=== PATIENT | female | born 1950 | race Caucasian/White ===

== ENCOUNTER 2018-12-21 12:26 | Outpatient (CLI) | payer MEDICARE, BC, SELFPAY ==
--- NOTE | 2018-12-21 15:32 | DI.MAMMO_ITS ---
SYMPTOM/DIAGNOSIS: SCREENING MAMMO FOR MALIGNANT NEOPLASM, BREAST. Z12.31 BILATERAL SCREENING MAMMOGRAM: Mammograms were interpreted according to the usual protocol including computer analysis with CAD system, tomosynthesis and C view imaging. Comparison is made with exams from 2015 through 2018. The breasts are composed of heterogeneously dense fibroglandular tissue, breast density category C. No suspicious masses or suspicious microcalcifications are seen. There has been no significant change. IMPRESSION: Category 1, negative mammogram. Yearly screening mammography is recommended. Breast density category C. MQSA ASSESSMENT OF FINDINGS: Negative. Category 1. Patient will receive a letter notifying them of these results. Bi-RADS category C. The breasts are heterogeneously dense, which may obscure small masses.
== END 2018-12-21 12:46 ==
PROVIDERS: PCP Family Medicine; Visit Provider Family Medicine
DX: Z12.31 Encounter for screening mammogram for malignant neoplasm of breast (principal)
CPT/HCPCS: 77063; 77067

== ENCOUNTER 2019-12-24 03:54 | Outpatient (CLI) | payer MEDICARE, BC, SELFPAY ==
--- NOTE | 2019-12-24 | DI.MAMMO_ITS ---
EXAM: MG MAMMO SCREENING CLINICAL HISTORY: SCREENING, Z12.31 TECHNIQUE: Mammograms were interpreted according to the usual protocol including computer analysis w [email or web address] CAD system, tomosynthesis and C-view imaging. COMPARISON: FINDINGS: The breasts are heterogeneously dense. No dominant mass or clumped microcalcification is identified in either breast. The current examination is compared with prior studies including November 2018 and the re has been no gross interval change in appearance in comparison with the previous examinations. IMPRESSION: No specific evidence of malignancy at this time. Routine screening examinations are suggested at yea rly intervals due to the family history of breast carcinoma. BI-RADS Category 1 - Negative Breast Density - Category C - Heterogeneously dense
== END 2019-12-24 04:14 ==
PROVIDERS: PCP Family Medicine; Visit Provider Nurse Practitioner Women's Health
DX: Z12.31 Encounter for screening mammogram for malignant neoplasm of breast (principal); Z80.3 Family history of malignant neoplasm of breast
CPT/HCPCS: 77063; 77067

== ENCOUNTER 2021-02-16 03:43 | Outpatient (CLI) | payer MEDICARE, SELFPAY ==
--- NOTE | 2021-02-16 | DI.MAMMO_ITS ---
Exam(s) MAMMO SCREENING EXAM: MAMMO SCREENING CLINICAL HISTORY: SCREENING,FAMILY H/O BREAST CA,DENSE BREAST TISSUE,Z12.31 TECHNIQUE: Bilateral full field digital CC and MLO mammographic images were obtained with 3D tomosyn thesis and utilizing computer aided detection (CAD). COMPARISON: Available for comparison. FINDINGS: Masses/Architectural Distortion: None seen. Microcalcifications: No suspicious pleomorphic-type are seen. Skin Thickening/Nipple Retraction: None. IMPRESSION: 1. No significant interval change with no specific features of malignancy noted. 2. Unless there is more urgent need, screening mammography is recommended, as per [place] [employer] guidelines. BI-RADS Category 1 - Negative Breast Density - Category C - Heterogeneously dense Breast density category C or D implies that the patient has dense breast tissue. Dense breast tissue is very common and is not abnormal but dense breast tissue can make it harder to find cancer on a ma mmogram. Also, dense breast tissue may increase their breast cancer risk. This information about the result of the mammogram report was provided to the patient to raise their awareness. Use this report when you speak with the patient about their risks for breast cancer, which includes their family hist ory. At that time, you may recommend for more screening tests (Ultrasound or MRI) as they might be us eful based on their risk. A negative radiographic report should not delay biopsy if a dominant or clinically suspicious mass is present. Up to ten percent of cancers are not identified on mammography. A negative report may reinforce clinical impression. Adenosis and dense breasts may obscure an underlying neoplasm. False positive reports average 6 to 10%. Patient will receive a letter notifying them of these results.
== END 2021-02-16 04:03 ==
PROVIDERS: PCP Physician Assistant; Visit Provider Nurse Practitioner Women's Health
DX: Z12.31 Encounter for screening mammogram for malignant neoplasm of breast (principal); Z80.3 Family history of malignant neoplasm of breast
CPT/HCPCS: 77063; 77067

== ENCOUNTER 2021-03-08 20:52 | Emergency (ER) | payer MEDICARE, SELFPAY ==
[2021-03-08 21:06] VITALS: BP 175/90; PULSE 70; RESP 18; TEMP 36.6; O2SAT 100
--- NOTE | 2021-03-08 21:31 | ED.GENADUL_ITS ---
Discharge Plan Disposition Patient Disposition: HOME Condition: Stable Discharge Details Clinical Impression: Insect bite Primary Care Provider: Marla Bejarano ED Provider: Franca Amanda Home Meds and New Rx's Prescriptions: No Action tretinoin [Retin-A] 45 GM cream 45 gm Topical DAILY RF: 0 Antacid Extra-Strength 1 EACH tablet 1 ea PO DAILY RF: 0 cranberry extract 500 MG capsule 500 mg PO DAILY Qty: 2 RF: 0 ESSENTIAL Daily 1 EACH tablet 1 ea PO DAILY RF: 0 Lactobacillus acidophilus 1 EACH capsule 1 ea PO DAILY RF: 0 Bety-C with Bioflavonoids 1 EACH tablet 1 ea PO DAILY Qty: 2 RF: 0 estradiol [Vagifem] 10 MCG tablet 25 mcg VG . 2-3 TIMES WEEKLY RF: 0 omega 3-wsf-yqe-fish oil 1 EACH capsule 2 tab PO DAILY RF: 0 Discharge Instructions Instructions: Insect Bite or Sting (ED) Additional Instructions: Take Benadryl tablet every 6-8 hours as needed for itching. Use antibiotic ointment as directed. Keep it covered. Fever vomiting body aches or nausea. Follow up with primary care provider in 3-5 days. Return to ED sooner if any worsening or concerns. Increase oral fluids. Please take Tylenol or Ibuprofen with food every 4-6 hours as needed for pain and swelling. Referrals: Marla Bejarano [Primary Care Provider] - Discharge Data Discharge Date/Time-TO BE ENTERED AT DEPARTURE: 03/08/21 22:01 Medical Decision Making <Franca Amanda - Last Filed: 03/08/21 22:18> 70-year-old female presents to the ER with chief complaint of right upper fore arm insect bite which occurred approximately 30 hours ago. Patient states that she was outside and noticed a bug bite. The area became itchy and patient scratched and noticed a small ulceration. She notes increased erythema swelling and warmth with some axillary tenderness since then. She denies any fever body nausea or any other associated symptoms. She denies that it could be a tick bite. No axillary lymphadenopathy palpated on exam. Patient instructed to use antibiotic ointment and take Benadryl once every 6-8 hours as needed for itching. Erythema was marked. Discussed strict return instructions and red flags including worsening erythema, body aches, fever, changing color of wound and reasons to follow-up. Patient verbalized understanding. Patient is requesting a second opinion and wishes to speak with Dr. Holm who is an ER attending. Dr. Steele graciously agreed to evaluate patient. Patient discharged with home care instructions verbalized understanding. This text was generated using [employer] dictation system, please disregard any oddities of phrase or misspellings. <Minh Steele DO - Last Filed: 03/08/21 21:59> I was asked to see the patient by Asuncion Padilla at the patient's request for evaluation by a physician medical provider. Assessment of the patient's arm demonstrates evidence of very mild histamine reaction likely secondary to a small arthropod bite. Potentially an arachnid bite. Symptoms notably inconsistent with a brown recluse bite. No evidence of cellulitis, but there is a small histaminic reaction. The area was circled. At this time recommendations are for triple antibiotic ointment, Benadryl, covering, and not scratching at all. Patient made it very clear that she did not want any oral antibiotics at this time, out of concern for potential C. difficile. Discussed red flags which to return. HPI <Franca Amanda - Last Filed: 03/08/21 22:18> General Mode of arrival: ambulatory . Date/Time Provider Initiated Documentation: 03/08/21 20:53 . Limitations to Documentation: no limitations . Information obtained by: patient and RN notes reviewed . HPI Narrative: 70-year-old female presents to the ER with chief complaint of right upper forearm insect bite which occurred approximately 30 hours ago. Patient states that she was outside and noticed a bug bite. The area became itchy and patient scratched and noticed a small ulceration. She notes increased erythema swelling and warmth with some axillary tenderness since then. She denies any fever body nausea or any other associated symptoms. She denies that it could be a tick bite. No axillary lymphadenopathy palpated on exam. Related Data Home Medications Medication Instructions Recorded Confirmed estradiol [Vagifem] 25 mcg VG . 2-3 TIMES WEEKLY 12/21/12 03/08/21 Lactobacillus acidophilus 1 ea PO DAILY NS 02/05/13 03/08/21 ascorbate calcium-bioflavonoid 1 ea PO DAILY #2 NS 02/05/13 03/08/21 [Bety-C 1,000 Mg Tablet] calcium and magnesium carbonat 1 ea PO DAILY NS 02/05/13 03/08/21 [Antacid Gelatin Caplet] cranberry extract 500 mg PO DAILY #2 NS 02/05/13 03/08/21 kwcklqbalthh-Xq-kwyj-minerals 1 ea PO DAILY NS 02/05/13 03/08/21 [Essential Daily] tretinoin [Retin-A 0.025% Cream] 45 gm TOPICAL DAILY script NS 02/05/13 03/08/21 omega 2-sjh-mgv-fish oil 2 tab PO DAILY 11/30/14 03/08/21 Allergies Allergy/AdvReac Type Severity Reaction Status Date / Time codeine Allergy Severe Anaphylaxsi Unverified 03/08/21 21:09 s oxycodone HCl [From Percocet] Allergy Severe Anaphylaxsi Unverified 03/08/21 21:09 s erythromycin base Allergy Intermediate Skin Rash Unverified 03/08/21 21:09 Penicillins Allergy Intermediate Skin Rash Unverified 03/08/21 21:09 propoxyphene HCl Allergy Intermediate resp Unverified 03/08/21 21:09 [From Darvon] depression morphine Allergy resp Unverified 03/08/21 21:09 depression aspirin AdvReac Severe stomach Unverified 03/08/21 21:09 upset ibuprofen [From Motrin] AdvReac Mild stomach Unverified 03/08/21 21:09 upset General Stated Complaint: RashLesion HANSA: 4 Review of Systems <Franca Amanda - Last Filed: 03/08/21 22:18> All systems reviewed & are unremarkable except as noted in HPI and below Integumentary/Breasts Skin/Breast: Reports pruritus and Reports rash (Right upper forearm) PFS <Francakyle Amanda - Last Filed: 03/08/21 22:18> Social History Smoking/Tobacco Use Status: Former Tobacco Use Smoking risk assessment performed?: Yes Alcohol Intake: never Drug use: Occasionally Substance use type: marijuana Do you feel safe at home: Yes Do you feel safe in your relationship?: Yes Exam <Franca Amanda - Last Filed: 03/08/21 22:18> Extrem Shoulder/upper arm images: 1. Area of erythema measuring approximately 7 cm x 3 cm central area of excoriation with surrounding honey colored crusting with small drainage. 2. Small area of excoriation. Course <Franca Amanda - Last Filed: 03/08/21 22:18> Vital Signs Vital signs: Vital Signs Temperature 36.6 C 03/08/21 21:06 Pulse 70 03/08/21 21:06 Respiratory Rate 18 03/08/21 21:06 Blood Pressure 175/90 H 03/08/21 21:06 Pulse Oximetry 100 03/08/21 21:06 Temperature 36.6 C 03/08/21 21:06 Temperature Source Temporal Artery Scan 03/08/21 21:06 Pulse 70 03/08/21 21:06 Respiratory Rate 18 03/08/21 21:06 Respiratory Effort 03/08/21 21:11 Blood Pressure 175/90 H 03/08/21 21:06 Blood Pressure Position Sitting 03/08/21 21:06 Pulse Oximetry 100 03/08/21 21:06 Oxygen Delivery Method Room Air 03/08/21 21:06 Oxygen Flow Rate 0 03/08/21 21:06 Pain Level 2 03/08/21 21:06
[2021-03-08] MEDS: diphenhydrAMINE 25 MG CAP PO (21:54)
== END 2021-03-08 22:01 | disposition home or self-care (01) ==
PROVIDERS: Emergency Provider Registered Nurse Emergency; PCP Physician Assistant
DX: S40.861A Insect bite (nonvenomous) of right upper arm, initial encounter (principal); W57.XXXA Bitten or stung by nonvenomous insect and other nonvenomous arthropods, initial encounter
CPT/HCPCS: 99282

== ENCOUNTER 2021-12-03 11:08 | Outpatient (CLI) | payer MEDICARE, SELFPAY ==
--- NOTE | 2021-12-03 10:50 | DI.RAD_ITS ---
Exam(s) XR HIP RT COMPLETE AP PELVIS EXAM: XR HIP RT COMPLETE AP PELVIS INDICATION: R hip pain. COMPARISON: MR MRI - PELVIS WO CONTRAST from 03/10/2015 TECHNIQUE: 2D digital imaging was performed. Two views. FINDINGS: There is mild bilateral hip joint space narrowing and mild bilateral acetabular spurring. There are mild degenerative changes at the inferior SI joints right greater left. IMPRESSION: Mild degenerative changes. DATA REPOSITORY: RADIATION DOSE DELIVERED:
== END 2021-12-03 11:09 | disposition home or self-care (01) ==
LOC: DIORS 11:08
PROVIDERS: PCP Physician Assistant; Referring Provider Physician Assistant; Visit Provider Physician Assistant
DX: M16.11 Unilateral primary osteoarthritis, right hip
CPT/HCPCS: 99214; 73502

== ENCOUNTER → 2021-12-13 03:15 | Outpatient (CLI) | payer MEDICARE, SELFPAY ==
--- NOTE | 2021-12-13 13:39 | DI.RAD_ITS ---
Exam(s) RF JOINT INJECTION FLUORO GUID EXAM: RF JOINT INJECTION FLUORO GUID CLINICAL HISTORY: R HIP PAIN, RT HIP INJ UNDER FLUORO,M25.551 TECHNIQUE: Fluoroscopy provided. Radiologist not present. CONTRAST MATERIAL: None COMPARISON: No exams were available for comparison FINDINGS: Fluoroscopy was provided for therapeutic right hip injection. Submitted image(s) reveal intra-articular needle placement at the lateral aspect femoral head. Small amount of intra-articular contrast was injected for position verification. Please refer to the procedure report for complete details. Cumulative Dose: daniel Bailon=0.240 mGy IMPRESSION: RADIATION DOSE DELIVERED:
[2021-12-13] MEDS: Omnipaque 300 MG/ML 10 ML BTL IJ (14:22)
[2021-12-13] MEDS: Bupivacaine 0.5% Pres-Free 10 ML VIAL 6 ML IJ (14:23)
--- NOTE | 2021-12-13 14:25 | W.PROCNOTE ---
Date of service: 12/13/21 Time of Service: 13:40 Procedure Note Date of procedure: 12/13/21 Procedure: Right Hip Injection with Fluoroscopic Guidance Surgeon/Proceduralist/Physician: Gabriel Glover Procedure Diagnosis: Right Hip Osteoarthritis Procedure Indications: Olivia has had persistent pain of the RIGHT hip and groin. Noninvasive measures have been tried. To serve as diagnostic, an injection under fluoroscopy was recommended. I had discussed the risks of the procedure and the patient elected to proceed. Procedure Description: Olivia was greeted in the flouroscopy room. The correct side was identified and the consent was reviewed with the patient and signed. The patient was then placed in the supine position on the fluoroscopy table. The RIGHT hip was then prepped with Chloraprep. The anterolateral injection starting point was identiifed by bony landmarks and fluoroscopy. The skin and soft tissue in the tract of the injection was anesthetized with 1% Lidocaine. A spinal needle was then inserted deep into the hip joint at the level of the lateral femoral neck under fluoroscopic guidance. A small amount of Omnipaque solution was injected to confirm intraarticular placement. Once confirmed, the hip was injected with 6cc of 0.5% Bupivicaine and 2cc of 1% Lidocaine. A bandaid was placed on the injection site. The patient tolerated the procedure well and noted improvement in pre-injection pain.
== END ==
PROVIDERS: PCP Physician Assistant; Visit Provider Student in an Organized Health Care Education/Training Program
DX: M25.551 Pain in right hip (principal)
CPT/HCPCS: 20610; 77002

== ENCOUNTER 2021-12-21 11:56 | Outpatient (CLI) | payer MEDICARE, SELFPAY ==
--- NOTE | 2021-12-21 11:00 | DI.RAD_ITS ---
Exam(s) XR PELVIS AP EXAM: XR PELVIS AP CLINICAL HISTORY: PRE OP R STEVEN. TECHNIQUE: 2D digital imaging was performed. One image was obtained. COMPARISON: CR XR HIP RT COMPLETE AP PELVIS from 12/03/2021 FINDINGS: BONES: No acute fracture is present. No bony destructive lesion is seen. JOINTS: No dislocation present. There are stable degenerative changes of the hips bilaterally. SOFT TISSUE: Normal. IMPRESSION: Stable degenerative changes of the hips. DATA REPOSITORY: RADIATION DOSE DELIVERED:
== END 2021-12-21 11:57 | disposition home or self-care (01) ==
LOC: DIORS 11:56
PROVIDERS: PCP Physician Assistant; Referring Provider Physician Assistant; Visit Provider Physician Assistant
DX: M16.11 Unilateral primary osteoarthritis, right hip (principal); Z01.818 Encounter for other preprocedural examination
CPT/HCPCS: 72170

== ENCOUNTER 2021-12-28 02:24 | Outpatient (CLI) | payer MEDICARE, SELFPAY | END 2021-12-28 02:25 | disposition home or self-care (01) | LOC: LBO 02:25 | PROVIDERS: PCP Physician Assistant; Visit Provider Student in an Organized Health Care Education/Training Program ==

== ENCOUNTER 2021-12-28 03:11 | Outpatient (CLI) | payer MEDICARE, SELFPAY ==
--- OUTSIDE RECORDS SUMMARY | 2021-12-28 03:16 | XMS_ITS | Encounter Summary ---
:1950 Author Organization [facility] [place] [address] Care Team Providers Name Role Phone Marla Moralez MD Primary Care Provider Reason for Visit Reason Onset Date Comments Advice Only 10/12/2013 Encounter Details Date Type Department Care Team Description 10/12/2013 Telephone [place] [facility] [place] Valentina Woodward PA Advice Only [facility] [place] [address] [place] [id number] ORTHOPAEDIC SURGERY [phone] [place] [id number] (Wo rk) Social History Tobacco Use Types Packs/Day Years Used Date Former Smoker Cigarettes 0.25 20 Quit: 05/03/19 88 Smokeless Tobacco: Never Used Alcohol Use Standard Drinks/Week Comments Yes 0 (1 standard drink = 0.6 oz pure alcoho l) A FEW DRINKS A YEAR. Alcohol Habits Answer Date Recorded How often do you have a drink containing alcohol? Not asked How many drinks containing alcohol do you have on Not asked a typical day when you are drinking? How often do you have six or more drinks on one Not asked occasion? Comment: A FEW DRINKS A YEAR. 09/22/2013 Sex Assigned at Date Recorded Not on file documented as of this encounter Miscellaneous Notes Telephone Encounter - Ric Castro RN - 10/12/2013 2:28 PM EDT She may shower now, immersion bath after 24 hours. Telephone Encounter - Tamiko Coleman - 10/12/2013 10:05 AM EDT Patient had an injection yesterday with Valentina. Patient would like to know if/when she may take an immersion bath or shower. Please call her back at [phone]. documented in this encounter Plan of Treatment Not on filedocumented as of this encounter Visit Diagnoses Not on filedocumented in this encounter Care Teams Cook Chief Relationship Specialty Start Date End Date Christian-Marla Nazario MD PCP - General 12/31/11 [address] [place] [phone] documented as of this encounter
--- OUTSIDE RECORDS SUMMARY | 2021-12-28 03:16 | XMS_ITS | Encounter Summary ---
:1950 Author Organization [facility] [address] Care Team Providers Name Role Phone Marla Moralez MD Primary Care Provider Reason for Visit Reason Comments Left Knee Pain Encounter Details Date Type Department Care Team Description 10/11/2013 Office Visit Orthopaedics at [facility] [place] Valentina Wood[place], DORA (degenerative joint dise ase) of knee (Primary Dx); [facility] Knee pain, [place] [address] CENTER [phone] ORTHOPAEDIC SURGERY [place] [id number] Social History Tobacco Use Types Packs/Day Years [...] on file documented as of this encounter Last Filed Vital Signs Vital Sign Reading Time Taken Comments Blood Pressure 127/74 10/11/2013 12:51 PM EDT Pulse 86 10/11/2013 12:51 PM EDT Temperature - - Respiratory Rate - - Oxygen Saturation - - Inhaled Oxygen Concentration - - Weight 68.9 kg (152 lb) 10/11/2013 12:51 PM EDT Height 152.4 cm (5') 10/11/2013 12:51 PM EDT Body Mass Index 29.69 10/11/2013 12:51 PM EDT documented in this encounter Progress Notes Valentina Woodward PA - 10/11/2013 1:30 PM EDT Date of Visit: 10/11/13 Staff: Dr. Larkin CC: Left knee pain HPI: This is a 63 y.o. Female who was last seen in clinic 09/22/13. She was diagnoses with DJD and treated with synvisc injcection. She had apporox 2 weeks of moderate relief. She then noted apporx 1 week ago as she got out of bed her knee was very swollen and she had increased pain. She had been back to her regular exercise regiment. Denies injury. Denies fever or chills. Has not returned to active dance. Exam: Alert and Oriented x 3. NAD. Left knee effusion. No ecchymosis Missing 5 degree of full extension. Flexion 110 with pain at end. Stable to varus and valgus stress XRAY: no new xray today. A/P: DJD left knee. Acute exacerbation of symptoms. At this time seems reasonable to use steriod injection and aspiration to treat the knee. She is unable to tolerate nsaids. Will follow up PRN. If no benefit from injection should call. PROCEDURE NOTE: left knee Injection A time-out was performed and the left knee was confirmed to be the site of injection. The patient was confirmed to have no allergies to betadine, local anesthetics, or corticosteroids. The patient wasreminded that blood glucose can be transiently elevated by the corticosteroid injection. The patientwas counseled about the potential risks of the procedure, including infection, bleeding and incomplete relief of symptoms. I also discussed with the patient that cortisone is not healthy for muscle tendons or cartilage and that there is an increased risk with repeated injections. The skin was prepped widely over the left knee with duraprep. Then, using sterile technique, a solution consisting of 5cc 1% lidocaine (50mg), 3cc 0.25% marcaine (7.5mg), and 4 cc Kenalog (40 mg) was injected into the left knee using a 20 gauge needle. This was completed after aspiration of 40cc of straw colored fluid. It was not sent for lab work. The needle was felt to slide into the joint and mixture flowed freely. The skin was cleaned with alcohol and a Band-Aid was applied. The patient tolerated the procedure well. documented in this encounter Plan of Treatment Not on filedocumented as of this encounter Visit Diagnoses Diagnosis DJD (degenerative joint disease) of knee - Primary Osteoarthrosis, unspecified whether gene ralized or localized, lower leg Knee pain, left Pain in joint, lower leg documented in this encounter Administered Medications Inactive Administered Medications - up to 3 most recent administrations Medication Order MAR Action Action Date Dose Rate Site BUpivacaine (PF) (MARCAINE) 0.25 % Given 10/11/2013 1:29 PM EDT 7.5 mg (2.5 mg/mL) injection 7.5 mg 7.5 mg, Intra-articular, ONCE, 1 dose, On Fri10/11/13 at 1345, Routine lidocaine (XYLOCAINE) 10 mg/mL (1 %) injection Given 0 10/11/2013 1:30 PM EDT 60 mg 60 mg 60 mg, Intra-articular, ONCE, 1 dose, On Fri10/11/13 at 1345, Routine triamcinolone acetonide (KENALOG) injection 40 Given 0 10/11/2013 1:30 PM EDT 40 mg mg 40 mg, Intra-articular, ONCE, 1 dose, On Fri10/11/13 at 1345, Routine documented in this encounter Care Teams Inspector Electromechanical Relationship Specialty Start Date End Date Christian-Marla Nazario MD PCP - General 12/31/11 [address] [facility] [address] [place] [address] documented as of this encounter
--- OUTSIDE RECORDS SUMMARY | 2021-12-28 03:16 | XMS_ITS | Encounter Summary ---
:1950 Author Organization [facility] [place] [address] Care Team Providers Name Role Phone Marla Moralez MD Primary Care Provider Encounter Details Date Type Department Care Team Description 04/27/2013 Follow-Up Physical Therapy at [facility] muscle [facility]; [facility] [place] Head[place] [facility] [place] [address] PHYSICAL MEDICINE & [phone] [place] [address] Social History Tobacco Use Types Packs/Day Years Used Date Former Smoker Sex Assigned at Date Recorded Not on file documented as of this encounter Progress Notes [facility], PT - 04/27/2013 2:47 PM EDT Physical Therapy Progress Note Total treatment time: 50 minutes Total timed code treatment: 50 minutes follow up visit for patient with 1. Myofacial muscle pain 2. Headache Current goals: Goals: Short term goals (4 weeks) 1. Patient to be indep with home exercise program. 2. Pt to report less frequency of headache to 4 x week 3. Pt to have 0/10 pain at times. Goals: superintendent container terminal goals (12 weeks) 1. Pt to be able to minimize headache to 4/10 at worst less then 3 x a week. S: Patient reports she was doing ok until she had to come here. Hospital is inhumane. Feels it is impossible place to get around. Gets stressed coming here. Discussed option of treatment at [facility] facility that is much more quiet and easy parking. Pt would like to try this. O: Manual Therapy ([id number]) 50 minutes ?? STM to the neck and shoulder area ?? MFR techiniques at base of skull and into the shoulders. ?? BACK FACER suboccipital release, still point. Unwinding of neck unwound to the right. ?? Still point at shoulder. ?? Thoracic release ?? Manual traction to neck. ?? Pt reports headache is gone following treatment. Would like to try other facility. A: Stress of getting to facility may increase her sx to a point that we are unable to to progress. Will try quieter facility and see if she gets results. P: Continue physical therapy for headaches. documented in this encounter Plan of Treatment Not on filedocumented as of this encounter Visit Diagnoses Diagnosis Myofacial muscle pain Mylagia and myositis, unspecified Headache(784.0) Headache documented in this encounter Care Teams Cyber [employer] Systems Specialist Relationship Specialty Start Date End Date Christian-Marla Nazario MD PCP - General 12/31/[address] [place] [id number] documented as of this encounter
--- OUTSIDE RECORDS SUMMARY | 2021-12-28 03:16 | XMS_ITS | Encounter Summary ---
:1950 Author Organization [facility] [place] [address] Care Team Providers Name Role Phone Marla Moralez MD Primary Care Provider Encounter Details Date Type Department Care Team Description 04/06/2013 Follow-Up Physical Therapy at Guadalupe Corrales; [facility] [place] Myofacial muscle [place] [address] PHYSICAL MEDICINE & [phone] [place] [address] Social History Tobacco Use Types Packs/Day Years Used Date Former Smoker Sex Assigned at Date Recorded Not on file documented as of this encounter Progress Notes Guadalupe Corrales, PT - 04/06/2013 4:04 PM EDT Physical Therapy Progress Note Total treatment time: 40 minutes Total timed code treatment: 40 minutes Follow up visit for patient with 1. Headache 2. Myofacial muscle pain S: Pt is 1/2 hour late for appointment. C/o mid back pain. Saw chiropractor some relief. Feels may be related to work. O: Therapeutic Exercise (27189) 10 minutes and Manual Therapy (86571) 30 minutes ?? therex- review of current stretching. Current ex -hams stretch in sitting, calf stretch on stair,trunk rotation. ?? Pt posture is poor with shortening of the right ?? Added lift of arm over head and across no pain lifting right. Pain on right with left lift. Instructed to do right lift x5 times with 20 second hold. Try the left. ?? Manual therapy- stm mfr and DNA SEQUENCING ASSOCIATE techniques to increase flow through trunk and head. Suboccipital release. Thoracic diaphragm release. Still point achieved. A: Pt feels better following treatment. Improved range of trunk and flexibility of the neck and head. P: Continue physical therapy for headaches. documented in this encounter Plan of Treatment Not on filedocumented as of this encounter Visit Diagnoses Diagnosis Headache(784.0) Headache Myofacial muscle pain Mylagia and myositis, unspecified documented in this encounter Care Teams Sleeve Presser Operator Relationship Specialty Start Date End Date Christian-Marla Nazario MD PCP - General 12/31/11 [address] [place] [address] documented as of this encounter
--- OUTSIDE RECORDS SUMMARY | 2021-12-28 03:16 | XMS_ITS | Encounter Summary ---
:1950 Author Organization [facility] [place] [address] Care Team Providers Name Role Phone Marla Moralez MD Primary Care Provider Encounter Details Date Type Department Care Team Description 05/19/2013 Follow-Up Physical Therapy at Uvaldo Corrales, PT [facility] [address] PHYSICAL MEDICINE & [place] [address] Headache (Primary Dx) [facility] Marla Moralez MD [address] [place] [id number] [address] [place] [address] Social History Tobacco Use Types Packs/Day Years Used Date Former Smoker Sex Assigned at Date Recorded Not on file documented as of this encounter Progress Notes Guadalupe Corrales, PT - 05/20/2013 3:12 PM EST Physical Therapy Progress Note Total treatment time: [...] to have 0/10 pain at times. Goals: nursing home goals (12 weeks) 1. Pt to be able to minimize headache to 4/10 at worst less then 3 x a week. S: pt reports stressed almost missed turn and almost had accident. But parking is better. O: Manual Therapy (82921) 50 minutes STM to the neck and shoulder area MFR techiniques at base of skull and into the shoulders. LIBRARY ATTENDANT suboccipital release, still point. Unwinding of neck unwound to the right. Still point at shoulder. Thoracic release Manual traction to neck. Pt reports headache is gone following treatment. Discussed and went through the exercises for her hip bursitis. Corrected technique pt does tend to gibbs through the exercise. Discussed that she does not want to irritate. Review of eye gaze and stabilization exercises. A:pt seems a little more at ease. Good release and relaxation. Concerned about double vision and if treatment can help that . Discussed that with loosening of the ms of the base of skull could have change but am unsure of the effect on double vision. P: Continue physical therapy for headaches. documented in this encounter Plan of Treatment Not on filedocumented as of this encounter Visit Diagnoses Diagnosis Headache(784.0) - Primary Headache documented in this encounter Care Teams Tabular Typist Relationship Specialty Start Date End Date Christian-Marla Nazario MD PCP - General 12/31/11 79 [facility] [address] [place] [id number] documented as of this encounter
--- OUTSIDE RECORDS SUMMARY | 2021-12-28 03:16 | XMS_ITS | Encounter Summary ---
:1950 Author Organization [facility] [place] [address] Care Team Providers Name Role Phone Marla Moralez MD Primary Care Provider Reason for Visit Reason Comments Skin Check Encounter Details Date Type Department Care Team Description 06/08/2015 Office Visit Dermatology at [facility] Lonny De La Paz MD Solar lentigo; [address] Mani [address] [place] [address] [place], [place] [id number] (Wo rk) Social History Tobacco Use Types [...] on file documented as of this encounter Patient Instructions Patient InstructionsMarcella Saravia LPN - 06/08/2015 8:45 AM EST Images from the original note were not included. [facility] Moles: After Your Visit Your Care Instructions Moles are skin growths made up of cells that produce color (pigment). A mole can appear anywhere on the skin, alone or in groups. Most people get a few moles during their first 20 years of life. They are usually brown in color but can be blue, black, or flesh-colored. Most moles are harmless and do not cause pain or other symptoms, unless you rub them or they bump against something. You usually do not need treatment for moles. But some can turn into cancer. Talk to your doctor if amole bleeds, itches, melagr, or changes size or color. Also let your doctor know if you get a new mole. Make sure to wear sunscreen and other sun protection every day to help prevent skin cancer. Follow-up care is a waterman part of your treatment and safety. Be sure to make and go to all appointments, and call your doctor if you are having problems. It???s also a good idea to know your test resultsand keep a list of the medicines you take. How can you care for yourself at home? ?? Check all the skin on your body once a month for skin growths or other changes, such as in the color and feel of the skin. ?? shipping clerk front of a full-length mirror. Look carefully at the front and back of your body. Then look at your right and left sides with your arms raised. ?? Bend your elbows and look carefully at your forearms, the back of your upper arms, and your palms. ?? Look at your feet, the bottoms of your feet, and the spaces between your toes. ?? Use a hand mirror to look at the back of your legs, the back of your neck, and your back, rear end (buttocks), and genital area. Part the hair on your head to look at your scalp. ?? If you see a change in a skin growth, contact your doctor. Look for: ?? A mole that bleeds. ?? A fast-growing mole. ?? A scaly or crusted growth on the skin. ?? A sore that will not heal. To prevent skin cancer ?? Always wear sunscreen on exposed skin. Make sure the sunscreen blocks ultraviolet rays (both UVA and UVB) and has a sun protection factor (SPF) of at least 15. Use it every day, even when it is cloudy. Some doctors may recommend a higher SPF, such as 30. ?? Wear a wide-brimmed hat and long sleeves and pants if you are going to be outdoors for very long. ?? Avoid the sun between 10 a.m. and 4 p.m., which is the peak time for the sun's ultraviolet rays. ?? Avoid sunburns, tanning booths, and sunlamps. ?? Be sure to protect children from the sun. Sunburns in childhood damage the skin and increase the risk of cancer. When should you call for help? Watch closely for changes in your health, and be sure to contact your doctor if: ?? A mole looks different than it did before. It may have changed in size, color, shape, or the way it looks. ?? You have a new mole. ?? You have a new pimple or skin growth that does not go away. Where can you learn more? Visit our health information library at [email or web address] You can also view health information on [employer], your personal patient account. Log in or sign up today. Enter M489 in the search box to learn more about Moles: After Your Visit. ?? [id number] [employer] B[employer]. Care instructions adapted under license by [facility]. This care instruction is for use with your licensed healthcare professional. If you have questionsabout a medical condition or this instruction, always ask your healthcare professional. [employer] disclaims any warranty or liability for your use of this information. Content Version: 10.4.227316; Current as of: September 08, 2013 documented in this encounter Progress Notes Lonny Rodrigues MD - 06/08/2015 9:10 AM EST Problems: 1. Repeat skin checkup. 2. Changing mole, left nasolabial fold. Olivia follows up after last being seen in November 2013. She is having fewer problems with her eczema and does not really need at the moment any hydrocortisone 2.5% cream or Protopic. She would like to have a general skin check, as it has been a while, and she states that this summer she had a fall and fell on her nose and had quite a big facial bruise. At that time, a growth on her left cheek that had been there for some time stood out and began to concern her. It has been a little bit red and sore since then. Physical examination reveals a 3-mm pearly papule with a telangiectasia present through its substance, concerning potentially for possible BCCA. Differential would also include compound versus intradermal nevus. Otherwise, careful examination of the head and neck, chest, back, hands, arms, forearms, thighs, calves, and soles of the feet including toe web spaces is benign. She has numerous solar lentigos and benign nevi, and a number of diffuse macias red hemangiomas. She has a nevus at the vertex of the scalp-a 4-mm, dome-shaped, flesh-toned papule. The nevus today on the left nasolabial fold is flesh toned with a pearly papule and again does raise possible differential of BCCA. Assessment and Plan: 1. Rule out BCCA, left nasolabial fold. a. We will schedule a 30-minute appointment for excision of this in the near future. 2. Benign skin examination. a. Patient reassured about remainder of benign skin examination. b. Continue sun avoidance precautions. 3. History of irritant dermatitis of lips. a. Currently quiescent; it has been quiescent for some time. b. No refills were given today for Protopic or of her hydrocortisone 2.5% cream. c. Return to clinic here for a 30-minute appointment for her excision, as noted above. COPY: Marla Moralez M.D. documented in this encounter Plan of Treatment Not on filedocumented as of this encounter Visit Diagnoses Diagnosis Solar lentigo Other dyschromia Nevus Benign neoplasm of skin, site unspecifie d documented in this encounter Care Teams Supervisor Special Effects Relationship Specialty Start Date End Date Marla Moralez MD PCP - General 12/31/[address] [address] documented as of this encounter
--- OUTSIDE RECORDS SUMMARY | 2021-12-28 03:16 | XMS_ITS | Encounter Summary ---
:1950 Author Organization [facility] [place] [address] Care Team Providers Name Role Phone Marla Moralez MD Primary Care Provider Encounter Details Date Type Department Care Team Description 06/29/2013 Orders Only Orthopaedics at [facility] [place] Ferdinand Larkin MD [facility] [place] [address] ORTHOPAEDIC SURGERY [phone] [place], [place] [address] (Wo rk) Social History Tobacco Use Types Packs/Day Years Used Date Former Smoker Sex Assigned at Date Recorded Not on file documented as of this encounter Plan of Treatment Pending Results Name Type Priority Associated Diagnoses Date/Ti mo Film Library- Storage Imaging Routine 2012 10:30 PM EST only MR Knee documented as of this encounter Visit Diagnoses Not on filedocumented in this encounter Care Teams Home Worker Relationship Specialty Start Date End Date Marla Moralez MD PCP - General 12/31/11 [address] [facility] [address] [place] [address] documented as of this encounter
--- OUTSIDE RECORDS SUMMARY | 2021-12-28 03:16 | XMS_ITS | Encounter Summary ---
:1950 Author Organization [facility] [place] [address] Care Team Providers Name Role Phone Marla Moralez MD Primary Care Provider Encounter Details Date Type Department Care Team Description 09/22/2013 Hospital En[place] [facility] [place] knee pain [address] [facility] [address] Social History Tobacco Use Types Packs/Day Years [...] on file documented as of this encounter Medications at Time of Discharge Medication Sig Dispensed Refills Start Date End Date multivitamin (THERAGRAN) Take 1 tablet by 0 tablet mouth daily. CIS Free Text Med - 0 12/13/200910/14 Vagiphen documented as of this encounter Plan of Treatment Not on filedocumented as of this encounter Procedures Procedure Name Priority Date/Time Associated Diagnosis Comme nts XR JOINT TEAM Routine 09/22/2013 7:55 AM Left knee pain Result s for this ALIGNMENT AP LAT EDT procedure a re in [place] the results section. documented in this encounter Results XR JOINT TEAM ALIGNMENT AP LAT [place] [facility] (09/22/2013 7:55 AM EDT) Anatomical Region Laterality Modality N/A Radiographic Imaging Specimen (Source) Anatomical Collection Method Collection Time Re ceived Time Location / / Volume Laterality 09/22/2013 7:55 AM EDT Narrative 09/22/2013 8:56 AM EDT Examination JOINT TEAM STANDING ALIGNMENT AP [facility] Clinical History LT KNEE PAIN / OA 2ND OP; RIGHT KNEE ABELINO N Comparison None Technique Separate images of the pelvis, knees and feet were acquired in the AP projection with the patient standing. In addition to routine views of the knee, these images were stitched together to f orm a composite image of the pelvis and legs allowing for evaluation of lower ex tremity alignment in the weight bearing position. Findings There is bilateral mild to moderate late ral and medial joint space narrowing. ?? Small marginal osteophytes are present i n the left medial compartment and at the superior margin of the patella, as w ell as at the tibial spines bilaterally. ??There is a small left kne e effusion. ??No definite right knee effusion. ??No radiographically apparent soft tissue swelling or abnormal calcification. Standing alignment view demonstrates silvia ghtbearing axis of the lower extremities near midline bilaterally. ?? Note is made of osteophyte formation at the hips bilaterally. ??No significant p elvic tilt. Impression Bilateral knee osteoarthritis with mild to moderate medial and lateral joint space narrowing. ??Small left knee effus ion. Procedure Note Josué Holm MD - 09/22/2013Formatti ng of this note might be different from the original. Examination JOINT TEAM STANDING ALIGNMENT AP [facility] Clinical History LT KNEE PAIN / OA 2ND OP; RIGHT KNEE ABELINO N Comparison None Technique Separate images of the pelvis, knees and feet were acquired in the AP projection with the patient standing. In addition to routine views of the knee, these images were stitched together to f orm a composite image of the pelvis and legs allowing for evaluation of lower ex tremity alignment in the weight bearing position. Findings There is bilateral mild to moderate late ral and medial joint space narrowing. Small marginal osteophytes are present i n the left medial compartment and at the superior margin of the patella, as w ell as at the tibial spines bilaterally. There is a small left knee effusion. No definite right knee effusion. No radiographically apparent s oft tissue swelling or abnormal calcification. Standing alignment view demonstrates silvia ghtbearing axis of the lower extremities near midline bilaterally. No te is made of osteophyte formation at the hips bilaterally. No significant pel jose tilt. Impression Bilateral knee osteoarthritis with mild to moderate medial and lateral joint space narrowing. Small left knee effusio n. Ferdinand Larkin MD IMG DX ORDERABLES documented in this encounter Visit Diagnoses Diagnosis Left knee pain Pain in joint, lower leg documented in this encounter Care Teams Teacher Preschool Relationship Specialty Start Date End Date Christian-Marla Nazario MD PCP - General 12/31/11 79 [facility] [address] [place] [address] documented as of this encounter
--- OUTSIDE RECORDS SUMMARY | 2021-12-28 03:16 | XMS_ITS | Encounter Summary ---
:1950 Author Organization [facility] [place] [address] Care Team Providers Name Role Phone Marla Moralez MD Primary Care Provider Reason for Visit Reason Comments Skin Check Encounter Details Date Type Department Care Team Description 05/10/2016 Office Visit Dermatology at Lonny Rodrigues Nevus; Tamela STOREY Solar lentigo; [address] Seborrheic keratosis, inflamed Mani B DERMATOLOGY [place], [place] [id number] [phone] Social History Tobacco Use Types Packs/Day Years [...] documented as of this encounter Progress Notes Lonny Rodrigues MD - 05/10/2016 2:45 PM EST PROBLEMS: 1. Skin checkup. 2. 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 3. Skin check. Olivia follows up concerned about some new lesions. She would like to have these checked. PHYSICAL EXAMINATION: Reveals irritated tags present under the left and right arm, and on presternal chest. She has a couple of irritated seborrheic keratoses as well on the presternal chest. She has a beautifully healed left nasolabial fold, incision line, which really is almost invisible. Examination of the face, the chest, the back, hands, arms, forearms, thighs and calves is benign. ASSESSMENT AND PLAN: 1. Irritated seborrheic keratoses. a. The sites were anesthetized and removed with light C and D. b. Triple antibiotic ointment and Band-Aid were placed. c. Wound care instructions and supplies given. d. Return to clinic here p.r.n. for new lesion/concerns. 2. History of BCCA left nasolabial fold. a. No evidence of recurrence, patient reassured. CC: Marla Moralez MD documented in this encounter Plan of Treatment Not on filedocumented as of this encounter Visit Diagnoses Diagnosis Nevus Benign neoplasm of skin, site unspecifie d Solar lentigo Other dyschromia Seborrheic keratosis, inflamed Inflamed seborrheic keratosis documented in this encounter Care Teams Master Sheet Clerk Relationship Specialty Start Date End Date Marla Moralez MD PCP - General 12/31/[address] [address] documented as of this encounter
--- OUTSIDE RECORDS SUMMARY | 2021-12-28 03:16 | XMS_ITS | Encounter Summary ---
:1950 Author Organization [facility] [place] [address] Care Team Providers Name Role Phone Marla Moralez MD Primary Care Provider Reason for Visit Reason Comments Procedure Encounter Details Date Type Department Care Team Description 08/01/2015 Procedure visit Dermatology at [facility] Lonny Rodrigues MD Nev [address] [place] [address] [facility] [place] [address] [place], [place] [id number] (Wo rk) Social History Tobacco Use Types [...] encounter Progress Notes Lonny Rodrigues MD - 08/01/2015 3:02 PM EST Problem: Rule out BCCA versus nevus, left nasolabial fold. Size: 3 mm. Deep Suture: 5-0 Vicryl. Surface Suture: 5-0 Ethilon. Followup: In one week for suture removal and biopsy results. Indications for surgery, possible adverse outcomes, and activity restrictions were discussed. Informed verbal consent was obtained. Skin surface was prepared with 4% chlorhexidine and draped in the usual sterile manner. Local anesthesia with 1% lidocaine, 1:100,000 epinephrine, and 0.1 mEq/mL bicarbonate. Using a #15 blade, an elliptical excision was carried out around the lesion. Undermining performed peripherally. Hemostasis with electrodesiccation. Layered closure performed with specimen to Pathology. Wound dressed and wound care reviewed. End length of suture line was 1.1 cm. Follow up in one week for suture removal and biopsy results. COPY: Marla Moralez M.D. documented in this encounter Plan of Treatment Not on filedocumented as of this encounter Visit Diagnoses Diagnosis Nevus Benign neoplasm of skin, site unspecifie d documented in this encounter Care Teams Yard Foreman Relationship Specialty Start Date End Date Marla Moralez MD PCP - General 12/31/[address] [place] [address] documented as of this encounter
--- OUTSIDE RECORDS SUMMARY | 2021-12-28 03:16 | XMS_ITS | Encounter Summary ---
:1950 Author Organization [facility] [place] [address] Care Team Providers Name Role Phone Marla Moralez MD Primary Care Provider Encounter Details Date Type Department Care Team Description 11/23/2021 Office Visit Dermatology at [facility] Vika Morales, History of SCC (squamous cell carcinoma) of skin; Juan STOREY Seborrheic keratoses, inflamed; [address] [facility] Seborrheic keratoses; [place] [address] Lentigines; [phone] DERMATOLOGY Multiple nevi; [place], [place] [address] Polo angioma; [phone] Skin cancer scr eening (Work) Social History Tobacco Use Types Packs/Day Years [...] documented as of this encounter Progress Notes Vika Morales MD - 11/23/2021 3:30 PM EDT Images from the original note were not included. DEPARTMENT OF DERMATOLOGY Medical Dermatology Clinic Provider: Vika Morales MD Patient's preferred name Paulette Preferred contact method for results [x]Phone: cell []myD-H []Letter Detailed phone message OK? Yes Are there any other people with whom we may discuss your care? No Past Medical History Date, location, treatment Melanoma No Dysplastic nevi No SCC SCC - left upper cutaneous lip, approx 2014 BCC No AKs No UV Exposure & Protection SPF 50+ Other relevant past medical history No Family History Details Melanoma No NMSC Aunt with unknown skin cancer Other relevant family history No Social History Occupation: Hobbies: Other: Pre-Procedure Screening Details Allergy to lidocaine, epinephrine, Dermabond, chlorhexidine, or adhesives No Bleeding disorder or blood thinners No Pacemaker, defibrillator, deep brain stimulator, cochlear implant No History of Present Illness: Olivia Azevedo is a 71 y.o. Patient is new and self-referred to the clinic for a FSE. Patient states a spot on her right chest that has been prsent for less then a year. Patient states it has been itchy and has gotten bigger. Medications: Reviewed in eD-H Allergies: Reviewed in eD-H Skin Examination: Full skin examination: Patient asked to undress to their comfort level. Verbalized that the provider's preference is that patient remove all clothing and that the provider will not examine areas patient elects to keep covered. Examination of the scalp, hair, head, face, ears, neck, chest, axillae, abdomen, back, buttocks, and upper and lower extremities was normal with the exception of the findings below. Genitalia not examined. Assessment/Plan #. Inflamed Seborrheic Keratosis - Inflamed, stuck on, waxy papule on the right chest. - Discussed benign nature of lesion(s) and provided reassurance. - Due to irritation present on today's exam and history of symptoms, discussed removal with cryotherapy. - Patient elects to proceed with cryotherapy today. Procedure: Destruction of lesion(s) with cryotherapy (LN2). Location(s): As noted above Number: 1 Discussed procedure and expectations including risks and benefits. Verbal consent obtained. Treated with LN2. There were no complications; Patient tolerated the procedure well. Post-procedure expectations and wound care were reviewed. #. Seborrheic Keratoses - Stuck on, waxy papules on the trunk and extremities. - Discussed benign nature of lesions and provided reassurance. No treatment necessary at this time. # Melanocytic nevi - Scattered medium-brown macules and papules on the head, trunk, and extremities. - Morphology reassuring for benign nevi. - Reassured of benign appearance on exam today. - Reviewed warning signs of skin cancer - Recommend daily sun protection with protective clothing and SPF 30+ # Solar lentigines - 0.3-0.6cm light-brown evenly pigmented, well-demarcated macules in a photodistributed pattern on the face, trunk and extremities. - Recommend diligent sun protection (hats/shade/clothing/sunscreen) - Discussed warning signs of skin cancer #. Polo Angiomas - Multiple bright red, well-demarcated papules on the trunk and extremities. - Discussed benign nature of lesions and provided reassurance. No treatment necessary at this time. # History of SCC - Well healed scar(s) on the left upper cutaneous lip - NER; will continue to clinically monitor - continue diligent sun protection and regular skin exams Other: ??? Sun protection discussed (protective clothing and SPF30+ broad-spectrum sunscreen) RTC: 2 year for FSE, sooner if needed []Note routed to city secretary [x]Recall placed in scheduling system []Appointment scheduled at checkout Scribe attestation: BRAULIO Mabry has performed the documentation for this encounter in the presence of and acting as a scribe for Vika Morales MD. I performed the above scribed service and agree with the accuracy of the documentation in this encounter. Reviewed and signed by: Vika Morales MD Dermatology Counts Include 234 Beds At [facility] documented in this encounter Plan of Treatment Not on filedocumented as of this encounter Visit Diagnoses Diagnosis History of SCC (squamous cell carcinoma) of skin Personal history of other malignant neop lasm of skin Seborrheic keratoses, inflamed Seborrheic keratoses Lentigines Other dyschromia Multiple nevi Benign neoplasm of skin, site unspecifie d Polo angioma Nevus, non-neoplastic Skin cancer screening Screening for malignant neoplasm of the skin documented in this encounter Care Teams Letterpress Printing Machinist Relationship Specialty Start Date End Date Christian-Marla Nazario MD PCP - General 12/31/[address] [address] documented as of this encounter
--- OUTSIDE RECORDS SUMMARY | 2021-12-28 03:16 | XMS_ITS | Encounter Summary ---
:1950 Author Organization [facility] [place] [address] Care Team Providers Name Role Phone Marla Moralez MD Primary Care Provider Encounter Details Date Type Department Care Team Description 08/26/2013 Orders Only Orthopaedics at [facility] Ferdinand Larkin MD [place] [address] [phone] ORTHOPAEDIC SURG [place], [place] [address] (Wo rk) Social History Tobacco Use Types Packs/Day Years Used Date Former Smoker Sex Assigned at Date Recorded Not on file documented as of this encounter Plan of Treatment Not on filedocumented as of this encounter Visit Diagnoses Diagnosis Right knee pain Pain in joint, lower leg documented in this encounter Care Teams Buffing Wheel Former Automatic Relationship Specialty Start Date End Date Marla Moralez MD PCP - General 12/31/[address] [place] [address] 3 [place] [address] documented as of this encounter
--- OUTSIDE RECORDS SUMMARY | 2021-12-28 03:16 | XMS_ITS | Clinical Summary ---
:1950 Author Organization [facility] [place] [address] Care Team Providers Name Role Phone Marla Moralez MD Primary Care Provider Allergies Active Allergy Reactions Severity Noted Date Comments Aspirin Nausea Only, Other Medium Heart bur n (See Comments) Cis Free Text Allergy Other (See Comments) High darvon/darvocet. 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 Medications Medication Sig Dispensed Refills Start Date End Date Status multivitamin Take 1 tablet by 0 Active (THERAGRAN) tablet mouth daily. ASHW RT-MAG Take 2 tablets by 0 Active NAQ-YICV-AOJOB-MILADYS mouth 2 times ORAL daily (with meals). CA CARB & GLUC/MAG OX Take 1,200 mg by 0 Active & GLUC (CALCIUM mouth daily. MAGNESIUM ORAL) multivitamin capsule Take 1 capsule by 0 Active mouth daily. VITAMIN B COMPLEX (B Take 2 capsules by 0 Active COMPLETE ORAL) mouth daily. Cranberry Extract 500 Take 1,000 mg by 0 Active mg Cap mouth 2 times daily. ASCORBATE CALCIUM Take 2,000 mg by 0 Active (JEANNETTE-C ORAL) mouth daily. lactobacillus Take 1 tablet by 0 Active (ACIDOPHILUS) tablet mouth daily. cyanocobalamin, Take 500 mcg by 0 Active vitamin B-12, 100 mcg mouth daily. tablet sublingual tacrolimus (PROTOPIC) Apply topically as 0 Active 0.03 % ointment needed. estradiol (VAGIFEM) 10 Place 10 mcg 0 Active mcg Tablet vaginally Daily. 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 Seborrheic keratosis, inflamed 12/10/2013 Diplopia 10/21/2013 Overview: Hit head 2011- left superior oblique wea kness Irritant contact dermatitis 10/12/2013 Solar lentigo 10/12/2013 Nevus 10/12/2013 bilateral knee pain 09/22/2013 Headache(784.0) 05/22/2012 Concussion 04/16/2012 Hip bursitis 07/12/2011 Myofacial muscle pain 07/12/2011 Encounters Date Type Specialty Care Team Description 11/23/2021 Office Visit Dermatology Vika Morales MD Histor y of SCC (squamous cell carcinoma) of skin; Seborrheic marina toses, inflamed; Seborrheic marina toses; Lentigines; Multiple nevi; Polo angioma; Skin cancer scr eening from Last 3 Months Immunizations Name Administration Dates Next Due Influenza PF, Split 05/27/2012 Family History Medical History Relation Comments Coronary Artery Disease Maternal Aunt Breast Cancer Mother Heart Disease Mother High Cholesterol Mother Stroke Paternal Grandmother Thrombophilia Paternal Grandmother Cataracts Neg Hx Glaucoma Neg Hx Macular Degeneration Neg Hx Retinal Detachment Neg Hx Relation Status Comments Maternal Aunt Mother Paternal Grandmother Social History Tobacco Use Types Packs/Day Years [...] Assigned at Date Recorded Not on file Last Filed Vital Signs Vital Sign Reading Time Taken Comments Blood Pressure 127/74 10/11/2013 12:51 PM EDT Pulse 86 10/11/2013 12:51 PM EDT Temperature - - Respiratory Rate 16 01/20/2012 3:38 PM EDT Oxygen Saturation 100% 01/20/2012 3:38 PM EDT Inhaled Oxygen Concentration - - Weight 68.9 kg (152 lb) 10/11/2013 12:51 PM EDT Height 152.4 cm (5') 10/11/2013 12:51 PM EDT Body Mass Index 29.69 10/11/2013 12:51 PM EDT Plan of Treatment Health Maintenance Due Date Last Done Comments Covid-19 Vaccine (#1) 1954 Hepatitis C Screening 1967 Tdap adult 1968 Tetanus vaccine 1968 Breast Cancer Share Decision Needed 1989 Colonoscopy 1994 Breast Cancer screening 1999 Zoster vaccine (1 of 2) 1999 Advance Directive 2004 Bone Density Scan 2014 Pneumoccocal Vaccine: 65+ (1 - PCV) 2014 Influenza (Flu) vaccine (1 of 1 - Influenza standard 02/28/2021 05/27/2012 series) Insurance Payer Benefit Plan / Subscriber ID Effective Dates Phone Addre ss Type Group [employer] [place] BLUE [id number] 2021-Camron [phone] [address] [facility] [place] AD[place]ANTAGE t 22 [id number] [place] [address] Care Teams Supervising Editor Trailer Relationship Specialty Start Date End Date Christian-Marla Nazario MD PCP - General 12/31/11 [address] [facility] 3 [place] [id number]
--- OUTSIDE RECORDS SUMMARY | 2021-12-28 03:16 | XMS_ITS | Encounter Summary ---
:1950 Author Organization [facility] Address [facility] [address] [place] [address] Care Team Providers Name Role Phone Marla Moralez MD Primary Care Provider Encounter Details Date Type Department Care Team Description 08/24/2013 Orders Only Orthopaedics at [facility] Ferdinand Larkin MD Left knee pain [facility] (Pr imary Dx) [place] [address] ORTHOPAEDIC [phone] SURGERY [place], [place] [address] Social History Tobacco Use Types Packs/Day Years Used Date Former Smoker Sex Assigned at Date Recorded Not on file documented as of this encounter Plan of Treatment Not on filedocumented as of this encounter Results XR JOINT TEAM ALIGNMENT AP LAT SCHUSS SKYLINE (09/22/2013 7:55 AM EDT) Anatomical Region Laterality Modality N/A Radiographic Imaging Specimen (Source) Anatomical Collection Method Collection Time Re ceived Time Location / / Volume Laterality 09/22/2013 7:55 AM EDT Narrative 09/22/2013 8:56 AM EDT Examination JOINT TEAM STANDING ALIGNMENT AP LAT [place] USS SKYLINE/BILAT Clinical History LT KNEE PAIN / OA [...] original. Examination JOINT TEAM STANDING ALIGNMENT AP LAT [place] USS SKYLINE/BILAT Clinical History LT KNEE PAIN / OA [...] encounter Visit Diagnoses Diagnosis Left knee pain - Primary Pain in joint, lower leg Left knee pain Pain in joint, lower leg documented in this encounter Care Teams Singing Telegram Performer Relationship Specialty Start Date End Date Christian-Marla Nazario MD PCP - General 12/31/[address] [place] [address] 3 [place] [id number] (work) documented as of this encounter
--- OUTSIDE RECORDS SUMMARY | 2021-12-28 03:16 | XMS_ITS | Encounter Summary ---
:1950 Author Organization [facility] [place] [address] Care Team Providers Name Role Phone Marla Moralez MD Primary Care Provider Encounter Details Date Type Department Care Team Description 06/09/2013 Follow-Up Physical Therapy at [facility] ofacial muscle pain; [facility] S, PT Headache [address] [place] [address] [facility]YSICAL MEDICINE & [place] [address] Social History Tobacco Use Types Packs/Day Years Used Date Former Smoker Sex Assigned at Date Recorded Not on file documented as of this encounter Progress Notes [facility] Corral[facility], PT - 06/09/2013 3:04 PM EST Physical Therapy Progress Note Total treatment time: 45 minutes Total timed code treatment: 45 minutes Follow up visit for patient with 1. Myofacial muscle pain 2. Headache Current goals: Goals: Short term goals (4 weeks) 1. Patient to be indep with home exercise program. 2. Pt to report less frequency of headache to 4 x week 3. Pt to have 0/10 pain at times. Goals: group home goals (12 weeks) 1. Pt to be able to minimize headache to 4/10 at worst less then 3 x a week. S: Patient reports the double vision hasn't changed. Headaches still present. Has headache today that she feels is from the cold. Knee is doing better. Can't wear a hat that is snug will cause headache. O: Manual Therapy (79290) 45 minutes ?? STM to the neck and head ms. ?? Suboccipital release. ?? Manual traction. ?? Discussed with pt that she has had little change in sx at thsi point. Some relief that is short lived following treatment. Discussed that therapy is not giving relief she had hoped for. She is very stressed about getting to therapy as well that is not helping. Further discussed that feel that further therapy would not be beneficial. ?? A: Pt is not progressing. Sx are not significantly changed. Discussed that continued stretching as corbin most beneficial at this point. Will discharge therapy at this time due to minimal change in sx. P: Continue home ex program. D/c PT documented in this encounter Plan of Treatment Not on filedocumented as of this encounter Visit Diagnoses Diagnosis Myofacial muscle pain Mylagia and myositis, unspecified Headache(784.0) Headache documented in this encounter Care Teams Pattern Finisher Relationship Specialty Start Date End Date Christian-Marla Nazario MD PCP - General 12/31/[address] [address] documented as of this encounter
--- OUTSIDE RECORDS SUMMARY | 2021-12-28 03:16 | XMS_ITS | Encounter Summary ---
:1950 Author Organization [facility] [place] [address] Care Team Providers Name Role Phone Marla Moralez MD Primary Care Provider Encounter Details Date Type Department Care Team Description 10/21/2013 Telephone Ophthalmology at [facility] Karen Silverman MD [facility] [place] [address] OPHTHALMOLOGY DEPT. [phone] [place] [id number] (Wo rk) Social History Tobacco Use Types [...] this encounter Miscellaneous Notes Telephone Encounter - Sonia Alcaraz COT - 11/16/2013 1:23 PM EDT . documented in this encounter Plan of Treatment Not on filedocumented as of this encounter Visit Diagnoses Not on filedocumented in this encounter Care Teams Military Technician Relationship Specialty Start Date End Date Christian-Marla Nazario MD PCP - General 12/31/[address] [address] documented as of this encounter
--- OUTSIDE RECORDS SUMMARY | 2021-12-28 03:16 | XMS_ITS | Encounter Summary ---
:1950 Author Organization [facility] [place] [address] Care Team Providers Name Role Phone Marla Moralez MD Primary Care Provider Reason for Visit Reason Comments Skin Check Follow-up Encounter Details Date Type Department Care Team Description 10/12/2013 Office Visit Dermatology at [facility] Irritan t contact dermatitis (Primary Dx); Tamela STOREY Solar lentigo; [address] [facility] Nevus Mani B DERMATOLOGY [place], [place] [id number] [phone] Social History Tobacco Use Types Packs/Day Years [...] encounter Progress Notes Lonny Rodrigues MD - 10/12/2013 5:00 PM EDT Problem: Skin check. Olivia follows up and is now 63. I last saw her in January of 2008. She has some new lesions of concern. She feels that she has been having outbreaks of cold sores, and she has never had these before. They have been a problem this winter. The use of Abreva seems to be the only thing that really helped it. She states that the involvement was the entire upper cutaneous lip and centrally on the lower cutaneous lip as well. She would also like me to check her moles. She has not had to use the Protopic ointment recently for her eyelid eczematous dermatitis. 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 Physical examination today reveals a pleasant 63-year-old woman who has no active dermatitis on her cutaneous lips or on the lips. There is no evidence of any dermatitis and no cold sores. She has benign nevi and solar lentigos present widely, primarily lentigos, over her back and shoulders, on her arms, and legs. There is no evidence of any malignant lesions. She has a number of tags and macias red hemangiomas present. Otherwise examination of the head and neck, chest, back, hands, arms, forearms, thighs, and calves, feet, including soles of the feet, is benign. The patient has no active eyelid dermatitis today and no perioral dermatitis today. Assessment and Plan: 1. Benign skin examination. a. Patient reassured about benign skin examination. b. Recommend return to clinic p.r.n. for new lesions/concerns. 2. Irritant dermatitis, lips. a. Reassured patient I do not see evidence of HSV, and her history and the clinical presentation would not be consistent with herpes simplex. Rather, suspect irritant dermatitis. b. Patient states adamantly that there has been no change in her routine. In any case, I would recommend use of Protopic if this recurs. I would be happy to see her back for flares. Otherwise return to clinic here p.r.n. COPY: Marla Moralez M.D. documented in this encounter Plan of Treatment Not on filedocumented as of this encounter Visit Diagnoses Diagnosis Irritant contact dermatitis - Primary Contact dermatitis and other eczema, due to unspecified cause Solar lentigo Other dyschromia Nevus Benign neoplasm of skin, site unspecifie d documented in this encounter Care Teams Office Agent Relationship Specialty Start Date End Date Marla Moralez, MD PCP - General 12/31/11 [address] [place] [phone] documented as of this encounter
--- OUTSIDE RECORDS SUMMARY | 2021-12-28 03:16 | XMS_ITS | Encounter Summary ---
:1950 Author Organization [facility] [place] [address] Care Team Providers Name Role Phone Marla Moralez MD Primary Care Provider Reason for Visit Reason Comments Diplopia OS>OD Pseudophakia OU Encounter Details Date Type Department Care Team Description 10/21/2013 Office Visit Ophthalmology at [facility] C Karen Prieto, Diplopia (Primary Dx) [place] [address] [place] [address] OPH[address]ALM[address] DEPT. 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 Reassurance given per her exercises to help vertical fusion. She is pseudophakic andotherwise without evidence of pathology. Recommend follow up one year or prn if diplopia becomes worse. 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 documented in this encounter Plan of Treatment Not on filedocumented as of this encounter Visit Diagnoses Diagnosis Diplopia - Primary documented in this encounter Care Teams Microfilm Machine Operator Relationship Specialty Start Date End Date Christian-Marla Nazario MD PCP - General 12/31/11 [address] [facility] 3 [place] [address] documented as of this encounter
--- OUTSIDE RECORDS SUMMARY | 2021-12-28 03:16 | XMS_ITS | Encounter Summary ---
:1950 Author Organization [facility] [place] [address] Care Team Providers Name Role Phone Marla Moralez MD Primary Care Provider Encounter Details Date Type Department Care Team Description 02/10/2020 Hospital [place] [address] Social History Tobacco Use Types Packs/Day [...] Sig Dispensed Refills Start Date End Date estradiol (VAGIFEM) 10 Place 10 mcg vaginally 0 mcg Tablet Daily. UNABLE TO FIND Med Name: CBD Oil 0 ASHW RT-MAG Take 2 tablets by 0 VWR-TTTG-KUVDE-MILADYS ORAL mouth 2 times daily (with meals). CA CARB & GLUC/MAG OX & Take 1,200 mg by mouth 0 GLUC (CALCIUM MAGNESIUM daily. ORAL) multivitamin capsule Take 1 capsule by 0 mouth daily. VITAMIN B COMPLEX (B Take 2 capsules by 0 COMPLETE ORAL) mouth daily. Cranberry Extract 500 mg Take 1,000 mg by mouth 0 Cap 2 times daily. ASCORBATE CALCIUM Take 2,000 mg by mouth 0 (JEANNETTE-C ORAL) daily. lactobacillus Take 1 tablet by mouth 0 (ACIDOPHILUS) tablet daily. cyanocobalamin, vitamin Take 500 mcg by mouth 0 B-12, 100 mcg tablet daily. sublingual tacrolimus (PROTOPIC) Apply topically as 0 0.03 % ointment needed. multivitamin (THERAGRAN) Take 1 tablet by mouth 0 tablet daily. documented as of this encounter Plan of Treatment Not on filedocumented as of this encounter Procedures Procedure Name Priority Date/Time Associated Comments Diagnosis CAMPYLOBACTER ANTIGEN Routine 02/10/2020 12:01 Re sults for this AM EDT procedure are i n the results section. SHIGA TOXIN ASSAY Routine 02/10/2020 12:01 Result s for this AM EDT procedure are i n the results section. STOOL CULTURE Routine 02/10/2020 12:01 Results fo r this AM EDT procedure are i n the results section. documented in this encounter Results Shiga Toxin Detection (02/10/2020 12:01 AM EDT) [facility] Method Time Signature Shiga Toxin EIA Negative for Shiga Toxin 1 [facility] EIA Negative for Shiga Toxin 2 [facility] Specimen Anatomical Collection Method Collection Time Receive d Time (Source) Location / / Volume Laterality Stool specimen 02/10/2020 12:01 0 (specimen) AM EDT 11:06 PM EDT Resulting Agency Comment Spec In Lab Yanira Garvin APRN MICROBIOLOGY - GENERAL ORDER JAZ Performing Organization Address City/[facility]/[place] [address] [facility] [address] Campylobacter Antigen (02/10/2020 12:01 AM EDT) Component Value Ref Test Analysis Performed At [facility] Range Method Time Signature Campylobacter Ag Immunoassay FRANCES Negative for DEEPAK Campylobacter [facility] LABORATORY Specimen Anatomical Collection Method Collection Time Receive d Time (Source) Location / / Volume Laterality Stool specimen 02/10/2020 12:01 0 (specimen) AM EDT 11:06 PM EDT Resulting Agency Comment Spec In Lab Yanira Garvin APRN MICROBIOLOGY - GENERAL ORDER JAZ Performing Organization Address City/[facility]/ZIP Code Phon e Number [place] [phone] [facility] [address] Stool culture (02/10/2020 12:01 AM EDT) Patholo gist Method Time Signature Stool Culture No enteric FRANCES [facility] LABORATORY Specimen Anatomical Collection Method Collection Time Receive d Time (Source) Location / / Volume Laterality Stool specimen 02/10/2020 12:01 0 (specimen) AM EDT 11:06 PM EDT Resulting Agency Comment Spec In Lab Yanira Garvin APRN MICROBIOLOGY - GENERAL ORDER JAZ Performing Organization Address City/State/ZIP Code Phon e Number [place] [id number] documented in this encounter Visit Diagnoses Not on filedocumented in this encounter Care Teams Fruit Farmer Relationship Specialty Start Date End Date Marla Moralez MD PCP - General 12/31/[address] [address] documented as of this encounter
--- OUTSIDE RECORDS SUMMARY | 2021-12-28 03:16 | XMS_ITS | Encounter Summary ---
:1950 Author Organization [facility] [place] [address] Care Team Providers Name Role Phone Marla Moralez MD Primary Care Provider Reason for Visit Reason Onset Date Comments Knee Pain 10/11/2013 Encounter Details Date Type Department Care Team Description 10/11/2013 Telephone Orthopaedics at [facility] Ferdinand Larkin MD Knee Pain [facility] [place] [phone] ORTHOPAEDIC SURGERY [phone] [place] [id number] (Wo rk) Social History Tobacco Use Types [...] Telephone Encounter - Ric Castro RN - 10/11/2013 10:53 AM EDT Spoke with Olivia. She states she had sudden onset of swelling and heat in her left knee starting yesterday. She denies new injury. Suggested evaluation before letting the Chiropractor pull on it. She will come in today for evaluation. Telephone Encounter - Nancy Soto - 10/11/2013 10:07 AM EDT Where is your pain? KNEE Did you have an injury? N/A Date of Injury: N/A Have you had surgery on this body part? N/A Date of Surgery: N/A Who was your surgeon? N/A Patient had knee injections on 09/22. She now has a very sharp pain around the area of the fibular fracture. The top of the knee is very hot and swollen, skin is tight. The bottom of the knee is okay. She is also wondering if a chiropractor might help. Please call patient back at . documented in this encounter Plan of Treatment Not on filedocumented as of this encounter Visit Diagnoses Not on filedocumented in this encounter Care Teams Caterers Helper Relationship Specialty Start Date End Date Christian-Marla Nazario MD PCP - General 12/31/[address] [place] [id number] documented as of this encounter
--- OUTSIDE RECORDS SUMMARY | 2021-12-28 03:16 | XMS_ITS | Encounter Summary ---
:1950 Author Organization [facility] [place] [address] Care Team Providers Name Role Phone Marla Moralez MD Primary Care Provider Reason for Visit Reason Comments Skin Check Encounter Details Date Type Department Care Team Description 08/15/2016 Office Visit Dermatology at [facility] Lonny Rodrigues MD Nevus; [address] [place] [address] Herpes labialis [place] [address] [place], [place] [phone] (Wo rk) Social History Tobacco Use Types [...] encounter Progress Notes Lonny Rodrigues MD - 08/15/2016 9:00 AM EST PROBLEM: Left lower eyelid changes. Olivia follows up and is concerned about a radiating pain that she has had now on 4 separate occasions for about the last 4 months along the left nasolabial fold and the left infraorbital fold. She also showed me a photograph where some distinct ecchymosis formation along the infraorbital fold. She states that she has had cold sores in the past but only 3 total in her life. These are usually centered around her mouth. She has had the shingles vaccination. 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 It was very stressful. She also recently had a chalazion cyst on the left lower eyelid. Physical examination today shows no changes, no clinical findings. 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 a. Dance has been over and done with. Stress level is reduced. b. Hopefully she will not have any further episodes but if she does, begin acyclovir 200 mg 1 p.o. 5 times a day for 5 days, dispense #25 with 2 refills. She was also given a prescription for valacyclovir 500 mg, take 1 p.o. b.i.d. for 3 days. Take one or the other. Would advise valacyclovir but if it is too expensive she may fill the acyclovir. She was given 2 refills on both. Return to clinic here only p.r.n. documented in this encounter Plan of Treatment Not on filedocumented as of this encounter Visit Diagnoses Diagnosis Nevus Benign neoplasm of skin, site unspecifie d Herpes labialis Herpes simplex without mention of compli cation documented in this encounter Care Teams Shovel Oiler Relationship Specialty Start Date End Date Christian-Marla Nazario MD PCP - General 12/31/11 [address] [place] [id number] documented as of this encounter
--- OUTSIDE RECORDS SUMMARY | 2021-12-28 03:16 | XMS_ITS | Encounter Summary ---
:1950 Author Organization [facility] [place] [address] Care Team Providers Name Role Phone Marla Moralez MD Primary Care Provider Reason for Visit Reason Comments Skin Check Encounter Details Date Type Department Care Team Description 10/14/2018 [facility] Persistent reaction to insect bite; [facility] Multiple benign nevi; [address] Lentigines; [place] [address] [facility] (seborrheic keratosis); [phone] [address]-DERMATOLOGY Polo angioma [place], [place] [address] Social History Tobacco Use Types [...] documented as of this encounter Progress Notes Tamiko Dickerson MD - 10/14/2018 1:30 PM EDT DERMATOLOGY NEW PATIENT CLINIC NOTE Date of service: 10/14/2018 Olivia Azevedo : 1950 Provider: Tamiko Dickerson MD Preferred name: Paulette Preferred contact method with results: cell phone Message okay: yes PROBLEM: Skin Lesion and Full Skin Exam 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 Azevedo is a 68 y.o. year old female. New patient; self-referred. Here today for evaluation of spot on nose that has been present for about 1 year. Notes the week the spot has darkened in color. Denies pain and itching. Notes the area is concave Notes a few years ago a lesion was removed from left upper cutaneous lip that was a SCC. Wears sunscreen when outside. FH: Aunt with unknown skin cancer ADR: Cis free text allergy; Codeine phosphate; Oxycodone [id number]; Oxycodone-acetaminophen;Aspirin; Erythromycin base; Ibuprofen; Penicillins; and Unable to find [unclassified drug] MEDS: Current Outpatient Medications on File Prior to Visit Medication Sig Dispense Refill ??? dipcioon-lclhmpwpb-rpveuzspyagul (DEXACINE) 3.5 mg/g-10,000 unit/g-0.1 % Ointment APPLY 1 APPLICATION IN THE LEFT EYE THREE TIMES A DAY FOR 10 DAYS 2 ? ? GLUCOSAM SUL NA/CHONDR MARISCAL A NA (GLUCOSAMINE & CHONDROIT SUL.NA ORAL) Take 4 tablets by mouthdaily. ??? lidocaine (LIDODERM) 5 %(700 mg/patch) Place 1 patch onto the skin every 24 hours. ??? ASHW RT-MAG PIJ-OSMI-HFIRP-MILADYS ORAL Take 2 tablets by mouth 2 times daily (with meals). ??? selenium 50 mcg Tab Take 50 mcg by mouth daily. ? ? CA CARB & GLUC/MAG OX & GLUC (CALCIUM MAGNESIUM ORAL) Take 1,200 mg by mouth daily. ??? multivitamin capsule Take 1 capsule by mouth daily. ??? VITAMIN B COMPLEX (B COMPLETE ORAL) Take 2 capsules by mouth daily. ??? Cranberry Extract 500 mg Cap Take 1,000 mg by mouth 2 times daily. ??? ASCORBATE CALCIUM (JEANNETTE-C ORAL) Take 2,000 mg by mouth daily. ??? lactobacillus (ACIDOPHILUS) tablet Take 1 tablet by mouth daily. ??? cyanocobalamin, vitamin B-12, 100 mcg tablet Take 500 mcg by mouth daily. sublingual ??? tacrolimus (PROTOPIC) 0.03 % ointment Apply topically as needed. ??? multivitamin (THERAGRAN) tablet Take 1 tablet by mouth daily. ??? CIS Free Text Med - Vagiphen No current facility-administered medications on file prior to visit. ROS General: feeling well Skin: denies other skin complaints EXAM General: NAD, pleasant, cooperative Skin: The patient was asked to disrobe to the level of their comfort. Full skin examination of the scalp, hair, head, face, neck, back, chest, abdomen, right and left upper extremities, right and left lower extremities and buttocks was normal with the exception of the findings listed below. Significant skin findings: A. Multiple 0.2-0.4cm bright red, well-demarcated papules. B. Multiple 0.4-0.6cm brown papules with waxy, stuck-on appearance. C. 0.3-0.6cm light-brown evenly pigmented, well-demarcated macules. D. Multiple, 0.3-0.5cm, medium-brown, evenly-pigmented macules and papules. No pigmented lesions suspicious for melanoma. E. Multiple 0.3-0.5cm erythematous patches on forearms ASSESSMENT/PLAN: A. Polo Angiomas - Reassured about benign nature and natural history. B. Seborrheic Keratoses - Reassured about benign nature and natural history. C. Solar Lentigines - Reassured about benign nature and natural history. - Sun avoidance, protective clothing and the use of SPF 30 sunscreen is advised. Observe closely forskin changes and call if such occurs D. Benign Appearing Nevi - Reassured about benign nature and natural history. E. Persistent bite reaction -- no treatment recommendations at this time RTC September 2019 for 1 year full skin exam Note initiated and routed to physician for review and change by: ISABELLA Deng is documenting this encounter acting as the scribe for and in the presence of Tamiko Dickerson MD I performed the above scribed service and agree with the accuracy of the documentation in this encounter. Tamiko Dickerson MD Section of Dermatology [facility] documented in this encounter Plan of Treatment Not on filedocumented as of this encounter Visit Diagnoses Diagnosis Persistent reaction to insect bite Multiple benign nevi Benign neoplasm of skin, site unspecifie d Lentigines Other dyschromia SK (seborrheic keratosis) Other seborrheic keratosis Polo angioma Nevus, non-neoplastic documented in this encounter Care Teams Catholic Priest Relationship Specialty Start Date End Date Christian-Marla Nazario MD PCP - General 12/31/[address] [address] documented as of this encounter
--- OUTSIDE RECORDS SUMMARY | 2021-12-28 03:16 | XMS_ITS | Encounter Summary ---
:1950 Author Organization [facility] [place] [address] Care Team Providers Name Role Phone Marla Moralez MD Primary Care Provider Reason for Visit Reason Comments Bilateral Knee Pain L>R Encounter Details Date Type Department Care Team Description 09/22/2013 Office Visit Orthopaedics at [facility] Ferdinand Larkin MD [facility] [place] [address] DJD (degenerative [facility] Valentina Woodward PA [facility] [place] [address] joint disease) of Drive knee (Primary Dx) [place] [address] Social History Tobacco Use Types Packs/Day [...] Sign Reading Time Taken Comments Blood Pressure 137/82 09/22/2013 8:08 AM EDT Pulse 77 09/22/2013 8:08 AM EDT Temperature - - Respiratory Rate - - Oxygen Saturation - - Inhaled Oxygen Concentration - - Weight 51.9 kg (114 lb 6.4 oz) 09/22/2013 8:08 AM EDT Height 152.4 cm (5') 09/22/2013 8:08 AM EDT Body Mass Index 22.34 09/22/2013 8:08 AM EDT documented in this encounter Progress Notes Ferdinand Larkin MD - 09/22/2013 9:59 AM EDT I saw this patient in conjunction with MICAELA Fenton today. Please see her note for details of the history and physical examination. I am in agreement with the plan as stated. In short, Ms. Azevedo is a 63-year-old female who presents with left knee pain. She has had previous x-rays and an MRI at an outside facility. Her pain really started when her dog ran into the lateral aspect of her leg perpetrating an injury. At this point, she does not have any obvious instability within the knee, but her x-rays and MRI do reveal some osteoarthritis. It is most impressive in the lateral compartment. She also has some bone edema on the MRI in the corresponding area. I had a discussion with her today regarding potential treatment options. She has used a brace, but it is not very conducive to the type of ballroom dance activity that she enjoys so much. She is interested in having a hyaluronic acid injection today to see how much relief she can get. We will see how her pain and function progress from here and she will contact us if it is unsatisfactory. Ferdinand Larkin MD MS Valentina Woodward PA - 09/22/2013 9:38 AM EDT PATIENT NAME: Olivia Azevedo AGE: 63 y.o. MR#: [id number] DATE OF VISIT: 09/22/2013 DATE OF INJURY/ONSET: March 2013 STAFF: Dr. Larkin CHIEF COMPLAINT: Bilateral knee pain. Left greater than right. HISTORY OF PRESENT ILLNESS: This is a 63 y.o. I presents with bilateral knee pain, left worse than right. She states in March sometime she was sideswiped by her Doberman pinscher insert having significant left knee pain. She describes most of her pain is in the lateral aspect of her knee and over the fibular head. She was seen by an start up specialist and obtain an MRI which showed that she had no ligamentous injury, but lateral cartilage loss in the left knee along with some bone edema. Today she complains of left knee pain both lateral and anterior. She originally had significantly more swelling that has improved of late. She does find that her pain is increased with using stairs or any quick motion of the extremity. She is experiencing pain at night. She does have some episodes of catching and instability but no true locking. In regards to treatment for her left knee she has done a course of physical therapy but since has been discharged. She had been prescribed originally a [place] brace but has discontinue wearing upon recommendation of her previous orthopedic surgeon. She does wear a patellar sleeve which she has been helpful. She is using glucosamine and 100 and which has found helpful. Denies any history of injection, surgery or other injury to the knee. She did use Alevewhen necessary when things first began with some mild benefit, but expresses GI upset. In regards to her right knee her symptoms are minimal but progressing. Her pain is variable in nature and mostly anterior. It intermittent sharp pain with walking. Denies instability. Denies swelling. She has had to cut back on her activities such as dancing and cross-country skiing to to her injury,but continues to work on a regular basis. PAST SURGICAL HX: Past Surgical History Procedure Date ??? Cataract removal ??? Musculoskeletal surgery unlisted [id number] Bilateral tendon release for DeQuervain's ? ? Eye surgery 05/09 & 06/08 intraocular implants performed by Ramy Mcwilliams ??? Genital surg proc, female unlisted 1978 cryosurgery of cervix ??? Cranio/maxillofacial surg unlisted 1998 dental implants ??? Unlisted evaluation service 2010 removal of lipomas PAST MEDICAL HX: Past Medical History Diagnosis Date ??? Cataract ??? Strabismus ??? Musculoskeletal disease 05/12 knee injury 04/11 symptoms occurred one month later ??? Elevated cholesterol 06/11 LDL 180 ??? Chronic pain 05/12 knee pain ??? Eye problems 02/05/12 Double vision following TBI ??? Headache(784.0) 02/05/12 Chronic following TBI ??? Nervous system disorder 02/05/12 TBI PHYSICAL EXAM: Ms. Jolly lopez 63 y.o. year old is alert and oriented. She appears in no acute discomfort and is resting comfortably in a chair in the exam room. I have made the following determinations: Knee Exam: Left Prior surgery on this joint: No Gait Abnormality: Antalgic Knee ROM: Extension:5 Flexion: 125 Alignment: 0-4 degrees Neutral Stability: A/P Translation <5mm Varus (lateral stability) 5-10mm Valgus (medial stability) <5mm Extension La degrees or less Radiographic evidence of joint damage: [0= normal; 1=minimal ; 2= some osteophytes , some narrowing ; 3= moderate osteophytes, significant narrowing, mild deformity; 4= large osteophytes, marked narrowing, obvious deformity]: 2= some osteophytes, some narrowing Patella Tracking: Normal Skin Integrity: Normal Pulses Palpable: Left PT:Yes Left DP:Yes Motor/Sensory: Distal Motor:Normal Distal Sensory: Normal Quadriceps Strength:4 I have made the following determinations: Knee Exam: Right Prior surgery on this joint: No Gait Abnormality: Antalgic Knee ROM: Extension:0 Flexion: 130 Alignment: 0-4 degrees Neutral Stability: A/P Translation <5mm. Varus (lateral stability) <5mm Valgus (medial stability) <5mm Extension La degrees or less Radiographic evidence of joint damage: [0= normal; 1=minimal ; 2= some osteophytes , some narrowing ; 3= moderate osteophytes, significant narrowing, mild deformity; 4= large osteophytes, marked narrowing, obvious deformity]: 1= minimal Patella Tracking: Normal Skin Integrity: Normal Pulses Palpable: Right PT: Yes Right DP:Yes Motor/Sensory: Distal Motor: Normal Distal Sensory: Normal Quadriceps Strength: 5 RADIOLOGICAL STUDIES: As per radiology Examination JOINT TEAM STANDING ALIGNMENT AP LAT SCHUSS SKYLINE/BILAT Clinical History LT KNEE PAIN / OA 2ND OP; RIGHT KNEE PAIN Comparison None Technique Separate images of the pelvis, knees and feet were acquired in the AP projection with the patient standing. In addition to routine views of the knee, these images were stitched together to form a composite image of the pelvis and legs allowing for evaluation of lower extremity alignment in the weight bearing position. Findings There is bilateral mild to moderate lateral and medial joint space narrowing. Small marginal osteophytes are present in the left medial compartment and at the superior margin of the patella, as well as at the tibial spines bilaterally. There is a small left knee effusion. No definite right knee effusion. No radiographically apparent soft tissue swelling or abnormal calcification. Standing alignment view demonstrates weightbearing axis of the lower extremities near midline bilaterally. Note is made of osteophyte formation at the hips bilaterally. No significant pelvic tilt. Impression Bilateral knee osteoarthritis with mild to moderate medial and lateral joint space narrowing. Small left knee effusion. MRI reviewed. Ligaments intact. Cartilage loss and bone edema most prominent lateral compartment left knee ASSESSMENT: DJD left knee. PLAN: Patient seen with Dr. Larkin. Ms. Azevedo and I discussed her radiologic findings and physical exam findings. The pertinent positives were pain primarily focused to left lateral knee. At this time findings consistent with DJD and some laxity of the LCL. After discussion of options would like to use OGLESBY injection. Please see below for documentation. Discussed to use injection for as long as possible- if benefit may repeat in 6 mos. We additionally discussed use of brace, either patellar sleeve or hinged brace to assist with support. Discussed importance of regular exercise and fitness. . The patient understands to contact us if they have any other questions or concerns. PROCEDURE NOTE: left knee synvisc Injection A time-out was performed and the left knee was confirmed to be the site of injection. The patient was confirmed to have no allergies to betadine or local anesthetics. The patient was counseled about the potential risks of the procedure, including infection, bleeding and incomplete relief of symptoms. The skin was prepped widely over the left knee with duraprep. Then, using sterile technique, a solution consisting of 5cc 1% lidocaine (50mg) was injected into the soft tissues. Then using a 20 g needle 6mL (48mg) of Synvisc one was injected into the left knee. The needle was felt to slide into [...] whether gene ralized or localized, lower leg documented in this encounter Administered Medications Inactive Administered Medications - up to 3 most recent administrations Medication Order MAR Action Action Date Dose Rate Site Sawyer Delatorre 20 (SYNVISC-ONE) Syrg 48 Given 09/22/2013 9:18 AM EDT 48 mg mg 48 mg, Intra-articular, ONCE, On Fri09/22/13 at 0945, 1 dose documented in this encounter Care Teams Peanut Vendor Relationship Specialty Start Date End Date Christian-Marla Nazario MD PCP - General 12/31/11 [address] [place] [address] documented as of this encounter
--- OUTSIDE RECORDS SUMMARY | 2021-12-28 03:16 | XMS_ITS | Encounter Summary ---
:1950 Author Organization [facility] [place] [address] Care Team Providers Name Role Phone Marla Moralez MD Primary Care Provider Reason for Visit Reason Onset Date Comments Referral 08/24/2013 Encounter Details Date Type Department Care Team Description 08/24/2013 Telephone Orthopaedics at [facility] [place] [address] Social History Tobacco Use Types Packs/Day Years Used Date Former Smoker Sex Assigned at Date Recorded Not on file documented as of this encounter Miscellaneous Notes Telephone Encounter - Kasia Andrade - 09/07/2013 12:23 PM EDT APPOINTMENT 09/22/13 Telephone Encounter - Ramandeep Boyer - 08/31/2013 3:07 PM EST RECD NOTES FROM MATTHEW Telephone Encounter - Shaina Morgan - 08/26/2013 9:43 AM EST Patient called today, she has decided she would like both knees examined. I have added that to the appointment and pended an xray order for the right knee as well. Telephone Encounter - Kasia Andrade - 08/24/2013 9:59 AM EST Ask patient to verify the following: COMPLETE Full name: Olivia Azevedo : 1950 Phone number: [phone] (home) Mailing address: [facility] [address] Intake: LT KNEE PAIN / OA Is this an injury that happened: NO ?? At work? ?? Playing a sport? ?? If yes to either, what is DOI? Tell me how this how long you've had these symptoms? SINCE MARCH Has anyone ever seen you before for this issue? YES Have you tried: ?? [facility] ?? INJECTION ?? Other therapies Have you had any of the following studies for this issue? ?? [facility] ?? MRI YES - [facility] ?? CT Scan ?? LABS Have you seen an Orthopaedic surgeon for the this issue? YES If YES: Who did you see? DR SIMEON Where were you seen (facility)? [facility] When? Have you ever had surgery for this issue? NO If YES and different than above: Who performed surgery? Where did you have the surgery (facility)? When? Phone # Fax# If patient is implanted with hardware fixation or joint prosthesis retrieve OPERATIVE REPORT and IMPLANT STICKERS. documented in this encounter Plan of Treatment Not on filedocumented as of this encounter Visit Diagnoses Not on filedocumented in this encounter Care Teams Hosiery Pairer Relationship Specialty Start Date End Date Christian-Marla Nazario MD PCP - General 12/31/[address] [place] [address] 3 [place] [address] documented as of this encounter
--- OUTSIDE RECORDS SUMMARY | 2021-12-28 03:17 | XMS_ITS | Encounter Summary ---
:1950 Author Organization [facility] [place] [address] Care Team Providers Name Role Phone Marla Moralez MD Primary Care Provider Encounter Details Date Type Department Care Team Description 08/12/2012 Follow-Up Physical Therapy at Mounika Mendoza steady gait (Primary Dx); [facility] [employer]OOK Concussion; [facility] [place] [phone] PHYSICAL MEDICINE & [phone] [place] [address] Social History Tobacco Use Types Packs/Day Years Used Date Former Smoker Sex Assigned at Date Recorded Not on file documented as of this encounter Progress Notes Klaudia Tony PT - 08/13/2012 2:58 PM EST I have reviewed and agree with note written by ANIKET. Mounika Mendoza PTA - 08/13/2012 7:24 AM EST Physical Therapy Progress Note Total Timed Code Treatment: 45 minutes Total Treatment Time: 45 minutes Follow up visit for a patient with 1. Unsteady gait 2. Concussion 3. Headache S: Patient reports her hips are really killing her--she states she can't do anything today the involves bending. She states she can do the Active Step as long as there are no jolts. O: Neuromuscular Re-Education (30154) 45 minutes Active Step: walking @ 1.5 mph with head turns and tilts, gaze stabilization with side to side and up/down x ~5 min. 2 foam: romberg stance with head turns and tilts, EC up to 1 min., EC with head turns, gaze stabilization/VOR x 1 and 2 (instant double vision with VOR x 2) walking with head turns and tilts (a little dizziness with looking up/down), walking with 360 degree turns, braiding, tandem walking A: Pt. continues with difficulty with double vision with turning her head side to side. Decreased difficulty with walking activities. P: Continue PT for Manual Techniques, Stretching, Therapeutic exercise and Balance and Gait Training MOUNIKA MENDOZA PTA documented in this encounter Plan of Treatment Not on filedocumented as of this encounter Visit Diagnoses Diagnosis Unsteady gait - Primary Abnormality of gait Concussion Concussion, unspecified Headache(784.0) Headache documented in this encounter Care Teams Custom Seamstress Relationship Specialty Start Date End Date Christian-Marla Nazario MD PCP - General 12/31/11 [address] [facility] 3 [place] [address] documented as of this encounter
--- OUTSIDE RECORDS SUMMARY | 2021-12-28 03:17 | XMS_ITS | Encounter Summary ---
:1950 Author Organization [facility] [place] [address] Care Team Providers Name Role Phone Marla Moralez MD Primary Care Provider Encounter Details Date Type Department Care Team Description 05/22/2012 Follow-Up Occupational Therapy at Tomy Mauricio, Concussion (Primary [facility] OT Dx) [facility] [place] [address] PHYSICAL MEDICINE & [phone] [place] [address] Social History Tobacco Use Types Packs/Day Years Used Date Former Smoker Sex Assigned at Date Recorded Not on file documented as of this encounter Progress Notes Tomy Mauricio, OT - 05/22/2012 10:34 AM EST OCCUPATIONAL THERAPY PROGRESS NOTE REFERRAL SOURCE: Dr. Marla Gonzales DIAGNOSIS: 1. Concussion (850.9H) NEXT MD FOLLOW UP: PRN TOTAL TREATMENT TIME: 58 minutes TIMED CODE TREATMENT TIME: Therapeutic exercise functional 58 minutes OBJECTIVE: Olivia Azevedo is a female of 62 y.o. who presents today with a diagnosis of Concussion.She was looking at new cars when she looked in the trunk and the trunk lid came down on the top of her head. This occurred about 02/05/12.. Patient was seen by dr. Marla Gonzales for recheck and referred tooupational therapy for evaluation and treatment. Olivia Azevedo presents alone PAIN: At Rest: 2/10 With Activity: 2/10 TREATMENT TODAY: Completed the MVPT3 for which she scored in the 39th percentile. Completed traffic jam # 7 and #10 requiring 4 verbal cues for each Completed card #60 on shape by shape for which she required 6 verbal cues Instructed that she needs to work on doing a basic water color painting daily before next visit ASSESSMENT: Olivia Azevedo presents today somewhat fatigued and feeling dizzy after her balance evaluation earlier this morning. She scored overall within one standard deviation of mean on the MVPT3 with primary issues arrising for visual memory and errors with need to rotate items in her mind. Itemsthat required saccadic movement up and down was no difficulty such as comparing to an example but when it was horizontal she required more time.. She had extreme difficulty with shape by shape today towards the end of the visit. Despite having the exact open space to fit a shape she continued to have difficulty rotating and flipping it to fit. With playing traffic jam she lost track multiple times ofher sequenced plan needing extra time and some cues to get back on track. Painting and sowing are ideal tasks to work on her visuomotor organization and memory for planning a task. She has good rehab potential considering her insight to deficit areas. Care Center Manager Goals (to be met by discharge): Date Goal Met: 1.) Olivia Azevedo will complete activities of daily living independently at a 10/10 level. Goal Status: 2.) Olivia Azevedo will be able to resume all occupational roles independently without restriction. Goal Status: Short Term Goals (to be met by 4 weeks): Date Goal Met: 05/20/12 Olivia Azevedo will be independent with home exercise program with 100% compliance. Goal Status: Goal met Olivia Azevedo will be able to remember and find 5 items in a search through [facility] without cueing. Goal Status: Not fully met. She was able to remember and find 5 out of 6 items but could not find her way back the same way that we had come. 05/20/12 Olivia Azevedo will increase her score on the LOTCA by 5 points to promote her ability to perform her job at an 8/10 level Goal Status: Goal status PLAN: The patient is to be seen 1 time(s) per week, for 12 week(s) to progress toward short and usp goals. for Visuomotor organization, Visuoperceptual skills, Visual compensation, Cognitive retraining attention, sequencing, problem solving and compensatory strategies and Sequencing and planning (X) Olivia Azevedo participated in the evaluation, collaborated on treatment goals, and agrees to the treatment plan . documented in this encounter Plan of Treatment Not on filedocumented as of this encounter Visit Diagnoses Diagnosis Concussion - Primary Concussion, unspecified documented in this encounter Care Teams Gas Scrubber Operator Relationship Specialty Start Date End Date Christian-Marla Nazario MD PCP - General 12/31/11 [address] [facility] 3 [place] [address] documented as of this encounter
--- OUTSIDE RECORDS SUMMARY | 2021-12-28 03:17 | XMS_ITS | Encounter Summary ---
:1950 Author Organization [facility] [place] [address] Care Team Providers Name Role Phone Marla Moralez MD Primary Care Provider Encounter Details Date Type Department Care Team Description 03/30/2013 Follow-Up Physical Therapy at Uvaldo Corrales, PT [facility] DR PHYSICAL MEDICINE & [place] [address] Myofacial muscle pain; [facility] Marla Moralez MD [address] [place] [address] 3 [place] [address] [place] [phone] Social History Tobacco Use Types Packs/Day Years Used Date Former Smoker Sex Assigned at Date Recorded Not on file documented as of this encounter Progress Notes Guadalupe Corrales, PT - 03/31/2013 2:23 PM EDT Physical Therapy Progress Note Total treatment time: 40 minutes Total timed code treatment: 40 minutes Follow up visit for patient with 1. Myofacial muscle pain 2. Headache S: Pt is 1/2 hour late for appointment. C/o pain in the posterior leg with return to work 1x a week. O: Therapeutic Exercise (66733) 10 minutes and Manual Therapy (60766) 30 minutes ?? therex- review of current stretching. Added hams stretch in sitting that she can do while at workor sitting for long periods. 3 reps hold 30 seconds. Doing calf stretch on stair. May push too much.Doing trunk rotation. Trunk flexion. ?? Manual therapy- stm mfr and BROADBAND INSTALLER techniques to increase flow through trunk and head. Suboccipital release. Thoracic diaphragm release. Still point achieved. A: Pt felt better following treatment head was better. P: Continue physical therapy for headaches. documented in this encounter Plan of Treatment Not on filedocumented as of this encounter Visit Diagnoses Diagnosis Myofacial muscle pain Mylagia and myositis, unspecified Headache(784.0) Headache documented in this encounter Care Teams Glass Maker Relationship Specialty Start Date End Date Christian-Marla Nazario MD PCP - General 12/31/11 [address] [place] [id number] documented as of this encounter
--- OUTSIDE RECORDS SUMMARY | 2021-12-28 03:17 | XMS_ITS | Encounter Summary ---
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 Mounika Casas PTA - 06/04/2012 6:47 AM EST Physical Therapy Progress Note Total Timed Code Treatment: 40 minutes Total Treatment Time: 40 minutes Follow up visit for a patient with 1. Unsteady gait 2. Concussion 3. Headache S: Patient reports she still has double vision with turning her head side to side (she wishes this would go away). She and her did a little dancing and she did O.K. She is doing VOR x 1 in front of the TV. O: Neuromuscular Re-Education (77753) 30 minutes and Manual Therapy (84071) 10 minutes treadmill 1.8 without UE support--able to look side to side and un/down VOR x 1 and 2 with double vision 2 foam: romberg stance with head turns and tilts, EC with head turns up to 1 min., bending to touch the floor, 360 degree turns, SLS (R) up to 25 sec., (L) up to 15 sec. gentle (R) shoulder posterior, inferior and lateral glides manual cervical traction, side bends and rotations STM to anterior, lateral and posterior cervical musculature A: Pt. is improving with balance activities and dizziness. She continues to c/o double vision. She is compliant with her HEP. P: Continue PT for Manual Techniques, Stretching, Therapeutic exercise and Balance and Gait Training MOUNIKA MENDOZA PTA documented in this encounter Plan of Treatment Not on filedocumented as of this encounter Visit Diagnoses Diagnosis Unsteady gait - Primary Abnormality of gait Concussion Concussion, unspecified Headache(784.0) Headache documented in this encounter Care Teams Tennis Racket Repairer Relationship Specialty Start Date End Date Christian-Marla Nazario MD PCP - General 12/31/11 79 [facility] 3 [place] [phone] documented as of this encounter
--- OUTSIDE RECORDS SUMMARY | 2021-12-28 03:17 | XMS_ITS | Encounter Summary ---
:1950 Author Organization [facility] [place] [address] Care Team Providers Name Role Phone Marla Moralez MD Primary Care Provider Encounter Details Date Type Department Care Team Description 05/27/2012 Follow-Up Physical Therapy at Daniela Mendoza PTA [facility] DR PHYSICAL MEDICINE & [place] [address] Unsteady gait (Primary Dx); [facility] Marla Moralez MD [address] [place] [address] Concussion; [facility] [place] [id number] Social History Tobacco Use Types Packs/Day Years Used Date Former Smoker Sex Assigned at Date Recorded Not on file documented as of this encounter Progress Notes Klaudia Tony PT - 05/29/2012 8:25 AM EST I have reviewed and agree with note written by ANIKET. Mounika Mendoza PTA - 05/28/2012 7:02 AM EST Physical Therapy Progress Note Total Timed Code Treatment: 40 minutes Total Treatment Time: 40 minutes Follow up visit for a patient with 1. Unsteady gait (781.2CT) 2. Concussion (850.9H) 3. Headache (784.0) S: Patient reports she spent part of the time lying down during her P.T. exam and had to do an abrupt movement with her head and her (R) side of neck and shoulder have been hurting since. She states she is having difficulty sleeping. She states if I could do STM to her neck and shoulder it would be appreciated. O: Neuromuscular Re-Education (43352) 30 minutes and Manual Therapy (16858) 10 minutes reviewed HEP: UT and SCM stretch, chin tucks walking with head turns and tilts, with EC, with bending, with increased speed, stepping over 4 blocks, gaze stabilization--she reports diplopia with turning to the left, more blurry when turning right 2 foam: romberg stance with head turns and tilts, EC with head turns up to 1 min., bending to touch the floor, 360 degree turns gentle (R) shoulder posterior, inferior and lateral glides manual cervical traction, side bends and rotations STM to anterior, lateral and posterior cervical musculature A: Pt. did well with balance challenges except for double vision with turning her head to the (L). Decreased stiffness at cervical spine following treatment. P: Continue PT for Manual Techniques, Stretching, Therapeutic exercise and Balance and Gait Training MOUNIKA MENDOZA PTA documented in this encounter Plan of Treatment Not on filedocumented as of this encounter Visit Diagnoses Diagnosis Unsteady gait - Primary Abnormality of gait Concussion Concussion, unspecified Headache(784.0) Headache documented in this encounter Care Teams Heading Matcher And Assembler Relationship Specialty Start Date End Date Christian-Marla Nazario MD PCP - General 12/31/11 [address] [facility] 3 [place] [address] documented as of this encounter
--- OUTSIDE RECORDS SUMMARY | 2021-12-28 03:17 | XMS_ITS | Encounter Summary ---
:1950 Author Organization [facility] [place] [address] Care Team Providers Name Role Phone Marla Moralez MD Primary Care Provider Reason for Visit Reason Onset Date Comments Results 01/31/2012 Encounter Details Date Type Department Care Team Description 01/31/2012 Telephone Pain Management at Umesh Donahue MD Results [facility] [place] [address] PAIN CLINIC [phone] [place] [id number] (Wo rk) Social History Tobacco Use Types Packs/Day Years Used Date Former Smoker Sex Assigned at Date Recorded Not on file documented as of this encounter Miscellaneous Notes Telephone Encounter - Umesh Greenberg MD - 01/31/2012 10:00 AM EDT I spoke to the patient today that her MRI of the pelvis. It appears to tears along the insertion of the gluteus medius to the greater trochanter. I told her at this point I do not think proceeding withpiriformis injection make sense given these findings. I will review her imaging with the radiologist's and consider sending her to physiatry for PT. She will follow up with me in the office. documented in this encounter Plan of Treatment Not on filedocumented as of this encounter Visit Diagnoses Not on filedocumented in this encounter Care Teams E Commerce Analyst Relationship Specialty Start Date End Date Christian-Marla Nazario MD PCP - General 12/31/11 [address] [place] [phone] documented as of this encounter
--- OUTSIDE RECORDS SUMMARY | 2021-12-28 03:17 | XMS_ITS | Encounter Summary ---
:1950 Author Organization [facility] [place] [address] Care Team Providers Name Role Phone Marla Moralez MD Primary Care Provider Encounter Details Date Type Department Care Team Description 04/16/2012 Office Visit Occupational Therapy Mich Mauricio, OT [facility] [address] PHYSICAL MEDICINE & [place] [address] Concussion (Primary at [facility] Marla Moralez MD [address] [facility] [address] [place] [address] Dx) [place] [address] Social History Tobacco Use Types Packs/Day Years Used Date Former Smoker Sex Assigned at Date Recorded Not on file documented as of this encounter Progress Notes Tomy Mauricio, OT - 04/16/2012 4:07 PM EDT OCCUPATIONAL THERAPY INITIAL NEUROLOGICAL EVALUATION REFERRAL SOURCE: Dr. Marla Gonzales DIAGNOSIS: 1. Concussion (850.9H) NEXT FOLLOW UP: PRN TOTAL TREATMENT TIME: 70 minutes TIMED CODE TREATMENT TIME: Evaluation untimed minutes OBJECTIVE: Olivia Azevedo is a female of 62 y.o. who presents today with a diagnosis of Concussion.She was looking at new cars when she looked in the trunk and the trunk lid came down on the top of her head. This occurred about 02/05/12.. Patient was seen by dr. Marla Gonzales for recheck [facility]. 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 Premorbid Living Environment: same Premorbid Function: Employed. 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 Feeding/Oral Motor: 04/08 Bathing/Hygiene: 04/08 Dressin/10 Toiletin/10 Social/Leisure: 12/07 Home Management: 12/07 Functional Mobility: 04/08 Job/School: 11/06 Transportation/Drivin/10 HAND DOMINANCE: right hand dominant STRENGTH: She reports functional strength RANGE OF MOTION: Olivia Azevedo demonstrates functional active and passive bilateral upper extremity motion in therapy today. MOTOR CONTROL: She presents with functional motor control today SENSATION: intact COGNITION: Olivia Azevedo was evaluated in the areas of attention, sequencing and problem solving [facility] Occupational Therapy Cognitive assessment is a standardized test used for assessing basic cognitive abilities. Orientation [address] 02/04 2 Orientation for time 02/04 Visual Perception 3 Object Identification 10/01 4 Shape Identification 10/01 5 Overlapping Figures 10/01 6 Object Constancy 10/01 Spatial Perception 7 Direction on Client's body 10/01 8 Spatial Relations 10/01 9 Spatial Relations on Picture 10/01 Motor Praxis 10 Motor Limitation 10/01 11 Utilization of Objects 10/01 12 Symbolic Actions 10/01 Visuomotor Organization 13 Copying Geometric Forms 10/01 14 Two-Dimentional Model 08/31 15 Pegboard Construction 10/01 16 Colored Block Design 07/03 17 Plain Block Design 08/31 18 Reproduction of a Puzzle 08/03 19 Drawing a Clock 08/31 Thinking Operations 20 Categorization 11/01 21 MARY Unstructured 11/01 22 MARY Structured 11/01 She required a significant amount of time to fix and error 23 Pictorial Sequence A 10/01 24 Pictorial Sequence B 10/01 25 Geometric Sequencing 07/03 26 Logic Questions 08/03 Attention and Concentration 10/01 Total Score 107/119 Length of testing 55 minutes Assessment as performed in 1 visit(s) VISION: this needs to be further assessed PAIN: At Rest: 0/10 With Activity: 0/10 TREATMENT TODAY: Evaluation Instructed on energy conservation looking at if there is parts of her one day a week work that she could take home and do another day. ASSESSMENT: Olivia Azevedo presents today with limited functional performance due to decreased visuomotor organization, working memory, and thinking operations. She reports there is a visual componentplaying in to the visuomotor organization which will need to be assessed in more detail. She reports significant difficulty with her mental flexibility which was evident when running into unexpected portions of the riska object catofgorization portions of the LOTCA. She did have fatigue towards the end of the assessment which she reports limited her performance with the end tasks. She will benefit from further OT to initially assess her functional vision, short term memory, shifting attention, andfor further treatment of these areas. Mcfp Goals (to be met by discharge): Date Goal Met: 1.) Olivia Azevedo will complete activities of daily living independently at a 10/10 level. Goal Status: 2.) Olivia Azevedo will be able to resume all occupational roles independently without restriction. Goal Status: Short Term Goals (to be met by 4 weeks): Date Goal Met: Olivia Azevedo will be independent with home exercise program with 100% compliance. Goal Status: Olivia Azevedo will be able to remember and find 5 items in a search through [facility] without cueing. Goal Status: Olivia Azevedo will increase her score on the LOTCA by 5 points to promote her ability to perform her job at an 8/10 level Goal Status: PLAN: The patient is to be seen 1 time(s) per week, for 12 week(s) to progress toward short and fpc goals. for Visuomotor organization, Visuoperceptual skills, Visual [...] unspecified documented in this encounter Care Teams Primer Inserting Machine Adjuster Relationship Specialty Start Date End Date Christian-Marla Nazario MD PCP - General 12/31/11 [address] [facility] [address] [place] [address] documented as of this encounter
--- OUTSIDE RECORDS SUMMARY | 2021-12-28 03:17 | XMS_ITS | Encounter Summary ---
:1950 Author Organization [facility] [place] [address] Care Team Providers Name Role Phone Marla Moralez MD Primary Care Provider Encounter Details Date Type Department Care Team Description 05/07/2012 Follow-Up Occupational Therapy at Tomy Mauricio OT [facility] [address] PHYSICAL MEDICINE & [place] [address] Concussion (Primary [facility] Marla Moralez MD [address] [facility] [address] [place] [address] Dx) [place] [address] Social History Tobacco Use Types Packs/Day Years Used Date Former Smoker Sex Assigned at Date Recorded Not on file documented as of this encounter Progress Notes Tomy Mauricio OT - 05/07/2012 10:28 AM EST OCCUPATIONAL THERAPY PROGRESS NOTE REFERRAL SOURCE: Dr. Marla Gonzales DIAGNOSIS: 1. Concussion (850.9H) NEXT FOLLOW UP: PRN TOTAL TREATMENT TIME: 62 minutes TIMED CODE TREATMENT TIME: Therapeutic exercise functional 62 minutes OBJECTIVE: Olivia Azevedo is a female of 62 y.o. who presents today with a diagnosis of Concussion.She was looking at new cars when she looked in the trunk and the trunk lid came down on the top of her head. This occurred about 02/05/12.. Patient was seen by dr. Marla Gonzales for recheck [facility]. Olivia Azevedo presents alone VISION: Pupillary function no deficits noted with pen light testing Acuity intermediate distance: tested at 1 M Right eye Tiffanie 20/25 Left eye Tiffanie 20/20 Both eyes Tiffanie 20/20 Reading Acuity: distance 16 inches Eyes together La Jose 20/25 Right eye 20/40 Left eye 20/25 Distance acuity from 20 ft right and left eye 20/30 Kinetic Two Person Confrontation test: Horrizontal visual field: Left eye (left side /right side) 60/30 Horizontal visual field: Right eye (left side / right side)70/30 Vertical visual field: right eye (superior / inferior) 60/75 Vertical visual field: left eye (superior / inferior) 60/75 Garret Campimeter : No limitations outside of blind spot on each side Occular Motor Function Assessment Corneal Reflection Instruct the client to focus on a distant target, hold penlight centered in front of the client???s face; observe the corneal reflection in each eye and record the position of the reflection symetric Eye Movement SMOOTH PURSUIT Instruct the client to focus on the penlight; move the penlight slowly in an arc 20 inches from the face through the 9 cardinal directions of gaze. Record deficiencies/deviations in eye movement on the eye diagrams. Noted nystagmus with left to right versual persuit and any movement requiring looking to the right Convergence Instruct the client to focus on the penlight (held vertically). Beginning at 20 inches, slowly move the penlight towards the bridge of the client???s nose. Observe convergent eye movements. Record the distance from the nose at which the client breaks fixation in 1 or both eyes. Record deficiencies/deviations in eye movement on the eye diagram. Also note pupillary response, effort, and ability to sustain convergence Near point of convergence in inches This was intact Diplopia Testing Cover Uncover test: Instruct the client to focus on a distant target held at eye level behind the examiner. Quickly cover the eye which appears to have intact oculomotor function with the occluder. Observe the uncovered eye to see if it moves to take up fixation on the target. If eye movement occurs, record the direction of the eye movement on the eye diagram. Both eye turn medially when other eye is uncovered. She has very stable gaze when one eye is coveredbut develops bouncing of vision when both eyes are uncovered. When turning head to the left with eyes to the right she develops double vision but when turning to the right with eyes to the left this isless so. Right eye does not move laterally as strongly as left Alternating Cover Test: Instruct the client to focus on a distant target held at eye level behind the examiner. Quickly switch the occluder back and forth between the eyes leaving the occluder over the eye for 2 seconds before switching. Observe whether the eye under cover moves to take up fixation once the cover has been removed. If eye movement occurs, record the direction of the eye movement Double vision either eye covered Visual Attention Assessment Search strategy for near space structured visual array Single letter search simple: Number of accurate responses: (40 targets) Percent correct: 100% 55 seconds Error type: missed one Structured Complex [place] search Number of accurate responses: (30 targets) Percent correct: 100% Time:55 Random Circles Crowded Number of accurate responses: (40 targets) Percent correct: 100 % Time:72 Error type: omissions: left right center double numbers: misnumbers: Search strategy used: PAIN: At Rest: 0/10 With Activity: 0/10 TREATMENT TODAY: Assessed vision Instructed in attempted use of a eye patch which she is to try wearing alternating Between eye every45 minutes. 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 Instructed on energy conservation looking at if there is parts of her one day a week work that she could take home and do another day. She was encouraged to attempt painting as she did before to further assess her perceptual and organization skills.. ASSESSMENT: Olivia Azevedo presents today visually with fair acuity but she continues to have blurriness at times that progresses to double vision especially when her gaze is to right or left. With one eye covered this blurriness resolves. With bilateral vision she is noted to have a nystagmus type eye movement but with one eye covered the uncovered eye remains stable. With looking to the right she develops significant double vision but less so when looking to the left. When attempting to identify which eye has misalignment but when covering then uncovering one while starring at a distant target she immediately developed eye movement when returning to bilateral vision hence a distinct eye movement one direction could not be identified. She will benefit from attempting use of an eye patch initially to resolve the double vision during functional tasks. Unfortunately she does not have glasses other than reading glasses that can be used to attempt opaquing the fovea. She will benefit from assessment of perceptual testing and further memory and problem solving activity next visit. Having her doinga mock shopping trip will also be ideal. [facility] Goals (to be met by discharge): Date [...] find 5 items in a search through [facility] without cueing. Goal Status: Olivia Azevedo will increase her score on the LOTCA by 5 points to promote her ability to perform her job at an 8/10 level Goal Status: PLAN: The patient is to be seen 1 time(s) per week, for 12 week(s) to progress toward short and mcfp goals. for Visuomotor organization, Visuoperceptual skills, Visual [...] unspecified documented in this encounter Care Teams Fire Prevention Inspector Relationship Specialty Start Date End Date Christian-Marla Nazario MD PCP - General 12/31/11 [address] [facility] [facility] [address] [place] [address] documented as of this encounter
--- OUTSIDE RECORDS SUMMARY | 2021-12-28 03:17 | XMS_ITS | Encounter Summary ---
:1950 Author Organization [place] [address] Care Team Providers Name Role Phone Marla Moralez MD Primary Care Provider Encounter Details Date Type Department Care Team Description 01/20/2012 Orders Only Pain Management at D [facility] Umesh Greenberg MD [facility] [place] [address] PAIN CLINIC [phone] [place], [place] [address] (Wo rk) Social History Tobacco Use Types Packs/Day Years Used Date Former Smoker Sex Assigned at Date Recorded Not on file documented as of this encounter Plan of Treatment Not on filedocumented as of this encounter Procedures Procedure Name Priority Date/Time Associated Diagnosis Comme nts FILM LIBRARY Routine 01/20/2012 3:05 PM Results f or this STORAGE ONLY PAIN EDT procedure are in CLINIC C ARM the results section. documented in this encounter Results FILM LIBRARY-STORAGE ONLY PAIN CLINIC C-ARM (01/20/2012 3:05 PM EDT) Specimen (Source) Anatomical Collection Method Collection Time Re ceived Time Location / / Volume Laterality 01/20/2012 3:05 PM EDT Narrative RAD - 01/11/2014 10:12 AM EDT This is a non-reportable exam. Procedure Note Shiraz Matamoros - 01/11/2014Formatti ng of this note might be different from the original. This is a non-reportable exam. Umesh Greenberg MD [facility] FILM LIBRARY ORDERABLES Performing Organization Address City/State/ZIP Code Phon e Number DH RAD DH RAD [address] [facility] [place] [address] documented in this encounter Visit Diagnoses Not on filedocumented in this encounter Care Teams Field Auditor Relationship Specialty Start Date End Date Christian-Marla Nazario MD PCP - General 12/31/11 [address] [facility] [address] [place] [address] documented as of this encounter
--- OUTSIDE RECORDS SUMMARY | 2021-12-28 03:17 | XMS_ITS | Encounter Summary ---
:1950 Author Organization [facility] [place] [address] Care Team Providers Name Role Phone Jacquelyn Valentine MD Primary Care Provider Reason for Visit Reason Onset Date Comments Post Procedure Call 07/12/2011 Encounter Details Date Type Department Care Team Description 07/12/2011 Telephone Pain Management at Yesika Gibson P ost [place] [address] Social History Tobacco Use Types Packs/Day Years Used Date Former Smoker Sex Assigned at Date Recorded Not on file documented as of this encounter Miscellaneous Notes Telephone Encounter - Yesika Gibson RN - 07/15/2011 4:58 PM EST I have attempted to contact this patient by phone on Friday07/12/11 and again today 07/15/11 with thefollowing results: left message to return my call on answering machine. documented in this encounter Plan of Treatment Not on filedocumented as of this encounter Visit Diagnoses Not on filedocumented in this encounter Care Teams Lumber Tying Machine Operator Relationship Specialty Start Date End Date Jacquelyn Valentine MD PCP - General 05/22/10 12/30/[address] [place] [address] documented as of this encounter
--- OUTSIDE RECORDS SUMMARY | 2021-12-28 03:17 | XMS_ITS | Encounter Summary ---
:1950 Author Organization [facility] [place] [address] Care Team Providers Name Role Phone Marla Moralez MD Primary Care Provider Encounter Details Date Type Department Care Team Description 06/17/2012 Follow-Up Physical Therapy at Mounika Mendoza Un steady gait (Primary Dx); [facility], [employer] Concussion; [facility] [place] [address] PHYSICAL MEDICINE & [phone] [place] [address] Social History Tobacco Use Types Packs/Day Years Used Date Former Smoker Sex Assigned at Date Recorded Not on file documented as of this encounter Progress Notes Mounika Mendoza PTA - 06/18/2012 7:19 AM EST Physical Therapy Progress Note Total Timed Code Treatment: 45 minutes Total Treatment Time: 45 minutes Follow up visit for a patient with 1. Unsteady gait 2. Concussion 3. Headache S: Patient reports she is doing her cervical stretches, but she is having increased dizziness and nausea when turning her head side to side with walking. She get really dizzy when shopping in large stores. O: Neuromuscular Re-Education (83428) 35 minutes and Manual Therapy (38542) 10 minutes Active Step: walking at 1.5 mph with head turns and tilts--occ. LOB, but able to self correct Backwards walking at .8mph gaze stabilization at 1.5 mph side stepping at .7mph with head turns attempted continuous etrip but pt. was unable to tolerate gentle (R) shoulder posterior, inferior and lateral glides manual cervical traction, side bends and rotations STM to anterior, lateral and posterior cervical musculature A: Pt. c/o (R) sided OGLESBY with vestibular activities. Pt. was tearful at one point stating I just want my life back. P: Continue PT for Manual Techniques, Stretching, Therapeutic exercise and Balance and Gait Training MOUNIKA MENDOZA PTA documented in this encounter Plan of Treatment Not on filedocumented as of this encounter Visit Diagnoses Diagnosis Unsteady gait - Primary Abnormality of gait Concussion Concussion, unspecified Headache(784.0) Headache documented in this encounter Care Teams Cross Country/Track And Field Coach Relationship Specialty Start Date End Date Christian-Marla Nazario MD PCP - General 12/31/11 [address] [facility] [address] [place] [address] documented as of this encounter
--- OUTSIDE RECORDS SUMMARY | 2021-12-28 03:17 | XMS_ITS | Encounter Summary ---
:1950 Author Organization [facility] [place] [address] Care Team Providers Name Role Phone Marla Moralez MD Primary Care Provider Encounter Details Date Type Department Care Team Description 08/05/2012 Follow-Up Occupational Therapy at Tomy Mauricio OT [facility] [address] PHYSICAL MEDICINE & [place] [address] Concussion (Primary [facility] Marla Moralez MD [address] [facility] [address] [place] [address] Dx) [place] [address] Social History Tobacco Use Types Packs/Day Years Used Date Former Smoker Sex Assigned at Date Recorded Not on file documented as of this encounter Progress Notes Tomy Mauricio OT - 08/05/2012 3:15 PM EST OCCUPATIONAL THERAPY PROGRESS NOTE REFERRAL SOURCE: Dr. Marla Gonzales DIAGNOSIS: 1. Concussion NEXT MD FOLLOW UP: PRN TOTAL TREATMENT TIME: 75 minutes TIMED CODE TREATMENT TIME: Therapeutic exercise functional 75 minutes OBJECTIVE: Olivia Azevedo is a female of 62 y.o. who presents today with a diagnosis of Concussion.She was looking at new cars when she looked in the trunk and the trunk lid came down on the top of her head. This occurred about 02/05/12.. Patient was seen by dr. Marla Gonzales for recheck [facility]. Olivia Azevedo presents alone PAIN: At Rest: 08/09 With Activity: 08/09 TREATMENT TODAY: Completed Origami paper folding tasks. A 14 step goldfish was attempted first for which she requiredconsiderable assistance attempting to talk to me while doing the task. She required cueing to focus. A 16 step bird was then attempted which required more complex folds. These tasks were completed out in the [place]. ASSESSMENT: Olivia Azevedo presented today reporting improved tolerance to work tasks and doing more in the hours she is working. She did very well with focused tasks such as Luminosity originality tests. Origami required shifting attention between the written directions, picture of how the piece should like at the start of the step and picture of how the piece should like once the step is done. Shewas unable to switch between these pieces of information as necessary to figure out at least 50% of the folds and at time for very challenging folds required hand over hand assistance. These were challenging folds and took this therapist increased time to problem solve. She reports that switching between report screens at home doing her paperwork is just as challenging. Visually she did not report any blurring while reading directions. She tolerated the background noise well. She will benefit from at least one more visit to challenge her with a higher level problem solving task requiring shifting at tention, background noise tolerance, incorporating a lot of visual scanning and reading of material. Jail Goals (to be met by discharge): Date [...] with 100% compliance. Goal Status: Goal met 07/08/12 Olivia Azevedo will be able to remember and find 5 items in a search through [facility] without cueing. Goal Status: Goal met 05/20/12 Olivia Azevedo will increase her score on the LOTCA by 5 points to promote her ability to perform her job at an 8/10 level Goal Status: Goal status PLAN: The patient is to be seen 1 time(s) per week, for 12 week(s) to progress toward short and half-way goals. for Visuomotor organization, Visuoperceptual skills, Visual [...] unspecified documented in this encounter Care Teams Regulatory Law Specialist Relationship Specialty Start Date End Date Christian-Marla Nazario MD PCP - General 12/31/11 [address] [place] [id number] documented as of this encounter
--- OUTSIDE RECORDS SUMMARY | 2021-12-28 03:17 | XMS_ITS | Encounter Summary ---
:1950 Author Organization [facility] [place] [address] Care Team Providers Name Role Phone Marla Moralez MD Primary Care Provider Encounter Details Date Type Department Care Team Description 01/29/2012 Hospital Encounter MRI at [facility], DR KENNEDY Gluteal pain [facility] Umesh Greenberg MD [facility] [place] [address] [place] [address] Social History Tobacco Use Types Packs/Day Years Used Date Former Smoker Sex Assigned at Date Recorded Not on file documented as of this encounter Medications at Time of Discharge Medication Sig Dispensed Refills Start Date End Date multivitamin (THERAGRAN) Take 1 tablet by 0 tablet mouth daily. CIS Free Text Med - 0 12/13/200910/14 Vagiphen documented as of this encounter Miscellaneous Notes Miscellaneous - Provider, Scanning - 02/04/2012 9:44 AM EDT documented in this encounter Plan of Treatment Not on filedocumented as of this encounter Procedures Procedure Name Priority Date/Time Associated Diagnosis Comme nts MRI PELVIS SOFT Routine 01/29/2012 8:22 PM Gluteal pain Result s for this TISSUE (GI APPLICATION PROCESSOR) EDT procedure are in WO CONTRAST the results section. documented in this encounter Results MRI pelvis WO contrast (01/29/2012 8:22 PM EDT) Anatomical Region Laterality Modality Pelvis Magnetic Resonance Specimen (Source) Anatomical Collection Method Collection Time Re ceived Time Location / / Volume Laterality 01/29/2012 8:22 PM EDT Narrative 01/30/2012 5:10 PM EDT Examination MR Pelvis WO Clinical History Left gluteal pain, please assess for lef t piriformis pathology Comparison None Technique Multi planar multisequence MRI of the pe lvis without the use of intravenous contrast. Findings Muscles: The bilateral piriformis muscle s are symmetric in size and demonstrate normal signal intensity. Mild atrophy of the right gluteus minimus muscle is seen at attachment to the iliac wing (se marichuy 7, image 40). Tendons: There is a partial-thickness te ar of the gluteus minimus tendons at the attachment to the greater trochanter bilaterally with a small amount of fluid in the overlying trochanteric burs a. Nerves: The visualized sciatic nerves ar e intact with no masses along there course. 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 There is slight anterior displacement of the S2 and S3 exiting nerves at these levels. ? ? Bones: No acute fractures are noted. Mil d degenerative changes are noted in the hips bilaterally characterized by latera l acetabular osteophytes and joint space narrowing. The sacroiliac joints a re unremarkable. Is degenerative changes are seen at L4/L5 and L5/S1 with out significant central canal stenosis. Bilateral facet arthropathy is seen with mild right sided neuroforaminal stenosis at L4/L5 and L5/S1 levels. Ther e is mild left neuroforaminal stenosis at L4/L5 and mild/moderate left neurofor aminal stenosis at L5/S1. Miscellaneous: A 2.4 cm fibroid is seen in the lateral body of the fundus. Impression 1. Normal appearance of the piriformis m uscles. ?? 2. Partial thickness tear of the bilater al gluteus minimus tenon with overlying mild trochanteric bursitis. 3. This degenerative change and facet ar thropathy at L4-5 and L5-S1, with bilateral foraminal narrowing, as descri bed. 4. 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 Film and interpretation reviewed by the attending Procedure Note Ernesto Thompson MD - 01/30/2012Formatti ng of this note might be different from the original. Examination MR Pelvis WO Clinical History Left gluteal pain, please assess for lef t piriformis pathology Comparison None Technique Multi planar multisequence MRI of the pe lvis without the use of intravenous contrast. Findings Muscles: The bilateral piriformis muscle s are symmetric in size and demonstrate normal signal intensity. Mild atrophy of the right gluteus minimus muscle is seen at attachment to the iliac wing (se marichuy 7, image 40). Tendons: There is a partial-thickness te ar of the gluteus minimus tendons at the attachment to the greater trochanter bilaterally with a small amount of fluid in the overlying trochanteric burs a. Nerves: The visualized sciatic nerves ar e intact with no masses along there course. 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 There is slight anterior displacement of the S2 and S3 exiting nerves at these levels. Bones: No acute fractures are noted. Mil d degenerative changes are noted in the hips bilaterally characterized by latera l acetabular osteophytes and joint space narrowing. The sacroiliac joints a re unremarkable. Is degenerative changes are seen at L4/L5 and L5/S1 with out significant central canal stenosis. Bilateral facet arthropathy is seen with mild right sided neuroforaminal stenosis at L4/L5 and L5/S1 levels. Ther e is mild left neuroforaminal stenosis at L4/L5 and mild/moderate left neurofor aminal stenosis at L5/S1. Miscellaneous: A 2.4 cm fibroid is seen in the lateral body of the fundus. Impression 1. Normal appearance of the piriformis m uscles. 2. Partial thickness tear of the bilater al gluteus minimus tenon with overlying mild trochanteric bursitis. 3. This degenerative change and facet ar thropathy at L4-5 and L5-S1, with bilateral foraminal narrowing, as descri bed. 4. 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 Film and interpretation reviewed by the attending Umesh Greenberg MD IMG MRI ORDERABLES documented in this encounter Visit Diagnoses Diagnosis Gluteal pain Mylagia and myositis, unspecified documented in this encounter Care Teams Pressurizer Relationship Specialty Start Date End Date Christian-Marla Nazario MD PCP - General 12/31/11 [address] [facility] [place] [address] documented as of this encounter
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
--- OUTSIDE RECORDS SUMMARY | 2021-12-28 03:17 | XMS_ITS | Encounter Summary ---
:1950 Author Organization [facility] [place] [address] Care Team Providers Name Role Phone Marla Moralez MD Primary Care Provider Encounter Details Date Type Department Care Team Description 05/13/2012 Follow-Up Occupational Therapy at Tomy Mauricio, Concussion (Primary [facility] OT Dx) [facility] [place] [address] PHYSICAL MEDICINE & [phone] [place] [address] Social History Tobacco Use Types Packs/Day Years Used Date Former Smoker Sex Assigned at Date Recorded Not on file documented as of this encounter Progress Notes Tomy Mauricio, OT - 05/13/2012 4:45 PM EST OCCUPATIONAL THERAPY PROGRESS NOTE REFERRAL SOURCE: Dr. Marla Gonzales DIAGNOSIS: 1. Concussion (850.9H) NEXT MD FOLLOW UP: PRN TOTAL TREATMENT TIME: 77 minutes TIMED CODE TREATMENT TIME: Therapeutic exercise functional 77 minutes OBJECTIVE: Olivia Azevedo is a female [...] Olivia Azevedo presents alone PAIN: At Rest: 0/10 With Activity: 0/10 TREATMENT TODAY: Provided verbally with 5 items that she needed to find somewhere for sale in the hospital. This entailed a trip walking to the [facility], and the pharmacy. She remembered 4-5 items and require 3 cues to [address] her way back to the rehab room from the pharmacy. Completed card # 17 of shape by cristy needing to use one hint to complete Used parts of the MVPT-3 to test visual saccades back and forth comparing 4 items. This was then attempted with an eye patch with resolution of blurriness and noted smooth control saccades with individual eye movement Instructed to attempt use of eye patch when doing tasks like computer work, painting. ASSESSMENT: Olivia Azevedo presents today with fair tolerance to the shopping trip. She initially was able to go to two closet stores and find 3 items in a semiorganized search patter. She followed directions which she asked for of a senior network security engineer to get to the pharmacy but at that point presented with very poor search pattern unable to see a box of cue tips despite standing directly in front of it. She continued searching areas she had already looked through and then realized so and went to a different area. She became lost on the way back to rehab taking a completely different route following signs requiring cueing once in the department. Her perceptual skills were effective at first for shape by shape but as she fatigued she needed multiple cues and was noted to attempt the same piece positioning multiple times. She had poor control of saccades with binocular vision for the MVPT-3 but was noted to have resolution of blurring when wearing the eye patch over either eye. She will benefit fromstandardize administration of the MVPT3 next visit. She has good rehab potential considering her insight to deficit areas. Intermediate Goals (to be met by discharge): Date [...] find 5 items in a search through [facility] without cueing. Goal Status: Olivia Azevedo will increase her score on the LOTCA by 5 points to promote her ability to perform her job at an 8/10 level Goal Status: PLAN: The patient is to be seen 1 time(s) per week, for 12 week(s) to progress toward short and snf goals. for Visuomotor organization, Visuoperceptual skills, Visual [...] unspecified documented in this encounter Care Teams Carbide Tool Maker Relationship Specialty Start Date End Date Christian-Marla Nazario MD PCP - General 12/31/11 [address] [facility] [address] [place] [address] documented as of this encounter
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
--- OUTSIDE RECORDS SUMMARY | 2021-12-28 03:17 | XMS_ITS | Encounter Summary ---
:1950 Author Organization [facility] [place] [address] Care Team Providers Name Role Phone Marla Moralez MD Primary Care Provider Encounter Details Date Type Department Care Team Description 02/19/2012 Orders Only Orthopaedics at [facility] Ferdinand Larkin MD [facility] [place] [address] ORTHOPAEDIC SURGERY [phone] [place], [place] [address] (Wo rk) Social History Tobacco Use Types Packs/Day Years Used Date Former Smoker Sex Assigned at Date Recorded Not on file documented as of this encounter Plan of Treatment Pending Results Name Type Priority Associated Diagnoses Date/Ti ct Film Library- Storage Imaging Routine 2011 10:28 PM EDT only DX Pelvis documented as of this encounter Visit Diagnoses Not on filedocumented in this encounter Care Teams Assistant Guest Services Manager Relationship Specialty Start Date End Date Marla Moralez MD PCP - General 12/31/11 [address] [facility] [address] [place] [address] documented as of this encounter
--- OUTSIDE RECORDS SUMMARY | 2021-12-28 03:17 | XMS_ITS | Encounter Summary ---
:1950 Author Organization [facility] [place] [address] Care Team Providers Name Role Phone Marla Moralez MD Primary Care Provider Encounter Details Date Type Department Care Team Description 05/20/2012 Follow-Up Occupational Therapy at Tomy Mauricio, Concussion (Primary [facility] OT Dx) [facility] [place] [address] PHYSICAL MEDICINE & [phone] [place] [address] Social History Tobacco Use Types Packs/Day Years Used Date Former Smoker Sex Assigned at Date Recorded Not on file documented as of this encounter Progress Notes Tomy Mauricio, OT - 05/20/2012 4:19 PM EST OCCUPATIONAL THERAPY PROGRESS NOTE REFERRAL SOURCE: Dr. Marla Gonzales DIAGNOSIS: 1. Concussion (850.9H) NEXT MD FOLLOW UP: PRN TOTAL TREATMENT TIME: 62 [...] dr. Marla Gonzales for recheck and referred tooccupational therapy for evaluation and treatment. Olivia Azevedo presents alone PAIN: At Rest: 0/10 With Activity: 0/10 The ewenstein Occupational Therapy Cognitive assessment is a standardized test used for assessing basic cognitive abilities. Visuomotor Organization 13 Copying Geometric Forms 4/4 14 Two-Dimentional Model 10/01 15 Pegboard Construction 10/01 16 Colored Block Design 10/01 17 Plain Block Design 10/01 18 Reproduction of a Puzzle 10/01 19 Drawing a Clock 10/01 Thinking Operations 20 Categorization 11/01 21 MARY Unstructured 11/01 22 MARY Structured 11/01 23 Pictorial Sequence A 10/01 24 Pictorial Sequence B 10/01 25 Geometric Sequencing 08/03 26 Logic Questions 10/01 She scored a perfect score on the lotca except for one art of geometric sequencing. Her focused attention was good despite talking in the background Hopkin's Verbal Learning Test 12 Words Free Recall --- Trial #1 12/09 Trial #2 04/10 Trial #3 05/11 Recognition --- True Positives 06/10 False Positives related 0 False Positives unrelated TREATMENT TODAY: Re assessed LOTCA and Pizano verbal learning ASSESSMENT: Olivia Azevedo presents today with improvement in her visuomotor organization, working memory, higher level problem solving, is noting gains in her ability to do work. She continues to report extreme fatigue after a day of work needing the whole day after to recooperate. Visually she has much smoother visual persuit with only 2 nystagmus type ticks evident. Her saccades for working between targets is still slow, not on target, and result in dizzyness. Dr. Gonzales was contacted regarding this deficit area and a PT eval was ordered. She will benefit from the MVPT 3 next visit to further test her perception and challenge saccadic eye movement more. She has good rehab potential considering h er insight to deficit areas. Senior Living Goals (to be met by discharge): Date [...] find 5 items in a search through [facility] without cueing. Goal Status: Not fully met. [...] 12 week(s) to progress toward short and mcc goals. for Visuomotor organization, Visuoperceptual skills, Visual [...] unspecified documented in this encounter Care Teams Engineering Faculty Relationship Specialty Start Date End Date Christian-Marla Nazario MD PCP - General 12/31/[address] [place] [id number] documented as of this encounter
--- OUTSIDE RECORDS SUMMARY | 2021-12-28 03:17 | XMS_ITS | Encounter Summary ---
:1950 Author Organization [facility] [place] [address] Care Team Providers Name Role Phone Marla Moralez MD Primary Care Provider Reason for Visit Reason Comments Strabismus Orthoptic evaluation Encounter Details Date Type Department Care Team Description 11/26/2012 Office Visit Ophthalmology at [facility] Domingo Ornelasopia (Primary Dx) [facility] [place] [address] Social History Tobacco Use Types Packs/Day Years Used Date Former Smoker Sex Assigned at Date Recorded Not on file documented as of this encounter Progress Notes Cathleen Ennis CO - 11/26/2012 5:01 PM EDT Olivia Azevedo is 62 year old female with 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 Plan: A Fresnel trial is indicated to determine if the prism will eliminate the vertical diplopia. Olivia does not wear corrective lenses. She has a pair of sunglasses that are not amendable to Fresnel prisms due to the curvature of the frame/lens. It was suggested that she purchase an inexpensive lightly tinted sunglass or a plano fashion pair, OTC. Olivia will send the glasses for prism placement and will be returned by mail. Plan: Fresnel prism trial. Follow up as indicated by patients needs (prism may need adjusted) Note to Laurel: 3 BD OS. Check DMR if patient should return. documented in this encounter Plan of Treatment Not on filedocumented as of this encounter Procedures Procedure Name Priority Date/Time Associated Diagnosis Comme nts SENSORIMOTOR EXAM Routine 11/27/2012 1:31 PM Diplopia Resu lts for this EDT procedure are i n the results section. documented in this encounter Results SENSORIMOTOR EXAM [TN SPECIAL EYE EXAM] - OU- BOTH EYES (11/27/2012 1:31 PM EDT) Anatomical Region Laterality Modality Other Specimen (Source) Anatomical Location Collection Method / Collectio n Time Received Time / Laterality Volume Narrative 11/27/2012 1:31 PM EDT See orthoptic note Procedure Note Cathleen Ennis CO - 11/27/2012For matting of this note might be different from the original. See orthoptic note Karen Prieto MD OPHTHALMOLOGY SERVICES ORDER JAZ documented in this encounter Visit Diagnoses Diagnosis Diplopia - Primary documented in this encounter Care Teams Knee Bolter Relationship Specialty Start Date End Date Christian-Mrala Nazario MD PCP - General 12/31/11 [address] [facility] [address] [place] [address] documented as of this encounter
--- OUTSIDE RECORDS SUMMARY | 2021-12-28 03:17 | XMS_ITS | Encounter Summary ---
:1950 Author Organization [facility] [place] [place] [address] Care Team Providers Name Role Phone Marla Moralez MD Primary Care Provider Encounter Details Date Type Department Care Team Description 03/11/2013 Office Visit Physical Therapy at Uvaldo Aragon PT [facility] [address] PHYSICAL MEDICINE & [place] [address] Myofacial muscle pain; [facility] Marla Moralez MD [address] [place] [id number] [place] [phone] Social History Tobacco Use Types Packs/Day Years Used Date Former Smoker Sex Assigned at Date Recorded Not on file documented as of this encounter Progress Notes Dasha Aragon PT - 03/11/2013 9:30 AM EDT General Physical Therapy Initial Evaluation Note: Outpatient Date of Exam/First Treatment: 03/11/2013 Date of onset: feb 08 Referring Provider: Marla Moralez MD Diagnosis: 1. Myofacial muscle pain 2. Headache History of current problem: Olivia Azevedo is a 62 y.o. 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 impacdt on crown of head. Has had dizziness and blurred vision. Got prism glasses double vision. Having momory issues. Dizziness with bend forward. Had to limit ballroom dancing due to dizziness. 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 That will wipe her out. Headaches sporadic. Very freiqeunt At point of impact to head. Band around head. May very with barometric pressure. Has had neck pain. achey in back of corbin head. Double vision all the time. flourescent ight more issue. 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 Functional Limitations: unable to bend over OGLESBY with activity OBJECTIVE: Pain: at best: 2/10; at worst: 6/10 Located: diffuse Describes pain as: aching, tight band and tingling Posture: Forward head and Rounded shoulders Palpation: Tenderness with palpation at neck ms and into the head. increased tone in the parietal ms. scalenes and suboccipital. upper traps has incrsaed toen as well. Special Tests: Neck range: functional motion. Some stiffness with rotation and side bend. Pt notes some cracking. Strength UE WFL Distraction of neck some decrease pain. Compression no change. Very stiff at the c12 junction. Can have various pain throughout body. Strength LE WFL Headache present most days. Assessment: These findings are consistent with headaches post concussive incident that may have a muscular and soft tissue component. She may benefit from POWER PLANT SUPERINTENDENT to improve the flexibility of the ms at the base of the skull and into the head. Physical therapy is indicated to: increase flexibility Goals: Short term goals (4 weeks) 1. Patient to be indep with home exercise program. 2. Pt to report less frequency of headache to 4 x week 3. Pt to have 0/10 pain at times. Goals: long term care phlebotomist goals (12 weeks) 1. Pt to be able to minimize headache to 4/10 at worst less then 3 x a week. Interventions completed today: initial evaluation and stretching. Physical therapy plan: 1 x per week x 12 weeks, Other Recommendations: No other consults recommended at this time The plan has been discussed with the patient and they have agreed with the planned treatment. Total Treatment time: 60 minutes Total Timed Code Treatment: 60 minutes DASHA ARAGON PT documented in this encounter Miscellaneous Notes Miscellaneous - Provider, Scanning - 06/14/2013 9:24 AM EST documented in this encounter Plan of Treatment Not on filedocumented as of this encounter Visit Diagnoses Diagnosis Myofacial muscle pain Mylagia and myositis, unspecified Headache(784.0) Headache documented in this encounter Care Teams Pot Washer Relationship Specialty Start Date End Date Christian-Marla Nazario MD PCP - General 12/31/11 [address] [place] [id number] documented as of this encounter
--- OUTSIDE RECORDS SUMMARY | 2021-12-28 03:17 | XMS_ITS | Encounter Summary ---
:1950 Author Organization [facility] [place] [address] Care Team Providers Name Role Phone Marla Moralez MD Primary Care Provider Encounter Details Date Type Department Care Team Description 08/28/2012 Follow-Up Occupational Therapy at Tomy Mauricio OT [facility] [address] PHYSICAL MEDICINE & [place] [address] Concussion (Primary [facility] Marla Moralez MD [address] [facility] [address] [place] [address] [place]) [place] [address] Social History Tobacco Use Types Packs/Day Years Used Date Former Smoker Sex Assigned at Date Recorded Not on file documented as of this encounter Progress Notes Tomy Mauricio OT - 08/28/2012 11:02 AM EST OCCUPATIONAL THERAPY PROGRESS NOTE REFERRAL [...] dr. Marla Gonzales for recheck and [facility]. Olivia Azevedo presents alone PAIN: At Rest: 08/09 With Activity: 08/09 TREATMENT TODAY: She was asked to make a seed purchasing list and then open three garden seed web sights to compare seed and figure out who to order what from. She made a table to organize her data and opened the web pages independent. She required help initially with shifting between sites getting stuck on looking upunrelated details to the goal of the task. Another patient walked into the room and had discussion with a different therapist for which she was unable to remember information she was looking at and could not perform again until the background noise stopped. We attempted elevator counting attending to tone of beep and floor for which she could not complete accurately. ASSESSMENT: Olivia Azevedo presented today with some difficulty related to shifting attention with seen searching but was unable to perform with any background noise. She did not have difficulty with background noise in the moctezuma last visit but reports today the noise was a direct conversation near her which she can not tolerate. She has addapted to this at work. She had poor shifting attention with attempting elevator level counting listening to number of beeps to determine elevator floor. She reports having poor shifting attention ability even before the concussion and is able to identify tasks that require this skill she can adapt. At the end of the assessment she reported visuall issues again h aving unable to focus on items while she is moving and unable to scan effectively. but we did not have time to assess this so she will benefit from one additional visit to reassess this. She apparentlyhas prisms that she is using now and we will have to look into this more next visit. . Cheese Weigher Goals (to be met by discharge): Date [...] 5 items in a search through [facility] without cueing. Goal Status: Goal met 05/20/12 [...] unspecified documented in this encounter Care Teams Sales Account Coordinator Relationship Specialty Start Date End Date Christian-Marla Nazario MD PCP - General 12/31/11 [address] [place] [phone] documented as of this encounter
--- OUTSIDE RECORDS SUMMARY | 2021-12-28 03:17 | XMS_ITS | Encounter Summary ---
:1950 Author Organization [facility] [place] [address] Care Team Providers Name Role Phone Marla Moralez MD Primary Care Provider Encounter Details Date Type Department Care Team Description 07/02/2012 Follow-Up Physical Therapy at Peggy Mujica, PT [facility] [address] PHYSICAL MEDICINE & [place] [address] Unsteady gait (Primary Dx); [facility] Marla Moralez MD [address] [address] Concussion; [facility] [place] [phone] Social History Tobacco Use Types Packs/Day Years Used Date Former Smoker Sex Assigned at Date Recorded Not on file documented as of this encounter Patient Instructions Patient InstructionsRadha Mujica PT - 07/02/2012 9:23 AM EST For eye exercise: Pick a target that you can tell if it is in focus (word or symbol, etc) and hold it arms length or so away (so it is clear visual focus) Turn you head side to side only as far and as fast as the target stays in a clear visual focus-no doubling or blurriness. Keep target still (you could progress over time by moving the target opposite direction of your head) Continue for 2 minutes Gradually increased the speed and distance your head moves but only as long as there is a clear visual focus You can increase the level of difficulty by doing this in front of a busy visual (i.e. TV or busy computer screen) documented in this encounter Progress Notes Radha Mujica, PT - 07/02/2012 8:32 AM EST Images from the original note were not included. Physical Therapy Progress Note Total Timed Code Treatment: 50 minutes Total Treatment Time: 50 minutes Date of Exam/First treatment: 05/22/2012 Date of Onset 02/05/12 Referring Provider: Marla Moralez MD Diagnosis: 1. Unsteady gait (781.2CT) 2. Concussion (850.9H) 3. Headache (784.0) Functional Limitations: Patient reports difficulty shopping in grocery stores, being in crowds, moving quickly during ADL, using the computer, not dancing S: Patient reports last time she was here-ActiveStep irritated pelvis-has been treated for instability for years. Has acupuncture later today. Has been dizzy and nauseated x 3 weeks. Doing eye exs to apoint-until nausea. Yesterday and today feeling better with VOR ex. Still diplopia with left to center VOR x 1-not as bothersome today. 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 Yesterday went cross country [id number] front of house-1/2 hour one day, 40 minutes the next but very wiped out and headache after. She couldn't stand up after-had to lie down for while. Did partner dancing on arturo- wasn't nauseated. O: Therapeutic Exercise (66951) 15 minutes and Neuromuscular Re-Education (80967) 35 minutes Recommended trying cardio ex again ie. Cross country-less time to see if this is tolerated better and gradually work up. (Improved from 72/100) Cervical rotation (L) 45 (R) 55; SB 30 degrees each side, flexion 45, extension 50 Practiced SCM, UT stretch, chin tucks-all good technique Before session assessed pelvic alignment-posterior rotation right ilium-patient did current HEP of unilateral bridge with opposite LE in figure four-realigned ravinder; also discussed possibility of shotgun pube technique-practiced today and instructed how to do at home as needed DVA 8->4 (same as eval) Instructed in and practiced VOR x 1 in standing with visual target with careful attention to turning within range for single focus (goes double to left > right) and at speed that target stays in focus-to add this (will continue to do walking head turn with TV on treadmill); An After Visit Summary was printed and given to the patient. Stressed importance of using target with linear quality to see if target is in focus (i.e. Not thumb) and working with keeping it in focus; will progress busy visual background and x2 as able Walk with 360 pivots-did with spotting as in dance-minimal dizziness-did 4 in a row each direction Walk with head turn-some dizziness but no drift (improved), tilt-no dizziness or drift A: Improved function with improved score on DHI and decreased drift walking head turn. Still with altered VOR/gaze stabilization and significant symptoms with ADL. Should continue to make progress withtherex--will focus on technique with VOR-making sure target in focus to help with busy visual situations. Continues left diplopia. Dizziness with cross country ski may have been from cardio exertion increasing symptoms of TBI. ActiveStep slip/trip increased pelvic pain- will discharge with from program. ST Goals: 06/21/12 1. Independent with home exercise program. 2. DVA losing no more than 3 lines to decrease symptoms in crowds/busy visual Not met 07/02/12 3. Walk with head turn without slowing or drift to improve balance looking around during ADL met 07/02/12 4. 360 pivots x 1 without dizziness to improve ability to move quickly during ADL Not met 07/02/12 5. Cervical SB 45 degrees, rotation left 65 degrees to increase ability to look around during ADL Not met 07/02/12 LT Goals 07/22/12 1. DHI 20 or lower to indicate functional improvement with regards to dizziness or unsteadiness Not met 07/02/12 2. Computer work without dizzinesss 3. No dizziness in grocery store 4. Headache pain 2/10 at most and not constant Interventions completed today: initial evaluation, patient education, Instruction in HEP including UT, SCM stretch, chin tucks, VOR x 1, walk with head turn Plan: Frequency: 1 x/week x 5 weeks, then reassess Manual Techniques, Soft tissue mobilization, Home Exercise Program and Balance and Gait Training , vestibular therex including progressing to x 2 VOR, busy visual, OKS, walking with VOR, unstable surface head movement, habituation. Cervical stretches/STM; will work on exertional training at home-[employer] skiing. No perturbation with ActiveStep. RADHA MUJICA PT documented in this encounter Plan of Treatment Not on filedocumented as of this encounter Visit Diagnoses Diagnosis Unsteady gait - Primary Abnormality of gait Concussion Concussion, unspecified Headache(784.0) Headache documented in this encounter Care Teams Conveyor Installer Relationship Specialty Start Date End Date Christian-Marla Nazario MD PCP - General 12/31/11 [address] [facility] [address] [place] [address] documented as of this encounter
--- OUTSIDE RECORDS SUMMARY | 2021-12-28 03:17 | XMS_ITS | Encounter Summary ---
:1950 Author Organization [facility] [place] [address] Care Team Providers Name Role Phone Marla Moralez MD Primary Care Provider Reason for Visit Reason Comments Buttock Pain Encounter Details Date Type Department Care Team Description 01/20/2012 Procedure visit Pain Management at [facility], Gl uteal pain (Primary [facility] MD Dx) [facility] [address] [place] [address] [phone] Social History Tobacco Use Types Packs/Day Years Used Date Former Smoker Sex Assigned at Date Recorded Not on file documented as of this encounter Last Filed Vital Signs Vital Sign Reading Time Taken Comments Blood Pressure 184/116 01/20/2012 3:38 PM EDT Pulse 75 01/20/2012 3:38 PM EDT Temperature - - Respiratory Rate 16 01/20/2012 3:38 PM EDT Oxygen Saturation 100% 01/20/2012 3:38 PM EDT Inhaled Oxygen Concentration - - Weight 50.3 kg (111 lb) 01/20/2012 3:13 PM EDT Height 152.4 cm (5') 01/20/2012 3:13 PM EDT Body Mass Index 21.68 01/20/2012 3:13 PM EDT documented in this encounter Patient Instructions Patient InstructionsLaura Padilla LPN - 01/20/2012 3:35 PM EDT Pain Management Center Discharge Instructions: You were seen by Dr. Chastity Greenberg MD who performed Bursa inj. [x] You may resume your normal activities: tomorrow. You may shower today. DO NOT tub bathe, use whirlpools, hot tubs or pool therapy for 2 days. Remove Band-Aid(s) later today/tomorrow. Do not drive until tomorrow. Use caution walking/climbing stairs as you may be unsteady on your feet. You may use your usual medications, including pain medications, as directed, unless otherwise instructed. You may use an ice pack as needed for the first 24 hours, on for 20 minutes then off for 20 minutes.Do not apply heat today. Attempt to empty your bladder 4-6 hours after your procedure. You received the following medications: Depo-Medrol 20 mg and Lidocaine. During regular business hours, please phone the Pain Management Center at for appointments or with any questions or if the following or other troubling symptoms develop: 1) Prolonged dizziness or weakness (more than 1 day). 2) Localized swelling, redness or drainage at the injection site(s). 3) Temperature of 101 degrees that lasts for more than 4 hours. After 5 PM or on weekends, call and ask for Pain Clinic provider on-call. If you are unable to reach the Pain Management Center and have a complication, please call your Primary Care Provider or proceed to your local emergency department. Laura Padilla LPN Special instructions documented in this encounter Progress Notes Laura Padilla LPN - 01/20/2012 3:17 PM EDT Pre-Procedure Screening Questions: 1. Status: No 2. 3. Patient states they have a driver/sales workers to transport after procedure? Yes 4. Patient taking antibiotics at present? No 5. NPO per Pain Management Center protocol? No 6. 7. Patient diabetic: No __ borderline (not treated with medications) __ managed with oral medications __ managed with injected medications 8. Patient routinely taking anticoagulants ? No Date stopped Current INR Patient Vital Signs documented in Doc Flowsheets associated with this encounter. Patient Discharge Instructions were reviewed with patient and copy provided to patient. documented in this encounter Procedure Notes Aaron Hernandez MD - 01/20/2012 4:07 PM EDTAssociated Order(s): TRIGGER POINT INJECTION - 1 OR 2 MUSCLES Procedure(s): TRIGGER POINT INJECTION - 1 OR 2 MUSCLES Pre-Procedure Diagnose(s): Gluteal pain Left Piriformis/Gluteal Trigger Point Injections Date of Service: 01/20/2012 Patient: Olivia Azevedo 1950 61 y.o. female Provider: AARON HERNANDEZ MD Olivia Azevedo has been referred to the Pain Management Center for Trigger Point Injections. She complains of pain localized to the left greater than right piriformis/gluteal area. She has been working with a therapist who felt she has significant tightness of the left piriformis muscle. Upon palpation of the left medial mid-gluteal region just lateral to the sacrum near the left piriformis muscle, there is a reproduction of the patient's pain. Procedure Ms. Azevedo was interviewed and examined. The risks and benefits were explained including but not limited to bleeding, infection, worsening of the pain, damage to the area being injected, weakness, allergic reaction to medications, vascular injection, and nerve damage. All questions were answered. Informed consent was signed and time out was performed. The area of the trigger point was identified and the skin prepped with chlorhexidine and the chlorhexidine allowed to dry. Next, a 25 gauge 1.5 inch needle was placed in the area of the trigger point over the area of the medial aspect of the left piriformis muscle. Once reproduction of the pain was elicited and negative aspiration confirmed, the trigger point was injected with 4 ml 1% lidocaine and 20 mg Depo-Medrol and the needle removed. A second trigger point was then identified via palpation approximately 1 cm inferior to the injection site described above, which was injected with 3 ml 1% lidocaine. The patient did tolerate the procedure well and there were no apparent complications. There were no changes in motor or sensory exam. Medication used: 7 ml of lidocaine 1% and 20 mg of depomedrol (40mg/ml) Trigger points injected: 2 Trigger point(s) location(s): Medial aspect of the left piriformis muscle Comments/Follow up: An MRI of the pelvis was ordered today to assess for pathology of the left piriformis muscle specifically. The patient will follow up in 1 month at which time we review the MRI and possibly perform a right gluteal trigger point injection. I was the attending physician supervising the resident in the above care and I was present with the resident for the entire procedure. CHASTITY GREENBERG MD documented in this encounter Miscellaneous Notes Miscellaneous - Russ, Wind Instrument Repairer - 01/25/2012 6:26 AM EDT documented in this encounter Plan of Treatment Not on filedocumented as of this encounter Procedures Procedure Name Priority Date/Time Associated Diagnosis Comme nts TRIGGER POINT Routine 01/22/2012 10:05 AM Gluteal pain Results for this INJECTION - 1 OR 2 EDT procedure are in MUSCLES the results section. documented in this encounter [...] Film and interpretation reviewed by the attending Chastity Greenberg MD IMG MRI ORDERABLES TRIGGER POINT INJECTION - 1 OR 2 MUSCLES (01/22/2012 10:05 AM EDT) Narrative Chastity Greenberg MD - 01/22/2012 10:05 A M EDT Left Piriformis/Gluteal Trigger Point Injections Date of Service: 01/20/2012 Patient: ?Olivia Azevedo ? 1950 ?? 61 y.o. ??female Provider: ?MD Olivia CRUZ ??has been referred to t Pain Management Center for Trigger Point Injections. ??She complain s of pain localized to the left greater than right piriformis/gluteal ar ea. She has been working with a therapist who felt she has significant t ightness of the left piriformis muscle. Upon palpation of the left medial mid-gl uteal region just lateral to the sacrum near the left piriformis muscle, there is a reproduction of the patient's pain. Procedure Ms. Azevedo was interviewed and examined. ??The risks and benefits were explained including but not limited to b leeding, infection, worsening of the pain, damage to the area being injec cynthia, weakness, allergic reaction to medications, vascular injection, and nerve damage. ??All questions were answered. ??Informed consent was signed and time out was performed. The area of the trigger point was identi fied and the skin prepped with chlorhexidine and the chlorhexidine allo wed to dry. Next, a 25 gauge 1.5 inch needle was placed in the area of th e trigger point over the area of the medial aspect of the left piriformis muscle. Once reproduction of the pain was elicited and negative aspiratio n confirmed, the trigger point was injected with 4 ml 1% lidocaine and 20 m g Depo-Medrol and the needle removed. A second trigger point was then identified via palpation approximately 1 cm inferior to the injec tion site described above, which was injected with 3 ml 1% lidocaine. The patient did tolerate the procedure w ell and there were no apparent complications. There were no changes in motor or sensor y exam. Medication used: ??7 ml of lidocaine 1% and ?20 mg of depomedrol (40mg/ml) Trigger points injected: ??2 Trigger point(s) location(s): ??Medial a spect of the left piriformis muscle Comments/Follow up: An MRI of the pelvis was ordered today to assess for pathology of the left piriformis muscle specifically. The patient will follow up in 1 month at which time we re view the MRI and possibly perform a right gluteal trigger point injection. Left Piriformis/Gluteal Trigger Point In [facility] Date of Service: 01/20/2012 Patient: ?Olivia Azevedo ? 1950 ?? 61 y.o. ??female Provider: ?MD Olivia CRUZ ??has been referred to [facility] for Trigger Point Injections. ??She complain s of pain localized to the left greater than right piriformis/gluteal ar ea. She has been working with a therapist who felt she has significant t ightness of the left piriformis muscle. Upon palpation of the left medial mid-gl uteal region just lateral to the sacrum near the left piriformis muscle, there is a reproduction of the patient's pain. Procedure Ms. Azevedo was interviewed and examined. ??The risks and benefits were explained including but not limited to b leeding, infection, worsening of the pain, damage to the area being injec cynthia, weakness, allergic reaction to medications, vascular injection, and nerve damage. ??All questions were answered. ??Informed consent was signed and time out was performed. The area of the trigger point was identi fied and the skin prepped with chlorhexidine and the chlorhexidine allo wed to dry. Next, a 25 gauge 1.5 inch needle was placed in the area of th e trigger point over the area of the medial aspect of the left piriformis muscle. Once reproduction of the pain was elicited and negative aspiratio n confirmed, the trigger point was injected with 4 ml 1% lidocaine and 20 m g Depo-Medrol and the needle removed. A second trigger point was then identified via palpation approximately 1 cm inferior to the injec tion site described above, which was injected with 3 ml 1% lidocaine. The patient did tolerate the procedure w ell and there were no apparent complications. There were no changes in motor or sensor y exam. Medication used: ??7 ml of lidocaine 1% and ?20 mg of depomedrol (40mg/ml) Trigger points injected: ??2 Trigger point(s) location(s): ??Medial a spect of the left piriformis muscle Comments/Follow up: An MRI of the pelvis was ordered today to assess for pathology of the left piriformis muscle specifically. The patient will follow up in 1 month at which time we re view the MRI and possibly perform a right gluteal trigger point injection. I was the attending physician supervisin g the resident in the above care and I was present with the resident for the entire procedure. CHASTITY GREENBERG MD Procedure Note Aaron Hernandez MD - 01/20/2012 4:07 PM EDT Left Piriformis/Gluteal Trigger Point In jections Date of Service: 01/20/2012 Patient: Olivia Azevedo 1950 61 y.o. female Provider: AARON HERNANDEZ MD Olivia Azevedo has been referred to the [facility] Management Center for Trigger Point Injections. She complains of pain localized to the left greater than right piriformis/gluteal area. She has been working with a therapist who felt she has significant t ightness of the left piriformis muscle. Upon palpation of the left medial mid-gl uteal region just lateral to the sacrum near the left piriformis muscle, there is a reproduction of the patient's pain. Procedure Ms. Azevedo was interviewed and examined. The risks and benefits were explained including but not limited to bleeding, infection, worsening of the pain, damage to the area being injected, weakness, allergic reaction to medications, vascular injection, and nerve damage. All questions were answered. Informed consent was signed and time out was performed. The area of the trigger point was identi fied and the skin prepped with chlorhexidine and the chlorhexidine allowed to dry. Next, a 25 gauge 1.5 inch needle was placed in the area of the trigger point over the area of the medial aspect of the left piriformis muscle. Once reproduction of the pain was elicited and negative aspiration confirmed, the trigger point was injected with 4 ml 1% lidocaine and 20 mg Depo-Medrol and the needle removed. A second trigger point was then identified via palpation approximately 1 cm inferior to the injection site described above, which was injected with 3 ml 1% lidocaine. The patient did tolerate the procedure w ell and there were no apparent complications. There were no changes in motor or sensor y exam. Medication used: 7 ml of lidocaine 1% an d 20 mg of depomedrol (40mg/ml) Trigger points injected: 2 Trigger point(s) location(s): Medial asp ect of the left piriformis muscle Comments/Follow up: An MRI of the pelvis was ordered today to assess for pathology of the left piriformis muscle specifically. The patient will follow up in 1 month at which time we review the MRI and possibly perform a right gluteal trigger point injection. I was the attending physician supervisin g the resident in the above care and I was present with the resident for the entire procedure. CHASTITY GREENBERG MD Chastity Greenberg MD NEUROLOGY ORDERABLES documented in this encounter Visit Diagnoses Diagnosis Gluteal pain - Primary Mylagia and myositis, unspecified Gluteal pain Mylagia and myositis, unspecified documented in this encounter Administered Medications Inactive Administered Medications - up to 3 most recent administrations Medication Order MAR Action Action Date Dose Rate Site lidocaine (PF) (XYLOCAINE) 10 mg/mL Given 01/20/2012 4:00 PM EDT 70 mg (1 %) injection 300 mg 300 mg, Subcutaneous, ONCE, 1 dose, On Fri01/20/12 at 1600, Routine methylPREDNISolone acetate (depo-MEDROL) Given 01/20/2012 4:00 P M EDT 20 mg injection 40 mg 40 mg, Intramuscular, ONCE, 1 dose, On Fri01/20/12 at 1600, Routine documented in this encounter Care Teams Airframe And Powerplant Mechanic Relationship Specialty Start Date End Date Christian-Marla Nazario MD PCP - General 12/31/[address] [place] [address] 3 [place] [address] documented as of this encounter
--- OUTSIDE RECORDS SUMMARY | 2021-12-28 03:17 | XMS_ITS | Encounter Summary ---
:1950 Author Organization [facility] [place] [address] Care Team Providers Name Role Phone Marla Moralez MD Primary Care Provider Encounter Details Date Type Department Care Team Description 08/05/2012 Follow-Up Physical Therapy at Mounika Mendoza steady gait (Primary Dx); [facility] Concussion; [facility] [place] [address] PHYSICAL MEDICINE & [phone] [place] [address] Social History Tobacco Use Types Packs/Day Years Used Date Former Smoker Sex Assigned at Date Recorded Not on file documented as of this encounter Progress Notes Klaudia Tony PT - 08/10/2012 9:11 AM EST I have reviewed and agree with note written by ANIKET. Mounika Casas PTA - 08/06/2012 7:08 AM EST Physical Therapy Progress Note Total Timed Code Treatment: 35 minutes Total Treatment Time: 35 minutes Follow up visit for a patient with 1. Unsteady gait 2. Concussion 3. Headache S: Patient reports it has taken a while to get her hips back to base line. O: Neuromuscular Re-Education (26422) 25 minutes and Manual Therapy (82443) 10 minutes 2 foam: romberg stance with head turns and tilts, EC up to 30 sec., bending to touch the floor, 360 degree turns, turning to look behind (double vision), on toes with reaching, gaze stabilization/VORx 1 and 2 manual cervical traction, side bends and rotations STM to anterior, lateral and posterior cervical musculature A: Pt. c/o double vision when turning to the (L). She is quite tender to palpation at cervical/occipital region. P: Continue PT for Manual Techniques, Stretching, Therapeutic exercise and Balance and Gait Training MOUNIKA MENDOZA PTA documented in this encounter Plan of Treatment Not on filedocumented as of this encounter Visit Diagnoses Diagnosis Unsteady gait - Primary Abnormality of gait Concussion Concussion, unspecified Headache(784.0) Headache documented in this encounter Care Teams Frame Repairer Relationship Specialty Start Date End Date Christian-Marla Nazario MD PCP - General 12/31/11 [address] [facility] [address] [place] [address] documented as of this encounter
--- OUTSIDE RECORDS SUMMARY | 2021-12-28 03:17 | XMS_ITS | Encounter Summary ---
:1950 Author Organization [facility] [place] [address] Care Team Providers Name Role Phone Jacquelyn Valentine MD Primary Care Provider Reason for Visit Reason Comments Left Hip Pain Right Hip Pain Encounter Details Date Type Department Care Team Description 07/12/2011 Follow-Up Pain Management at Umesh Greenberg MD Hip bursitis (Primary Dx); [facility] Myofacial muscle pain [facility] [place] [address] [place] [address] [phone] (Wo rk) Social History Tobacco Use Types Packs/Day Years Used Date Former Smoker Sex Assigned at Date Recorded Not on file documented as of this encounter Last Filed Vital Signs Vital Sign Reading Time Taken Comments Blood Pressure 142/82 07/12/2011 7:41 AM EST Pulse 71 07/12/2011 7:41 AM EST Temperature - - Respiratory Rate - - Oxygen Saturation 99% 07/12/2011 7:41 AM EST Inhaled Oxygen Concentration - - Weight - - Height - - Body Mass Index - - documented in this encounter Progress Notes Umesh Greenberg MD - 07/12/2011 9:13 AM EST See procedure note. documented in this encounter Procedure Notes Umesh Greenberg MD - 07/12/2011 9:07 AM ESTAssociated Order(s): ARTHROCENTESIS,DRAIN/INJECT JOINT/BURSA Pre-Procedure Diagnose(s): Hip bursitis; Myofacial muscle pain HISTORY OF PRESENT ILLNESS: The patient is a 59 year old female with bilateral trochanteric bursitis. She has had a previous injection in May, and the plan is to repeat that today. She also had a trigger point injection. Her last injections were one and a half ago and she did very well until recently. PROCEDURE: The patient was brought to the exam room. Informed consent was obtained, and time out wasobserved. PROCEDURE #1: The patient was placed first right side down, and after sterile prep with chlorhexidine, #25 gauge needle was used to contact the greater trochanter and 3 mL of 1% lidocaine with 40 mg ofDepo Medrol was injected without complication. A trigger point was palpated in the left gluteal region, and a 25 gauge needle was used to inject 4 mL of 1% lidocaine. The patient was then turned to theother side, and after palpating the greater trochanter, 40 mg of Depo Medrol and 3 mL of 1% lidocaine were injected without complication. The patient tolerated the procedures well. She will follow up as needed. A total of 20 mL of 1% lidocaine were wasted. Procedure #2: A trigger point was palpated in the left gluteal lisa muscle and a total of 5 mL of1% lidocaine were injected without complication. Band-Aids were applied and the patient was discharged. She will follow up p.r.n. documented in this encounter Miscellaneous Notes Miscellaneous - Russ, C 13 Catapult Operator - 07/17/2011 11:24 AM EST documented in this encounter Plan of Treatment Scheduled Orders Name Type Priority Associated Diagnoses Order S chedule TRIGGER POINT INJECTION Neurology Routine Hip burs itis Ordered: 07/12/2011 - 1 OR 2 MUSCLES Myofacial muscle pain documented as of this encounter Results Bursa Inject - Major (Shoulder,hip,knee) (07/12/2011 9:13 AM EST) Umesh Greenberg MD PROCEDURE/MINOR SURGICAL ORD ERABLES documented in this encounter Visit Diagnoses Diagnosis Hip bursitis - Primary Enthesopathy of hip region Myofacial muscle pain Mylagia and myositis, unspecified documented in this encounter Administered Medications Inactive Administered Medications - up to 3 most recent administrations Medication Order MAR Action Action Date Dose Rate Site lidocaine (PF) (XYLOCAINE) 10 Given 07/12/2011 9:12 AM EST 120 m g mg/mL (1 %) injection 120 mg 120 mg, Subcutaneous, ONCE, 1 dose, On Fri07/12/11 at 0845, Routine methylPREDNISolone acetate (depo-MEDROL) Given 07/12/2011 9:12 A M EST 80 mg injection 40 mg 40 mg, Intramuscular, ONCE, 1 dose, On Fri07/12/11 at 0845, Routine documented in this encounter Care Teams Switchboard Operator Receptionist Relationship Specialty Start Date End Date Jacquelyn Valentine MD PCP - General 05/22/10 12/30/[address] [place] [address] documented as of this encounter
--- OUTSIDE RECORDS SUMMARY | 2021-12-28 03:17 | XMS_ITS | Encounter Summary ---
:1950 Author Organization [facility] [place] [address] Care Team Providers Name Role Phone Marla Moralez MD Primary Care Provider Encounter Details Date Type Department Care Team Description 06/03/2012 Follow-Up Occupational Therapy at Tomy Mauricio OT [facility] [address] PHYSICAL MEDICINE & [place] [address] Concussion (Primary [facility] Marla Moralez MD [address] [facility] [address] [place] [address] [place]x) [place] [address] Social History Tobacco Use Types Packs/Day Years Used Date Former Smoker Sex Assigned at Date Recorded Not on file documented as of this encounter Progress Notes Tomy Mauricio OT - 06/03/2012 4:00 PM EST OCCUPATIONAL THERAPY PROGRESS NOTE REFERRAL SOURCE: Dr. Marla Gonzales DIAGNOSIS: 1. Concussion NEXT MD FOLLOW UP: PRN TOTAL TREATMENT TIME: 55 minutes TIMED CODE TREATMENT TIME: Therapeutic exercise functional 55 minutes OBJECTIVE: Olivia Azevedo is a female [...] alone PAIN: At Rest: 08/09 With Activity: 2 TREATMENT TODAY: She was provided verbal direction of where to find a classified guide, 3 items to find in it, and towrite down contact info and allen for those three items. She was also to find a shirt and shoes in that vicinity. criqued her painting challenging her spatially on organization of the painting and sizing of items. She was encouraged to look over the painting and decide what she wanted to do different and then attempt it again without looking at the 1st painting until after she was done her second attempt. ASSESSMENT: Olivia Azevedo presented today with difficulty remembering the items and details given to her at the start of the visit. She found 4 items in the classified guide initially forgetting to write them down requiring a cue to think back to the original directions. She then preceded to go to the pharmacy to find clothing mixing the direction from today with directions given to her for our pharmacy trip two weeks ago. She was cued of this and turned around and went to the gift shop where she found a shirt only. She was able to find her way to an from these places without error which is the first time she does this. She attempted painting which came out fair although there was some sizing issues. She was able to identify all concerns she had with that painting. She has good rehab potential and will benefit from continued work on her working and short term memory as well as her spatial/visuomotor skills. Facilities Painter Goals (to be met by discharge): Date [...] find 5 items in a search through [facility] without cueing. Goal Status: Not fully met. [...] 12 week(s) to progress toward short and intermediate goals. for Visuomotor organization, Visuoperceptual skills, Visual [...] unspecified documented in this encounter Care Teams Washtub Worker Helper Relationship Specialty Start Date End Date Christian-Marla Nazario MD PCP - General 12/31/[address] [address] documented as of this encounter
--- OUTSIDE RECORDS SUMMARY | 2021-12-28 03:19 | XMS_ITS | Encounter Summary ---
:1950 Author Organization [facility] Address [address] [place] [address] Care Team Providers Name Role Phone Unknown, Provider Primary Care Provider Encounter Details Date Type Department Care Team Description 02/26/2010 Results Only [facility] Silvina Escamilla, Laboratory Services - [facility] [address] [place], [place] [id number] [place] [address] [id number] [phone] Social History Tobacco Use Types Packs/Day Years Used Date Never Assessed Sex Assigned at Date Recorded Not on file documented as of this encounter Plan of Treatment Not on filedocumented as of this encounter Procedures Procedure Name Priority Date/Time Associated Diagnosis Comme nts CYTOPATHOLOGY Routine 02/26/2010 0:00 EDT Results for this procedure are i n the results section . documented in this encounter Results CYTOPATHOLOGY (02/26/2010 0:00 EDT) Pathology Report: CYTOPATHOLOGY REPORT ? [facility] ? LAB Reports generated via electr ic interface contain original data; ? however they are lacking the format of the original report. ? Caution should be taken when reading/interpreting unformatted reports. ? Name: ? DAVID DESIR ? Accession #: ? [id number] ? : ? 1950 (Age: 59) ??F ?Collect Date: ? 02/26/2010 ? Location: ? [facility] ? Receive Date: ? 02/28/2010 ? Provider: ?SILVINA EDWARDSP ? Copy to: ? Specimen/Source: ? Pap Test, Vagina/Cervix/Endocervix, ThinPrep Imaging ? System with manual evaluatio n ? Last Menstrual Period: ? Hormonal/Contraceptive Statu s: ? Yes: Estradiol tablet ? Treatment History: ? Cryotherapy: 84 x 2 H/o Cerv icitis prior to Cryo ? Other: ? HPVA - HPV testing requested if ASC-US on the current ThinPrep Pap test. ? SPECIMEN ADEQUACY ? Satisfactory for Eval uation ? - transformation zone compon ent present ? GENERAL CATEGORIZATION ? Negative for Intraepi thelial Lesion or Malignancy ? INTERPRETATION ? Reactive cellular racheal nges associated with inflammation present (includes ?? repair). ? Document reviewed and electr onically signed by: ? MARTHA B ELIZABETH MD ? Report Date: ??09// 2009 13:40 ? End of Report ? Specimen Performing Organization Address City/State/ZIP Code Phon e Number [facility] [address] [place] [address] [facility] [address] [place] [address] documented in this encounter Visit Diagnoses Not on filedocumented in this encounter Care Teams Foot Press Operator Relationship Specialty Start Date End Date Unknown, Provider, PCP - General 01/29/10 03/03/13 documented as of this encounter
--- OUTSIDE RECORDS SUMMARY | 2021-12-28 03:19 | XMS_ITS | Encounter Summary ---
:1950 Author Organization [facility] Address [address] [place] [address] Care Team Providers Name Role Phone Marla Moralez MD Primary Care Provider Reason for Visit Reason Comments Knee Pain Bilateral knees Encounter Details Date Type Department Care Team Description 11/25/2013 Office Visit [facility] Aiden Rivera Salas lofemoral syndrome, right (Primary Dx); Total Joint Program MD Abdullahi Lateral meniscus tear; - [address] Knee pain [address] [place], [facility] [phone] Social History Tobacco Use Types Packs/Day Years Used Date Never Assessed Sex Assigned at Date Recorded Not on file documented as of this encounter Discharge Diagnoses Diagnosis 719.46 JOINT PAIN-L/LEG[ICD-9-CM] 836.1 TEAR LAT MENISC KNEE-CURRENT[ICD-9 -CM] documented in this encounter Discharge Disposition Disposition Code Departure Means Destination Auto Discharge documented in this encounter Progress Notes Aiden Rivera MD - 11/25/2013 1640 EDT CHIEF COMPLAINT: Bilateral knee pain. HISTORY OF PRESENT ILLNESS: Olivia Azevedo is a 63-year-old woman who is seen for a second opinion regarding knee pain. Her problems began when her dog, a Doberman Pinscher, ran into her at full speed onto the lateral aspect of her left knee. About a month later, her left leg became much more swollen. She really had just felt that she was sore and did not think much of it, but then her leg became moreswollen. She had a referral and an x-ray taken and was found to have a proximal fibula fracture in April of 2013. The pain seemed to limit her activities. She likes to ballroom dance with her and has not been unable to do that, and she was seen at [facility] and evaluated as well with no clear outcome. She has had multiple treatment interventions. She tried wearing a hinged knee brace. Tried some acupuncture, which helped. Did a little physical therapy, which she is not sure helped much. Hyaluronic acid, which helped some for a short time, and then she had a large effusion drained at [facility] and cortisone injection, which seemed to have helped and did diminish the inflammation. She also had an MRI at the [facility] on 11/12/2013. The most significant findings in that was that there was an anterolateral meniscus tear, some lateral full-thickness cartilage loss, and a subchondral impaction-type fracture of the lateral tibial plateau. These notes were reviewed. Actually, the MRI was taken on 06/29/2013, and I reviewed that MRI report but did not have the images available. At this point, the left knee is actually feeling better and better. Now the right knee is what has been hurtingher more. In the left knee, she still has some anterolateral knee pain. In the right knee, it is an i nfrapatellar type pain, which tends to bother her more when she has been sitting for a long time. She also found that some mineral tea has been helping her, and she has been taking an Aleve at night, which she thinks also might be helping. Her [place] knee score today is 28. PAST MEDICAL HISTORY: Reviewed in her patient intake form dated today's date. She does note that shehas had anxiety and depression and some headaches. 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 Does have some fatigue and numbness. Had de Quervain's and bilateral tendon releases for that in 1983 and 1984. A lipoma removed from her arms in [address] [facility] and a lipoma removal from her left breast and 2000 at [facility]. 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 She does not drink alcohol or use tobacco products. She has multiple medication allergies, allergic to PENICILLIN, ERYTHROMYCIN, CODEINE, DARVON, DARVOCET, PERCODAN, PERCOCET. ALL OPIATES, she feels, basically cause her to have respiratory problems and nausea. A rash is what is caused with the PENICILLIN and ERYTHROMYCIN. PHYSICAL EXAM: She reports being 5 feet, 114 pounds. She is awake, alert, appropriate, in no acute distress. She has appropriate mood and affect and nonlabored respirations. She ambulates with a steadygait without need for any gait aids; a smooth, even gait. There are no skin lesions noted. Bilateralknee range of motion is at least 0 to 130 degrees without pain. Both knees are very stable to varus and valgus stress. There is no tenderness about either of her fibular heads. She does have a slight bit of tenderness over her anterolateral joint line. Jessica testing bilaterally is normal, and she has normal Galindo bilaterally. There are no effusions noted in either of her knees. Patellar glide issmooth in both knees. She does have some tenderness about her right patellofemoral joint on all aspects of the patella and deep to the patella as well. No hip pain with range of motion. Distally, she is neurovascularly intact with 2+ DP and PT pulses, intact sensation to light touch and 5/5 tib ant and gastrocsoleus muscle strength. DIAGNOSTIC IMAGING: New x-rays were obtained today of both of her knees, and these were reviewed. She really has very little in the way of osteoarthritis on biplane radiographs. There are really no osteophytes and minimal, if any, joint space narrowing. Her previous fibular fracture appears to have healed well. IMPRESSION AND PLAN: Olivia Azevedo is a 63-year-old woman who had a lateral impaction injury to her left leg from her dog running into her. It seems that she had a lateral tibial subchondral impaction fracture with an anterolateral meniscus tear and a fibular head fracture. Most of this seems to be healing, and now she is having more in the way of what sounds to be right knee patellofemoral symptoms.We discussed what these diagnoses are and that I think that conservative treatments are likely to beeffective for this, especially as she is already feeling so much better. She is looking to get back into doing ballroom dancing and I think that is a very feasible thing for her to be able to do and she should be able to gradually work back into that. Anti-inflammatories and exercise, specifically quadriceps strengthening to help her overcome her patellofemoral symptoms are probably going to be helpful. I do not recommend any surgical interventions. I answered all of her and her 's questions.They were relieved and pleased with our discussion. I can see her on an as-needed basis. documented in this encounter Plan of Treatment Not on filedocumented as of this encounter Visit Diagnoses Diagnosis Patellofemoral syndrome, right - Primary Pain in joint, lower leg Lateral meniscus tear Tear of lateral cartilage or meniscus of knee, current Knee pain Pain in joint, lower leg documented in this encounter Care Teams Biology Teacher Relationship Specialty Start Date End Date Christian-Marla Nazario MD PCP - General 03/04/13 [address] [place] [address] documented as of this encounter
--- OUTSIDE RECORDS SUMMARY | 2021-12-28 03:19 | XMS_ITS | Encounter Summary ---
:1950 Author Organization [facility] Address [address] [place] [address] Care Team Providers Name Role Phone Unknown, Provider Primary Care Provider Encounter Details Date Type Department Care Team Description 01/25/2010 Results Only [facility] Mitchel Quinones , Laboratory Services - [address] ESPERANZA URBINA [address] [place] [address] [place], [place] [address] [phone] Social History Tobacco Use Types Packs/Day Years Used Date Never Assessed Sex Assigned at Date Recorded Not on file documented as of this encounter Plan of Treatment Not on filedocumented as of this encounter Procedures Procedure Name Priority Date/Time Associated Diagnosis Comme nts SURGICAL PATHOLOGY Routine 01/25/2010 0:00 EDT Re sults for this procedure are i n the results section. documented in this encounter Results SURGICAL PATHOLOGY (01/25/2010 0:00 EDT) Pathology Report: SURGICAL PATHOLOGY REPORT ? [facility] Reports generated via electr [employer] interface contain original data; ? LAB however they are lacking the format of the original report. ? Caution should be taken when reading/interpreting unformatted reports. ? Name: ? THANG, DAVID J ? Accession #: ? [id number] ? : ? 1950 (Age: 59) ??F ? Collec t Date: ? 01/25/2010 ? Location: ? [facility] ? Re ceive Date: ? 01/26/2010 ? Provider: MITCHEL SALAMANCA SON DO ? Copy to: NARINDER M DOBBERTIN M D ? Final Pathologic Diagnosis: ? A. ?Subcutaneou s mass, dorsal left wrist, excision: ? 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 ? B. ?Subcutaneou s mass, lateral left arm, excision: ? 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 ? Document reviewed and electr onically signed by: ? Balbir Broussard MD ? Report ??Date: 01/30/2010 15 :20 ? By the signature above, the attending physician certifies that he/she has ? personally conducted a gross and/or microscopic examination of the described ? specimens and rendered or co nfirmed the above diagnosis. ? Specimen(s) Received: ? A. ?Lipoma: pro ximal to dorsal wrist left side ? B. ? Lipoma: distal to e lbow/lateral left arm ? Clinical History: ? Multiple lipomas ? Gross Description: ? Received in formalin labelled Thang, David and lipoma proximal to ? dorsal wrist left side is a yellow, lobulated, unoriented, 0.9 x 0.8 x 0.3 cm ?? soft tissue. ??The cut surfa sourav are yellow and homogenous. ??The specimen is ? inked, bisected, and entirel y submitted as (A). ? Received in formalin leonidas d Thang, David and lipoma distal to elbow ? lateral L arm is a ferrera-yell ow, lobulated, unoriented, soft tissue measuring 2.5 x 2.2 x 0.8 cm. ??The cut rodriguez rfaces are yellow and homogenous. ??The specimen is ?? inked, serially sectioned, a nd employer relations representative sections are submitted as (B). ? (Ct Pearce/wilder ? End of Report ? Specimen Performing Organization Address City/State/ZIP Code Phon e Number [facility] [address] [place] [address] SERVICES [facility] [address] [place] [address] documented in this encounter Visit Diagnoses Not on filedocumented in this encounter Care Teams Locomotive Operator Relationship Specialty Start Date End Date Unknown, Provider, PCP - General 01/29/10 03/03/13 documented as of this encounter
--- OUTSIDE RECORDS SUMMARY | 2021-12-28 03:19 | XMS_ITS | Encounter Summary ---
:1950 Author Organization [facility] Address [address] [place] [address] Care Team Providers Name Role Phone Christian-Marla Nazario MD Primary Care Provider Reason for Visit Reason Comments Follow-up Bilateral knee pain Consult, Test and Treat (Routine) - Closed Specialty Diagnoses / Procedures Referred By Contact Refer red To Contact Orthopedic Surgery Diagnoses Langston's cyst of knee, right Stanley, Nicole Eckert Nathaniel ROLLOUT MANAGER MD Abdullahi [address] [place] [phone] Fax: Referral ID Status Reason Start Date Expiration Date Visits Requ ested Visits Authorized [id number] Closed 1 1 Encounter Details Date Type Department Care Team Description 09/12/2016 Office Visit [facility] Aiden Rivera Chron ic pain of right Total Joint Program - MD Abdullahi knee (Primary Dx) [address], [facility] [id number] [phone] Social History Tobacco Use Types Packs/Day Years Used Date Never Assessed Sex Assigned at Date Recorded Not on file documented as of this encounter Discharge Diagnoses Diagnosis M25.561 Pain in right knee-M25.561[ICD-1 0-CM] M25.562 Pain in left knee-M25.562[ICD-10 -CM] G89.29 Other chronic pain-G89.29[ICD-10- CM] documented in this encounter Discharge Disposition Disposition Code Departure Means Destination Auto Discharge documented in this encounter Progress Notes Aiden Rivera MD - 09/12/2016 1000 EDT Attestation statement: I saw and examined the patient with the resident/fellow. I agree with the findings and plan of care documented in the resident's/fellow's note. Leanna Dobbins MD - 09/12/2016 1000 EDT A 66-year-old female born 1950 CHIEF COMPLAINT: Bilateral with right greater than left knee. HISTORY OF PRESENT ILLNESS: Olivia returns, we had seen her here previously for bilateral knee painin 2013. She is now 66 years old and she has had right knee pain ongoing now since May. She states that her left knee used to be her problem knee; however, the right knee has been more and more bothersome for her. She has been working with physical therapy and her physical therapist suggested that she come in today to determine what is going on with her right knee. She states that it all startedwhen she first bought a [employer] and that the seat in the [employer] was built terribly and began to cause her right knee pain, mostly behind the knee. She states that it has gotten worse and worseover the last few months. She has had to make modifications to the car seat to even be able to sit. She also states that she took a course of valacyclovir, which caused a huge reaction and caused her right knee and leg to swell up significantly. She was seen at an outside hospital where she underwent an ultrasound to check for a DVT, as well as x-rays. The x-rays were read as having some mild arthritis and the ultrasound was negative for a DVT, but did note a Langston cyst. She is here today to determine what she can do to make her right knee better and she is concerned about the Langston's cyst, wondering if it needs to be drained and how we can get rid of the swelling. Her pain is primarily in the posterior aspect of the knee. She states that it feels swollen. It radiates all the way up the back of her leg and all the way down the calf. She states that the calf feels a bit swollen. She denies any calf pain. She denies any anterior knee pain. She denies any mechanical symptoms like popping, locking, catching or clicking. She states that working with physical therapy does help; however, she has beenunable to work due to this pain and she has been unable to dance. She cannot sit for any prolonged period of time and ambulating is really painful. She has tried ice, both anteriorly and posteriorly onthe knee, which does help at times and a comfrey knit bone wrap, which is some sort of naturopathic remedy which does help. She also wears a knee brace and her physical therapy has been helping her as well. She will take Aleve, although she heard that this could damage her cartilage and so she has been trying to not take the Aleve for fear of this, Past medical history was reviewed with the patient in [facility] and has not changed since her previous appointment here in 2013. She has a history of anxiety and depression and some headaches. 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 She does have some fatigue and numbness. She has had bilateral tendon releases in de Quervain's in the 1980s and a lipoma removed in 2007 and 2011 at [facility]. 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 She has multiple medication allergies which were reviewed with her in [facility]. ROS performed and negative except for that which is listed in HPI PHYSICAL EXAMINATION: General: She is 5 feet tall, 114 pounds. She is awake, alert, appropriate, in no acute distress. She has appropriate mood and affect and nonlabored respirations. She ambulates with a steady gait without any need for gait aids, smooth, even gait without evidence of an antalgic gait. There are no skin lesions noted. Her bilateral knee range of motion is 0 to 130 degrees without pain. Both knees are very stable to varus and valgus stress. There is no tenderness about either of herfibular heads. There is no tenderness on the medial or lateral joint line. She does not have a positive Jessica's test. She has swelling and fullness in the posterior aspect of her right knee when comp ared to the left knee that exacerbates with extension of the knee and does slightly resolve with flexion of the knee, although this is not tender to palpation. She does have some tenderness over the insertion of her pes anserine over this bursa. Patellar glide is smooth in both knees. She has no pain with range of motion of the hip. She is neurovascularly intact distally with 2+ DP pulses and 5/5 strength in her tib ant, gastroc, FHL and EHL. 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 She does have minimal osteophytes on the medial side of the knees, but relatively maintained joint space. Her previous fibular fracture appears well healed. US report reviewed, states Langston cyst present, no DVT. ASSESSMENT AND PLAN: Olivia is a 63-year-old female who now has right greater than left knee pain. 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 We had a long discussion with her about the natural history of this issue and that usually these are asymptomatic and do not cause a lot of symptoms; however, if they do cause symptoms, they may need to be drained, usually by radiologist, although this has not been shown to be all that helpful and the cyst does seem to recur. We discussed this at length. We also discussed ice and other remedies, which she would like to tryincluding a knee brace. We discussed that no surgery would help to take care of this issue and that again it would likely recur and at this point she has very minimal osteoarthritis and I would not offer her a knee replacement. She was in agreement with this. All of her questions were answered. Dr Rivera was present for the entirety of the exam. He agrees with the above assessment and plan. We will see her back on an as-needed basis. documented in this encounter Plan of Treatment Not on filedocumented as of this encounter Visit Diagnoses Diagnosis Chronic pain of right knee - Primary documented in this encounter Historical Medications This list may reflect changes made after this encounter. Medication Sig Dispensed Refills Start Date End Date MEDICAL MARIJUANA 0 turmeric-turmeric root Take by mouth. 0 extract 450-50 mg capsule Multivitamins with Take 1 Tab by mouth 0 Minerals tablet tablet daily. estradiol (VAGIFEM) [address] 10 mcg 0 vaginal tablet vaginally daily. added in this encounter Care Teams Shipfitter Helper Relationship Specialty Start Date End Date Christian-Marla Nazario MD PCP - General 03/04/13 [address] [place] [address] documented as of this encounter
--- OUTSIDE RECORDS SUMMARY | 2021-12-28 03:19 | XMS_ITS | Encounter Summary ---
:[address] [facility] Address [address] [place] [address] Care Team Providers Name Role Phone Unknown, Provider Primary Care Provider Encounter Details Date Type Department Care Team Description 01/22/[address] [facility] Alfonzo Moralez MD Laboratory Services - [address] [place] [phone] [facility] [place] [address] [phone] Social History Tobacco Use Types Packs/Day Years Used Date Never Assessed Sex Assigned at Date Recorded Not on file documented as of this encounter Plan of Treatment Not on filedocumented as of this encounter Procedures Procedure Name Priority Date/Time Associated Diagnosis Comme nts PAP TEST- RESULT Routine 01/22/2013 0:00 EDT Resu lts for this ONLY procedure are i n the results section. documented in this encounter Results PAP TEST- RESULT ONLY (01/22/2013 0:00 EDT) Pathology Report: CYTOPATHOLOGY REPORT [facility] Reports generated via electronic interface contain franklyn ginal data; however they are lacking the format of the original re port. Caution should be taken when reading/interpreting unfo rmatted reports. Name: ? DAVID DESIR ? Accession #: ? [id number] ? : ? 1950 (Age: 62) ??F ?Collect Da te: ? 01/22/2013 ? Location: ? [facility] ? Receive Date: ? 01/26/20 13 ? Provider: GIDEON MORALEZ MD Copy to: ? Final Report SPECIMEN ADEQUACY ? Satisfactory for Evaluation - transformation zone component present GENERAL CATEGORIZATION ? Negative for Intraepithelial Lesion or Malignan cy ?? Last Menstrual Period: years ago Specimen/Source: ??Pap Test, Cervix/Endocervix, ThinPr ep Imaging System with manual evaluation Document reviewed and electronically signed by: ? ISAURA Martinez(ASCP) ? Report ??Date: 02/02/2013 15:53 HPV with Pap Test ? Date Ordered: ? 02/02/2013 ? Status: ?? Signed Out ?Date Complete: ? 02/04/2013 ? By: ??S ystem Interface ? Date Reported: ? 02/04/2013 ? Interpretation RESULT: Negative for HPV. No E6 or E7 mRNA is detected from HPV types 16,18,31,3 3,35, 39,45,51,52,56,58,59,66, and 68 by buggy ladle tender media cynthia amplification. Comments Document reviewed and electronically signed by: ? System Interface ? Report date: 02/04/2013 By the signature above, the attending physician certif ies that he/she has personally conducted a gross and/or microscopic examin ation of the described specimens and rendered or confirmed the above diagnosi s. End of Report Specimen Performing Organization Address City/State/ZIP Code Phon e Number [facility] [address] [place] [address] SERVICES [facility] [address] [place] [address] documented in this encounter Visit Diagnoses Not on filedocumented in this encounter Care Teams Transition Lead Relationship Specialty Start Date End Date Unknown, Provider, PCP - General 01/29/10 03/03/13 documented as of this encounter
--- OUTSIDE RECORDS SUMMARY | 2021-12-28 03:19 | XMS_ITS | Encounter Summary ---
:1950 Author Organization [facility] Address [address] [place] [address] Care Team Providers Name Role Phone Unknown, Provider Primary Care Provider Encounter Details Date Type Department Care Team Description 03/06/2012 Results Only [facility] Alba Cross, Laboratory Services - [id number] [place] [id number] [phone] Social History Tobacco Use Types Packs/Day Years Used Date Never Assessed Sex Assigned at Date Recorded Not on file documented as of this encounter Plan of Treatment Not on filedocumented as of this encounter Procedures Procedure Name Priority Date/Time Associated Diagnosis Comme nts PAP TEST- RESULT Routine 03/06/2012 0:00 EDT Resu lts for this ONLY procedure are i n the results section. documented in this encounter Results PAP TEST- RESULT ONLY (03/06/2012 0:00 EDT) Pathology Report: CYTOPATHOLOGY REPORT [facility] Reports generated via electronic interface contain franklyn ginal data; however they are lacking the format of the original re port. Caution should be taken when reading/interpreting unfo rmatted reports. Name: ? DAVID DESIR ? Accession #: ? [id number] : ? 1950 (Age: 61) ??F ?Collect Date: ? 12/2011 Location: ? [facility] ? Receive Date : ? 03/10/2012 Provider: ?ALBA CROSS ROLL HAULER Copy to: ? Specimen/Source: ? Pap Test, Vagina, ThinPrep Imaging System with manual evaluation Last Menstrual Period: ? Hormonal/Contraceptive Status: ? Yes: Topical Treatment History: ? Cryotherapy: x 2 Other: ? Additional clinical information: H/o Cervicitis prior to ? SPECIMEN ADEQUACY ? Satisfactory for Evaluation - transformation zone component present GENERAL CATEGORIZATION ? Negative for Intraepithelial Lesion or Malignan cy ? Document reviewed and electronically signed by: ? ISAURA Apodaca(ASCP) ? Report Date: ??03/17/2012 11:12 End of Report Specimen Performing Organization Address City/State/ZIP Code Phon e Number [facility] [address] [place] [address] SERVICES [facility] [address] [place] [address] documented in this encounter Visit Diagnoses Not on filedocumented in this encounter Care Teams Abseiling Instructor Relationship Specialty Start Date End Date Unknown, Provider, PCP - General 01/29/10 03/03/13 documented as of this encounter
--- OUTSIDE RECORDS SUMMARY | 2021-12-28 03:19 | XMS_ITS | Encounter Summary ---
:1950 Author Organization [facility] Address [address] [place] [address] Care Team Providers Name Role Phone Christian-Marla Nazario MD Primary Care Provider Reason for Referral Radiology Services (Routine) - Closed Specialty Diagnoses / Procedures Referred By Contact Refer red To Contact Diagnoses Chronic pain of both knees Aiden Rivera, Procedures KNEES 3 VIEWS [facility] [place] [address] Referral ID Status Reason Start Date Expiration Date Visits Requ ested Visits Authorized [id number] Closed 09/11/2016 1 1 Encounter Details Date Type Department Care Team Description 09/10/2016 Orders Only [facility] Aiden Rivera Chron ic pain of both Total Joint Program - MD Abdullahi knees (Primary Dx) [place] [address] [place] [address] [address] [phone] Social History Tobacco Use Types Packs/Day Years Used Date Never Assessed Sex Assigned at Date Recorded Not on file documented as of this encounter Plan of Treatment Not on filedocumented as of this encounter Procedures Procedure Name Priority Date/Time Associated Diagnosis Comme nts KNEES 3 VIEWS Routine 09/12/2016 11:15 EDT Chronic pain of bot h Results for this knees procedure are i n the results section . documented in this encounter Results KNEES 3 VIEWS (09/12/2016 11:15 EDT) Anatomical Region Laterality Modality Other Specimen Narrative [facility] ADDIE MOSS - 09/12/2016 18:07 EDT KNEES 3 VIEWS, KNEES 3 VIEWS ??09/12/2016 11:13 AM Signs and Symptoms/Comments: ?? M25.561-Pain in right knee-ICD-10 M25.56 2-Pain in left knee-ICD-10; bilateral knee pain COMPARISON: 11/25/2013 FINDINGS: Weightbearing frontal and late ral views, and sunrise views were obtained of both knees. Both knees are normally aligned. There a ppears to be moderate symmetric medial and lateral joint space loss in both knees. The patellofemoral joints are not noticeably narrowed. Only tiny osteophytes are present on either side. 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 Tiny suprapatellar effusions are present bilaterally. Procedure Note Riley York MD - 09/12/2016 KNEES 3 VIEWS, KNEES 3 VIEWS 09/12/2016 1 1:13 AM Signs and Symptoms/Comments: M25.561-Pain in right knee-ICD-10 M25.56 2-Pain in left knee-ICD-10; bilateral knee pain COMPARISON: 11/25/2013 FINDINGS: Weightbearing frontal and late ral views, and sunrise views were obtained of both knees. Both knees are normally aligned. There a ppears to be moderate symmetric medial and lateral joint space loss in both knees. The patellofemoral joints are not noticeably narrowed. Only tiny osteophytes are present on either side. 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 Tiny suprapatellar effusions are present bilaterally. Performing Organization Address City/State/ZIP Code Phon e Number [facility] [place] documented in this encounter Visit Diagnoses Diagnosis Chronic pain of both knees - Primary documented in this encounter Care Teams Bid Clerk Relationship Specialty Start Date End Date Christian-Marla Nazario MD PCP - General 03/04/[address] [place] [address],[address] [place] [address] documented as of this encounter
--- OUTSIDE RECORDS SUMMARY | 2021-12-28 03:19 | XMS_ITS | Encounter Summary ---
:[address] [facility] Address [address] [place] [address] Care Team Providers Name Role Phone Marla Moralez MD Primary Care Provider Encounter Details Date Type Department Care Team Description 08/20/2017 Orders Only [facility] Krystal Giron ht knee pain, Total Joint Program - L, PA-C unspecified [address] [place] chronicity (Primary [address] Dx) So [facility], [facility] [address] [place] [phone] (Wo rk) Social History Tobacco Use Types Packs/Day Years Used Date Never Assessed Sex Assigned at Date Recorded Not on file documented as of this encounter Plan of Treatment Not on filedocumented as of this encounter Visit Diagnoses Diagnosis Right knee pain, unspecified chronicity - Primary documented in this encounter Care Teams Veneer Stacker Relationship Specialty Start Date End Date Marla Moralez MD PCP - General 03/04/[address] [place] [address] documented as of this encounter
--- OUTSIDE RECORDS SUMMARY | 2021-12-28 03:19 | XMS_ITS | Encounter Summary ---
:1950 Author Organization [facility] Address [address] [place] [address] Care Team Providers Name Role Phone Marla Moralez MD Primary Care Provider Reason for Referral Radiology Services (Routine) - Closed Specialty Diagnoses / Procedures Referred By Contact Refer red To Contact Diagnoses Knee pain Aiden Rivera, Procedures KNEE 1 OR 2 VIEWS [address] [place] [address] Referral ID Status Reason Start Date Expiration Date Visits Requ ested Visits Authorized [id number] Closed 11/25/2013 1 1 adiology Services (Routine) - Closed Specialty Diagnoses / Procedures Referred By Contact Refer red To Contact Diagnoses Knee pain Aiden Rivera, Procedures KNEE 1 OR 2 VIEWS [address] [place] [address] Referral ID Status Reason Start Date Expiration Date Visits Requ ested Visits Authorized [id number] Closed 11/25/2013 1 1 Encounter Details Date Type Department Care Team Description 11/25/2013 Orders Only [facility] Aiden Rivera Knee pain (Primary Total Joint Program - MD Abdullahi Dx) [place] [address] [address] [address] [phone] Social History Tobacco Use Types Packs/Day Years Used Date Never Assessed Sex Assigned at Date Recorded Not on file documented as of this encounter Plan of Treatment Not on filedocumented as of this encounter Procedures Procedure Name Priority Date/Time Associated Diagnosis Comme nts KNEE 1 OR 2 VIEWS Routine 11/25/2013 14:38 Knee pain Result s for this EDT procedure are i n the results section. KNEE 1 OR 2 VIEWS Routine 11/25/2013 14:38 Knee pain Result s for this EDT procedure are i n the results section. documented in this encounter Results KNEE 1 OR 2 VIEWS (11/25/2013 14:38 EDT) Anatomical Region Laterality Modality Other Specimen Narrative [facility] - 10/30 12:02 EDT KNEE 1 OR 2 VIEWS, KNEE 1 OR 2 VIEWS ??11/25/2013 2:38 PM Signs and Symptoms/Comments: ?? 719.46-Pain in joint, lower djb-EQJ-8-CM ; right knee pain. Right Knee Findings: There is mild medial and lateral tibiofe moral joint space narrowing. Very mild degenerative changes are prese nt in the patellofemoral compartment. Left Knee Findings: There are mild osteoarthritic changes in the medial tibiofemoral compartment. Minimal degenerative change s are present in the patellofemoral compartment. Procedure Note 11/26/2013 KNEE 1 OR 2 VIEWS, KNEE 1 OR 2 VIEWS 10/29 2:38 PM Signs and Symptoms/Comments: 719.46-Pain in joint, lower sec-DXA-7-CM ; right knee pain. Right Knee Findings: There is mild medial and lateral tibiofe moral joint space narrowing. Very mild degenerative changes are prese nt in the patellofemoral compartment. Left Knee Findings: There are mild osteoarthritic changes in the medial tibiofemoral compartment. Minimal degenerative change s are present in the patellofemoral compartment. Performing Organization Address City/State/ZIP Code Phon e Number [facility] KNEE 1 OR 2 VIEWS (11/25/2013 14:38 EDT) Anatomical Region Laterality Modality Other Specimen Narrative [facility] - 10/30 12:02 EDT KNEE 1 OR 2 VIEWS, KNEE 1 OR 2 VIEWS ??11/25/2013 2:38 PM Signs and Symptoms/Comments: ?? 719.46-Pain in joint, lower pem-MIQ-5-CM ; right knee pain. Right Knee Findings: There is mild medial and lateral tibiofe moral joint space narrowing. Very mild degenerative changes are prese nt in the patellofemoral compartment. Left Knee Findings: There are mild osteoarthritic changes in the medial tibiofemoral compartment. Minimal degenerative change s are present in the patellofemoral compartment. Procedure Note 11/26/2013 KNEE 1 OR 2 VIEWS, KNEE 1 OR 2 VIEWS 10/29 2:38 PM Signs and Symptoms/Comments: 719.46-Pain in joint, lower nyc-FMS-3-CM ; right knee pain. Right Knee Findings: There is mild medial and lateral tibiofe moral joint space narrowing. Very mild degenerative changes are prese nt in the patellofemoral compartment. Left Knee Findings: There are mild osteoarthritic changes in the medial tibiofemoral compartment. Minimal degenerative change s are present in the patellofemoral compartment. Performing Organization Address City/State/ZIP Code Phon e Number [facility] [place] [facility] documented in this encounter Visit Diagnoses Diagnosis Knee pain - Primary Pain in joint, lower leg documented in this encounter Care Teams Hop Sorter Relationship Specialty Start Date End Date Christian-Marla Nazario MD PCP - General 03/04/13 [address] [facility] [place] [address] documented as of this encounter
--- OUTSIDE RECORDS SUMMARY | 2021-12-28 03:19 | XMS_ITS | Encounter Summary ---
:1950 Author Organization [facility] Address [address] [place] [address] Care Team Providers Name Role Phone Unknown, Provider Primary Care Provider Encounter Details Date Type Department Care Team Description 03/01/[address] [facility] Tobi Edmondson MD Laboratory Services - [address] [place] [address] [address] [facility] [place] [address] [phone] Social History Tobacco Use Types Packs/Day Years Used Date Never Assessed Sex Assigned at Date Recorded Not on file documented as of this encounter Plan of Treatment Not on filedocumented as of this encounter Procedures Procedure Name Priority Date/Time Associated Diagnosis Comme [facility] SURGICAL PATHOLOGY Routine 03/02/2013 8:22 EDT Re sults for this procedure are i n the results section. documented in this encounter Results SURGICAL PATHOLOGY (03/02/2013 8:22 EDT) Pathology Report: SURGICAL PATHOLOGY REPORT [facility] Reports generated via electronic interface contain franklyn ginal data; LAB however they are lacking the format of the original re port. Caution should be taken when reading/interpreting unfo rmatted reports. Name: ? DAVID DESIR ? Accession #: ? [id number] ? : ? 1950 (Age: 62) ??F ? Collect Date: ? 03/02/2013 ? [facility]: ? [facility] ? Receive Date: ? 03/03/20 13 ? Provider: FLAKITO EDMONDSON MD Copy to: GIDEON ROWLEY MD ? Final Pathologic Diagnosis: COLON, CECUM TO RECTUM, BIOPSIES: - ??No specific pathologic features. Document reviewed and electronically signed by: MARTHA JOHNSON MD Report ??Date: 03/04/2013 14:21 By the signature above, the attending physician certif ies that he/she has personally conducted a gross and/or microscopic examin ation of the described specimens and rendered or confirmed the above diagnosi s. Specimen(s) Received: Cecum to rectum biopsies-cold Clinical History: Diarrhea Gross Description: ? Received in formalin labelled with proper patient identification (initials W, A) and cecum-rectum biop sies are 8 light ferrera tissues (0.2 and 0.2 x 0.1 cm to 0.5 x 0.2 x 0.1 cm). Entirely submitted in block 1- 3. Cristine Ronquillo 03/03/2013 09:53 AM End of Report Specimen Performing Organization Address City/State/ZIP Code Phon e Number [facility] [address] [place] [address] SERVICES [facility] [address] [place] [address] documented in this encounter Visit Diagnoses Not on filedocumented in this encounter Care Teams Trap Puller Relationship Specialty Start Date End Date Unknown, Provider, PCP - General 01/29/10 03/03/13 documented as of this encounter
--- OUTSIDE RECORDS SUMMARY | 2021-12-28 03:19 | XMS_ITS | Encounter Summary ---
:[address] [facility] Address [address] [place] [address] Care Team Providers Name Role Phone Christian-Marla Nazario MD Primary Care Provider Encounter Details Date Type Department Care Team Description 09/12/2016 Results Only [facility] Aiden Rivera Imaging Total Joint Program - MD Abdullahi [facility] [address] [place], [place] [address] [phone] Social History Tobacco Use Types Packs/Day Years Used Date Never Assessed Sex Assigned at Date Recorded Not on file documented as of this encounter Plan of Treatment Not on filedocumented as of this encounter Procedures Procedure Name Priority Date/Time Associated Diagnosis Comme nts KNEES 3 VIEWS 09/12/2016 11:13 EDT Result s for this procedure are i n the results section . documented in this encounter Results KNEES 3 VIEWS (09/12/2016 11:13 EDT) Anatomical Region Laterality Modality Other Specimen Narrative [facility] - 09/12/2016 18:07 EDT KNEES 3 VIEWS, [...] Organization Address City/State/ZIP Code Phon e Number [facility] [place] documented in this encounter Visit Diagnoses Not on filedocumented in this encounter Care Teams Wringer Machine Operator Relationship Specialty Start Date End Date Christian-Marla Nazario MD PCP - General 03/04/13 [address] [place] [address] documented as of this encounter
--- OUTSIDE RECORDS SUMMARY | 2021-12-28 03:19 | XMS_ITS | Encounter Summary ---
:1950 Author Organization [facility] Address [address] [place] [address] Care Team Providers Name Role Phone Unavailable Primary Care Provider Unavailable Encounter Details Date Type Department Care Team Description 02/15/2009 Orders Only [facility] Robles Escamilla ARNP Laboratory Services - [address] [place] [address] 0 [place] [address] [phone] Social History Tobacco Use Types Packs/Day Years Used Date Never Assessed Sex Assigned at Date Recorded Not on file documented as of this encounter Plan of Treatment Not on filedocumented as of this encounter Procedures Procedure Name Priority Date/Time Associated Diagnosis Comme [facility] CYTOPATHOLOGY Routine 02/15/2009 0:00 EDT Results for this procedure are i n the results section . documented in this encounter Results CYTOPATHOLOGY (02/15/2009 0:00 EDT) Pathology Report: CYTOPATHOLOGY REPORT ? [facility] Reports generated via electr onic interface contain original data; ? however they are lacking the format of the original report. ? Caution should be taken when reading/interpreting unformatted reports. ? Name: ? DAVID DESIR ? Accession #: ? [id number] ? : ? 1950 (Age: 58) ??F ?Collect Date: ? 02/15/2009 ? Location: ? [facility] ? Receive Date: ? 02/17/2009 ? Provider: ?ALBA WOLFE TILE INSPECTOR ? Copy to: ? Specimen/Source: ? Pap Test, Vagina/Cervix/Endocervix, ThinPrep Imaging ? System with manual evaluatio n ? Last Menstrual Period: ? Hormonal/Contraceptive Statu s: ? Yes: Topical E2 ? Treatment History: ? Cryotherapy: x 2 '84 ? Other: ? Additional clinical informat ion: H/o cervicitis prior to 84 Cryo x 2 ? HPVA - HPV testing requested if ASC-US on the current ThinPrep Pap test. ? SPECIMEN ADEQUACY ? Satisfactory for Eval uation ? - transformation zone compon ent present ? GENERAL CATEGORIZATION ? Negative for Intraepi thelial Lesion or Malignancy ? INTERPRETATION ? Fungal organisms pres ent morphologically consistent with Georgette species. ? Document reviewed and electr onically signed by: ? ISAURA Mann( CP) ? Report Date: ??08// 2009 16:04 ? End of Report ? Specimen Performing Organization Address City/State/ZIP Code Phon e Number [facility] [address] [place] [address] SERVICES [facility] [address] [place] [phone] documented in this encounter Visit Diagnoses Not on filedocumented in this encounter
--- OUTSIDE RECORDS SUMMARY | 2021-12-28 03:19 | XMS_ITS | Encounter Summary ---
:1950 Author Organization [facility] Address [address] [place] [address] Care Team Providers Name Role Phone Unknown, Provider Primary Care Provider Encounter Details Date Type Department Care Team Description 07/23/2007 Results Only [facility] - Tiffanie Escamilla, Maria lie, conversion INTERMEDIATE SCHOOL TEACHER [address] [place] [address] [place] [address] [phone] (Wo rk) Social History Tobacco Use Types Packs/Day Years Used Date Never Assessed Sex Assigned at Date Recorded Not on file documented as of this encounter Plan of Treatment Not on filedocumented as of this encounter Procedures Procedure Name Priority Date/Time Associated Diagnosis Comme nts CYTOPATHOLOGY Routine 07/23/2007 0:00 EST Results for this procedure are i n the results section . documented in this encounter Results CYTOPATHOLOGY (07/23/2007 0:00 EST) Pathology Report: CYTOPATHOLOGY REPORT [facility] Reports generated via electronic interface contain franklyn ginal data; however they are lacking the format of the original re port. Caution should be taken when reading/interpreting unfo rmatted reports. Name: ? DAVID DESIR ? Accession #: ? [id number] : ? 1950 (Age: 57) ??F ?Collect Date: ? 07/01 Location: ? [facility] ? Receive Date : ? 07/28/2007 Provider: ?ALBA [place] Copy to: ? Specimen/Source: ? ThinPrep Pap Test, Vagina/Cervix/Endocervix, processed on Dot[employer] ThinPrep Imaging System, with manual evaluati on Last Menstrual Period: ? Hormonal/Contraceptive Status: ? Yes: Topical Ez Treatment History: ? Cryotherapy: x 2 1983, H/o cervicitis prior to ? SPECIMEN ADEQUACY ? Satisfactory for Evaluation - transformation zone component present GENERAL CATEGORIZATION ? Negative for Intraepithelial Lesion or Malignan cy ? Document reviewed and electronically signed by: ? ISAURA Sainz(ASCP) ? Report Date: ??07/31/2007 10:56 End of Report Specimen Performing Organization Address City/State/ZIP Code Phon e Number [facility] [address] [place] [address] SERVICES [facility] [address] [place] [address] documented in this encounter Visit Diagnoses Not on filedocumented in this encounter Care Teams Home Care Nurse Relationship Specialty Start Date End Date Unknown, Provider, PCP - General 01/29/10 03/03/13 documented as of this encounter
--- OUTSIDE RECORDS SUMMARY | 2021-12-28 03:19 | XMS_ITS | Encounter Summary ---
:1950 Author Organization [facility] Address [address] [place] [address] Care Team Providers Name Role Phone Unknown, Provider Primary Care Provider Encounter Details Date Type Department Care Team Description 03/28/2006 Results Only [facility] - Tiffanie Escamilla, Maria baez, conversion [employer] [address] [place] [address] [place] [address] [phone] (Wo rk) Social History Tobacco Use Types Packs/Day Years Used Date Never Assessed Sex Assigned at Date Recorded Not on file documented as of this encounter Plan of Treatment Not on filedocumented as of this encounter Procedures Procedure Name Priority Date/Time Associated Diagnosis Comme nts CYTOPATHOLOGY Routine 03/28/2006 0:00 EDT Results for this procedure are i n the results section . documented in this encounter Results CYTOPATHOLOGY (03/28/2006 0:00 EDT) Pathology Report: CYTOPATHOLOGY REPORT [facility] Reports generated via electronic interface contain franklyn ginal data; however they are lacking the format of the original re port. Caution should be taken when reading/interpreting unfo rmatted reports. Name: ? DAVID DESIR ? Accession #: ? [id number] : ? 1950 (Age: 55) ??F ?Collect Date: ? 03/01 Location: ? [facility] ? Receive Date : ? 04/01/2006 Provider: ?ALBA CARY Copy to: ? Specimen/Source: ? ThinPrep Pap Test, Vagina/Cervix/Endocervix, processed on [employer]Sift ThinPrep Imaging System, with manual evaluati on Last Menstrual Period: ? Hormonal/Contraceptive Status: ? Yes: Topical estradiol Treatment History: ? Cryotherapy: x 2 Other: ? Additional clinical information: Cervicitis prior to 1 984 ? SPECIMEN ADEQUACY ? Satisfactory for Evaluation - transformation zone component present GENERAL CATEGORIZATION ? Negative for Intraepithelial Lesion or Malignan cy ? Document reviewed and electronically signed by: ? ARTUR Fuchs(ASCP) ? Report Date: ??04/04/2006 13:52 End of Report Specimen Performing Organization Address City/State/ZIP Code Phon e Number [facility] [address] [place] [address] SERVICES [facility] [address] [place] [address] documented in this encounter Visit Diagnoses Not on filedocumented in this encounter Care Teams Telecommunications Facility Examiner Relationship Specialty Start Date End Date Unknown, Provider, PCP - General 01/29/10 03/03/13 documented as of this encounter
[2021-12-28 10:50] LABS: HGB 13.2 g/dL (11.2-15.7); MCH 28.1 pg (27.0-33.0); MCV 85 fL (80-95); MPV 9.4 fL (8.0-11.0); Platelet Count 220 10^3/uL (130-400); RDW 13.7 % (11.7-14.6); RDW-SD 43.2 fL; WBC 4.79 10^3/uL (4.4-10.8)
[2021-12-28 11:40] LABS: Anion Gap 5.1 mmol/L (3-11); BUN 21 mg/dL (7-18); CO2 29.9 mmol/L (21.0-32.0); CREATININE 0.8 mg/dL (0.55-1.02); Calcium 9.4 mg/dL (8.5-10.1); Chloride 99 mmol/L (98-107); Glucose 74 mg/dL (74-106); Potassium 3.9 mmol/L (3.5-5.1); Sodium 134 mmol/L (136-145)
[2021-12-28 12:08] LABS: Source Nasal/Nares
[2021-12-28 14:51] LABS: COVID-19 PCR Negative (Negative)
== END 2021-12-28 03:12 | disposition home or self-care (01) ==
LOC: LBO 03:11
PROVIDERS: PCP Physician Assistant; Visit Provider Student in an Organized Health Care Education/Training Program
DX: M25.551 Pain in right hip (principal); M16.11 Unilateral primary osteoarthritis, right hip; Z20.822 Contact with and (suspected) exposure to COVID-19; Z01.818 Encounter for other preprocedural examination; Z01.812 Encounter for preprocedural laboratory examination
CPT/HCPCS: 36415; 80048; 85027; 87635

== ENCOUNTER 2022-01-01 06:25 | Day surgery (SDC) | payer MEDICARE, SELFPAY ==
[2022-01-01] VITALS (10 sets, daily range): BP systolic 127–212; BP diastolic 40–91; PULSE 54–89; RESP 12–20; TEMP 36.1–36.6; O2SAT 98–100; BMI 20.2
--- NOTE | 2022-01-01 06:21 | W.ANESPRE ---
General Info Date of Service Date Performed: 01/01/22 Height: 5 ft Weight: 47.174 kg Body Mass Index (BMI): 20.2 Surgical Procedure: Operation Date: 01/01/22 07:50 Proposed Procedure Side Surgeon p Hip Total Hip Anterior Right Gabriel Glover MD Meds Allergies and Home Medications Allergies Allergy/AdvReac Type Severity Reaction Status Date / Time codeine Allergy Severe Anaphylaxsi Unverified 01/01/22 06:27 s oxycodone HCl [From Percocet] Allergy Severe Anaphylaxsi Unverified 01/01/22 06:27 s erythromycin base Allergy Intermediate Skin Rash Unverified 01/01/22 06:27 Penicillins Allergy Intermediate Skin Rash Unverified 01/01/22 06:27 propoxyphene HCl Allergy Intermediate Anaphylaxis Unverified 01/01/22 06:27 [From Darvon] shellfish derived Allergy Intermediate Other (See Unverified 01/01/22 06:27 Comment) morphine Allergy Anaphylaxis Unverified 01/01/22 06:27 aspirin AdvReac Severe stomach Unverified 01/01/22 06:27 upset ibuprofen [From Motrin] AdvReac Mild stomach Unverified 01/01/22 06:27 upset Home Medication Medication Instructions Recorded estradiol 10 mcg vaginal tablet 25 mcg vaginal . 2-3 TIMES WEEKLY 12/21/12 (Vagifem) Antacid Extra-Strength 311 mg-232 1 ea PO DAILY 02/05/13 mg tablet (calcium and magnesium carbonat) Bety-C with Bioflavonoids 1,000 1 ea PO DAILY ##2 02/05/13 mg-200 mg tablet (ascorbate calcium-bioflavonoid) Lactobacillus acidophilus 100 1 ea PO DAILY 02/05/13 million cell capsule Retin-A 0.025 % topical cream 45 g topical DAILY 02/05/13 (tretinoin) cranberry extract 500 mg capsule 500 mg PO DAILY ##2 02/05/13 omega 7-fei-idv-fish oil 300 2 tab PO DAILY 11/30/14 mg-1,000 mg capsule ascorbic acid (vitamin C) 500 mg 500 mg PO DAILY 10/03/21 capsule coenzyme Q10 1 cap PO DAILY 10/03/21 elderberry fruit 1 cap PO DAILY 10/03/21 multivitamin 1 tab PO DAILY 10/03/21 vitamin D3-vitamin K2 1 cap PO DAILY 10/03/21 zinc 50 mg tablet 50 mg PO DAILY 10/03/21 Current Visit Medications: Current Medications Generic Name Dose Route Start Last Admin Trade Name Mary PRN Reason Stop Dose Admin Acetaminophen 1,000 mg 01/01/22 06:00 Acetaminophen 500 Mg Tab PO 01/01/22 16:00 PREOP OLIVER Celecoxib 400 mg 01/01/22 06:00 Celecoxib 200 Mg Cap PO 01/01/22 16:00 PREOP OLIVER Tranexamic Acid 1,000 mg/ 60 mls @ 360 mls/hr 01/01/22 06:00 Sodium Chloride IV 01/01/22 16:00 PREOP REPLACED BY [facility] PFSH Active Problems Active Problems: Problem Status Onset Code Insect bite W57.XXXA Paresthesia R20.2 Primary osteoarthritis of right hip M16.11 Medical History Medical History Anxiety Pt. denies this C. difficile diarrhea reaction to clindamycin Fractured nose Lower back pain Multiple lipomas Squamous cell carcinoma Traumatic injury of head 2011 concussion 4 head injuries UTI (urinary tract infection) Surgical History Surgical History History of breast biopsy History of breast lump/mass excision breast lipoma excised 2003 History of cataract surgery 2010 & [address] Isaak Quinones 2014 History of surgery Bilateral tendon release surgery DeQuervains 1983 and 1984 Tobacco Smoking/Tobacco Use Status: Former Tobacco Use Alcohol Alcohol Intake: never Substance Use Substance use: Never Vital Signs and Lab Results Lab Results Blood Type / Crossmatch: No Data to Display Complete Blood Count: White Blood Count 4.79 10^3/uL (4.4-10.8) 12/28/21 10:43 Red Blood Count 4.70 10^6/uL (3.93-5.22) 12/28/21 10:43 Hemoglobin 13.2 g/dL (11.2-15.7) 12/28/21 10:43 Hematocrit 40.0 % (36.0-46.0) 12/28/21 10:43 Platelet Count 220 10^3/uL (130-400) 12/28/21 10:43 Complete Metabolic Panel: Sodium Level 134 mmol/L (136-145) L 12/28/21 10:43 Potassium Level 3.9 mmol/L (3.5-5.1) 12/28/21 10:43 Chloride Level 99 mmol/L (98-107) 12/28/21 10:43 Carbon Dioxide Level 29.9 mmol/L (21.0-32.0) 12/28/21 10:43 Blood Urea Nitrogen 21 mg/dL (7-18) H 12/28/21 10:43 Creatinine 0.8 mg/dL (0.55-1.02) 12/28/21 10:43 Estimated GFR/1.73 m2 >= 60.00 (mL/min/1.73m2) 12/28/21 10:43 Calcium Level 9.4 mg/dL (8.5-10.1) 12/28/21 10:43 Glucose Level 74 mg/dL (74-106) 12/28/21 10:43 Liver Function Panel: No Data to Display Coagulation Panel: No Data to Display Cardiac Panel: No Data to Display Arterial Blood Gas: No Data to Display Venous Blood Gas: No Data to Display Pancreas Panel: No Data to Display Thyroid Panel: No Data to Display Infectious Disease: Coronavirus (COVID-19)(PCR) Negative (Negative) 12/28/21 11:05 Coronavirus 2019 Source Nasal/Nares 12/28/21 11:05 Blood Cultures: No Data to Display Toxicology Panel: No Data to Display Anesthesia Assessment and Plan Anesthesia History Personal History: No History of Anesthesia Complications Family History: No Family History of Anesthesia Complications Exercise Tolerance Exercise Tolerance: Metabolic Equivalents>4 Cardiac & Pulmonary Exam Cardiac Exam: Normal S1/S2 Heart Sounds Pulmonary Exam: Clear Bilateral Breath Sounds Implantable Cardiac Device Does patient have a Pacemaker or an ICD?: No Airway Exam Known Difficult Airway: No Mallampati Class: 2 Mouth Opening: Normal (> 3cm) Thyromental Distance: Greater than 3 cm Neck Range of Motion: Full ROM Neck Circumference: Normal Teeth Condition: Normal Dentition ASA Classification ASA Score: ASA 2 Emergency Case?: No NPO Status NPO Status: NPO Clears >2 hours, Solids >8 hours Anesthesia Plan Resuscitation Status: Full Code Anesthesia Technique: Spinal Anesthesia Airway Planned: Natural Airway Monitors Used: Standard Monitors Preoperative Comments:: 71 yo female for STEVEN right. multiple drug sensitivities. Sig PMHx: head injury x 4, former smoker, denies major. BP today is elevated, has been 140/70s historically. Feels that she is nervous today. Plan: Agrees to proceed with spinal.
[2022-01-01] MEDS: Acetaminophen 500 MG TAB 1000 MG PO (06:49)
[2022-01-01] MEDS: Celecoxib 200 MG CAP 400 MG PO (06:49)
[2022-01-01] MEDS: Lactated Ringers 1,000 ML 80 ML IV (07:21)
--- NOTE | 2022-01-01 07:38 | W.PM.DSUDISC ---
Discharge Plan Disposition Patient Disposition: HOME Condition: Good Discharge Details Reason For Visit: Right STEVEN Attending Provider: Gabriel Glover Primary Care Provider: Marla Bejarano Home Meds and New Rx's Prescriptions: New celecoxib [Celebrex] 200 mg capsule 200 mg PO BID Qty: 60 0RF aspirin 81 mg tablet,delayed release (DR/EC) 81 mg PO BID Qty: 60 0RF pantoprazole [Protonix] 40 mg tablet,delayed release (DR/EC) 40 mg PO DAILY Qty: 30 0RF acetaminophen 500 mg capsule 1,000 mg PO Q8H PRN PRNQty: 90 0RF Continued zinc 50 mg tablet 50 mg PO DAILY multivitamin Tablet 1 tab PO DAILY ascorbic acid (vitamin C) 500 mg capsule 500 mg PO DAILY vitamin D3-vitamin K2 1 cap PO DAILY elderberry fruit 1 cap PO DAILY coenzyme Q10 1 cap PO DAILY tretinoin [Retin-A] 45 GM cream 45 g Topical DAILY Antacid Extra-Strength 1 EACH tablet 1 ea PO DAILY cranberry extract 500 MG capsule 500 mg PO DAILY Qty: 2 Lactobacillus acidophilus 1 EACH capsule 1 ea PO DAILY Bety-C with Bioflavonoids 1 EACH tablet 1 ea PO DAILY Qty: 2 estradiol [Vagifem] 10 MCG tablet 25 mcg vaginal . 2-3 TIMES WEEKLY omega 9-ysh-dzv-fish oil 1 EACH capsule 2 tab PO DAILY Discharge Instructions Additional Instructions: Total Hip Discharge Instructions Activity: The most important activity is to walk. You should try to take short walks a few times a day. You have no restrictions on movement or positioning, but do not try to force what you do. You will find some stiffness and weakness with hip flexion (lifting your knee). Do not try to strengthen this too early, continue to practice walking and stairs and this will come. - Outpatient physical therapy can be helpful to help return you to a normal gait and improve your flexibility and strength. This can start around 2 weeks. For some patients, it?s not necessary. Usually this is determined at the time of discharge or at the first post-operative visit. - You should wear the ZHANNA hose on both legs for 2 weeks. Dressing: Keep the surgical dressing in place for at least one week. After the first week it may be removed and replace with light gauze and tape or nothing. It may get wet after 3 days but avoid soaking the dressing. If it gets wet, just lightly pat dry. It is important to always keep some gauze between skin folds, especially when you are sitting. Spend some time with the wound exposed when you are lying flat as the incision does wrinkle onto itself. Medications: - You should take Tylenol and an anti-inflammatory Celebrex as your primary pain control medications. If the Celebrex is too expensive or not covered, please call the office for another alternative (Advil/Ibuprofen or Naproxen/Aleve). - You have also been prescribed a stomach acid reduction agent Pantoprozole to help reduce stomach acid and reflux. - You will be taking Aspirin 81mg twice a day for DVT prevention unless instructed otherwise. - If you have constipation you should take Colace or Miralax (both [id number]). It takes most people 3-4 days to have a bowel movement. Follow-up: 2 weeks If you have any acute concerns or questions, please do not hesitate to contact the office at [phone]. You may contact Dr. Glover with any questions after hours through the hospital at [phone] or on his cell phone at [phone]. Referrals: Gabriel Glover MD [ [facility] STAFF PHYSICIAN] - Equipment/Supplies: Walker Activity:: Activity as Tolerated Remove Dressings/Wound Care:: Do Not Remove Shower/Bathe:: 72 hours Diet:: As Tolerated Discharge Orders Discharge Orders: Discharge Order (Routine); Ordered 01/01/22 Ordered By: Marla Diaz DS: Diagnosis Discharge Diagnosis (1) Primary osteoarthritis of right hip: Status: Chronic
[2022-01-01] MEDS: ceFAZolin 2 GM/50 ML BAG IVPB (07:43)
--- NOTE | 2022-01-01 08:50 | DI.RAD_ITS ---
Exam(s) XR HIP RT IN OR EXAM: XR HIP RT IN OR CLINICAL HISTORY: OSTEOARHTRITIS RIGHT HIP. TECHNIQUE: 2D and realtime digital imaging was performed. COMPARISON: No exams were available for comparison FINDINGS: Fluoroscopy was provided for Dr. Glover in the OR. Hard copy image shows placement of a right hip prosthesis. Please see procedure note for details. Fluoro time 22.6 seconds RADIATION DOSE DELIVERED: Ka,r=2.02 mGy mGy
--- NOTE | 2022-01-01 11:06 | W.ANESPOSTOP ---
Postoperative Evaluation Date, Time and Location Date Performed: 01/01/22 Time Performed: 11:06 Patient Location: Day Surgery Unit Vital Signs Most Recent Imported Vital Signs: Most Recent Vital Signs Temp Pulse Resp BP Pulse Ox 36.1 C L 60 16 185/79 H 100 01/01/22 10:21 01/01/22 10:21 01/01/22 10:21 01/01/22 10:21 01/01/22 10:21 Pain Score Most Recent Pain Score: Most Recent Pain Score Pain Level 2 01/01/22 10:21 Assessment Mental Status: Awake (Alert & Oriented to Patient Baseline) Airway and Respiratory Function: Patent airway with normal (patient baseline) respiratory exam Cardiovascular Function: Hemodynamically Stable Hydration Status: Adequately Hydrated Nausea & Vomiting: No Nausea or Vomiting Pain: Pain is tolerable per patient (Some cramping but doing well) Peripheral Nerve Block: Patient did not receive a nerve block
--- NOTE | 2022-01-01 12:25 | W.PM.OP ---
Date of service: 01/01/22 Time of Service: 09:00 Operative Note Operative Note DATE OF PROCEDURE: 01/01/22 PRE-OP DIAGNOSIS: Hip Osteoarthritis POST-OP DIAGNOSIS: same PROCEDURE: Right Anterior Total Hip Arthroplasty with Intraoperative Navigation SURGEON: Gabriel Glover RADON INSPECTOR: Marla Diaz ANESTHESIA TYPE: Spinal Refer to Anesthesia Record ESTIMATED BLOOD LOSS: 100 PATHOLOGY: none sent TOURNIQUET TIME: 0 COMPLICATIONS: None Patient was transported to: PACU Patient's condition: stable Implants: 1. Depuy [place] Acetabular Component, 48mm 2. Depuy Acetabular Liner, [id number] 3. Depuy Corail Standard 125 degree Collared Femoral Stem, Size 10 4. Depuy Altrx Ceramic Femoral Head, Size 32+5mm Indications: I have seen Olivia in clinic for symptoms of hip arthritis, confirmed with radiographic findings. She has exhausted nonoperative methods and was having significant limitations in daily function and desired better function and less pain. I discussed the technical details of a hip replacement. I explained the risks of the procedure to include, but not limited to, bleeding, infection, pain, stiffness, fracture, damage to nerves and vessels, damage to muscles and tendons, loosening, instability, leg length inequality, need for repeat procedure, blood clot and cardiopulmonary demise. Despite these risks, Caitlyn elected to proceed. Findings: There was some wear of the inferior aspect of the acetabulum as well as the posterior-superior acetbaulum with a calcified labrum and a focal full-thickness defect of the superior femoral head. Procedure Description: Caitlyn was greeted in the preoperative holding area where the correct side was identified and marked. The consent was reviewed with the patient and signed. The history and physical was updated. All questions were answered. She was taken back to the operating room. A spinal anesthestic was then administered. The feet were wrapped with cast padding and Coban and then placed into the boot liners and then into the boots. Care was taken to protect the skin and make sure the heels were fully down and the boots were stable. The patient was then positioned onto the HANA table. Both legs were held in a neutral position. SCDs were applied. The patient was then slid down onto a peroneal post. Prophylactic antibiotics in the form of Cefazolin were administered. 1g of Tranxemic Acid was given intravenously within 30 minutes of incision. The right leg was then prepped with Chloraprep and draped in a standard fashion. A second prep with Chloraprep was performed prior to placement of a shower-curtain type drape with Iodine impregnated skin protection. A timeout to confirm correct identity, side and site, procedure, allergies, anesthesia, and medical concerns was performed. An obliquely oriented incision was made starting lateral to the ASIS and running distal over the Tensor Fascia Asia (TFL) muscle belly toward the fibular head, approximately 10cm. The skin and soft tissue was dissected sharply, through Sharad?s fascia, and to the fascia of the TFL. With the fascia and superior border of the IT band identified, the fascia was incised with a new knife just above any perforators from the IT band. The TFL muscle belly was bluntly dissected away from the fascia and moved laterally. The fat between TFL and rectus was identified to ensure the dissection was not within the TFL. Blunt dissection created space between abductors and the capsule and retractor was placed over the lateral femoral neck. The fibers of the rectus femoris tendon were identified and these were freed from the anterior capsule. A second cobra retractor was placed around the medial femoral neck. The TFL was further retracted laterally to show the deep fascia. Careful dissection through this layer identified three main crossing vessels of the lateral femoral circumflex. These were cauterized in multiple locations and then cut without any noticeable bleeding. The TFL was further released bluntly from the deep fascia to expose anterior hip capsule and fat The Isak orthopaedic retractor was then placed beneath the TFL and against sartorius and medial soft tissues to protect and retract the soft tissues. A T-capsulotomy was then performed starting at the superior lateral acetabulum and moving distally to the intertrochanteric ridge. These capsular flaps were tagged with a No. 1 Ethibond and elevated from within. The capsular flaps were released to the shoulder of the lateral neck and to the lesser trochanter to give excellent visualization of the proximal femur. A neck osteotomy was performed using an oscillating saw based on preoperative templates. This cut started in the shoulder and of the lateral neck and exited medially. The saw was at all times directed medially to avoid injury to the greater trochanter. Gross traction was applied to the leg and the osteotomy opened. The femoral head was removed with a corkscrew, making sure to protect the TFL on its exit. Traction was released after head removal. This was measured on the back table to determine the starting reamer size. THere was a full-thickness defect over the superior femoral head. Then, portions of the rectus obscuring visualization were minimally elevated off the superior acetabulum. An anterior retractor was placed over the anterior wall between capsule and labrum and attached to the Gripper retraction system. The femur was rotated to 90 degrees and medial capsule was fully released until the lesser trochanter was palpable and visible; the femur was returned to 30 degrees. A posterior retractor was placed similarly between capsule and labrum. This provided excellent visualization. The contents of the cotyloid fossa were removed with electrocautery and the labrum was removed with a knife. There was significant chondromalacia of the superior acetabulum. Acetabular reaming began with a 44mm reamer. This first reaming was directed anterior to posterior and medial to get down to the true floor. This was inspected and reamed until the true floor was reached. The anterior retractor was then released and entry and exit was provided by traction on the capsular flaps. I then reamed sequentially up to a 48mm reamer where good fit was obtained. The larger reamers were oriented based on anatomical reference of the anterior and lateral medina to ensure proper abduction and anteversion. Positioning and size was confirmed with the fluoroscopy. A 48mm Depuy [place] acetabular component was selected. The acetabulum was reamed around the periphery with the selected acetabular size to prevent a rim fit. The deep tissues were irrigated. The acetabular component was then impacted in a position of about 40-45 degrees of abduction and 15-20 degrees of anteversion, using the patient?s anatomy as the ultimate landmark. Fluoroscopy was used to confirm this. There was excellent organ tuner of the acetabular component and the inserting handle was removed. The acetabular liner, Depuy 95x13in polyethylene liner, was inserted and lined up with the tines of the acetabular component. There was no soft tissue interposition. The liner was then impacted into position and confirmed to be well-seated. A portion of the solis-articular cocktail was then injected around the acetabulum into the capsule and periosteum. This cocktail consisted of 123mg of Ropivacaine, 0.25mg of Epinephrine, 0.04mg of Clonidine, and 15mg of Ketorolac, diluted to 50cc. The leg was rotated to 120 degrees. Any remaining medial capsule was released until the lesser trochanter was easily palpable. A retractor was placed medially. The lateral capsule was further released into the shoulder to allow access to the greater trochanter. A Sen retractor was placed over the greater trochanter which allowed the trochanter to flip in front of the capsule for excellent exposure. The leg was brought down into maximal extension and 20 degrees of adduction while ensuring there was no impingement on the acetabulum. Any remnant capsule within the trochanter was released. Piriformis and obturator externis were identified and protected. There was excellent access to the proximal femur. The lateral neck remnant was removed with a rongeur. A blunt canal probe was used to identify the canal and trajectory for later broaching. A box osteotome initiated the broach course. A small curved rasp and a curved curette were used to work laterally. Broaching then began with a size 8 Corail broach. This was inserted manually around the trochanter and into the canal before mallet blows. The broach was seated to a few millimeters below the cut level based on the neck cut and the preoperative template. Sequential broaching was continued with the InfluAdsse pneumatic broaching device until a tight fit was obtained with good rotational control of the femur. A trial standard neck was inserted along with a +5 trial head. The leg was brought out of extension and adduction and then reduced with traction and internal rotation. The leg was stable anteriorly in a position of 30 degrees of extension and 90 degrees of external rotation. Fluoroscopy was used to ensure there was no fracture and the stem was seated well. Leg lengths were checked with an AP pelvis and pelvic reference points. [employer] navigation system was used to confirm appropriate positioning and leg length and offset. This over-corrected the leg length, but would be corrected by utilizing a 125 degree neck option and advancing the stem. Once content with the desired offset and leg lengths, the leg was brought back into extension, external rotation and adduction. The periosteum and surrounding tissue was injected with remaining portion of the solis-articular cocktail. The proximal femur was irrigated as well as the deep tissues. The [employer] Corail standard 125 degree collared stem, size 10, was then manually inserted into the proximal femur making sure to control rotation. It was then malleted into position with light blows, giving breaks to allow bone expansion and decrease risk of fracture. The selected Depuy Altrx Ceramic Head, size 32+5mm, was then placed onto the clean and dry trunnion and secured with impaction onto the tapered fit. The leg was brought back out of extension and adduction and reduced with traction and internal rotation. Stability was confirmed with no shuck at 90 degrees of external rotation and 30 degrees of extension. No impingement through range of motion arc. Final x-ray images were obtained with fluoroscopy to confirm adequate positioning and no intraoperative fracture. The deep tissues were thoroughly irrigated with Surgiphor, betadine solution. This was allowed to sit in the wound for 3 minutes before being thoroughly irrigated out with normal saline. The capsule was then reapproximated with the previously placed Ethibond sutures. The TFL fascia was finally closed with a No. 2 Stratafix, barbed suture. Deep tissues were then reapproximated with 0 Vicryl and a running 2-0 Vicryl. The skin was closed with a running 4-0 Monocryl in a subcuticular fashion. This was reinforced with skin glue. A Mepilex silver dressing was applied. At the end of the case, all counts were correct. Caitlyn was transferred to the hospital bed without difficulty and suffering no apparent complication. Caitlyn has a good prognosis. Physical therapy will start today and without restrictions, weight-bearing as tolerated. Aspirin 81mg BID will be used for DVT prophylaxis.
--- NOTE | 2022-01-01 13:30 | IN_ITS ---
PT Notes Visit Reasons: Right STEVEN Inpatient Physical Therapy Evaluation Date: 01/01/2022 Referring Doctor: Gabriel Glover MD PT Orders: PT CONSULT: Status post right STEVEN Precautions: Falls Patient Profile/Admitting Diagnosis: 71-year-old female with osteoarthritis of the right hip status post right STEVEN earlier today PMHX: Medical History?(Updated 12/21/21 @ 11:38 by Cat Waller) Anxiety C. difficile diarrhea reaction to clindamycinFractured nose Lower back pain Multiple lipomas Squamous cell carcinoma Traumatic injury of head 2011 concussion 4 head injuriesUTI (urinary tract infection) Surgical History?(Updated 12/21/21 @ 11:38 by Cat Waller) History of breast biopsy History of breast lump/mass excision breast lipoma excised 2004History of cataract surgery 2010 & 2011History of colonoscopy Dr. Isaak Quinones 2014History of surgery Bilateral tendon release surgery DeQuervains 1983 and 1984 Social History/Home Situation: Lives with her in a private home, in her bedroom on the second floor with 13 steps and a railing. Her notes that they had a spacious bathroom with a shower Current Functional Limitations: Independent with all ADLs Equipment Owned/DME: Telescopic walking sticks Subjective: Pleasant and cooperative no abnormal pain behavior noted Objective: General Observation: Resting comfortably in bed and eating her lunch, but says she has to urinate. Once she sat up in bed she noticed that she had already voided. Mental Status: Alert and oriented x3 Pain: Complains of mild discomfort throughout the lateral aspect the right hip initially with weightbearing and describes a solid 2/10 on a VAS. This decrease when ambulating for greater than 100 feet Vital Signs: Stable ROM: She is good functional nonpainful motion throughout including her right hip Strength: Strength generally rated 5/5 throughout other than her right hip and knee musculature at 3/5 Neuro: Intact Bed Mobility/Transfers: Independent with assuming the supine to sitting to standing positions Gait: Ambulated approximately 200 feet with FWW, weightbearing as tolerated with mild antalgia on the right, but this improved and she increased her walking distance. She descended and descended 3 steps with a railing with proper technique Balance: Static Sitting: Stable Dynamic Sitting: Stable Static Standing: Stable Dynamic Standing: Minimal contact guarding Informed Consent/Education: Patient instructed in purpose of PT consult and plan of care. Assessment: Patient is a 70year old female referred to physical therapy services with the diagnosis of status post right STEVEN. Patient presents with clinical signs and symptoms consistent with this diagnosis, as demonstrated by the following impairment level findings: Mild weakness of the right lower extremity with partial weightbearing right lower extremity with ambulation.. Patient is [place] Low 88234 complexity based on the following: History: See comorbidities and social history Examination: See above for functional imitations impairments Presentation: Stable Decision Making: Low complexity based on her clinical findings Goals: Goals of independent bed mobility, and safe ambulation with FWW along with stair climbing have been met Plan of Care/Treatment Plan: Today session consisted of evaluation, patient education, instruction home exercise program consisting of quad and gluteal sets and ankle pumping, which are illustrated and listed in her force therapeutics manual. Also instructed in independent bed mobility activities, ambulation with a FWW, weightbearing as tolerated, as well as stair climbing. DISCHARGE RECOMMENDATIONS: Patient is a follow-up appointment with Dr. Glover in 2 weeks. If he feels that further rehabilitation is necessary, will be available to provide her rehabilitation. Home with no services TREATMENT CODE/TIME: 9716 minutes Disclaimer: This note was created using [employer] voice recognition software. It was reviewed for major content. However, there may be multiple small discrepancies and errors due to the voice recognition aspects of the software.
== END 2022-01-01 13:17 | disposition home or self-care (01) ==
PROVIDERS: PCP Physician Assistant; Visit Provider Student in an Organized Health Care Education/Training Program
PROC: (CPT 27130; principal; 2022-01-01 07:30)
DX: M16.11 Unilateral primary osteoarthritis, right hip (principal); F41.9 Anxiety disorder, unspecified; Z87.891 Personal history of nicotine dependence; Z79.899 Other long term (current) drug therapy
CPT/HCPCS: 20985; 27130; C1776; 97161; 73501; J0690; J1100; J2250; J2370; J2405

== ENCOUNTER 2022-01-14 13:46 | Outpatient (CLI) | payer MEDICARE, SELFPAY ==
--- NOTE | 2022-01-14 10:45 | DI.RAD_ITS ---
Exam(s) XR HIP RT COMPLETE AP PELVIS EXAM: XR HIP RT COMPLETE AP PELVIS INDICATION: 1ST POST OP R STEVEN. COMPARISON: CR XR PELVIS AP from 12/21/2021 XA XR HIP RT IN OR from 01/01/2022 TECHNIQUE: 2D digital imaging was performed. Two views. FINDINGS: There has been no change in the alignment of the right hip prosthesis or appearance of the surroundin g bone. There are mild degenerative changes of the left hip. DATA REPOSITORY: RADIATION DOSE DELIVERED:
--- OUTSIDE RECORDS SUMMARY | 2022-01-14 13:48 | XMS_ITS | Encounter Summary ---
:1950 Author Organization [facility] [place] [address] Care Team Providers Name Role Phone Marla Moralez MD Primary Care Provider Reason for Visit Reason Onset Date Comments Advice Only 10/12/2013 Encounter Details Date Type Department Care Team Description 10/12/2013 Telephone [place] [facility] Valentina Woodward PA Advice Only [facility] [place] [id number] ORTHOPAEDIC SURGERY [phone] [place] [phone] (Wo rk) Social History Tobacco Use Types [...] bath after 24 hours. Telephone Encounter - Taimko Coleman - 10/12/2013 10:05 AM EDT Patient had an injection yesterday with Valentina. Patient would like to know if/when she may take an immersion bath or shower. Please call her back at [phone]. documented in this encounter Plan of Treatment Not on filedocumented as of this encounter Visit Diagnoses Not on filedocumented in this encounter Care Teams Information Technology Advisor Relationship Specialty Start Date End Date Christian-Marla Nazario MD PCP - General 12/31/11 [address] [place] [phone] documented as of this encounter
--- OUTSIDE RECORDS SUMMARY | 2022-01-14 13:48 | XMS_ITS | Encounter Summary ---
:1950 Author Organization [facility] [place] [address] Care Team Providers Name Role Phone Marla Moralez MD Primary Care Provider Reason for Visit Reason Onset Date Comments Knee Pain 10/11/2013 Encounter Details Date Type Department Care Team Description 10/11/2013 Telephone [place] [facility] [place] Ferdinand Larkin MD Knee [place] [facility] [place] [phone] ORTHOPAEDIC SURGERY [phone] [place] [phone] (Wo rk) Social History Tobacco Use Types [...] on filedocumented in this encounter Care Teams Motor Hotel Manager Relationship Specialty Start Date End Date Christian-Marla Nazario MD PCP - General 12/31/[address] [place] [id number] documented as of this encounter
--- OUTSIDE RECORDS SUMMARY | 2022-01-14 13:48 | XMS_ITS | Encounter Summary ---
:1950 Author Organization [place] [address] Care Team Providers Name Role Phone Marla Moralez MD Primary Care Provider Encounter Details Date Type Department Care Team Description 07/08/2012 Follow-Up Occupational Therapy at Tomy Mauricio OT [facility] [address] PHYSICAL MEDICINE & [place] [address] Concussion (Primary [facility] Marla Moralez MD [address] [facility] [address] [place] [address] [place]x) [place] [phone] Social History Tobacco Use Types Packs/Day Years Used Date Former Smoker Sex Assigned at Date Recorded Not on file documented as of this encounter Progress Notes Tomy Mauricio OT - 07/08/2012 3:19 PM EST OCCUPATIONAL THERAPY PROGRESS NOTE REFERRAL [...] dr. Marla Gonzales for [facility]heck [facility]. Olivia Azevedo presents alone PAIN: At Rest: 08/09 With Activity: 08/09 [facility] Occupational Therapy Cognitive assessment is a [...] Copying Geometric Forms 10/01 14 Two-Dimentional Model 10/01 15 Pegboard Construction 10/01 16 Colored Block Design 10/01 17 Plain Block Design 10/01 required increased time and multiple times 18 Reproduction of a Puzzle 10/01 19 Drawing a Clock 10/01 Thinking Operations 20 Categorization 11/01 21 MARY Unstructured 11/01 22 MARY Structured 11/01 She required a significant amount of time to fix and error 23 Pictorial Sequence A 10/01 24 Pictorial Sequence B 10/01 25 Geometric Sequencing 10/01 26 Logic Questions 10/01 Attention and Concentration 10/01 Total Score 119/119 Length of testing 25 minutes Assessment as performed in 1 visit(s) TREATMENT TODAY: visuomotor organization and thinking operations portion of the LOTCA were completed with perfect score. She was given five items to find with prices of each to be documented and subtracted from 20 dollars. She needed to write the items down as a learning procedure and attempted to categorize them. She found all items without cueing and found her way back to the rehab department treatment room without any cueing. Vision assessed for which she continues to have some level of nystagmus with left to right visual tracking but this was also evident crossing midline in both direction. ASSESSMENT: Olivia Azevedo presented today having met OT short term goals. 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 She feels her short term memory is better not needing compensatory tools in organizing her work day as much. Her primary concern at this point is a blurring of her vision and feeling as if she sometimes is missing things such as a misprint while typing in an email address. She continues to have nystagmus evident with left to right visual scanning intermittently but today it is also evident when looking left to right mostly when crossing midline. When assessed a number of visits ago this blurriness resolved when covering one eye but todaywith one eye covered nystagmus was the same. She reported the blurriness in vision at the exact timeshe had a tick in her scanning. She will benefit from at least one more visit to challenge her with a higher level problem solving task requiring shifting attention, background noise tolerance, incorporating a lot of visual scanning and reading of material. Senior Care Goals (to be met by discharge): Date [...] items in a search through [facility] without cueing. Goal Status: Goal met 05/20/12 Olivia Azevedo will increase her score on the LOTCA by 5 points to promote her ability to perform her job at an 8/10 level Goal Status: Goal status PLAN: The patient is to be seen 1 time(s) per week, for 12 week(s) to progress toward short and fdc goals. for Visuomotor organization, Visuoperceptual skills, Visual [...] unspecified documented in this encounter Care Teams Office Rn Relationship Specialty Start Date End Date Christian-Marla Nazario MD PCP - General 12/31/[address] [place] [address] [address] [place] [phone] (work) documented as of this encounter
--- OUTSIDE RECORDS SUMMARY | 2022-01-14 13:48 | XMS_ITS | Encounter Summary ---
:1950 Author Organization [facility] [place] [address] Care Team Providers Name Role Phone Marla Moralez MD Primary Care Provider Reason for Visit Reason Comments Diplopia OS>OD Pseudophakia OU Encounter Details Date Type Department Care Team Description 10/21/2013 Office Visit Ophthalmology at [facility] Karen Prieto, Diplopia (Primary Dx) [place] [address] [place] [address] O[address]ALM[address] DEPT. [place] [phone] Social History Tobacco Use Types Packs/Day Years [...] Primary documented in this encounter Care Teams Auto Technician Mechanic Relationship Specialty Start Date End Date Christian-Marla Nazario MD PCP - General 12/31/11 [address] [facility] [address] [place] [address] documented as of this encounter
--- OUTSIDE RECORDS SUMMARY | 2022-01-14 13:48 | XMS_ITS | Encounter Summary ---
:1950 Author Organization [facility] [address] Care Team Providers Name Role Phone Marla Moralez MD Primary Care Provider Encounter Details Date Type Department Care Team Description 08/28/2012 Follow-Up Occupational Therapy at Tomy Mauricio OT [facility] [address] PHYSICAL MEDICINE & [place] [address] Concussion (Primary [facility] Marla Moralez MD 79 [facility] 3 [place] [address] Dx) [place] [address] Social History Tobacco Use Types Packs/Day [...] dr. Marla Gonzales for [facility]heck [facility]. Olivia Azevedo [...] look into this more next visit. . Sizing Machine Operator Goals (to be met by discharge): Date [...] 5 items in a search through [facility] without cueing. Goal Status: [...] unspecified documented in this encounter Care Teams Family Practice Physician Assistant Relationship Specialty Start Date End Date Christian-Marla Nazario MD PCP - General 12/31/11 [address] [place] [phone] documented as of this encounter
--- OUTSIDE RECORDS SUMMARY | 2022-01-14 13:48 | XMS_ITS | Encounter Summary ---
:1950 Author Organization [facility] [place] [address] Care Team Providers Name Role Phone Marla Moralez MD Primary Care Provider Encounter Details Date Type Department Care Team Description 06/09/2013 Follow-Up Physical Therapy at Guadalupe Corrales ofacial muscle pain; [facility] S, PT Headache [address] [place] [address] PHYSICAL MEDICINE & [place] [address] Social History Tobacco Use Types Packs/Day Years [...] to have 0/10 pain at times. Goals: [facility] goals (12 weeks) 1. Pt to be able to minimize headache to 4/10 at worst less then 3 x a week. S: Patient reports the double vision hasn't changed. Headaches still present. Has headache today that she feels is from the cold. Knee is doing better. Can't wear a hat that is snug will cause headache. O: Manual Therapy (55041) 45 minutes ?? STM to the neck [...] Headache documented in this encounter Care Teams Documentation Clerk Relationship Specialty Start Date End Date Christian-Marla Nazario MD PCP - General 12/31/[address] [address] documented as of this encounter
--- OUTSIDE RECORDS SUMMARY | 2022-01-14 13:48 | XMS_ITS | Encounter Summary ---
:1950 Author Organization [facility] [place] [address] Care Team Providers Name Role Phone Marla Moralez MD Primary Care Provider Encounter Details Date Type Department Care Team Description 10/02/2012 Follow-Up Occupational Therapy at Tomy Mauricio OT [facility] [address] PHYSICAL MEDICINE & [place] [address] Concussion (Primary [facility] Marla Moralez MD 79 [facility] [address] [place] [address] Dx) [place] [address] Social History Tobacco Use Types Packs/Day [...] dr. Marla Gonzales for recheck and [facility]. Olivia Azevedo presents alone. She reports continuing to have double vision after 30 minute of computer work. She gets double vision when she turns her head to the left and upward stating that her double vision separates vertically. Toi Albright MD in [facility]. PAIN: At Rest: 10 With Activity: [...] seconds Error type: no errors Structured Complex [place] search Number of accurate responses:29 (30 targets) [...] and she will be d/c from [facility] Goals (to be met by [...] [facility] without cueing. Goal Status: Goal met 05/20/12 [...] unspecified documented in this encounter Care Teams Test Administrator Relationship Specialty Start Date End Date Christian-Marla Nazario MD PCP - General 12/31/11 [address] [place] [phone] documented as of this encounter
--- OUTSIDE RECORDS SUMMARY | 2022-01-14 13:48 | XMS_ITS | Encounter Summary ---
:1950 Author Organization [place] [address] Care Team Providers Name Role Phone Marla Moralez MD Primary Care Provider Encounter Details Date Type Department Care Team Description 03/11/2013 Office Visit Physical Therapy at Uvaldo Aragon PT [facility] [address] PHYSICAL MEDICINE & [place] [address] Myofacial muscle pain; [facility] Marla Moralez MD [address] [place] [address] [place] [phone] Social History Tobacco Use Types Packs/Day Years [...] dancing due to dizziness. Unable to work. 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 Functional Limitations: unable to bend over OGLESBY [...] soft tissue component. She may benefit from HVAC JOURNEYMAN to improve the flexibility of the ms at the base of the skull and into the head. Physical therapy is indicated to: increase flexibility Goals: Short term goals (4 weeks) 1. Patient to be indep with home exercise program. 2. Pt to report less frequency of headache to 4 x week 3. Pt to have 0/10 pain at times. Goals: long term care social worker goals (12 weeks) 1. Pt to be [...] Headache documented in this encounter Care Teams Oil Processing Technician Relationship Specialty Start Date End Date Christian-Marla Nazario MD PCP - General 12/31/11 [address] [place] [place] [phone] documented as of this encounter
--- OUTSIDE RECORDS SUMMARY | 2022-01-14 13:48 | XMS_ITS | Encounter Summary ---
:1950 Author Organization [facility] [place] [address] Care Team Providers Name Role Phone Marla Moralez MD Primary Care Provider Reason for Visit Reason Comments Procedure Encounter Details Date Type Department Care Team Description 08/01/2015 Procedure visit Dermatology at [facility] Lonny Rodrigues MD [place] [address] Mani [address] [facility] [place] [address] [place], [place] [phone] (Wo rk) Social History Tobacco Use Types [...] d documented in this encounter Care Teams It Sales Representative Relationship Specialty Start Date End Date Marla Moralez MD PCP - General 12/31/[address] [place] [address] documented as of this encounter
--- OUTSIDE RECORDS SUMMARY | 2022-01-14 13:48 | XMS_ITS | Encounter Summary ---
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 Examination JOINT TEAM STANDING ALIGNMENT AP [facility] Clinical History LT KNEE PAIN / [...] leg documented in this encounter Care Teams Marine Fitter Relationship Specialty Start Date End Date Christian-Marla Nazario MD PCP - General 12/31/11 79 [facility] 3 [place] [address] documented as of this encounter
--- OUTSIDE RECORDS SUMMARY | 2022-01-14 13:48 | XMS_ITS | Encounter Summary ---
:1950 Author Organization [facility] Address [address] [facility] [place] [address] Care Team Providers Name Role Phone Marla Moralez MD Primary Care Provider Encounter Details Date Type Department Care Team Description 08/24/2013 Orders Only Orthopaedics at [facility] Ferdinand Larkin MD Left knee pain [facility] (Pr imary Dx) [place] [address] ORTHOPAEDIC [phone] SURGERY [place], [place] [address] Social History Tobacco Use Types [...] leg documented in this encounter Care Teams Foundation Drill Operator Helper Relationship Specialty Start Date End Date Christian-Marla Nazario MD PCP - General 12/31/[address] [place] [address] [address] [place] [phone] (work) documented as of this encounter
--- OUTSIDE RECORDS SUMMARY | 2022-01-14 13:48 | XMS_ITS | Encounter Summary ---
:1950 Author Organization [facility] [place] [address] Care Team Providers Name Role Phone Marla Moralez MD Primary Care Provider Encounter Details Date Type Department Care Team Description 05/27/2012 Follow-Up Physical Therapy at Daniela Mendoza PTA [facility] [address] PHYSICAL MEDICINE & [place] [address] Unsteady gait (Primary Dx); [place] Marla Moralez MD [address] [place] [address] Concussion; [facility] [place] [phone] Social History Tobacco Use Types Packs/Day Years [...] it would be appreciated. O: Neuromuscular Re-Education (97675) 30 minutes and Manual Therapy (25239) 10 minutes reviewed HEP: UT and SCM [...] Headache documented in this encounter Care Teams Roving Department Supervisor Relationship Specialty Start Date End Date Christian-Marla Nazario MD PCP - General 12/31/11 79 [facility] 3 [place] [address] documented as of this encounter
--- OUTSIDE RECORDS SUMMARY | 2022-01-14 13:48 | XMS_ITS | Encounter Summary ---
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 She exercises with walking and using the [employer]. She does not drink alcohol, consume Aspartame or caffeine and does not smoke. Pain: Headache pain just above her ears-squeezing pain rated 4/20-tobshbur-qffybew increase or decreases the headache. She has [...] seconds (R)3 seconds (+) dizziness (L)> (R) Revere-Hallpike: (L) (-) (R) (-) , Horizontal Canal [...] 08/20/2012 9:48 AM EST Miscellaneous - Russ, Pig Sticker - 05/28/2012 8:16 PM EST Miscellaneous - Russ, Pig Sticker - 05/28/2012 2:28 PM EST documented in this encounter Plan of Treatment Not on filedocumented as of this encounter Visit Diagnoses Diagnosis Unsteady gait - Primary Abnormality of gait Concussion Concussion, unspecified Headache(784.0) Headache documented in this encounter Care Teams Retort Engineer Relationship Specialty Start Date End Date Christian-Marla Nazario MD PCP - General 12/31/11 79 [facility] [place] [address] documented as of this encounter
--- OUTSIDE RECORDS SUMMARY | 2022-01-14 13:48 | XMS_ITS | Encounter Summary ---
:1950 Author Organization [facility] [place] [address] Care Team Providers Name Role Phone Marla Moralez MD Primary Care Provider Encounter Details Date Type Department Care Team Description 05/19/2013 Follow-Up Physical Therapy at Uvaldo Corrales, PT [facility] [address] PHYSICAL MEDICINE & [place] [address] Headache (Primary Dx) [facility] Marla Moralez MD [address] [place] [address] [address] [place] [address] Social History Tobacco Use Types [...] to have 0/10 pain at times. Goals: [facility] goals (12 weeks) 1. Pt to be able to minimize headache to 4/10 at worst less then 3 x a week. S: pt reports stressed almost missed turn and almost had accident. But parking is better. O: Manual Therapy (14411) 50 minutes STM to the neck and shoulder area MFR techiniques at base of skull and into the shoulders. HOSPICE NURSE suboccipital release, still point. Unwinding of neck [...] Headache documented in this encounter Care Teams Schedule Analyst Relationship Specialty Start Date End Date Christian-Marla Nazario MD PCP - General 12/31/11 79 [facility] [address] [place] [phone] documented as of this encounter
--- OUTSIDE RECORDS SUMMARY | 2022-01-14 13:48 | XMS_ITS | Encounter Summary ---
:1950 Author Organization [place] [address] Care Team Providers Name Role Phone Marla Moralez MD Primary Care Provider Encounter Details Date Type Department Care Team Description 08/05/2012 Follow-Up Occupational Therapy at Tomy Mauricio OT [facility] [address] PHYSICAL MEDICINE & [place] [address] Concussion (Primary [facility] Marla Moralez MD 79 [facility] 3 [place] [address] Dx) [place] [address] Social History Tobacco Use Types Packs/Day [...] dr. Marla Gonzales for recheck and [facility] and treatment. Olivia Azevedo [...] of visual scanning and reading of material. Long-Term Goals (to be met by discharge): Date [...] 12 week(s) to progress toward short and residential goals. for Visuomotor organization, Visuoperceptual skills, Visual [...] unspecified documented in this encounter Care Teams Aging Department Supervisor Relationship Specialty Start Date End Date Christian-Marla Nazario MD PCP - General 12/31/11 [address] [place] [phone] documented as of this encounter
--- OUTSIDE RECORDS SUMMARY | 2022-01-14 13:48 | XMS_ITS | Encounter Summary ---
:1950 Author Organization [facility] [place] [address] Care Team Providers Name Role Phone Marla Moralez MD Primary Care Provider Encounter Details Date Type Department Care Team Description 07/02/2012 Follow-Up Physical Therapy at Peggy Mujica, PT [facility] [address] PHYSICAL MEDICINE & [place] [address] Unsteady gait (Primary Dx); [facility] Marla Moralez MD [address] [address] Concussion; [facility] [place] [phone] Social History Tobacco Use Types Packs/Day Years [...] VOR x 1-not as bothersome today. Saw cigarette making machine catcher who recommended continuing with the exercises. Yesterday went cross country tyipqe-fawl-gh front of house-1/2 hour one day, 40 minutes the next but very wiped out and headache after. She couldn't stand up after-had to lie down for while. Did partner dancing on arturo- wasn't nauseated. O: Therapeutic Exercise (77453) 15 minutes and Neuromuscular Re-Education (88209) 35 minutes Recommended trying cardio ex again [...] stretches/STM; will work on exertional training at home-ripplrr inc skiing. No perturbation with [employer]. RADHA MUJICA PT documented in this encounter Plan of Treatment Not on filedocumented as of this encounter Visit Diagnoses Diagnosis Unsteady gait - Primary Abnormality of gait Concussion Concussion, unspecified Headache(784.0) Headache documented in this encounter Care Teams Firestopper Installer Relationship Specialty Start Date End Date Christian-Marla Nazario MD PCP - General 12/31/11 79 [facility] 3 [place] [address] documented as of this encounter
--- OUTSIDE RECORDS SUMMARY | 2022-01-14 13:48 | XMS_ITS | Encounter Summary ---
:1950 Author Organization [facility] [place] [address] Care Team Providers Name Role Phone Marla Moralez MD Primary Care Provider Reason for Visit Reason Comments Follow-up Encounter Details Date Type Department Care Team Description 12/10/2013 [facility] Seborrh eic ker[facility], Tamela STOREY inflamed (Primary Dx) [address] [facility] [address] Mani B DERMATOLOGY [place], [place] [address] [phone] Social History Tobacco Use Types Packs/Day Years [...] as of this encounter Patient Instructions Patient InstructionsDesiree Ferguson LPN - 12/10/2013 1:55 PM EDT [facility] Dermatitis: After Your Visit Your Care Instructions Dermatitis is the general name used for any rash or inflammation of the skin. Different kinds of dermatitis cause different kinds of rashes. Common causes of a rash include new medicines, plants (such as poison oak or poison evan), heat, stress, and allergies to soaps, cosmetics, detergents, chemicals,and fabrics. Certain illnesses can also cause a rash. Unless caused by an infection, these rashes cannot be spread from person to person. How long your rash will last depends on what caused it. Rashes may last a few days or months. Follow-up care is a waterman part of your treatment and safety. Be sure to make and go to all appointments, and call your doctor if you are having problems. It???s also a good idea to know your test resultsand keep a list of the medicines you take. How can you care for yourself at home? ?? Do not scratch. Cut your nails short, and file them smooth. Or you may wear gloves if this helps keep you from scratching. ?? If you use soap on the rash, choose a gentle soap and use as little as possible. ?? Put cold, wet cloths on the rash to reduce itching. ?? Keep cool, and stay out of the sun. Heat makes itching worse. ?? Leave the rash open to the air when you can. If your clothes have to cover the rash, wear cotton or silk. ?? If the rash itches, use hydrocortisone cream. Follow the directions on the label. Calamine lotionmay help for plant rashes. ?? Try an uecb-ujy-asxezay antihistamine such as diphenhydramine (Benadryl) or chlorpheniramine (Chlor-Trimeton). Follow the directions on the label. ?? If you get a prescription steroid cream or pills, use them as directed. When should you call for help? Call your doctor now or seek immediate medical care if: ?? You have signs of infection, such as: ?? Increased pain, swelling, warmth, or redness. ?? Red streaks leading from the rash. ?? Pus draining from the rash. ?? A fever. ?? You have joint pain along with the rash. ?? The rash gets worse or spreads to other parts of your body. Watch closely for changes in your health, and be sure to contact your doctor if: ?? You do not get better after 2 to 3 weeks of home treatment. Where can you learn more? Visit our health information library at [email or web address] You can also view health information on [employer], your personal patient account. Log in or sign up today. Enter F270 in the search box to learn more about Dermatitis: After Your Visit. ?? [id number] [facility]. Care instructions adapted under license by [facility]. This care instruction is for use with your licensed healthcare professional. If you have questionsabout a medical condition or this instruction, always ask your healthcare professional. [facility] disclaims any warranty or liability for your use of this information. Content Version: 9.9.389027; Last Revised: November 13, 2012 documented in this encounter Progress Notes Lonny Rodrigues MD - 12/10/2013 2:17 PM EDT Problem: Left parietal scalp lesion. Olivia follows up because of an itchy, enlarging, and occasionally painful growth on the left parietal scalp. Physical examination reveals an irritated seborrheic keratosis. Assessment and Plan: Irritated seborrheic keratosis. a. After obtaining informed consent site was anesthetized and removed with light C and D. b. Triple antibiotic ointment and Band-Aid placed. c. Wound care instructions and supplies given. Return to clinic here p.r.n. for new lesions/concerns. Note: Discussed the potential for regrowth of these benign seborrheic keratoses. Will not retreat unless it becomes again symptomatic. COPY: Marla Moralez M.D. documented in this encounter Plan of Treatment Not on filedocumented as of this encounter Visit Diagnoses Diagnosis Seborrheic keratosis, inflamed - Primary Inflamed seborrheic keratosis documented in this encounter Care Teams Poultry Barn Manager Relationship Specialty Start Date End Date Marla Moralez MD PCP - General 12/31/[address] [place] [address] documented as of this encounter
--- OUTSIDE RECORDS SUMMARY | 2022-01-14 13:48 | XMS_ITS | Encounter Summary ---
:1950 Author Organization [facility] [place] [address] Care Team Providers Name Role Phone Marla Moralez MD Primary Care Provider Reason for Visit Reason Comments Skin Check Encounter Details Date Type Department Care Team Description 05/10/2016 Office Visit Dermatology at Lonny Rodrigues Nevus; Tamela STOREY Solar lentigo; [address] [facility] [address] Seborrheic keratosis, inflamed Mani B DERMATOLOGY [place], [place] [phone] Social History Tobacco Use Types Packs/Day Years [...] as of this encounter Progress Notes Lonny Rdorigues MD - 05/10/2016 2:45 PM EST PROBLEMS: [...] keratosis documented in this encounter Care Teams Marketing Automation Analyst Relationship Specialty Start Date End Date Marla Moralez MD PCP - General 12/31/[address] [address] documented as of this encounter
--- OUTSIDE RECORDS SUMMARY | 2022-01-14 13:48 | XMS_ITS | Encounter Summary ---
:1950 Author Organization [facility] [place] [address] Care Team Providers Name Role Phone Marla Moralez MD Primary Care Provider Encounter Details Date Type Department Care Team Description 04/27/2013 Follow-Up Physical Therapy at Guadalupe Corrales ofacial muscle pain; [facility] [place], PT Headache [facility] [place] [address] PHYSICAL MEDICINE & [phone] [place] [address] Social History Tobacco Use Types Packs/Day Years [...] to have 0/10 pain at times. Goals: ad terminal makeup operator goals (12 weeks) 1. Pt to be able to minimize headache to 4/10 at worst less then 3 x a week. S: Patient reports she was doing ok until she had to come here. Hospital is inhumane. Feels it is impossible place to get around. Gets stressed coming here. Discussed option of treatment at [facility] facility that is much more quiet and easy parking. Pt would like to try this. O: Manual Therapy (01475) 50 minutes ?? STM to the neck and shoulder area ?? MFR techiniques at base of skull and into the shoulders. ?? MICROSOFT WINDOWS ENGINEER suboccipital release, still point. Unwinding of neck [...] Headache documented in this encounter Care Teams Desktop Operator Relationship Specialty Start Date End Date Christian-Marla Nazario MD PCP - General 12/31/[address] [place] [address] documented as of this encounter
--- OUTSIDE RECORDS SUMMARY | 2022-01-14 13:48 | XMS_ITS | Encounter Summary ---
:1950 Author Organization [facility] [address] Care Team Providers Name Role Phone Marla Moralez MD Primary Care Provider Encounter Details Date Type Department Care Team Description 06/03/2012 Follow-Up Physical Therapy at Mounika Mendoza steady gait (Primary Dx); [facility] E SPRAY PAINTER Concussion; [facility] [place] [address] PHYSICAL MEDICINE & [phone] [place] [address] Social History Tobacco Use Types Packs/Day Years [...] front of the TV. O: Neuromuscular Re-Education (21199) 30 minutes and Manual Therapy (69111) 10 minutes treadmill 1.8 without UE support--able [...] Headache documented in this encounter Care Teams Health Services Information Specialist Relationship Specialty Start Date End Date Christian-Marla Nazario MD PCP - General 12/31/11 79 [facility] 3 [place] [id number] documented as of this encounter
--- OUTSIDE RECORDS SUMMARY | 2022-01-14 13:48 | XMS_ITS | Encounter Summary ---
:1950 Author Organization [facility] [place] [address] Care Team Providers Name Role Phone Marla Moralez MD Primary Care Provider Reason for Visit Reason Comments Strabismus Orthoptic evaluation Encounter Details Date Type Department Care Team Description 11/26/2012 Office Visit Ophthalmology at [facility] Domingo Ornelasopia (Primary Dx) [facility] [place] [address] Social History Tobacco Use Types Packs/Day [...] documented in this encounter Results SENSORIMOTOR EXAM [[place] SPECIAL EYE EXAM] - OU- BOTH EYES [...] Primary documented in this encounter Care Teams Clinic Charge Nurse Relationship Specialty Start Date End Date Christian-Marla Nazario MD PCP - General 12/31/11 79 [facility] 3 [place] [address] documented as of this encounter
--- OUTSIDE RECORDS SUMMARY | 2022-01-14 13:48 | XMS_ITS | Encounter Summary ---
:1950 Author Organization [facility] [place] [address] Care Team Providers Name Role Phone Marla Moralez MD Primary Care Provider Encounter Details Date Type Department Care Team Description 10/06/2012 Follow-Up Physical Therapy at Peggy Mujica, PT [facility] [address] PHYSICAL MEDICINE & [place] [address] Unsteady gait (Primary Dx); [facility] Marla Moralez MD [address] [place] [address] Concussion; [facility] [place] [id number] Social History Tobacco Use Types Packs/Day Years Used Date Former Smoker Sex Assigned at Date Recorded Not on file documented as of this encounter Progress Notes Radha Mujica PT - 10/06/2012 3:30 PM EDT Images from the original note were not included. Physical Therapy Progress Note Total Timed Code Treatment: 55 minutes Total Treatment Time: 60 minutes Date of Exam/First treatment: 05/22/2012 Date of Onset 02/05/12 Referring Provider: Marla Moralez MD Diagnosis: 1. Unsteady gait (781.2CT) 2. Concussion (850.9H) 3. Headache (784.0) Functional Limitations: Patient reports difficulty shopping in grocery stores, being in crowds, moving quickly during ADL, using the computer, not dancing S: Patient reports still getting dizzy spells off and on. She gets massive headaches if it is cold-needs to wear a hat. A wind on her head will also give her a headache and makes her dizzy. She saw an MD-visual exs-using a light ~ 30' away. She was also given a red and green lens glasses for challenge-not ready for that. She reports she was told the vertical diplopia cannot be corrected by prism glasses. She is going to see someone here as well. She is having a lot of neck problems-needs to have herhead tilted to the right on the computer to decrease double vision. She is still working one day/week. She has been getting acupuncture, massage and chiropractic for her neck. Went dancing on [employer]-was n't as crowded-did pretty well. O: Neuromuscular Re-Education (03324) 55 minutes VOR exs--she reports she is doing this with a light on the wall per her visual physician DVA 8->4-increased cervical pain after-requested traction- I did this in standing-she said it was too much-requested STM-did in sitting-she said it was too painful, she then stretched forward--flinging her head forward pressing on her cervical paraspinals to loosen then went into extreme ROM stretching (further than DVA testing to stretch). She stated she was ok at this point. VOR exercises-cue to work on speed increase-also discussed target vs. Light for focus capability-she prefers to do visual exs as was instructed per her medical appt Cervical ROM SB (L) 45 (R) 45; SB right caused ipsilateral pain and mild dizziness Flexion 55, extension 65 Rotation (L) 60 (R) 65 some pain right side On eval Sidebend (L) 30 (R) 30 Flexion 35 Extension 50 Rotation (L) 55 (R) 65 Tandem step up to 20 without step off Walk with head turn and tilt without step or drift SLS 30 sec each LE (was 72/100 on eval) Headache 2-10/10; working on the computer will bring 10/10 pain; most of the time it is 4-5/10 360 pivot done in 1-2 seconds, dizzy left A: Olivia has plateaued from a PT perspective at this time. She should continue to benefit from exercise and could make gradual gains over time. I would be happy to see her in the future if needed. ST Goals: 06/21/12 1. Independent with home exercise program. Met 10/06/12 2. DVA losing no more than 3 lines to decrease symptoms in crowds/busy visual Not met 10/06/12 3. Walk with head turn without slowing or drift to improve balance looking around during ADL met 07/02/12 4. 360 pivots x 1 without dizziness to improve ability to move quickly during ADL Not met 10/06/12 5. Cervical SB 45 degrees, rotation left 65 degrees to increase ability to look around during ADL Partially met 10/06/12 LT Goals 07/22/12 1. DHI 20 or lower to indicate functional improvement with regards to dizziness or unsteadiness Not met 10/06/12 2. Computer work without dizziness Not met 10/06/12 3. No dizziness in grocery store Not met 10/06/12 4. Headache pain 2/10 at most and not constant Not met 10/06/12 Plan: Continue HEP, no follow up at this time.She understands she can contact me at any time with questions or if additional PT is needed. RADHA MUJICA PT documented in this encounter Plan of Treatment Not on filedocumented as of this encounter Visit Diagnoses Diagnosis Unsteady gait - Primary Abnormality of gait Concussion Concussion, unspecified Headache(784.0) Headache documented in this encounter Care Teams Sales Data Analyst Relationship Specialty Start Date End Date Christian-Marla Nazario MD PCP - General 12/31/11 79 [facility] 3 [place] [address] documented as of this encounter
--- OUTSIDE RECORDS SUMMARY | 2022-01-14 13:48 | XMS_ITS | Encounter Summary ---
:1950 Author Organization [facility] [address] Care Team Providers Name Role Phone Marla Moralez MD Primary Care Provider Encounter Details Date Type Department Care Team Description 11/23/2021 Office Visit Dermatology at [facility] Vika Morales, History of SCC (squamous cell carcinoma) of skin; Juan STOREY Seborrheic keratoses, inflamed; [address] [facility] Seborrheic keratoses; [place] [address] [address] Lentigines; [phone] DERMATOLOGY Multiple nevi; 0377 6 [address] angioma; [phone] Skin cancer scr eening (Work) Social History [...] FSE, sooner if needed []Note routed to dental secretary [x]Recall placed in scheduling system []Appointment scheduled at checkout Scribe attestation: BRAULIO Mabry has performed the documentation for this encounter in the presence of and acting as a scribe for Vika Morales MD. I performed the above scribed service and agree with the accuracy of the documentation in this encounter. Reviewed and signed by: Vika Morales MD Dermatology [facility] documented in this encounter Plan of Treatment [...] skin documented in this encounter Care Teams Tortilla Maker Relationship Specialty Start Date End Date Christian-Marla Nazario MD PCP - General 12/31/[address] [address] documented as of this encounter
--- OUTSIDE RECORDS SUMMARY | 2022-01-14 13:48 | XMS_ITS | Encounter Summary ---
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
--- OUTSIDE RECORDS SUMMARY | 2022-01-14 13:48 | XMS_ITS | Encounter Summary ---
:1950 Author Organization [facility] [place] [address] Care Team Providers Name Role Phone Marla Moralez MD Primary Care Provider Encounter Details Date Type Department Care Team Description 06/02/2013 Follow-Up Physical Therapy at Uvaldo Corrales, PT [facility] [address] PHYSICAL MEDICINE & [place] [address] Myofacial muscle pain; [facility] Marla Moralez MD [address] [place] [address] Headache [address] [place] [address] Social History Tobacco Use Types Packs/Day Years Used Date Former Smoker Sex Assigned at Date Recorded Not on file documented as of this encounter Progress Notes Guadalupe Corrales, PT - 06/22/2013 10:23 AM EST Physical Therapy Progress Note Total treatment [...] to have 0/10 pain at times. Goals: petroleum terminal plant operator goals (12 weeks) 1. Pt to be able to minimize headache to 4/10 at worst less then 3 x a week. S: about the same. Still have double vision. O: Manual Therapy (00258) 50 minutes STM to the neck and shoulder area MFR techiniques at base of skull and into the shoulders. SLUBBER OPERATOR suboccipital release, still point. Unwinding of neck unwound to the right. Still point at shoulder. Thoracic release Manual traction to neck. Pt reports headache is gone following treatment. Hip is better. A:still has double vision. Headaches seem some what better. Pt reports that she is stressed getting to therapy. This may be counter productive to therapy at this point. P: Continue physical therapy for headaches. followup in one week and reassess. documented in this encounter Plan of Treatment Not on filedocumented as of this encounter Visit Diagnoses Diagnosis Myofacial muscle pain Mylagia and myositis, unspecified Headache(784.0) Headache documented in this encounter Care Teams Pitting Machine Operator Relationship Specialty Start Date End Date Christian-Marla Nazario MD PCP - General 12/31/[address] [address] documented as of this encounter
--- OUTSIDE RECORDS SUMMARY | 2022-01-14 13:48 | XMS_ITS | Encounter Summary ---
:1950 Author Organization [facility] [place] [address] Care Team Providers Name Role Phone Marla Moralez MD Primary Care Provider Encounter Details Date Type Department Care Team Description 08/26/2013 Orders Only Orthopaedics at [facility] Ferdinand Larkin MD [place] [address] [address] [phone] ORTHOPAEDIC SURG [place], [place] [address] (Wo rk) Social History Tobacco Use Types Packs/Day Years Used Date Former Smoker Sex Assigned at Date Recorded Not on file documented as of this encounter Plan of Treatment Not on filedocumented as of this encounter Visit Diagnoses Diagnosis Right knee pain Pain in joint, lower leg documented in this encounter Care Teams Freight Car Repairer Relationship Specialty Start Date End Date Marla Moralez MD PCP - General 12/31/[address] [place] [address] 3 [place] [address] documented as of this encounter
--- OUTSIDE RECORDS SUMMARY | 2022-01-14 13:48 | XMS_ITS | Encounter Summary ---
:1950 Author Organization [facility] [place] [address] Care Team Providers Name Role Phone Marla Moralez MD Primary Care Provider Reason for Visit Reason Comments Skin Check Encounter Details Date Type Department Care Team Description 08/15/2016 Office Visit Dermatology at [facility] Lonny Rodrigues MD Nevus; [address] Mani [address] Herpes [place] [address] [place], [place] [id number] (Wo rk) Social History Tobacco Use Types [...] cation documented in this encounter Care Teams Fish Hatchery Laborer Relationship Specialty Start Date End Date Christian-Marla Nazario MD PCP - General 12/31/11 79 [place] [id number] documented as of this encounter
--- OUTSIDE RECORDS SUMMARY | 2022-01-14 13:48 | XMS_ITS | Encounter Summary ---
:1950 Author Organization [facility] [place] [address] Care Team Providers Name Role Phone Marla Moralez MD Primary Care Provider Encounter Details Date Type Department Care Team Description 06/17/2012 Follow-Up Physical Therapy at Mounika Mendoza Un steady gait (Primary Dx); [facility], CURRICULUM SPECIALIST Concussion; [facility] [address] PHYSICAL MEDICINE & [phone] [place] [address] Social History Tobacco Use Types Packs/Day Years [...] shopping in large stores. O: Neuromuscular Re-Education (79718) 35 minutes and Manual Therapy (96120) 10 minutes Active Step: walking at 1.5 [...] Headache documented in this encounter Care Teams Lumber Chain Offbearer Relationship Specialty Start Date End Date Christian-Marla Nazario MD PCP - General 12/31/11 79 [facility] 3 [place] [address] documented as of this encounter
--- OUTSIDE RECORDS SUMMARY | 2022-01-14 13:48 | XMS_ITS | Encounter Summary ---
:1950 Author Organization [place] [address] Care Team Providers Name Role Phone Marla Moralez MD Primary Care Provider Encounter Details Date Type Department Care Team Description 06/03/2012 Follow-Up Occupational Therapy at Tomy Mauricio OT [facility] [address] PHYSICAL MEDICINE & [place] [address] Concussion (Primary [facility] Marla Moralez MD 79 [facility] 3 [place] [address] Dx) [place] [address] Social History Tobacco Use Types Packs/Day [...] dr. Marla Gonzales for recheck and [facility]. Olivia [...] memory as well as her spatial/visuomotor skills. Landscape Designer Goals (to be met by discharge): Date [...] find 5 items in a search through [facility] without cueing. Goal Status: Not fully met. [...] 12 week(s) to progress toward short and retirement goals. for Visuomotor organization, Visuoperceptual skills, Visual [...] unspecified documented in this encounter Care Teams Dishtank Operator Relationship Specialty Start Date End Date Christian-Marla Nazario MD PCP - General 12/31/[address] [address] documented as of this encounter
--- OUTSIDE RECORDS SUMMARY | 2022-01-14 13:48 | XMS_ITS | Encounter Summary ---
:1950 Author Organization [facility] [place] [address] Care Team Providers Name Role Phone Marla Moralez MD Primary Care Provider Encounter Details Date Type Department Care Team Description 10/21/2013 Telephone Ophthalmology at [facility] Karen Silverman MD [facility] [place] [address] OPHTHALMOLOGY DEPT. [phone] [place] [id number] (Wo rk) Social History Tobacco Use Types [...] on filedocumented in this encounter Care Teams Cork Insulator Relationship Specialty Start Date End Date Christian-Marla Nazario MD PCP - General 12/31/[address] [address] documented as of this encounter
--- OUTSIDE RECORDS SUMMARY | 2022-01-14 13:48 | XMS_ITS | Encounter Summary ---
:1950 Author Organization [facility] [address] Care Team Providers Name Role Phone Marla Moralez MD Primary Care Provider Reason for Visit Reason Comments Skin Check Follow-up Encounter Details Date Type Department Care Team Description 10/12/2013 Office Visit Dermatology at Lonny Rodrigues Irritan t contact dermatitis (Primary Dx); Tamela STOREY Solar lentigo; [address] [facility] Nevus Mani B DERMATOLOGY [place], [place] [address] [phone] Social History Tobacco Use Types Packs/Day Years [...] d documented in this encounter Care Teams Secondary History Teacher Relationship Specialty Start Date End Date Marla Moralez, MD PCP - General 12/31/11 79 [place] [id number] documented as of this encounter
--- OUTSIDE RECORDS SUMMARY | 2022-01-14 13:48 | XMS_ITS | Encounter Summary ---
:1950 Author Organization [facility] [place] [address] Care Team Providers Name Role Phone Marla Moralez MD Primary Care Provider Reason for Visit Reason Comments Skin Check Encounter Details Date Type Department Care Team Description 06/08/2015 Office Visit Dermatology at [facility] Lonny De La Paz MD Solar lentigo; [address] Mani [address] [place] [address] [place], [place] [address] (Wo rk) Social History Tobacco Use Types [...] from the original note were not included. [facility] Moles: After Your Visit Your Care Instructions [...] to your doctor if amole bleeds, itches, melgar, or changes size or color. Also let [...] color and feel of the skin. ?? roofing layer front of a full-length mirror. Look carefully [...] more? Visit our health information library at [email or web address] You can also view health information on [employer], your personal patient account. Log in or sign up today. Enter [id number] in the search box to learn more about Moles: After Your Visit. ?? [phone] [employer]. Care instructions adapted under license by [facility]. This care instruction is for use with your licensed healthcare professional. If you have questionsabout a medical condition or this instruction, always ask your healthcare professional. [employer] disclaims any warranty or liability for your use of this information. Content Version: 10.4.480902; Current as of: September 08, 2013 documented [...] d documented in this encounter Care Teams Mutual Fund Sales Agent Relationship Specialty Start Date End Date Marla Moralez MD PCP - General 12/31/[address] [address] documented as of this encounter
--- OUTSIDE RECORDS SUMMARY | 2022-01-14 13:48 | XMS_ITS | Encounter Summary ---
:1950 Author Organization [facility] [place] [address] Care Team Providers Name Role Phone Marla Moralez MD Primary Care Provider Encounter Details Date Type Department Care Team Description 02/10/2020 Hospital [place] [address] Social History Tobacco Use Types Packs/Day [...] ASHW RT-MAG Take 2 tablets by 0 [id number] ORAL mouth 2 times daily (with meals). [...] Shiga Toxin Detection (02/10/2020 12:01 AM EDT) [facility] Method Time Signature Shiga Toxin EIA Negative for Shiga Toxin 1 [facility] EIA Negative for Shiga Toxin 2 [facility] LABOR[facility] Specimen Anatomical Collection Method Collection Time Receive d Time (Source) Location / / Volume Laterality Stool specimen 02/10/2020 12:01 0 (specimen) AM EDT 11:06 PM EDT Resulting Agency Comment Spec In Lab Yanira Garvin APRN MICROBIOLOGY - GENERAL ORDER JAZ Performing Organization Address City/[facility]/ZIP [place] [address] [facility] Campylobacter Antigen (02/10/2020 12:01 AM EDT) Component Value Ref Test Analysis Performed At [facility] [place] Method Time Signature Campylobacter Ag Immunoassay FRANCES Negative for DEEPAK Campylobacter [facility] LABORATORY Specimen Anatomical Collection Method Collection Time Receive d Time (Source) Location / / Volume Laterality Stool specimen 02/10/2020 12:01 0 (specimen) AM EDT 11:06 PM EDT Resulting Agency Comment Spec In Lab Yanira Garvin APRN MICROBIOLOGY - GENERAL ORDER JAZ Performing Organization Address City/[facility]/ZIP Code Phon e Number [place] [id number] [facility] Stool culture (02/10/2020 12:01 AM EDT) Patholo gist Method Time Signature Stool Culture No enteric FRANCES [facility] LABORATORY Specimen Anatomical Collection Method Collection Time Receive d Time (Source) Location / / Volume Laterality Stool specimen 02/10/2020 12:01 0 (specimen) AM EDT 11:06 PM EDT Resulting Agency Comment Spec In Lab Yanira Garvin APRN MICROBIOLOGY - GENERAL ORDER JAZ Performing Organization Address City/State/ZIP Code Phon e Number [place] [phone] documented in this encounter Visit Diagnoses Not on filedocumented in this encounter Care Teams Encephalographer Relationship Specialty Start Date End Date Marla Moralez MD PCP - General 12/31/[address] [address] documented as of this encounter
--- OUTSIDE RECORDS SUMMARY | 2022-01-14 13:49 | XMS_ITS | Encounter Summary ---
:1950 Author Organization [facility] [place] [address] Care Team Providers Name Role Phone Jacquelyn Valentine MD Primary Care Provider Reason for Visit Reason Comments Left Hip Pain Right Hip Pain Encounter Details Date Type Department Care Team Description 07/12/2011 Follow-Up Pain Management at Umesh Greenberg MD Hip bursitis (Primary Dx); [facility] [place] Myofacial muscle pain [facility] [place] [address] [place] [address] [phone] (Wo rk) Social History Tobacco Use Types [...] this encounter Miscellaneous Notes Miscellaneous - Russ, Journalism Teacher - 07/17/2011 11:24 AM EST documented in [...] Routine documented in this encounter Care Teams Agricultural Extension Officer Relationship Specialty Start Date End Date Jacquelyn Valentine MD PCP - General 05/22/10 12/30/[address] [address] [place] [address] documented as of this encounter
--- OUTSIDE RECORDS SUMMARY | 2022-01-14 13:49 | XMS_ITS | Encounter Summary ---
:1950 Author Organization [facility] [place] [address] Care Team Providers Name Role Phone Marla Moralez MD Primary Care Provider Encounter Details Date Type Department Care Team Description 05/13/2012 Follow-Up Occupational Therapy at Tomy Mauricio, Concussion (Primary [facility] OT Dx) [facility] [place] [address] PHYSICAL MEDICINE & [phone] [place] [address] Social History Tobacco Use Types Packs/Day Years [...] This entailed a trip [facility], and the pharmacy. She remembered 4-5 items [...] directions which she asked for of a security professional to get to the pharmacy but at [...] potential considering her insight to deficit areas. Snf Goals (to be met by discharge): Date [...] find 5 items in a search through [facility] without cueing. Goal Status: Olivia Azevedo will increase her score on the LOTCA by 5 points to promote her ability to perform her job at an 8/10 level Goal Status: PLAN: The patient is to be seen 1 time(s) per week, for 12 week(s) to progress toward short and shelter goals. for Visuomotor organization, Visuoperceptual skills, Visual [...] unspecified documented in this encounter Care Teams Agricultural Engineering Technicians Relationship Specialty Start Date End Date Christian-Marla Nazario MD PCP - General 12/31/11 79 [facility] 3 [place] [address] documented as of this encounter
--- OUTSIDE RECORDS SUMMARY | 2022-01-14 13:49 | XMS_ITS | Encounter Summary ---
:1950 Author Organization [facility] [place] [address] Care Team Providers Name Role Phone Marla Moralez MD Primary Care Provider Reason for Visit Reason Onset Date Comments Results 01/31/2012 Encounter Details Date Type Department Care Team Description 01/31/2012 Telephone Pain Management at Umesh Donahue MD [place] [address] PAIN CLINIC [phone] [place] [id number] (Wo rk) Social History Tobacco Use Types [...] on filedocumented in this encounter Care Teams Spine Surgeon Relationship Specialty Start Date End Date Christian-Marla Nazario MD PCP - General 12/31/11 79 [place] [phone] documented as of this encounter
--- OUTSIDE RECORDS SUMMARY | 2022-01-14 13:49 | XMS_ITS | Encounter Summary ---
:1950 Author Organization [facility] [place] [address] Care Team Providers Name Role Phone Marla Moralez MD Primary Care Provider Encounter Details Date Type Department Care Team Description 05/07/2012 Follow-Up Occupational Therapy at Tomy Mauricio OT [facility] [address] PHYSICAL MEDICINE & [place] [address] Concussion (Primary [facility] Marla Moralez MD 79 [facility] 3 [place] [address] Dx) [place] [address] Social History Tobacco Use Types Packs/Day [...] dr. Marla Gonzales for recheck and [facility] and treatment. Olivia Azevedo presents alone VISION: Pupillary function no deficits noted with pen light testing Acuity intermediate distance: tested at 1 M Right eye Tiffanie 20/25 Left eye Tiffanie 20/20 Both eyes Tiffanie 20/20 Reading Acuity: distance 16 inches Eyes together Roland 20/25 Right eye 20/40 Left eye 20/25 [...] seconds Error type: missed one Structured Complex [place] search Number of accurate responses: (30 targets) [...] mock shopping trip will also be ideal. Jail Goals (to be met by discharge): [...] find 5 items in a search through [facility] without cueing. Goal Status: Olivia Azevedo will [...] unspecified documented in this encounter Care Teams Recapper Relationship Specialty Start Date End Date Christian-Marla Nazario MD PCP - General 12/31/11 79 [facility] 3 [place] [address] documented as of this encounter
--- OUTSIDE RECORDS SUMMARY | 2022-01-14 13:49 | XMS_ITS | Encounter Summary ---
:1950 Author Organization [facility] [place] [address] Care Team Providers Name Role Phone Marla Moralez MD Primary Care Provider Encounter Details Date Type Department Care Team Description 04/16/2012 Office Visit Occupational Therapy Mich Mauricio, OT [facility] [address] PHYSICAL MEDICINE & [place] [address] Concussion (Primary at [facility] Marla Moralez MD 79 [facility] 3 [place] [address] Dx) [place] [address] Social History Tobacco Use Types Packs/Day Years Used Date Former Smoker Sex Assigned at Date Recorded Not on file documented as of this encounter Progress Notes oTmy Mauricio, OT - 04/16/2012 4:07 PM EDT [...] of attention, sequencing and problem solving [facility] Occupational Therapy Cognitive assessment is a [...] attention, andfor further treatment of these areas. Fci Goals (to be met by discharge): [...] find 5 items in a search through [facility] without cueing. Goal Status: Olivia Azevedo will increase her score on the LOTCA by 5 points to promote her ability to perform her job at an 8/10 level Goal Status: PLAN: The patient is to be seen 1 time(s) per week, for 12 week(s) to progress toward short and long-term goals. for Visuomotor organization, Visuoperceptual skills, Visual [...] unspecified documented in this encounter Care Teams Warper Fixer Relationship Specialty Start Date End Date Christian-Marla Nazario MD PCP - General 12/31/11 79 [facility] 3 [place] [address] documented as of this encounter
--- OUTSIDE RECORDS SUMMARY | 2022-01-14 13:49 | XMS_ITS | Encounter Summary ---
:1950 Author Organization [facility] [place] [address] Care Team Providers Name Role Phone Malra Moralez MD Primary Care Provider Reason for Visit Reason Comments Buttock Pain Encounter Details Date Type Department Care Team Description 01/20/2012 Procedure visit Pain Management at Chastity Greenberg, Gl uteal pain (Primary [facility] MD Dx) [facility] [place] [facility] [address] [place] [address] [phone] Social History Tobacco Use Types Packs/Day Years [...] 2. 3. Patient states they have a driver guide to transport after procedure? Yes 4. Patient [...] this encounter Miscellaneous Notes Miscellaneous - Russ, Human Resources Manager - 01/25/2012 6:26 AM EDT documented in [...] point injection. Left Piriformis/Gluteal Trigger Point In [facility] Date of Service: 01/20/2012 Patient: ?Olivia Azevedo ? 1950 ?? 61 y.o. ??female Provider: ?MD Olivia CRUZ ??has been referred to [facility] for Trigger Point [...] Routine documented in this encounter Care Teams Textile Knitter Relationship Specialty Start Date End Date Christian-Marla Nazario MD PCP - General 12/31/[address] [place] [address] 3 [place] [address] documented as of this encounter
--- OUTSIDE RECORDS SUMMARY | 2022-01-14 13:49 | XMS_ITS | Encounter Summary ---
:1950 Author Organization [facility] [place] [address] Care Team Providers Name Role Phone Marla Moralez MD Primary Care Provider Encounter Details Date Type Department Care Team Description 01/20/2012 Orders Only Pain Management at [facility] Umesh Greenberg MD [facility] [place] [address] PAIN CLINIC [phone] [place], [place] [address] (Wo rk) Social History Tobacco [...] is a non-reportable exam. Umesh Greenberg MD [facility] FILM LIBRARY ORDERABLES Performing Organization Address City/State/ZIP Code Phon e Number DH RAD DH RAD [address] [facility] [place] [address] documented in this encounter Visit Diagnoses Not on filedocumented in this encounter Care Teams Pig Farm Manager Relationship Specialty Start Date End Date Christian-Marla Nazario MD PCP - General 12/31/11 79 [facility] 3 [place] [address] documented as of this encounter
--- OUTSIDE RECORDS SUMMARY | 2022-01-14 13:49 | XMS_ITS | Encounter Summary ---
:1950 Author Organization [facility] [place] [address] Care Team Providers Name Role Phone Marla Moralez MD Primary Care Provider Encounter Details Date Type Department Care Team Description 05/20/2012 Follow-Up Occupational Therapy at Tomy Mauricio, Concussion (Primary [facility] OT Dx) [facility] [place] [address] PHYSICAL MEDICINE & [phone] [place] [address] Social History Tobacco Use Types Packs/Day Years [...] considering h er insight to deficit areas. Usp Goals (to be met by discharge): Date [...] 5 items in a search through [facility] without cueing. Goal Status: Not fully met. [...] unspecified documented in this encounter Care Teams Cupola Worker Relationship Specialty Start Date End Date Christian-Marla Nazario MD PCP - General 12/31/[address] [place] [address] documented as of this encounter
--- OUTSIDE RECORDS SUMMARY | 2022-01-14 13:50 | XMS_ITS | Encounter Summary ---
:1950 Author Organization [facility] Address [address] [place] [address] Care Team Providers Name Role Phone Marla Moralez MD Primary Care Provider Reason for Visit Reason Comments Knee Pain Bilateral knees Encounter Details Date Type Department Care Team Description 11/25/2013 Office Visit [facility] Aiden Rivera Salas lofemoral syndrome, right (Primary Dx); Total Joint Program MD Abdullahi Lateral meniscus tear; - [address] Knee pain [address] [place], [facility] [address] [phone] Social History Tobacco Use Types Packs/Day Years [...] do that, and she was seen at [facility] and evaluated as well with no clear outcome. She has had multiple treatment interventions. She tried wearing a hinged knee brace. Tried some acupuncture, which helped. Did a little physical therapy, which she is not sure helped much. Hyaluronic acid, which helped some for a short time, and then she had a large effusion drained at [facility] and cortisone injection, which seemed to have helped and did diminish the inflammation. She also had an MRI at the [facility] on 11/12/2013. The most significant findings in [...] she thinks also might be helping. Her [place] knee score today is 28. PAST MEDICAL [...] her arms in 2007 and 2011 at [facility] and a lipoma removal from her left breast and 2000 at [facility]. 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
--- OUTSIDE RECORDS SUMMARY | 2022-01-14 13:50 | XMS_ITS | Encounter Summary ---
:1950 Author Organization [facility] Address [address] [place] [address] Care Team Providers Name Role Phone Marla Moralez MD Primary Care Provider Encounter Details Date Type Department Care Team Description 08/20/2017 Orders Only [facility] Krystal Giron ht knee pain, Total Joint Program - L, PA-C unspecified [address] [place] chronicity (Primary [address] Dx) So [facility], [facility] [address], [place] [phone] (Wo rk) Social History Tobacco Use Types Packs/Day Years Used Date Never Assessed Sex Assigned at Date Recorded Not on file documented as of this encounter Plan of Treatment Not on filedocumented as of this encounter Visit Diagnoses Diagnosis Right knee pain, unspecified chronicity - Primary documented in this encounter Care Teams Integrated Logistics Support Manager Relationship Specialty Start Date End Date Marla Moralez MD PCP - General 03/04/[address] [place] [address] documented as of this encounter
--- OUTSIDE RECORDS SUMMARY | 2022-01-14 13:50 | XMS_ITS | Encounter Summary ---
:1950 Author Organization [facility] Address [address] [place] [address] Care Team Providers Name Role Phone Unavailable Primary Care Provider Unavailable Encounter Details Date Type Department Care Team Description 02/15/2009 Orders Only [facility] Robles Escamilla ARNP Laboratory Services - [address] [place] [address] 0 [facility] [place] [address] [phone] Social History Tobacco Use Types Packs/Day Years Used Date Never Assessed Sex Assigned at Date Recorded Not on file documented as of this encounter Plan of Treatment Not on filedocumented as of this encounter Procedures Procedure Name Priority Date/Time Associated Diagnosis Comme [facility] CYTOPATHOLOGY Routine 02/15/2009 0:00 EDT Results [...] ? DAVID DESIR ? Accession #: ? [id number] ? : ? 1950 (Age: 58) ??F ?Collect Date: ? 02/15/2009 ? Location: ? [facility] ? Receive Date: ? 02/17/2009 ? Provider: ?ALBA WOLFE GRANITE COUNTERTOP INSTALLER ? Copy to: ? Specimen/Source: ? Pap [...] Organization Address City/State/ZIP Code Phon e Number [facility] [address] [place] [address] SERVICES [facility] [address] [place] [phone] documented in this encounter Visit Diagnoses Not on filedocumented in this encounter
--- OUTSIDE RECORDS SUMMARY | 2022-01-14 13:50 | XMS_ITS | Encounter Summary ---
:1950 Author Organization [facility] Address [address] [place] [address] Care Team Providers Name Role Phone Unknown, Provider Primary Care Provider Encounter Details Date Type Department Care Team Description 03/01/2013 Results Only [facility] Tobi Edmondson MD Laboratory Services - [address] [place] [address] [address] [facility] [place] [address] [phone] Social History Tobacco Use Types Packs/Day Years Used Date Never Assessed Sex Assigned at Date Recorded Not on file documented as of this encounter Plan of Treatment Not on filedocumented as of this encounter Procedures Procedure Name Priority Date/Time Associated Diagnosis Comme [facility] SURGICAL PATHOLOGY Routine 03/02/2013 8:22 EDT [...] ? DAVID DESIR ? Accession #: ? [id number] ? : ? 1950 (Age: 62) ??F [...] Organization Address City/State/ZIP Code Phon e Number [facility] [address] [place] [address] SERVICES [facility] [address] [place] [address] documented in this encounter Visit Diagnoses Not on filedocumented in this encounter Care Teams Supervisor Whipped Topping Relationship Specialty Start Date End Date Unknown, Provider, PCP - General 01/29/10 03/03/13 documented as of this encounter
--- OUTSIDE RECORDS SUMMARY | 2022-01-14 13:50 | XMS_ITS | Encounter Summary ---
:1950 Author Organization [facility] Address [address] [place] [address] Care Team Providers Name Role Phone Christian-Marla Nazario MD Primary Care Provider Encounter Details Date Type Department Care Team Description 09/12/2016 Results Only [facility] Aiden Rivera Imaging Total Joint Program - MD Abdullahi [facility] [address] [place], [place] [address] [phone] Social History Tobacco Use Types Packs/Day Years [...] Anatomical Region Laterality Modality Other Specimen Narrative [facility] - 09/12/2016 18:07 EDT KNEES 3 VIEWS, [...] Organization Address City/State/ZIP Code Phon e Number [facility] [place] documented in this encounter Visit Diagnoses Not on filedocumented in this encounter Care Teams Yard Loader Operator Relationship Specialty Start Date End Date Christian-Marla Nazario MD PCP - General 03/04/13 [address] [place] [address] documented as of this encounter
--- OUTSIDE RECORDS SUMMARY | 2022-01-14 13:50 | XMS_ITS | Encounter Summary ---
:1950 Author Organization [facility] Address [address] [place] [address] Care Team Providers Name Role Phone Unknown, Provider Primary Care Provider Encounter Details Date Type Department Care Team Description 01/25/2010 Results Only [facility] Mitchel Quinones , Laboratory Services - [address] [place] [address] [place], [place] [address] [phone] Social History Tobacco Use Types Packs/Day Years [...] ? [facility] Reports generated via electr AddMyBest interface contain original data; ? LAB however they are lacking the format of the original report. ? Caution should be taken when reading/interpreting unformatted reports. ? Name: ? THANG, DAVID J ? Accession #: ? [id number] ? : ? 1950 (Age: 59) ??F [...] is ?? inked, serially sectioned, a nd electronics parts sales representative sections are submitted as (B). ? (Ct Pearce/wilder ? End of Report ? Specimen Performing Organization Address City/State/ZIP Code Phon e Number [facility] [address] [place] [address] SERVICES [facility] [address] [place] [address] documented in this encounter Visit Diagnoses Not on filedocumented in this encounter Care Teams Sed High School Teacher Relationship Specialty Start Date End Date Unknown, Provider, PCP - General 01/29/10 03/03/13 documented as of this encounter
--- OUTSIDE RECORDS SUMMARY | 2022-01-14 13:50 | XMS_ITS | Encounter Summary ---
:1950 Author Organization [facility] Address [address] [place] [address] Care Team Providers Name Role Phone Marla Moralez MD Primary Care Provider Reason for Referral Radiology Services (Routine) - Closed Specialty Diagnoses / Procedures Referred By Contact Refer red To Contact Diagnoses Knee pain Aiden Rivera, Procedures KNEE 1 OR 2 VIEWS [address] [place] [address] Referral ID Status Reason Start Date Expiration Date Visits Requ ested Visits Authorized [id number] Closed 11/25/2013 1 1 adiology Services (Routine) - Closed Specialty Diagnoses / Procedures Referred By Contact Refer red To Contact Diagnoses Knee pain Aiden Rivera, Procedures KNEE 1 OR 2 VIEWS [address] [place] [address] Referral ID Status Reason Start Date Expiration Date Visits Requ ested Visits Authorized [id number] Closed 11/25/2013 1 1 Encounter Details Date Type Department Care Team Description 11/25/2013 Orders Only [facility] Aiden Rivera Knee pain (Primary Total Joint Program - MD Abdullahi Dx) [place] [address] [address] [phone] Social History Tobacco Use Types Packs/Day Years [...] Anatomical Region Laterality Modality Other Specimen Narrative [facility] RADIOLOGY - 10/30 12:02 EDT KNEE 1 OR 2 VIEWS, KNEE 1 OR 2 VIEWS ??11/25/2013 2:38 PM Signs and Symptoms/Comments: ?? 719.46-Pain in joint, lower giq-XXY-3-CM ; right knee pain. Right Knee Findings: [...] Signs and Symptoms/Comments: 719.46-Pain in joint, lower dda-CWE-8-CM ; right knee pain. Right Knee Findings: There is mild medial and lateral tibiofe moral joint space narrowing. Very mild degenerative changes are prese nt in the patellofemoral compartment. Left Knee Findings: There are mild osteoarthritic changes in the medial tibiofemoral compartment. Minimal degenerative change s are present in the patellofemoral compartment. Performing Organization Address City/State/ZIP Code Phon e Number [facility] RADIOLOGY [facility] RAD[facility] KNEE 1 OR 2 VIEWS (11/25/2013 14:38 EDT) Anatomical Region Laterality Modality Other Specimen Narrative [facility] RADIOLOGY - 10/30 12:02 EDT KNEE 1 OR 2 VIEWS, KNEE 1 OR 2 VIEWS ??11/25/2013 2:38 PM Signs and Symptoms/Comments: ?? 719.46-Pain in joint, lower eoo-LVM-2-CM ; right knee pain. Right Knee Findings: [...] Signs and Symptoms/Comments: 719.46-Pain in joint, lower tjs-AEY-0-CM ; right knee pain. Right Knee Findings: There is mild medial and lateral tibiofe moral joint space narrowing. Very mild degenerative changes are prese nt in the patellofemoral compartment. Left Knee Findings: There are mild osteoarthritic changes in the medial tibiofemoral compartment. Minimal degenerative change s are present in the patellofemoral compartment. Performing Organization Address City/State/ZIP Code Phon e Number [facility] RADIOLOGY [facility] documented in this encounter Visit Diagnoses Diagnosis Knee pain - Primary Pain in joint, lower leg documented in this encounter Care Teams Sprinkler Irrigation Equipment Mechanic Relationship Specialty Start Date End Date Christian-Marla Nazario MD PCP - General 03/04/13 [address] [facility] [place] [address] documented as of this encounter
--- OUTSIDE RECORDS SUMMARY | 2022-01-14 13:50 | XMS_ITS | Encounter Summary ---
:1950 Author Organization [facility] Address [address] [place] [address] Care Team Providers Name Role Phone Unknown, Provider Primary Care Provider Encounter Details Date Type Department Care Team Description 01/22/2013 Results Only [facility] Alfonzo Moralez MD Laboratory Services - [address] [facility] [address] [place] [id number] [address] [place] [address] [phone] Social History Tobacco Use Types Packs/Day Years [...] ? DAVID DESIR ? Accession #: ? [id number] ? : ? 1950 (Age: 62) ??F [...] types 16,18,31,3 3,35, 39,45,51,52,56,58,59,66, and 68 by metallurgical engineering teacher media cynthia amplification. Comments Document reviewed and electronically signed by: ? System Interface ? Report date: 02/04/2013 By the signature above, the attending physician certif ies that he/she has personally conducted a gross and/or microscopic examin ation of the described specimens and rendered or confirmed the above diagnosi s. End of Report Specimen Performing Organization Address City/State/ZIP Code Phon e Number [facility] [address] [place] [address] SERVICES [facility] [address] [place] [address] documented in this encounter Visit Diagnoses Not on filedocumented in this encounter Care Teams Computer Numerical Control Grinder Relationship Specialty Start Date End Date Unknown, Provider, PCP - General 01/29/10 03/03/13 documented as of this encounter
--- OUTSIDE RECORDS SUMMARY | 2022-01-14 13:50 | XMS_ITS | Encounter Summary ---
:1950 Author Organization [facility] Address [address] [place] [address] Care Team Providers Name Role Phone Unknown, Provider Primary Care Provider Encounter Details Date Type Department Care Team Description 03/28/2006 Results Only [facility] - Tiffanie Escamilla, Maria baez, conversion RADIAL DRILL PRESS SET UP OPERATOR [address] [place] [address] [place] [address] [phone] (Wo rk) Social History Tobacco Use Types [...] ? DAVID DESIR ? Accession #: ? [id number] : ? 1950 (Age: 55) ??F ?Collect Date: ? 03/01 Location: ? [facility] ? Receive Date : ? 04/01/2006 Provider: ?ALBA CARY Copy to: ? Specimen/Source: ? ThinPrep Pap Test, Vagina/Cervix/Endocervix, processed on Panoratio ThinPrep Imaging System, with manual evaluati on [...] Organization Address City/State/ZIP Code Phon e Number [facility] [address] [place] [address] SERVICES [facility] [address] [place] [address] documented in this encounter Visit Diagnoses Not on filedocumented in this encounter Care Teams Sql Programmer Relationship Specialty Start Date End Date Unknown, Provider, PCP - General 01/29/10 03/03/13 documented as of this encounter
--- OUTSIDE RECORDS SUMMARY | 2022-01-14 13:50 | XMS_ITS | Encounter Summary ---
:1950 Author Organization [facility] Address [address] [place] [address] Care Team Providers Name Role Phone Unknown, Provider Primary Care Provider Encounter Details Date Type Department Care Team Description 03/06/2012 Results Only [facility] Alba Cross, Laboratory Services - [id number] [place] [address] [id number] [phone] Social History Tobacco Use Types Packs/Day Years [...] ? DAVID DESIR ? Accession #: ? [id number] : ? 1950 (Age: 61) ??F ?Collect Date: ? 12/2011 Location: ? [facility] ? Receive Date : ? 03/10/2012 Provider: ?ALBA CROSS HEATING ENGINEER Copy to: ? Specimen/Source: ? Pap Test, [...] Organization Address City/State/ZIP Code Phon e Number [facility] [address] [place] [address] SERVICES [facility] [address] [place] [address] documented in this encounter Visit Diagnoses Not on filedocumented in this encounter Care Teams Car Deliverer Relationship Specialty Start Date End Date Unknown, Provider, PCP - General 01/29/10 03/03/13 documented as of this encounter
--- OUTSIDE RECORDS SUMMARY | 2022-01-14 13:50 | XMS_ITS ---
:1950 Author Organization [facility] Address [address] [place] [address] Care Team Providers Name Role Phone Maddi Mehta Unavailable Unavailable PROBLEMS Unknown Problems ALLERGIES Substance Reaction Event Type Date Status All Opioids Unknown Non Drug Allergy Apr, Active Erythromycin Unknown Drug Allergy Apr, Active Penicillin V Potassium Unknown Drug Allergy Apr, Activ e shrimp Unknown Non Drug Allergy Apr, Active ENCOUNTERS Encounter Location Date Diagnosis [facility] [address] [facility] [address] May, [place] [address] [address] Apr, [address] Apr, [address] Apr, [place] [address] foot M72.2 [facility] [address] [facility] C Feb, [place] [address] foot M72.[address] Feb, [address] [facility] [address] [facility] [address] Nov, [place] [address] [facility] [address] [facility] C Nov, [place] [address] foot M72.2 ADMINISTRATION [address] [facility], [place] [address] [address] Mar, [address] [address] Mar, [place] fasciitis [place] left [address] foot M72.2 [facility] [address] [place], [place] Mar, [address] [facility] [address] [place] Mar, [address] IMMUNIZATIONS No Known Immunizations SOCIAL HISTORY Qualifiers Date Never Smoker REASON FOR REFERRAL FUNCTIONAL STATUS PLAN OF CARE VITAL SIGNS Height 5 ft in 2020-05-08 Height 5 ft in 2020-03-22 Height 5 ft in 2019-12-22 Height 5 ft in 2019-04-19 Weight 110 lbs 2020-05-08 Weight 105 lbs 2020-03-22 Weight 106 lbs 2019-12-22 Weight 111.2 lbs 2019-04-19 BMI 21.48 kg/m2 2020-05-08 BMI 20.50 kg/m2 2020-03-22 BMI 20.70 kg/m2 2019-12-22 BMI 21.71 kg/m2 2019-04-19 Temperature 97.6 degrees Fahrenheit 2020-03-22 Temperature 96.3 degrees Fahrenheit 2019-12-22 Temperature 97.6 degrees Fahrenheit 2019-04-19 Heart Rate 82 /min 2020-05-08 Heart Rate 79 /min 2020-03-22 Heart Rate 86 /min 2019-12-22 Heart Rate 86 /min 2019-04-19 Respiratory Rate 18 /min 2020-05-08 Respiratory Rate 18 /min 2020-03-22 Respiratory Rate 18 /min 2019-12-22 Respiratory Rate 18 /min 2019-04-19 Oximetry 97 % 2020-05-08 Oximetry 98 % 2019-12-22 Oximetry 98 % 2019-04-19 Blood pressure systolic 140 mm Hg 2020-05-08 Blood pressure diastolic 80 mm Hg 2020-05-08 MEDICATIONS Medication Instructions Dosage Frequency Start End Duration Statu s Date Date Vitamin B as directed Active Complex - Bety-C - as directed Active Triamcinolone Externally as directed 12h Not -Taki Acetonide 0.1 % Twice a day ng Multivitamins - as directed Acti ve Vitamin D3 1000 Orally Once a 1 tablet 24h 30 day(s) Active UNIT day -OTC, HERBALS Active Varies Zinc 50 MG Orally Once a 1 tablet 24h 30 day(s) Acti ve day -OTC, HERBALS Active Varies Acidophilus - Orally twice a 1 cap 12h Act tello day Elderberry 575 as directed Activ e MG/5ML Vitamin B12 3000 as directed Act tello MCG Cranberry 1000 as directed Activ e MG PROCEDURES Procedure Date Ordered Result Body Site CASTING/STRAPPING PROCEDURE December 22, 2019 FOOT INSERT REM EACH December 22, 2019 RESULTS Name Result Date Reference Range X Foot L 3V 2019-03-30 Image Accessible REASON FOR VISIT plantar fasciitis left foot, issues with orthotics referral done, orthotics are in, Informantion to contact Chiropractor, major issues with orthoics, referral done, pt states that she here because her orthotics are causing major problem, pt states that after a period of time wearing the orthotics, shestarted having leg pain, after visiting her chiropractor she relaized that the orthotic was causing her to become off, pt states that since that visit she has not worn the orthotics and things in leg and hip have been better , ORTHOTIC DISPENSE, referral done, pt states that she is here for orthotic dispense , pt states that she has no new concerns today , Orthotic Serail # [id number], orthotics , Ortho tics Payment, orthotic casting, , last seen by [facility] on 04/19/19 for foot pain -[facility] , patient as medicare and will need to pay 169.28 for her orthotics after her appointment -[facility] , pt states that she is here for orthotic casting , pt states she has a few questions about the process of casting , appt for orthotic cast, activity questions, foot pain,possible orthotics referral done, NEW POD PATIENT , referral from Marla Gonzales MD for L foot pain x1 week. used OTC orthotic for feet to save money as proposed by PT. Only used about 1/2 day, was causing her a lot of pain , per referral note left foot plantarpain, felt tight in met of left foot , foot was swollen and worm, hard time to tell where, CBD helped , x-rays done 04/05/19 [facility], report in docs , pt states she is here for left foot pain. physical therapy had made her old pair of orthotics, they no longer make orthotics-KG, patient feels she may need new ones-KG, chart update, foot pain, orthotics appt 04/19/19 Insurance Providers [facility] Member Patient Patient Patient Patient Patient Subscriber Subscriber Subscriber Group Insurance Plan Plan Plan Plan ID Relationship Address Phone Name Date of ID Name Date of No Type Insurance Insurance Insurance Coverage to Subscriber Address Phone Name Dates SELF PAY ANY STREET SELF PAY self DAVID [id number] [place] [address] SELF PAY self DAVID [id number] [place] [address] INSURANCE S-MEDICOMP [phone] S-MEDICOMP self DAVID [id number] [place] 4^[place] [facility] [address] [place] [id number] MEDICARE 3000 GOFFS MEDICARE self DAVID [id number] [facility] [id number] SELF PAY [address] STRE[address] SELF PAY self DAVID [id number] [place] [address] INSURANCE S-BLUE [phone] S-BLUE self DAVID [id number] [place] [address] [place] OF [facility] [address] [place] [address] [place]
--- OUTSIDE RECORDS SUMMARY | 2022-01-14 13:50 | XMS_ITS | Encounter Summary ---
:1950 Author Organization [facility] Address [address] [place] [address] Care Team Providers Name Role Phone Christian-Marla Nazario MD Primary Care Provider Reason for Referral Radiology Services (Routine) - Closed Specialty Diagnoses / Procedures Referred By Contact Refer red To Contact Diagnoses Chronic pain of both knees Aiden Rivera, Procedures KNEES 3 VIEWS [facility] [place] [address] Referral ID Status Reason Start Date Expiration Date Visits Requ ested Visits Authorized [id number] Closed 09/11/2016 1 1 Encounter Details Date Type Department Care Team Description 09/10/2016 Orders Only [facility] Aiden Rivera Chron ic pain of both Total Joint Program - MD Abdullahi knees (Primary Dx) [place] [address] [employer] [address] [address] [phone] Social History Tobacco Use Types Packs/Day Years [...] Anatomical Region Laterality Modality Other Specimen Narrative [facility] ADDIE MOSS - 09/12/2016 18:07 [...] Organization Address City/State/ZIP Code Phon e Number [facility] [place] documented in this encounter Visit Diagnoses Diagnosis Chronic pain of both knees - Primary documented in this encounter Care Teams Gastroenterology Teacher Relationship Specialty Start Date End Date Christian-Marla Nazario MD PCP - General 03/04/[address] [place] [address],[place] [address] [place] [address] documented as of this encounter
== END 2022-01-14 13:47 | disposition home or self-care (01) ==
LOC: DIORS 13:46
PROVIDERS: PCP Physician Assistant; Visit Provider Student in an Organized Health Care Education/Training Program
DX: Z96.641 Presence of right artificial hip joint (principal); Z47.1 Aftercare following joint replacement surgery
CPT/HCPCS: 73502

== ENCOUNTER → 2022-02-11 14:54 | Outpatient (BNVA) | payer MEDICARE, SELFPAY | PROVIDERS: PCP Physician Assistant; Referring Provider Physician Assistant; Visit Provider Student in an Organized Health Care Education/Training Program | DX: Z47.1 Aftercare following joint replacement surgery (principal); Z96.641 Presence of right artificial hip joint ==

== ENCOUNTER → 2022-04-12 00:08 | Outpatient (CLI) | payer MEDICARE, SELFPAY ==
--- OUTSIDE RECORDS SUMMARY | 2022-04-12 00:10 | XMS_ITS | Encounter Summary ---
:1950 Author Organization [facility] [place] [address] Care Team Providers Name Role Phone Marla Moralez MD Primary Care Provider Encounter Details Date Type Department Care Team Description 11/23/2021 Office Visit Dermatology at [facility] Vika Morales, History of SCC (squamous cell carcinoma) of skin; Juan STOREY Seborrheic keratoses, inflamed; [address] [facility] Seborrheic keratoses; [place] [address] Lentigines; [phone] DERMATOLOGY Multiple nevi; [place], [place] [address] Polo angioma; [phone] Skin cancer scr eening (Work) Social History [...] FSE, sooner if needed []Note routed to marketing secretary [x]Recall placed in scheduling system []Appointment scheduled at checkout Scribe attestation: BRAULIO Mabry has performed the documentation for this encounter in the presence of and acting as a scribe for Vika Morales MD. I performed the above scribed service and agree with the accuracy of the documentation in this encounter. Reviewed and signed by: Vika Morales MD Dermatology [facility] documented in this encounter Plan of Treatment [...] skin documented in this encounter Care Teams Guest Experience Representative Relationship Specialty Start Date End Date Christian-Marla Nazario MD PCP - General 12/31/[address] [address] documented as of this encounter
--- OUTSIDE RECORDS SUMMARY | 2022-04-12 00:10 | XMS_ITS | Encounter Summary ---
:1950 Author Organization [facility] [place] [address] Care Team Providers Name Role Phone Marla Moralez MD Primary Care Provider Reason for Visit Reason Onset Date Comments Knee Pain 10/11/2013 Encounter Details Date Type Department Care Team Description 10/11/2013 Telephone Orthopaedics at [facility] Ferdinand Larkin MD Knee Pain [facility] [place] [address] ORTHOPAEDIC SURGERY [phone] [place] [phone] (Wo rk) Social History Tobacco Use Types [...] on filedocumented in this encounter Care Teams Billing Customer Service Representative Relationship Specialty Start Date End Date Christian-Marla Nazario MD PCP - General 12/31/[address] [place] [address] documented as of this encounter
--- OUTSIDE RECORDS SUMMARY | 2022-04-12 00:10 | XMS_ITS | Encounter Summary ---
:1950 Author Organization [facility] [place] [address] Care Team Providers Name Role Phone Marla Moralez MD Primary Care Provider Reason for Visit Reason Comments Skin Check Follow-up Encounter Details Date Type Department Care Team Description 10/12/2013 Office Visit Dermatology at Lonny Rodrigues Irritan t contact dermatitis (Primary Dx); Tamela STOREY Solar lentigo; [address] [facility] Nevus Mani B DERMATOLOGY [place], [place] [address] [phone] Social History Tobacco Use Types Packs/Day Years [...] d documented in this encounter Care Teams Gate Technician Relationship Specialty Start Date End Date Marla Moralez, MD PCP - General 12/31/11 [address] [place] [id number] documented as of this encounter
--- OUTSIDE RECORDS SUMMARY | 2022-04-12 00:10 | XMS_ITS | Encounter Summary ---
:1950 Author Organization [facility] [place] [address] Care Team Providers Name Role Phone Marla Moralez MD Primary Care Provider Reason for Visit Reason Comments Skin Check Encounter Details Date Type Department Care Team Description 08/15/2016 Office Visit Dermatology at [facility] Lonny Rodrigues MD Nevus; [address] Mani [address] [facility] [address] Herpes labial[place] [address] [place], [place] [id number] (Wo rk) Social History Tobacco Use Types [...] cation documented in this encounter Care Teams Materials Engineering Technician Relationship Specialty Start Date End Date Christian-Marla Nazario MD PCP - General 12/31/11 [address] [place] [phone] documented as of this encounter
--- OUTSIDE RECORDS SUMMARY | 2022-04-12 00:10 | XMS_ITS | Encounter Summary ---
:1950 Author Organization [facility] [place] [address] Care Team Providers Name Role Phone Marla Moralez MD Primary Care Provider Reason for Visit Reason Comments Diplopia OS>OD Pseudophakia OU Encounter Details Date Type Department Care Team Description 10/21/2013 Office Visit Ophthalmology at [facility] C Karen Prieto, Diplopia (Primary Dx) [facility] [place] [address] [place] [address] OPH[address] DEPT. [place] [address] Social History Tobacco Use Types Packs/Day Years [...] Primary documented in this encounter Care Teams Saxophone Assembler Relationship Specialty Start Date End Date Christian-Marla Nazario MD PCP - General 12/31/11 [address] [facility] 3 [place] [address] documented as of this encounter
--- OUTSIDE RECORDS SUMMARY | 2022-04-12 00:10 | XMS_ITS | Encounter Summary ---
:1950 Author Organization [facility] [place] [address] Care Team Providers Name Role Phone Marla Moralez MD Primary Care Provider Encounter Details Date Type Department Care Team Description 08/28/2012 Follow-Up Occupational Therapy at Tomy Mauricio OT [facility] DR PHYSICAL MEDICINE & [place] [address] Concussion (Primary [facility] Marla Moralez MD [address] [facility] 3 [place] [address] Dx) [place] [address] Social History Tobacco Use Types Packs/Day [...] dr. Marla Gonzales for recheck and [facility]. Olivia Azevedo [...] look into this more next visit. . Biomedical Engineer Goals (to be met by discharge): Date [...] find 5 items in a search through [facility] without cueing. Goal Status: Goal [...] unspecified documented in this encounter Care Teams Sand Mixer Relationship Specialty Start Date End Date Christian-Marla Nazario MD PCP - General 12/31/11 79 [place] [phone] documented as of this encounter
--- OUTSIDE RECORDS SUMMARY | 2022-04-12 00:10 | XMS_ITS ---
:1950 Author Organization [facility] Address [address] [place] [address] Care Team Providers Name Role Phone Maddi Mehta Unavailable Unavailable PROBLEMS Unknown Problems ALLERGIES Substance Reaction Event Type Date Status All Opioids Unknown Non Drug Allergy Apr, Active Erythromycin Unknown Drug Allergy Apr, Active Penicillin V Potassium Unknown Drug Allergy Apr, Activ e shrimp Unknown Non Drug Allergy Apr, Active ENCOUNTERS Encounter Location Date Diagnosis [facility] [address] [facility] [address] May, [place] [address] [address] Apr, [address] Apr, [address] Apr, [place] fasciitis [place] left [address] foot M72.2 [facility] [address] [facility] C Feb, [place] [address] foot M72.2 [address] Feb, [address] [facility] [address] [facility] [address] Nov, [place] [address] [facility] [address] [facility] C Nov, [place] [address] foot M72.2 ADMIN[facility]ATION [address] [facility], [place] [address] [address] Mar, [address] [address] Mar, [place] [address] foot M72.2 [facility] [address] [place] Mar, [address] [facility] 8 [place] Mar, [address] IMMUNIZATIONS No Known Immunizations SOCIAL HISTORY Qualifiers [...] new concerns today , Orthotic Serail # [id number], orthotics , Ortho tics Payment, orthotic casting, [...] where, CBD helped , x-rays done 04/05/19 [facility], report in docs , pt states she is here for left foot pain. physical therapy had made her old pair of orthotics, they no longer make orthotics-KG, patient feels she may need new ones-KG, chart update, foot pain, orthotics appt 04/19/19 Insurance Providers [facility] Member Patient Patient Patient Patient Patient Subscriber Subscriber Subscriber Group Insurance Plan Plan Plan Plan ID Relationship Address Phone Name Date of ID Name Date of No Type Insurance Insurance Insurance Coverage to Subscriber Address Phone Name Dates SELF PAY ANY STREET SELF PAY self DAVID [id number] [place] [address] INSURANCE S-BLUE [phone] S-BLUE self DAVID [id number] [place] [address] [place] OF [facility] [address] [place] [address] [place] S-MEDICOMP [phone] S-MEDICOMP self DAVID [id number] [place] 4^MAIN [place] B [facility] [address] [place] [id number] SELF PAY ANY STRE[address] SELF PAY self DAVID [id number] [place] [address] [address] SELF PAY self DAVID [id number] AFTER [place] [address] [place]OSS MEDICARE 3000 GOFFS MEDICARE self DAVID [id number] [facility] [id number]
--- OUTSIDE RECORDS SUMMARY | 2022-04-12 00:10 | XMS_ITS | Encounter Summary ---
:1950 Author Organization [facility] [place] [address] Care Team Providers Name Role Phone Marla Moralez MD Primary Care Provider Reason for Visit Reason Comments Follow-up Encounter Details Date Type Department Care Team Description 12/10/2013 [facility] Seborrh eic keratosis, Tamela STOREY inflamed (Primary Dx) [address] [facility] [address] [facility] [address] Mani B DERMATOLOGY [place], [place] [address] [phone] Social History Tobacco Use Types Packs/Day Years [...] Ferguson LPN - 12/10/2013 1:55 PM EDT [facility] Dermatitis: After Your Visit Your Care [...] help for plant rashes. ?? Try an mtiu-jqd-meawvnr antihistamine such as diphenhydramine (Benadryl) or chlorpheniramine [...] more? Visit our health information library at [email or web address] You Cano You can also view health information on [employer], your personal patient account. Log in or sign up today. Enter F270 in the search box to learn more about Dermatitis: After Your Visit. ?? [id number] [employer]. Care instructions adapted under license by [facility]. This care instruction is for use with your licensed healthcare professional. If you have questionsabout a medical condition or this instruction, always ask your healthcare professional. [employer] disclaims any warranty or liability for your use of this information. Content Version: 9.9.066075; Last Revised: November 13, 2012 documented in [...] keratosis documented in this encounter Care Teams Kick Press Setter Relationship Specialty Start Date End Date Marla Moralez MD PCP - General 12/31/[address] [place] [address] documented as of this encounter
--- OUTSIDE RECORDS SUMMARY | 2022-04-12 00:10 | XMS_ITS | Encounter Summary ---
:1950 Author Organization [facility] [place] [address] Care Team Providers Name Role Phone Marla Moralez MD Primary Care Provider Encounter Details Date Type Department Care Team Description 04/27/2013 Follow-Up Physical Therapy at Guadalupe Corrales ofacial muscle pain; [facility] S, PT Headache [facility] [place] [address] PHYSICAL MEDICINE & [phone] [place] [address] Social History Tobacco Use Types Packs/Day Years [...] coming here. Discussed option of treatment at [facility] facility that is much more quiet and easy parking. Pt would like to try this. O: Manual Therapy (73632) 50 minutes ?? STM to the neck and shoulder area ?? MFR techiniques at base of skull and into the shoulders. ?? ASSEMBLER CLIP ON SUNGLASSES suboccipital release, still point. Unwinding of neck [...] Headache documented in this encounter Care Teams Commissioning Engineer Relationship Specialty Start Date End Date Christian-Marla Nazario MD PCP - General 12/31/[address] [place] [address] documented as of this encounter
--- OUTSIDE RECORDS SUMMARY | 2022-04-12 00:10 | XMS_ITS | Encounter Summary ---
:1950 Author Organization [facility] [address] Care Team Providers Name Role Phone Marla Moralez MD Primary Care Provider Encounter Details Date Type Department Care Team Description 10/21/2013 Telephone Ophthalmology at [facility] Karen Silverman MD [facility] [place] [address] OPHTHALMOLOGY DEPT. [phone] [place] [id number] (Wo rk) Social History Tobacco Use Types [...] on filedocumented in this encounter Care Teams Last Model Maker Relationship Specialty Start Date End Date Christian-Marla Nazario MD PCP - General 12/31/[address] [address] documented as of this encounter
--- OUTSIDE RECORDS SUMMARY | 2022-04-12 00:10 | XMS_ITS | Encounter Summary ---
:1950 Author Organization [facility] [place] [address] Care Team Providers Name Role Phone Marla Moralez MD Primary Care Provider Encounter Details Date Type Department Care Team Description 02/10/2020 [place] [address] Social History Tobacco Use Types Packs/Day [...] ASHW RT-MAG Take 2 tablets by 0 CFS-RDAQ-NRDEZ-MILADYS ORAL mouth 2 times daily (with meals). [...] Shiga Toxin Detection (02/10/2020 12:01 AM EDT) [facility] Method Time Signature Shiga Toxin EIA Negative for Shiga Toxin 1 [facility] EIA Negative for Shiga Toxin 2 [facility] LABOR[facility] Specimen Anatomical Collection Method Collection Time Receive d Time (Source) Location / / Volume Laterality Stool specimen 02/10/2020 12:01 0 (specimen) AM EDT 11:06 PM EDT Resulting Agency Comment Spec In Lab Yanira Garvin APRN MICROBIOLOGY - GENERAL ORDER JAZ Performing Organization Address City/[facility]/[place] [address] [facility] LAB[address]ORY [address] Campylobacter Antigen (02/10/2020 12:01 AM EDT) Component Value Ref Test Analysis Performed At [facility] Inaika Range Method Time Signature Campylobacter Ag Immunoassay FRANCES Negative for DEEPAK Campylobacter [facility] LABORATORY Specimen Anatomical Collection Method Collection Time Receive d Time (Source) Location / / Volume Laterality Stool specimen 02/10/2020 12:01 0 (specimen) AM EDT 11:06 PM EDT Resulting Agency Comment Spec In Lab Yanira Garvin APRN MICROBIOLOGY - GENERAL ORDER JAZ Performing Organization Address City/[facility]/ZIP Code Phon e Number [place] [phone] [facility] [address] Stool culture (02/10/2020 12:01 AM EDT) Patholo gist Method Time Signature Stool Culture No enteric FRANCES [facility] LABORATORY Specimen Anatomical Collection Method Collection Time Receive d Time (Source) Location / / Volume Laterality Stool specimen 02/10/2020 12:01 0 (specimen) AM EDT 11:06 PM EDT Resulting Agency Comment Spec In Lab Yanira Garvin APRN MICROBIOLOGY - GENERAL ORDER JAZ Performing Organization Address City/State/ZIP Code Phon e Number [place] [phone] [facility] LAB[address] documented in this encounter Visit Diagnoses Not on filedocumented in this encounter Care Teams Information Services Vice President Relationship Specialty Start Date End Date Marla Moralez MD PCP - General 12/31/[address] [address] documented as of this encounter
--- OUTSIDE RECORDS SUMMARY | 2022-04-12 00:10 | XMS_ITS | Encounter Summary ---
:1950 Author Organization [place] [address] Care Team Providers Name Role Phone Marla Moralez MD Primary Care Provider Reason for Visit Reason Comments Skin Check Encounter Details Date Type Department Care Team Description 10/14/2018 [facility] Persistent reaction to insect bite; [facility] Multiple benign nevi; [address] Lentigines; [place] [address] [facility] (seborrheic keratosis); [phone] RD-DERMATOLOGY Polo angioma [place], [place] [address] Social History Tobacco Use Types [...] service: 10/14/2018 Olivia Azevedo : 1950 Provider: Tmaiko Dickerson MD Preferred name: Paulette Preferred contact [...] Cis free text allergy; Codeine phosphate; Oxycodone wwb-lgbmhdjpq-bqr; Oxycodone-acetaminophen;Aspirin; Erythromycin base; Ibuprofen; Penicillins; and Unable to find [unclassified drug] MEDS: Current Outpatient Medications on File Prior to Visit Medication Sig Dispense Refill ??? fpclmqju-buudwlybn-jnxikpmddxwkc (DEXACINE) 3.5 mg/g-10,000 unit/g-0.1 % Ointment APPLY 1 APPLICATION IN THE LEFT EYE THREE TIMES A DAY FOR 10 DAYS 2 ? ? GLUCOSAM SUL NA/CHONDR MARISCAL A NA (GLUCOSAMINE & CHONDROIT SUL.NA ORAL) Take 4 tablets by mouthdaily. ??? lidocaine (LIDODERM) 5 %(700 mg/patch) Place 1 patch onto the skin every 24 hours. ??? ASHW RT-MAG MHF-KNOP-AKJQT-MILADYS ORAL Take 2 tablets by mouth 2 [...] encounter. Tamiko Dickerson MD Section of Dermatology [facility] documented in this encounter Plan of Treatment Not on filedocumented as of this encounter Visit Diagnoses Diagnosis Persistent reaction to insect bite Multiple benign nevi Benign neoplasm of skin, site unspecifie d Lentigines Other dyschromia SK (seborrheic keratosis) Other seborrheic keratosis Polo angioma Nevus, non-neoplastic documented in this encounter Care Teams Public Health Sanitarian Relationship Specialty Start Date End Date Christian-Marla Nazario MD PCP - General 12/31/[address] [address] documented as of this encounter
--- OUTSIDE RECORDS SUMMARY | 2022-04-12 00:10 | XMS_ITS | Encounter Summary ---
:1950 Author Organization [facility] [place] [address] Care Team Providers Name Role Phone Marla Moralez MD Primary Care Provider Encounter Details Date Type Department Care Team Description 08/12/2012 Follow-Up Physical Therapy at Mouniak Mendoza steady gait (Primary Dx); [facility] E PATIENT RELATIONS COORDINATOR Concussion; [facility] [place] [address] PHYSICAL MEDICINE & [phone] [place] [address] Social History Tobacco Use Types Packs/Day Years [...] there are no jolts. O: Neuromuscular Re-Education (06803) 45 minutes Active Step: walking @ 1.5 [...] Headache documented in this encounter Care Teams Weblogic Administrator Relationship Specialty Start Date End Date Christian-Marla Nazario MD PCP - General 12/31/11 79 [facility] 3 [place] [address] documented as of this encounter
--- OUTSIDE RECORDS SUMMARY | 2022-04-12 00:10 | XMS_ITS | Encounter Summary ---
:1950 Author Organization [place] [address] Care Team Providers Name Role Phone Marla Moralez MD Primary Care Provider Reason for Visit Reason Comments Suture / Staple Removal Encounter Details Date Type Department Care Team Description 08/08/2015 Office Visit Dermatology at Lonny Rodrigues, Visit f or suture Tamela STOREY removal [address] [facility] [address] Mani B DERMATOLOGY [place], [place] [address] [phone] Social History Tobacco Use Types Packs/Day Years [...] encounter Progress Notes Lonny Rodrigues MD - 08/08/2015 10:01 AM EST Problem: Followup for suture removal and biopsy results. Olivia follows up, and the biopsy came back showing basal cell carcinoma. Fortunately, the margins were clear. Physical examination shows good healing of the biopsy site. Assessment and Plan: Status post excision, BCCA, left nasolabial fold. a. Sutures removed. b. May discontinue wound care instructions. c. Return to clinic p.r.n. for new lesions/concerns. COPY: Marla Moralez M.D. documented in this encounter Plan of Treatment Not on filedocumented as of this encounter Procedures Procedure Name Priority Date/Time Associated Diagnosis Comme nts SURGICAL PATHOLOGY SCAN 08/08/2015 12:00 AM EST documented in this encounter Results SCAN DOC: SURGICAL PATHOLOGY (08/08/2015 12:00 AM EST) Narrative This result has an attachment that is no t available. Scanning Provider MEDIA MGR SCAN EXT ORDR/RSLT documented in this encounter Visit Diagnoses Diagnosis Visit for suture removal Encounter for removal of sutures documented in this encounter Care Teams Sap Architect Relationship Specialty Start Date End Date Marla Moralez MD PCP - General 12/31/[address] [place] [address] documented as of this encounter
--- OUTSIDE RECORDS SUMMARY | 2022-04-12 00:10 | XMS_ITS | Encounter Summary ---
:1950 Author Organization [facility] [place] [address] Care Team Providers Name Role Phone Marla Moralez MD Primary Care Provider Encounter Details Date Type Department Care Team Description 05/19/2013 Follow-Up Physical Therapy at Uvaldo Corrales, PT [facility] [address] PHYSICAL MEDICINE & [place] [address] Headache (Primary Dx) Heater [facility] Marla Moralez MD [address] [place] [address] [address] [place] [address] Social History Tobacco Use Types [...] to have 0/10 pain at times. Goals: [facility] goals (12 weeks) 1. Pt to be able to minimize headache to 4/10 at worst less then 3 x a week. S: pt reports stressed almost missed turn and almost had accident. But parking is better. O: Manual Therapy (49169) 50 minutes STM to the neck and shoulder area MFR techiniques at base of skull and into the shoulders. RAILROAD MECHANIC suboccipital release, still point. Unwinding of neck [...] Headache documented in this encounter Care Teams Pony Roll Finisher Relationship Specialty Start Date End Date Christian-Marla Nazario MD PCP - General 12/31/[address] [facility] 3 [place] [id number] documented as of this encounter
--- OUTSIDE RECORDS SUMMARY | 2022-04-12 00:10 | XMS_ITS | Clinical Summary ---
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 Medications Medication Sig Dispensed Refills Start Date End Date Status multivitamin Take 1 tablet by 0 Active (THERAGRAN) tablet mouth daily. ASHW RT-MAG Take 2 tablets by 0 Active HCH-DBXY-VZVBM-MILADYS mouth 2 times ORAL daily (with meals). [...] Hip bursitis 07/12/2011 Myofacial muscle pain 07/12/2011 Immunizations Name Administration Dates Next Due Influenza [...] Date Last Done Comments Covid-19 Vaccine (#1) 1950 Hepatitis C Screening 1967 Tdap adult 1968 Tetanus vaccine 1968 Breast Cancer Share Decision Needed 1989 Colonoscopy 1994 Breast Cancer screening 1999 Zoster vaccine (1 of 2) 1999 Advance Directive 2004 Bone Density Scan 2014 Pneumoccocal Vaccine: 65+ (1 - PCV) 2014 Influenza (Flu) vaccine (1 of 1 - Influenza standard 02/28/2022 05/27/2012 series) Insurance Payer Benefit Plan / Subscriber ID Effective Dates Phone Addre ss Type Group [place] [place] [employer]UE [id number] 2021-Camron [phone] [address] [place] ADVANTAGE t 22 [id number] [place] [address] Care Teams Senior Qa Automation Engineer Relationship Specialty Start Date End Date Christian-Marla Nazario MD PCP - General 12/31/11 79 [facility] 3 [place] [address]
--- OUTSIDE RECORDS SUMMARY | 2022-04-12 00:10 | XMS_ITS | Encounter Summary ---
:1950 Author Organization [facility] [place] [address] Care Team Providers Name Role Phone Marla Moralez MD Primary Care Provider Encounter Details Date Type Department Care Team Description 08/26/2013 Orders Only Orthopaedics at [facility] Ferdinand Larkin [place] [address] [address] [phone] ORTHOPAEDIC SURG [place], [place] [address] (Wo rk) Social History Tobacco Use Types Packs/Day Years Used Date Former Smoker Sex Assigned at Date Recorded Not on file documented as of this encounter Plan of Treatment Not on filedocumented as of this encounter Visit Diagnoses Diagnosis Right knee pain Pain in joint, lower leg documented in this encounter Care Teams Unemployment Benefits Claims Taker Relationship Specialty Start Date End Date Marla Moralez MD PCP - General 12/31/[address] [place] [address] 3 [place] [address] documented as of this encounter
--- OUTSIDE RECORDS SUMMARY | 2022-04-12 00:10 | XMS_ITS | Encounter Summary ---
:1950 Author Organization [facility] [place] [address] Care Team Providers Name Role Phone Marla Moralez MD Primary Care Provider Encounter Details Date Type Department Care Team Description 09/22/2013 Hospital Encounter XRay at [facility] [place] knee pain [address] [place] [address] Social History Tobacco Use Types Packs/Day [...] EDT Examination JOINT TEAM STANDING ALIGNMENT AP [facility]/BILAT Clinical History LT KNEE PAIN / [...] original. Examination JOINT TEAM STANDING ALIGNMENT AP [facility]/BILAT Clinical History LT KNEE PAIN / [...] leg documented in this encounter Care Teams Check Writing Machine Operator Relationship Specialty Start Date End Date Christian-Marla Nazario MD PCP - General 12/31/11 79 [facility] 3 [place] [address] documented as of this encounter
--- OUTSIDE RECORDS SUMMARY | 2022-04-12 00:10 | XMS_ITS | Encounter Summary ---
:1950 Author Organization [facility] [place] [address] Care Team Providers Name Role Phone Marla Moralez MD Primary Care Provider Reason for Visit Reason Comments Procedure Encounter Details Date Type Department Care Team Description 08/01/2015 Procedure visit Dermatology at [facility] Lonny Rodrigues MD [place] [address] [place] [address] [facility] [place] [address] [place], [place] [phone] (Wo rk) Social History Tobacco Use Types [...] d documented in this encounter Care Teams Shipyard Supervisor Relationship Specialty Start Date End Date Marla Moralez MD PCP - General 12/31/[address] [place] [address] documented as of this encounter
--- OUTSIDE RECORDS SUMMARY | 2022-04-12 00:10 | XMS_ITS | Encounter Summary ---
:1950 Author Organization [facility] [place] [address] Care Team Providers Name Role Phone Marla Moralez MD Primary Care Provider Reason for Visit Reason Comments Skin Check Encounter Details Date Type Department Care Team Description 06/08/2015 Office Visit Dermatology at [facility] Lonny De La Paz MD Solar lentigo; [address] Mani [address] Nev[place] [address] [place], [place] [phone] (Wo rk) Social History Tobacco Use Types [...] from the original note were not included. [facility] Moles: After Your Visit Your Care [...] color and feel of the skin. ?? fire sprinkler service technician front of a full-length mirror. Look carefully [...] more? Visit our health information library at [email or web address] You can also view health information on [employer], your personal patient account. Log in or sign up today. Enter [id number] in the search box to learn more about Moles: After Your Visit. ?? [id number] [employer]. Care instructions adapted under license by [facility]. This care instruction is for use with your licensed healthcare professional. If you have questionsabout a medical condition or this instruction, always ask your healthcare professional. [employer] disclaims any warranty or liability for your use of this information. Content Version: 10.4.787966; Current as of: September 08, 2013 documented [...] d documented in this encounter Care Teams Tipple Supervisor Relationship Specialty Start Date End Date Marla Moralez MD PCP - General 12/31/[address] [address] documented as of this encounter
--- OUTSIDE RECORDS SUMMARY | 2022-04-12 00:10 | XMS_ITS | Encounter Summary ---
:1950 Author Organization [facility] [place] [address] Care Team Providers Name Role Phone Marla Moralez MD Primary Care Provider Encounter Details Date Type Department Care Team Description 10/06/2012 Follow-Up Physical Therapy at Peggy Mujica, PT [facility] [address] PHYSICAL MEDICINE & [place] [address] Unsteady gait (Primary Dx); [facility] Marla Moralez MD [address] [place] [address] Concussion; [facility] [place] [address] Social History Tobacco Use Types Packs/Day Years [...] chiropractic for her neck. Went dancing on [employer]-was n't as crowded-did pretty well. O: Neuromuscular Re-Education (40287) 55 minutes VOR exs--she reports she is [...] Headache documented in this encounter Care Teams Production Internship Relationship Specialty Start Date End Date Christian-Marla Nazario MD PCP - General 12/31/11 79 [facility] 3 [place] [address] documented as of this encounter
--- OUTSIDE RECORDS SUMMARY | 2022-04-12 00:10 | XMS_ITS | Encounter Summary ---
:1950 Author Organization [place] [address] Care Team Providers Name Role Phone Marla Moralez MD Primary Care Provider Encounter Details Date Type Department Care Team Description 08/05/2012 Follow-Up Occupational Therapy at Tomy Mauricio OT [facility] [address] PHYSICAL MEDICINE & [place] [address] Concussion (Primary [facility] Marla Moralez MD [address] [facility] 3 [place] [address] Dx) [place] [address] Social History Tobacco Use Types Packs/Day [...] dr. Marla Gonzales for recheck and [facility] and treatment. Olivia [...] of visual scanning and reading of material. Shelter Goals (to be met by discharge): Date [...] 5 items in a search through [facility] without cueing. Goal Status: Goal met 05/20/12 [...] unspecified documented in this encounter Care Teams Assistant Fitness Manager Relationship Specialty Start Date End Date Christian-Marla Nazario MD PCP - General 12/31/11 79 [place] [id number] documented as of this encounter
--- OUTSIDE RECORDS SUMMARY | 2022-04-12 00:10 | XMS_ITS | Encounter Summary ---
:1950 Author Organization [place] [address] Care Team Providers Name Role Phone Marla Moralez MD Primary Care Provider Reason for Visit Reason Onset Date Comments Advice Only 10/12/2013 Encounter Details Date Type Department Care Team Description 10/12/2013 Telephone Orthopaedics at [facility] Valentina Woodward PA Advice Only [facility] [place] [address] ORTHOPAEDIC SURGERY [phone] [place] [address] (Wo rk) Social History Tobacco Use Types [...] or shower. Please call her back at [phone]. documented in this encounter Plan of Treatment Not on filedocumented as of this encounter Visit Diagnoses Not on filedocumented in this encounter Care Teams Electron Beam Machine Welder Setter Relationship Specialty Start Date End Date Christian-Marla Nazario MD PCP - General 12/31/11 79 [place] [id number] documented as of this encounter
--- OUTSIDE RECORDS SUMMARY | 2022-04-12 00:10 | XMS_ITS | Encounter Summary ---
:1950 Author Organization [facility] [place] [address] Care Team Providers Name Role Phone Marla Moralez MD Primary Care Provider Encounter Details Date Type Department Care Team Description 03/30/2013 Follow-Up Physical Therapy at Uvaldo Corrales, PT [facility] [address] PHYSICAL MEDICINE & [place] [address] Myofacial muscle pain; [facility] Marla Moralez MD [address] [place] [address] 3 [place] [address] [place] [address] Social History Tobacco Use Types Packs/Day Years [...] work 1x a week. O: Therapeutic Exercise (19275) 10 minutes and Manual Therapy (93385) 30 minutes ?? therex- review of current stretching. Added hams stretch in sitting that she can do while at workor sitting for long periods. 3 reps hold 30 seconds. Doing calf stretch on stair. May push too much.Doing trunk rotation. Trunk flexion. ?? Manual therapy- stm mfr and SHIP YARD ELECTRICAL PERSON techniques to increase flow through trunk and head. Suboccipital release. Thoracic diaphragm release. Still point achieved. A: Pt felt better following treatment head was better. P: Continue physical therapy for headaches. documented in this encounter Plan of Treatment Not on filedocumented as of this encounter Visit Diagnoses Diagnosis Myofacial muscle pain Mylagia and myositis, unspecified Headache(784.0) Headache documented in this encounter Care Teams Mechanical Press Operator Relationship Specialty Start Date End Date Christian-Marla Nazario MD PCP - General 12/31/11 79 [place] [phone] documented as of this encounter
--- OUTSIDE RECORDS SUMMARY | 2022-04-12 00:10 | XMS_ITS | Encounter Summary ---
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
--- OUTSIDE RECORDS SUMMARY | 2022-04-12 00:10 | XMS_ITS | Encounter Summary ---
:1950 Author Organization [facility] [place] [address] Care Team Providers Name Role Phone Marla Moralez MD Primary Care Provider Reason for Visit Reason Comments Strabismus Orthoptic evaluation Encounter Details Date Type Department Care Team Description 11/26/2012 Office Visit Ophthalmology at [facility] Domingo Ornelasopia (Primary Dx) [facility] [place] [address] Social History Tobacco Use Types Packs/Day [...] sunglass or a plano fashion pair, OTC. [facility] will send the glasses for prism placement [...] documented in this encounter Results SENSORIMOTOR EXAM [WI SPECIAL EYE EXAM] - OU- BOTH EYES [...] Primary documented in this encounter Care Teams Security Systems Sales Representative Relationship Specialty Start Date End Date Christian-Marla Nazario MD PCP - General 12/31/11 79 [facility] 3 [place] [address] documented as of this encounter
--- OUTSIDE RECORDS SUMMARY | 2022-04-12 00:10 | XMS_ITS | Encounter Summary ---
:1950 Author Organization [facility] [place] [address] Care Team Providers Name Role Phone Marla Moralez MD Primary Care Provider Encounter Details Date Type Department Care Team Description 06/29/2013 Orders Only Orthopaedics at [facility] Ferdinand Larkin MD [facility] [place] [address] ORTHOPAEDIC SURGERY [phone] [place], [place] [address] (Wo rk) Social History Tobacco Use Types Packs/Day Years Used Date Former Smoker Sex Assigned at Date Recorded Not on file documented as of this encounter Plan of Treatment Pending Results Name Type Priority Associated Diagnoses Date/Ti ok Film Library- Storage Imaging Routine 2012 10:30 PM EST only MR Knee documented as of this encounter Visit Diagnoses Not on filedocumented in this encounter Care Teams Global Implementation Manager Relationship Specialty Start Date End Date Marla Moralez MD PCP - General 12/31/11 79 [facility] 3 [place] [address] documented as of this encounter
--- OUTSIDE RECORDS SUMMARY | 2022-04-12 00:10 | XMS_ITS | Encounter Summary ---
:1950 Author Organization [facility] [place] [address] Care Team Providers Name Role Phone Marla Moralez MD Primary Care Provider Encounter Details Date Type Department Care Team Description 06/02/2013 Follow-Up Physical Therapy at Uvaldo Corrales, PT [facility] [address] PHYSICAL MEDICINE & [place] [address] Myofacial muscle pain; Heater [facility] Marla Moralez MD [address] [place] [address] Headache [address] [place] [address] Social History Tobacco Use Types [...] to have 0/10 pain at times. 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 Pt to be able to minimize headache to 4/10 at worst less then 3 x a week. S: about the same. Still have double vision. O: Manual Therapy (36395) 50 minutes STM to the neck and shoulder area MFR techiniques at base of skull and into the shoulders. JAWBONE PULLER suboccipital release, still point. Unwinding of neck [...] Headache documented in this encounter Care Teams Professor Of Graphic Design Relationship Specialty Start Date End Date Christian-Marla Nazario MD PCP - General 12/31/[address] [address] documented as of this encounter
--- OUTSIDE RECORDS SUMMARY | 2022-04-12 00:10 | XMS_ITS | Encounter Summary ---
:1950 Author Organization [facility] Address [facility] [address] [place] [address] Care Team Providers Name Role Phone Marla Moralez MD Primary Care Provider Encounter Details Date Type Department Care Team Description 08/24/2013 Orders Only Orthopaedics at [facility] Ferdinand Larkin MD Left knee pain [facility] (Pr imary Dx) [place] [address] ORTHOPAEDIC [phone] SUR[place]ERY [place], [place] [address] Social History Tobacco Use Types [...] leg documented in this encounter Care Teams Farm Contractor Relationship Specialty Start Date End Date Christian-Marla Nazario MD PCP - General 12/31/[address] [place] [address] 3 [place] [phone] (work) documented as of this encounter
--- OUTSIDE RECORDS SUMMARY | 2022-04-12 00:10 | XMS_ITS | Encounter Summary ---
:1950 Author Organization [facility] [place] [address] Care Team Providers Name Role Phone Marla Moralez MD Primary Care Provider Reason for Visit Reason Comments Skin Check Encounter Details Date Type Department Care Team Description 05/10/2016 Office Visit Dermatology at Lonny Rodrigues Nevus; Tamela STOREY Solar lentigo; [address] Seborrheic keratosis, inflamed Mani B DERMATOLOGY [place], [place] [phone] Social History Tobacco Use Types Packs/Day Years [...] keratosis documented in this encounter Care Teams Dramatic Art Teacher Relationship Specialty Start Date End Date Marla Moralez MD PCP - General 12/31/[address] [address] documented as of this encounter
--- OUTSIDE RECORDS SUMMARY | 2022-04-12 00:10 | XMS_ITS | Encounter Summary ---
:1950 Author Organization [facility] [place] [address] Care Team Providers Name Role Phone Marla Moralez MD Primary Care Provider Encounter Details Date Type Department Care Team Description 06/09/2013 Follow-Up Physical Therapy at Guadalupe Corrales ofacial muscle pain; Heater [facility] S, PT Headache [address] [place] [address] PHYSICAL MEDICINE & [place] [address] Social History Tobacco Use Types Packs/Day Years [...] to have 0/10 pain at times. Goals: [facility] goals (12 weeks) 1. Pt to be able to minimize headache to 4/10 at worst less then 3 x a week. S: Patient reports the double vision hasn't changed. Headaches still present. Has headache today that she feels is from the cold. Knee is doing better. Can't wear a hat that is snug will cause headache. O: Manual Therapy (79634) 45 minutes ?? STM to the neck [...] Headache documented in this encounter Care Teams Tie Hacker Relationship Specialty Start Date End Date Christian-Marla Nazario MD PCP - General 12/31/[address] [address] documented as of this encounter
--- OUTSIDE RECORDS SUMMARY | 2022-04-12 00:10 | XMS_ITS | Encounter Summary ---
:1950 Author Organization [facility] [address] Care Team Providers Name Role Phone Marla Moralez MD Primary Care Provider Reason for Visit Reason Comments Bilateral Knee Pain L>R Encounter Details Date Type Department Care Team Description 09/22/2013 Office Visit Orthopaedics at [facility] Ferdinand Larkin MD 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 MR#: [id number] DATE OF VISIT: 09/22/2013 DATE OF INJURY/ONSET: [...] fibular head. She was seen by an training specialist and obtain an MRI which showed [...] discharged. She had been prescribed originally a [place] brace but has discontinue wearing upon recommendation [...] ??? Cataract removal ??? Musculoskeletal surgery unlisted [id number] Bilateral tendon release for DeQuervain's ? ? [...] dose documented in this encounter Care Teams Chief Physical Therapist Relationship Specialty Start Date End Date Christian-Marla Nazario MD PCP - General 12/31/11 79 [place] [address] documented as of this encounter
--- OUTSIDE RECORDS SUMMARY | 2022-04-12 00:10 | XMS_ITS | Encounter Summary ---
:1950 Author Organization [facility] [place] [address] Care Team Providers Name Role Phone Marla Moralez MD Primary Care Provider Encounter Details Date Type Department Care Team Description 04/06/2013 Follow-Up Physical Therapy at Guadalupe Corrales; [facility] S, PT Myofacial muscle pain [facility] [place] [address] PHYSICAL MEDICINE & [phone] [place] [address] Social History Tobacco Use Types Packs/Day Years [...] be related to work. O: Therapeutic Exercise (20775) 10 minutes and Manual Therapy (49185) 30 minutes ?? therex- review of current [...] left. ?? Manual therapy- stm mfr and GRAPHIC ARTIST techniques to increase flow through trunk and [...] unspecified documented in this encounter Care Teams Press Operator Instant Print Shop Relationship Specialty Start Date End Date Christian-Marla Nazario MD PCP - General 12/31/11 79 [place] [address] documented as of this encounter
--- OUTSIDE RECORDS SUMMARY | 2022-04-12 00:10 | XMS_ITS | Encounter Summary ---
:1950 Author Organization [facility] [place] [address] Care Team Providers Name Role Phone Marla Moralez MD Primary Care Provider Encounter Details Date Type Department Care Team Description 10/02/2012 Follow-Up Occupational Therapy at Tomy Mauricio OT [facility] [address] PHYSICAL MEDICINE & [place] [address] Concussion (Primary [facility] Marla Moralez MD [address] [facility] 3 [place] [address] Dx) [place] [address] Social History Tobacco Use Types Packs/Day [...] dr. Marla Gonzales for recheck and [facility]. Olivia Azevedo presents alone. She reports continuing to have double vision after 30 minute of computer work. She gets double vision when she turns her head to the left and upward stating that her double vision separates vertically. [facility]. PAIN: At Rest: 10 With Activity: 08/09 [...] seconds Error type: no errors Structured Complex [place] search Number of accurate responses:29 (30 targets) [...] and she will be d/c from OT [facility] Goals (to be met by discharge): Date [...] find 5 items in a search through [facility] without cueing. Goal Status: [...] unspecified documented in this encounter Care Teams Employment Coordinator Relationship Specialty Start Date End Date Christian-Marla Nazario MD PCP - General 12/31/11 79 [place] [phone] documented as of this encounter
--- OUTSIDE RECORDS SUMMARY | 2022-04-12 00:10 | XMS_ITS | Encounter Summary ---
:1950 Author Organization [facility] [place] [address] Care Team Providers Name Role Phone Marla Moralez MD Primary Care Provider Encounter Details Date Type Department Care Team Description 03/11/2013 Office Visit Physical Therapy at Uvaldo Aragon PT [facility] [address] PHYSICAL MEDICINE & [place] [address] Myofacial muscle pain; [facility] Marla Moralez MD [address] [place] [address] [place] [phone] Social History Tobacco Use Types Packs/Day Years [...] dancing due to dizziness. Unable to work. 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 Functional Limitations: unable to bend over OGLESBY [...] soft tissue component. She may benefit from CLINICAL RESOURCE NURSE to improve the flexibility of the ms at the base of the skull and into the head. Physical therapy is indicated to: increase flexibility Goals: Short term goals (4 weeks) 1. Patient to be indep with home exercise program. 2. Pt to report less frequency of headache to 4 x week 3. Pt to have 0/10 pain at times. Goals: buttermaker helper goals (12 weeks) 1. Pt to be [...] Headache documented in this encounter Care Teams Rocket Engine Tester Relationship Specialty Start Date End Date Christian-Marla Nazario MD PCP - General 12/31/11 79 [place] [phone] documented as of this encounter
--- OUTSIDE RECORDS SUMMARY | 2022-04-12 00:11 | XMS_ITS | Encounter Summary ---
:1950 Author Organization [facility] [place] [address] Care Team Providers Name Role Phone Marla Moralez MD Primary Care Provider Encounter Details Date Type Department Care Team Description 02/19/2012 Orders Only Orthopaedics at [facility] Ferdinand Larkin MD [facility] [place] [address] ORTHOPAEDIC SURGERY [phone] [place], [place] [address] (Wo rk) Social History Tobacco Use Types Packs/Day Years Used Date Former Smoker Sex Assigned at Date Recorded Not on file documented as of this encounter Plan of Treatment Pending Results Name Type Priority Associated Diagnoses Date/Ti ok Film Library- Storage Imaging Routine 2011 10:28 PM EDT only DX Pelvis documented as of this encounter Visit Diagnoses Not on filedocumented in this encounter Care Teams Wirer Passenger Car Relationship Specialty Start Date End Date Marla Moralez MD PCP - General 12/31/11 79 [facility] 3 [place] [address] documented as of this encounter
--- OUTSIDE RECORDS SUMMARY | 2022-04-12 00:11 | XMS_ITS | Encounter Summary ---
:1950 Author Organization [facility] [place] [address] Care Team Providers Name Role Phone Marla Moralez MD Primary Care Provider Encounter Details Date Type Department Care Team Description 05/13/2012 Follow-Up Occupational Therapy at Tomy Mauricio, Concussion (Primary [facility] OT Dx) [facility] [place] [address] PHYSICAL MEDICINE & [phone] [place] [address] Social History Tobacco Use Types Packs/Day Years [...] This entailed a trip walking to the [facility], and the pharmacy. She remembered 4-5 items [...] directions which she asked for of a campus security officer to get to the pharmacy but at [...] potential considering her insight to deficit areas. Custodial Goals (to be met by discharge): Date [...] find 5 items in a search through [facility] without cueing. Goal Status: Olivia Azevedo will increase her score on the LOTCA by 5 points to promote her ability to perform her job at an 8/10 level Goal Status: PLAN: The patient is to be seen 1 time(s) per week, for 12 week(s) to progress toward short and [facility] goals. for Visuomotor organization, Visuoperceptual skills, Visual [...] unspecified documented in this encounter Care Teams Malt House Operator Relationship Specialty Start Date End Date Christian-Marla Nazario MD PCP - General 12/31/11 79 [facility] 3 [place] [address] documented as of this encounter
--- OUTSIDE RECORDS SUMMARY | 2022-04-12 00:11 | XMS_ITS | Encounter Summary ---
:1950 Author Organization [facility] [place] [address] Care Team Providers Name Role Phone Marla Moralez MD Primary Care Provider Encounter Details Date Type Department Care Team Description 06/03/2012 Follow-Up Occupational Therapy at Tomy Mauricio OT [facility] [address] PHYSICAL MEDICINE & [place] [address] Concussion (Primary [facility] Marla Moralez MD 79 [facility] 3 [place] [address] Dx) [place] [address] Social History Tobacco Use Types Packs/Day [...] dr. Marla Gonzales for recheck and [facility] and treatment. Olivia [...] memory as well as her spatial/visuomotor skills. Watch Assembler Goals (to be met by discharge): Date [...] find 5 items in a search through [facility] without cueing. Goal Status: Not fully met. [...] 12 week(s) to progress toward short and senior care goals. for Visuomotor organization, Visuoperceptual skills, Visual [...] unspecified documented in this encounter Care Teams Maintenance And Repair Worker Relationship Specialty Start Date End Date Christian-Marla Nazario MD PCP - General 12/31/[address] [address] documented as of this encounter
--- OUTSIDE RECORDS SUMMARY | 2022-04-12 00:11 | XMS_ITS | Encounter Summary ---
:1950 Author Organization [facility] [place] [address] Care Team Providers Name Role Phone Marla Moralez MD Primary Care Provider Encounter Details Date Type Department Care Team Description 05/07/2012 Follow-Up Occupational Therapy at Tomy Mauricio OT [facility] DR PHYSICAL MEDICINE & [place] [address] Concussion (Primary [facility] Marla Moralez MD 79 [facility] 3 [place] [address] Dx) [place] [address] Social History Tobacco Use Types Packs/Day [...] dr. Marla Gonzales for recheck and [facility] and treatment. Olivia Azevedo presents alone VISION: Pupillary function no deficits noted with pen light testing Acuity intermediate distance: tested at 1 M Right eye Tiffanie 20/25 Left eye Tiffanie 20/20 Both eyes Tiffanie 20/20 Reading Acuity: distance 16 inches Eyes together Funk 20/25 Right eye 20/40 Left eye 20/25 [...] seconds Error type: missed one Structured Complex [place] search Number of accurate responses: (30 targets) [...] mock shopping trip will also be ideal. Half-Way Goals (to be met by discharge): Date [...] find 5 items in a search through [facility] without cueing. Goal Status: Olivia Azevedo will [...] unspecified documented in this encounter Care Teams Fall Internship Relationship Specialty Start Date End Date Christian-Marla Nazario MD PCP - General 12/31/11 79 [facility] 3 [place] [address] documented as of this encounter
--- OUTSIDE RECORDS SUMMARY | 2022-04-12 00:11 | XMS_ITS | Encounter Summary ---
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 She exercises with walking and using the GroupCard. She does not drink alcohol, consume Aspartame or caffeine and does not smoke. Pain: Headache pain just above her ears-squeezing pain rated 4/15-rwqiduvf-qhvnhhw increase or decreases the headache. She has [...] seconds (R)3 seconds (+) dizziness (L)> (R) [place]: (L) (-) (R) (-) , Horizontal Canal [...] 08/20/2012 9:48 AM EST Miscellaneous - Russ, Home School Liaison Officer - 05/28/2012 8:16 PM EST Miscellaneous - Russ, Home School Liaison Officer - 05/28/2012 2:28 PM EST documented in this encounter Plan of Treatment Not on filedocumented as of this encounter Visit Diagnoses Diagnosis Unsteady gait - Primary Abnormality of gait Concussion Concussion, unspecified Headache(784.0) Headache documented in this encounter Care Teams Plug Saw Operator Relationship Specialty Start Date End Date Christian-Marla Nazario MD PCP - General 12/31/11 79 [facility] 3 [place] [address] documented as of this encounter
--- OUTSIDE RECORDS SUMMARY | 2022-04-12 00:11 | XMS_ITS | Encounter Summary ---
:1950 Author Organization [facility] [place] [address] Care Team Providers Name Role Phone Marla Moralez MD Primary Care Provider Encounter Details Date Type Department Care Team Description 07/08/2012 Follow-Up Occupational Therapy at Tomy Mauricio OT [facility] DR PHYSICAL MEDICINE & [place] [address] Concussion (Primary [facility] Marla Moralez MD 79 [facility] 3 [place] [address] Dx) [place] [address] Social History Tobacco Use Types Packs/Day [...] At Rest: 08/09 With Activity: 08/09 [facility] Occupational Therapy Cognitive assessment is a [...] of visual scanning and reading of material. Nursing Home Goals (to be met by discharge): Date [...] find 5 items in a search through [facility] without cueing. Goal Status: Goal met 05/20/12 Olivia Azevedo will increase her score on the LOTCA by 5 points to promote her ability to perform her job at an 8/10 level Goal Status: Goal status PLAN: The patient is to be seen 1 time(s) per week, for 12 week(s) to progress toward short and long term goals. for Visuomotor organization, Visuoperceptual skills, Visual [...] unspecified documented in this encounter Care Teams Glass Cut Off Supervisor Relationship Specialty Start Date End Date Christian-Marla Nazario MD PCP - General 12/31/[address] [place] [address] 3 [place] [phone] (work) documented as of this encounter
--- OUTSIDE RECORDS SUMMARY | 2022-04-12 00:11 | XMS_ITS | Encounter Summary ---
:1950 Author Organization [facility] [place] [address] Care Team Providers Name Role Phone Marla Moralez MD Primary Care Provider Encounter Details Date Type Department Care Team Description 01/29/2012 Hospital Encounter MRI at [facility], DR KENNEDY Gluteal pain [facility] Umesh Greenberg MD [facility] [place] [place] [address] [place] [address] Social History Tobacco Use Types Packs/Day Years [...] pain Result s for this TISSUE (GI BALLISTIC EXPERT) EDT procedure are in WO CONTRAST the [...] documented in this encounter Care Teams Sales And Marketing Intern Relationship Specialty Start Date End Date Christian-Marla Nazario MD PCP - General 12/31/11 79 [facility] 3 [place] [address] documented as of this encounter
--- OUTSIDE RECORDS SUMMARY | 2022-04-12 00:11 | XMS_ITS | Encounter Summary ---
:1950 Author Organization [facility] [place] [address] Care Team Providers Name Role Phone Marla Moralez MD Primary Care Provider Encounter Details Date Type Department Care Team Description 06/03/2012 Follow-Up Physical Therapy at Mounika Mendoza steady gait (Primary Dx); [facility] E CERTIFIED ENERGY MANAGER Concussion; [facility] [place] [address] PHYSICAL MEDICINE & [phone] [place] [address] Social History Tobacco Use Types Packs/Day Years [...] front of the TV. O: Neuromuscular Re-Education (47861) 30 minutes and Manual Therapy (80808) 10 minutes treadmill 1.8 without UE support--able [...] Headache documented in this encounter Care Teams Able Bodied Seaman Relationship Specialty Start Date End Date Christian-Marla Nazario MD PCP - General 12/31/11 79 [facility] 3 [place] [phone] documented as of this encounter
--- OUTSIDE RECORDS SUMMARY | 2022-04-12 00:11 | XMS_ITS | Encounter Summary ---
:1950 Author Organization [place] [address] Care Team Providers Name Role Phone Marla Moralez MD Primary Care Provider Encounter Details Date Type Department Care Team Description 08/05/2012 Follow-Up Physical Therapy at Mounika Mendoza steady gait (Primary Dx); [facility] Concussion; [facility] [place] [address] PHYSICAL MEDICINE & [phone] [place] [address] Social History Tobacco Use Types Packs/Day Years [...] back to base line. O: Neuromuscular Re-Education (99057) 25 minutes and Manual Therapy (94989) 10 minutes 2 foam: romberg stance with [...] Headache documented in this encounter Care Teams Steel Rod Buster Relationship Specialty Start Date End Date Christian-Marla Nazario MD PCP - General 12/31/11 79 [facility] 3 [place] [address] documented as of this encounter
--- OUTSIDE RECORDS SUMMARY | 2022-04-12 00:11 | XMS_ITS | Encounter Summary ---
:1950 Author Organization [facility] [place] [address] Care Team Providers Name Role Phone Christian-Marla Nazario MD Primary Care Provider Encounter Details Date Type Department Care Team Description 05/27/2012 Follow-Up Occupational Therapy at Tomy Mauricio, Concussion (Primary [facility] OT Dx) [facility] [place] [address] PHYSICAL MEDICINE & [phone] [place] [address] Social History Tobacco Use Types Packs/Day Years Used Date Former Smoker Sex Assigned at Date Recorded Not on file documented as of this encounter Progress Notes Tomy Mauricio, OT - 05/27/2012 3:55 PM EST OCCUPATIONAL THERAPY PROGRESS NOTE REFERRAL SOURCE: Dr. Marla Gonzales DIAGNOSIS: 1. 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 She was provided with use of a blank piece of paper, calculator, internet, and she was allowed to ask any question of me regarding how to plant. ASSESSMENT: Olivia Azevedo presented today with good endurance for this task taking over an hour. She was very slow with typing numbers into the computer calculator so this was done for her. She forgot multiple aspects of problems she was working on needing to go back to her paper to find the answersor required cueing from this therapist. She also could not perceptually grasp the size of the plot she was planting stating she needed 4 tractor buckets of maneur to fertilz when really it was more like 4 dump trucks. 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 She continues to not attempt painting or sowing asking if thereis a computer program to address her issues. Painting and sowing are ideal tasks to work on her visuomotor organization and memory for planning a task. She has good rehab potential Half-Way Goals (to be met by discharge): [...] find 5 items in a search through [facility] without cueing. Goal Status: Not [...] unspecified documented in this encounter Care Teams Investment Professional Relationship Specialty Start Date End Date Christian-Maral Nazario MD PCP - General 12/31/11 79 [facility] 3 [place] [address] documented as of this encounter
--- OUTSIDE RECORDS SUMMARY | 2022-04-12 00:11 | XMS_ITS | Encounter Summary ---
:1950 Author Organization [facility] [place] [address] Care Team Providers Name Role Phone Jacquelyn Valentine MD Primary Care Provider Reason for Visit Reason Comments Left Hip Pain Right Hip Pain Encounter Details Date Type Department Care Team Description 07/12/2011 Follow-Up Pain Management at Umesh Greenberg MD Hip bursitis (Primary Dx); [facility] Myofacial muscle pain [facility] [place] [address] [place] [address] [phone] (Wo rk) Social History Tobacco Use Types [...] this encounter Miscellaneous Notes Miscellaneous - Russ, Wall Taper - 07/17/2011 11:24 AM EST documented in [...] Routine documented in this encounter Care Teams Disc Recordist Relationship Specialty Start Date End Date Jacquelyn Valentine MD PCP - General 05/22/10 12/30/[address] [place] [address] documented as of this encounter
--- OUTSIDE RECORDS SUMMARY | 2022-04-12 00:11 | XMS_ITS | Encounter Summary ---
:1950 Author Organization [facility] [place] [address] Care Team Providers Name Role Phone Marla Moralez MD Primary Care Provider Encounter Details Date Type Department Care Team Description 05/27/2012 Follow-Up Physical Therapy at Daniela Mendoza PTA [facility] DR PHYSICAL MEDICINE & [place] [address] Unsteady gait (Primary Dx); [facility] Marla Moralez MD [address] [place] [address] Concussion; [facility] [place] [id number] Social History Tobacco Use Types Packs/Day Years [...] it would be appreciated. O: Neuromuscular Re-Education (33316) 30 minutes and Manual Therapy (55448) 10 minutes reviewed HEP: UT and SCM [...] Headache documented in this encounter Care Teams Dishroom Attendant Relationship Specialty Start Date End Date Christian-Marla aNzario MD PCP - General 12/31/11 79 [facility] 3 [place] [address] documented as of this encounter
--- OUTSIDE RECORDS SUMMARY | 2022-04-12 00:11 | XMS_ITS | Encounter Summary ---
:1950 Author Organization [facility] [place] [address] Care Team Providers Name Role Phone Marla Moralez MD Primary Care Provider Encounter Details Date Type Department Care Team Description 07/02/2012 Follow-Up Physical Therapy at Peggy Mujica, PT [facility] DR PHYSICAL MEDICINE & [place] [address] Unsteady gait (Primary Dx); [facility] Marla Moralez MD [address] [address] Concussion; [facility] [place] [id number] Social History Tobacco Use Types Packs/Day Years [...] VOR x 1-not as bothersome today. Saw change over who recommended continuing with the exercises. Yesterday went cross country [id number] front of house-1/2 hour one day, 40 minutes the next but very wiped out and headache after. She couldn't stand up after-had to lie down for while. Did partner dancing on arturo- wasn't nauseated. O: Therapeutic Exercise (98793) 15 minutes and Neuromuscular Re-Education (43709) 35 minutes Recommended trying cardio ex again [...] stretches/STM; will work on exertional training at home-Poynt skiing. No perturbation with ActiveStep. RADHA MUJICA PT documented in this encounter Plan of Treatment Not on filedocumented as of this encounter Visit Diagnoses Diagnosis Unsteady gait - Primary Abnormality of gait Concussion Concussion, unspecified Headache(784.0) Headache documented in this encounter Care Teams Credit Or Loans Officer Relationship Specialty Start Date End Date Christian-Marla Nazario MD PCP - General 12/31/11 79 [facility] 3 [place] [address] documented as of this encounter
--- OUTSIDE RECORDS SUMMARY | 2022-04-12 00:11 | XMS_ITS | Encounter Summary ---
:1950 Author Organization [facility] [place] [address] Care Team Providers Name Role Phone Marla Moralez MD Primary Care Provider Reason for Visit Reason Comments Buttock Pain Encounter Details Date Type Department Care Team Description 01/20/2012 Procedure visit Pain Management at Chastity Greenberg, Gl uteal pain (Primary [facility] [place]x) [facility] [address] [place] [address] [phone] Social History Tobacco Use Types Packs/Day Years [...] 2. 3. 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 Yes 4. Patient [...] this encounter Miscellaneous Notes Miscellaneous - Russ, Invoice Control Clerk - 01/25/2012 6:26 AM EDT documented in [...] point injection. Left Piriformis/Gluteal Trigger Point In [facility] Date of Service: 01/20/2012 Patient: ?Olivia Azevedo ? 1950 ?? 61 y.o. ??female Provider: ?MD Olivia CRUZ ??has been referred to [facility] for Trigger Point [...] Routine documented in this encounter Care Teams Endoscopy Support Specialist Relationship Specialty Start Date End Date Christian-Marla Nazario MD PCP - General 12/31/[address] [place] [address] 3 [place] [address] documented as of this encounter
--- OUTSIDE RECORDS SUMMARY | 2022-04-12 00:11 | XMS_ITS | Encounter Summary ---
:1950 Author Organization [facility] [place] [address] Care Team Providers Name Role Phone Marla Moralez MD Primary Care Provider Encounter Details Date Type Department Care Team Description 06/17/2012 Follow-Up Physical Therapy at Mounika Mendoza Un steady gait (Primary Dx); [facility] E, CURATOR Concussion; [facility] [place] [address] PHYSICAL MEDICINE & [phone] [place] [address] Social History Tobacco Use Types Packs/Day Years [...] shopping in large stores. O: Neuromuscular Re-Education (52395) 35 minutes and Manual Therapy (08916) 10 minutes Active Step: walking at 1.5 [...] Headache documented in this encounter Care Teams Knuckle Strap Sewer Relationship Specialty Start Date End Date Christian-Marla Nazario MD PCP - General 12/31/11 79 [facility] 3 [place] [address] documented as of this encounter
--- OUTSIDE RECORDS SUMMARY | 2022-04-12 00:11 | XMS_ITS | Encounter Summary ---
:1950 Author Organization [facility] [address] Care Team Providers Name Role Phone Marla Moralez MD Primary Care Provider Encounter Details Date Type Department Care Team Description 05/20/2012 Follow-Up Occupational Therapy at Tomy Mauricio, Concussion (Primary [facility] [place] Dx) [facility] [place] [address] PHYSICAL MEDICINE & [phone] [place] [address] Social History Tobacco Use Types Packs/Day Years [...] considering h er insight to deficit areas. Group Home Goals (to be met by discharge): [...] find 5 items in a search through [facility] without cueing. Goal Status: Not fully [...] unspecified documented in this encounter Care Teams Help Aid Relationship Specialty Start Date End Date Christian-Marla Nazario MD PCP - General 12/31/[address] [place] [address] documented as of this encounter
--- OUTSIDE RECORDS SUMMARY | 2022-04-12 00:11 | XMS_ITS | Encounter Summary ---
:1950 Author Organization [facility] [place] [address] Care Team Providers Name Role Phone Marla Moralez MD Primary Care Provider Encounter Details Date Type Department Care Team Description 04/16/2012 Office Visit Occupational Therapy Mich Mauricio, OT [facility] DR PHYSICAL MEDICINE & [place] [address] Concussion (Primary at [facility] Marla Moralez MD 79 [facility] 3 [place] [address] Dx) [place] [address] Social History Tobacco Use Types Packs/Day [...] dr. Marla Gonzales for recheck and [facility]. [...] of attention, sequencing and problem solving [facility] Occupational Therapy Cognitive assessment is a standardized [...] attention, andfor further treatment of these areas. Care Home Goals (to be met by discharge): [...] find 5 items in a search through [facility] without cueing. Goal Status: Olivia Azevedo will increase her score on the LOTCA by 5 points to promote her ability to perform her job at an 8/10 level Goal Status: PLAN: The patient is to be seen 1 time(s) per week, for 12 week(s) to progress toward short and alf goals. for Visuomotor organization, Visuoperceptual skills, Visual [...] unspecified documented in this encounter Care Teams Brim Stretching Machine Operator Relationship Specialty Start Date End Date Christian-Marla Nazario MD PCP - General 12/31/11 79 [facility] 3 [place] [address] documented as of this encounter
--- OUTSIDE RECORDS SUMMARY | 2022-04-12 00:11 | XMS_ITS | Encounter Summary ---
:1950 Author Organization [facility] [place] [address] Care Team Providers Name Role Phone Marla Moralez MD Primary Care Provider Encounter Details Date Type Department Care Team Description 05/22/2012 Follow-Up Occupational Therapy at Tomy Mauricio, Concussion (Primary [facility] Dx) [facility] [place] [address] PHYSICAL MEDICINE & [phone] [place] [address] Social History Tobacco Use Types Packs/Day Years [...] potential considering her insight to deficit areas. Frame Stripper And Crusher Goals (to be met by discharge): Date [...] find 5 items in a search through [facility] without cueing. Goal Status: Not fully met. [...] 12 week(s) to progress toward short and group home goals. for Visuomotor organization, Visuoperceptual skills, Visual [...] unspecified documented in this encounter Care Teams Real Estate Appraiser Relationship Specialty Start Date End Date Christian-Marla Nazario MD PCP - General 12/31/11 79 [facility] 3 [place] [address] documented as of this encounter
--- OUTSIDE RECORDS SUMMARY | 2022-04-12 00:11 | XMS_ITS | Encounter Summary ---
:1950 Author Organization [facility] [place] [address] Care Team Providers Name Role Phone Jacquelyn Valentine MD Primary Care Provider Reason for Visit Reason Onset Date Comments Post Procedure Call 07/12/2011 Encounter Details Date Type Department Care Team Description 07/12/2011 Telephone Pain Management at Yesika Gibson P ost [place] [address] Social History Tobacco Use Types Packs/Day [...] on filedocumented in this encounter Care Teams Classifier Operator Relationship Specialty Start Date End Date Jacquelyn Valentine MD PCP - General 05/22/10 12/30/[address] [place] [address] documented as of this encounter
--- OUTSIDE RECORDS SUMMARY | 2022-04-12 00:11 | XMS_ITS | Encounter Summary ---
:1950 Author Organization [facility] [place] [address] Care Team Providers Name Role Phone Marla Moralez MD Primary Care Provider Reason for Visit Reason Onset Date Comments Results 01/31/2012 Encounter Details Date Type Department Care Team Description 01/31/2012 Telephone Pain Management at Umesh Donahue MD Results [facility] [place] [address] PAIN CLINIC [phone] [place] [id number] (Wo rk) Social History Tobacco Use Types [...] on filedocumented in this encounter Care Teams Technical Training Manager Relationship Specialty Start Date End Date Christian-Marla Nazario MD PCP - General 12/31/11 79 [place] [id number] documented as of this encounter
--- OUTSIDE RECORDS SUMMARY | 2022-04-12 00:11 | XMS_ITS | Encounter Summary ---
:1950 Author Organization [facility] [place] [address] Care Team Providers Name Role Phone Marla Moralez MD Primary Care Provider Encounter Details Date Type Department Care Team Description 01/20/2012 Orders Only Pain Management at [facility] Umesh Greenberg MD [facility] [place] [address] PAIN CLINIC [phone] [place], [place] [address] (Wo rk) Social History Tobacco [...] is a non-reportable exam. Umesh Greenberg MD [facility] FILM LIBRARY ORDERABLES Performing Organization Address City/State/ZIP Code Phon e Number DH RAD DH RAD [address] [facility] [place] [address] documented in this encounter Visit Diagnoses Not on filedocumented in this encounter Care Teams Plant Controls Specialist Relationship Specialty Start Date End Date Christian-Marla Nazario MD PCP - General 12/31/11 79 [facility] 3 [place] [address] documented as of this encounter
--- OUTSIDE RECORDS SUMMARY | 2022-04-12 00:12 | XMS_ITS | Encounter Summary ---
:1950 Author Organization [facility] Address [address] [place] [address] Care Team Providers Name Role Phone Unknown, Provider Primary Care Provider Encounter Details Date Type Department Care Team Description 07/23/2007 Results Only [facility] - Tiffanie Escamilla, Maria lie, conversion DIRECTOR MARKET INTELLIGENCE [address] [place] [address] [place] [address] [phone] (Wo rk) Social History Tobacco Use Types [...] ? DAVID DESIR ? Accession #: ? [id number] : ? 1950 (Age: 57) ??F ?Collect Date: ? 07/01 Location: ? [facility] ? Receive Date : ? 07/28/2007 Provider: ?ALBA CARY Copy to: ? Specimen/Source: ? ThinPrep Pap Test, Vagina/Cervix/Endocervix, processed on [employer] ThinPrep Imaging System, with manual evaluati on [...] Organization Address City/State/ZIP Code Phon e Number [facility] [address] [place] [address] SERVICES [facility] [address] [place] [address] documented in this encounter Visit Diagnoses Not on filedocumented in this encounter Care Teams Legal Services Professional Relationship Specialty Start Date End Date Unknown, Provider, PCP - General 01/29/10 03/03/13 documented as of this encounter
--- OUTSIDE RECORDS SUMMARY | 2022-04-12 00:12 | XMS_ITS | Encounter Summary ---
:1950 Author Organization [facility] Address [address] [place] [address] Care Team Providers Name Role Phone Christian-Marla Nazario MD Primary Care Provider Encounter Details Date Type Department Care Team Description 09/12/2016 Results Only [facility] Aiden Rivera Imaging Total Joint Program - MD Abdullahi [facility] [address] [place], [place] [address] [phone] Social History Tobacco Use Types Packs/Day Years [...] Anatomical Region Laterality Modality Other Specimen Narrative [facility] - 09/12/2016 18:07 EDT KNEES 3 [...] Organization Address City/State/ZIP Code Phon e Number [facility] [place] documented in this encounter Visit Diagnoses Not on filedocumented in this encounter Care Teams Rod Mill Operator Relationship Specialty Start Date End Date Christian-Marla Nazario MD PCP - General 03/04/13 [address] [place] [address] documented as of this encounter
--- OUTSIDE RECORDS SUMMARY | 2022-04-12 00:12 | XMS_ITS | Encounter Summary ---
:1950 Author Organization [facility] Address [address] [place] [address] Care Team Providers Name Role Phone Marla Moralez MD Primary Care Provider Reason for Visit Reason Comments Knee Pain Bilateral knees Encounter Details Date Type Department Care Team Description 11/25/2013 Office Visit [facility] Aiden Rivera Salas lofemoral syndrome, right (Primary Dx); Total Joint Program MD Abdullahi Lateral meniscus tear; - [address] Knee pain [address] [place], [facility] [address] [phone] Social History Tobacco Use Types Packs/Day Years [...] do that, and she was seen at [facility] and evaluated as well with no clear outcome. She has had multiple treatment interventions. She tried wearing a hinged knee brace. Tried some acupuncture, which helped. Did a little physical therapy, which she is not sure helped much. Hyaluronic acid, which helped some for a short time, and then she had a large effusion drained at [facility] and cortisone injection, which seemed to [...] she thinks also might be helping. Her Leonore knee score today is 28. PAST MEDICAL [...] her arms in 2007 and 2011 at [facility] and a lipoma removal from her left breast and 2000 at [facility]. SOCIAL HISTORY: She works as [...] leg documented in this encounter Care Teams Scrap Dealer Relationship Specialty Start Date End Date Christian-Marla Nazario MD PCP - General 03/04/13 [address] [place] [address] documented as of this encounter
--- OUTSIDE RECORDS SUMMARY | 2022-04-12 00:12 | XMS_ITS | Encounter Summary ---
:1950 Author Organization [facility] Address [address] [place] [address] Care Team Providers Name Role Phone Unknown, Provider Primary Care Provider Encounter Details Date Type Department Care Team Description 03/28/2006 Results Only [facility] - Tiffanie Escamilla, Maria baez, conversion SILVICULTURE PROFESSOR [address] [place] [address] [place] [address] [phone] (Wo rk) Social History Tobacco Use Types [...] ? DAVID DESIR ? Accession #: ? [id number] : ? 1950 (Age: 55) ??F ?Collect Date: ? 03/01 Location: ? [facility] ? Receive Date : ? 04/01/2006 Provider: ?ALBA CARY Copy to: ? Specimen/Source: ? ThinPrep Pap Test, Vagina/Cervix/Endocervix, processed on [employer] ThinPrep Imaging System, with manual evaluati on [...] Organization Address City/State/ZIP Code Phon e Number [facility] [address] [place] [address] SERVICES [facility] [address] [place] [address] documented in this encounter Visit Diagnoses Not on filedocumented in this encounter Care Teams Shoes Hand Sewer Relationship Specialty Start Date End Date Unknown, Provider, PCP - General 01/29/10 03/03/13 documented as of this encounter
--- OUTSIDE RECORDS SUMMARY | 2022-04-12 00:12 | XMS_ITS | Encounter Summary ---
:1950 Author Organization [facility] Address [address] [place] [address] Care Team Providers Name Role Phone Marla Moralez MD Primary Care Provider Reason for Referral Radiology Services (Routine) - Closed Specialty Diagnoses / Procedures Referred By Contact Refer red To Contact Diagnoses Knee pain Aiden Rivera, Procedures KNEE 1 OR 2 VIEWS [address] [place] [address] Referral ID Status Reason Start Date Expiration Date Visits Requ ested Visits Authorized [id number] Closed 11/25/2013 1 1 adiology Services (Routine) - Closed Specialty Diagnoses / Procedures Referred By Contact Refer red To Contact Diagnoses Knee pain Aiden Rivera, Procedures KNEE 1 OR 2 VIEWS [address] [place] [address] Referral ID Status Reason Start Date Expiration Date Visits Requ ested Visits Authorized [id number] Closed 11/25/2013 1 1 Encounter Details Date Type Department Care Team Description 11/25/2013 Orders Only [facility] Aiden Rivera Knee pain (Primary Total Joint Program - MD Abdullahi Dx) [place] [address] [address] [phone] Social History Tobacco Use Types Packs/Day Years [...] Anatomical Region Laterality Modality Other Specimen Narrative [facility] - 10/30 12:02 EDT KNEE 1 OR 2 VIEWS, KNEE 1 OR 2 VIEWS ??11/25/2013 2:38 PM Signs and Symptoms/Comments: ?? 719.46-Pain in joint, lower zum-XCZ-8-CM ; right knee pain. Right Knee Findings: [...] Signs and Symptoms/Comments: 719.46-Pain in joint, lower bvx-RHZ-6-CM ; right knee pain. Right Knee Findings: There is mild medial and lateral tibiofe moral joint space narrowing. Very mild degenerative changes are prese nt in the patellofemoral compartment. Left Knee Findings: There are mild osteoarthritic changes in the medial tibiofemoral compartment. Minimal degenerative change s are present in the patellofemoral compartment. Performing Organization Address City/State/ZIP Code Phon e Number [facility] KNEE 1 OR 2 VIEWS (11/25/2013 14:38 EDT) Anatomical Region Laterality Modality Other Specimen Narrative [facility] - 10/30 12:02 EDT KNEE 1 OR 2 VIEWS, KNEE 1 OR 2 VIEWS ??11/25/2013 2:38 PM Signs and Symptoms/Comments: ?? 719.46-Pain in joint, lower mmd-NOH-4-CM ; right knee pain. Right Knee Findings: [...] Signs and Symptoms/Comments: 719.46-Pain in joint, lower bsr-FIS-9-CM ; right knee pain. Right Knee Findings: There is mild medial and lateral tibiofe moral joint space narrowing. Very mild degenerative changes are prese nt in the patellofemoral compartment. Left Knee Findings: There are mild osteoarthritic changes in the medial tibiofemoral compartment. Minimal degenerative change s are present in the patellofemoral compartment. Performing Organization Address City/State/ZIP Code Phon e Number [facility] [place] [facility] documented in this encounter Visit Diagnoses Diagnosis Knee pain - Primary Pain in joint, lower leg documented in this encounter Care Teams Drilling Plant Operator Relationship Specialty Start Date End Date Christian-Marla Nazario MD PCP - General 03/04/13 [address] [facility],[address] [place] [address] documented as of this encounter
--- OUTSIDE RECORDS SUMMARY | 2022-04-12 00:12 | XMS_ITS | Encounter Summary ---
:1950 Author Organization [facility] Address [address] [place] [address] Care Team Providers Name Role Phone Unknown, Provider Primary Care Provider Encounter Details Date Type Department Care Team Description 02/26/2010 Results Only [facility] Silvina Escamilla, Laboratory Services - [facility] 8 [facility] [address] [place], [place] [address] [place] [id number] [phone] Social History Tobacco Use Types Packs/Day Years [...] ? DAVID DESIR ? Accession #: ? [id number] ? : ? 1950 (Age: 59) ??F [...] e Number [facility] [address] [place] [address] SERVICES [facility] [address] [place] [address] documented in this encounter Visit Diagnoses Not on filedocumented in this encounter Care Teams Try On Baster Relationship Specialty Start Date End Date Unknown, Provider, PCP - General 01/29/10 03/03/13 documented as of this encounter
--- OUTSIDE RECORDS SUMMARY | 2022-04-12 00:12 | XMS_ITS | Encounter Summary ---
:1950 Author Organization [facility] Address [address] [place] [address] Care Team Providers Name Role Phone Marla Moralez MD Primary Care Provider Encounter Details Date Type Department Care Team Description 08/20/2017 Orders Only [facility] Krystal Giron ht knee pain, Total Joint Program - L, PA-C unspecified [address] [place] chronicity (Primary [address] Dx) So [facility], [facility] [address] [address], [place] [id number] (Wo rk) Social History Tobacco Use Types Packs/Day Years Used Date Never Assessed Sex Assigned at Date Recorded Not on file documented as of this encounter Plan of Treatment Not on filedocumented as of this encounter Visit Diagnoses Diagnosis Right knee pain, unspecified chronicity - Primary documented in this encounter Care Teams Sports Team Marketing Intern Relationship Specialty Start Date End Date Marla Moralez MD PCP - General 03/04/[address] [place] [address] documented as of this encounter
--- OUTSIDE RECORDS SUMMARY | 2022-04-12 00:12 | XMS_ITS | Encounter Summary ---
:1950 Author Organization [facility] Address [address] [place] [address] Care Team Providers Name Role Phone Christian-Marla Nazario MD Primary Care Provider Reason for Referral Radiology Services (Routine) - Closed Specialty Diagnoses / Procedures Referred By Contact Refer red To Contact Diagnoses Chronic pain of both knees Aiden Rivera, Procedures KNEES 3 VIEWS [facility] [place] [address] Referral ID Status Reason Start Date Expiration Date Visits Requ ested Visits Authorized [id number] Closed 09/11/2016 1 1 Encounter Details Date Type Department Care Team Description 09/10/2016 Orders Only [facility] Aiden Rivera Chron ic pain of both Total Joint Program - MD Abdullahi knees (Primary Dx) [place] [address] [place] [address] [address] [phone] Social History Tobacco Use Types Packs/Day Years [...] Anatomical Region Laterality Modality Other Specimen Narrative [facility] ADDIE MOSS - 09/12/2016 18:07 [...] Address City/State/ZIP Code Phon e Number [facility] [place] documented in this encounter Visit Diagnoses Diagnosis Chronic pain of both knees - Primary documented in this encounter Care Teams Promotional Marketing Agent Relationship Specialty Start Date End Date Christian-Marla Nazario MD PCP - General 03/04/[address] [place] [address],[address] [place] [address] documented as of this encounter
--- OUTSIDE RECORDS SUMMARY | 2022-04-12 00:12 | XMS_ITS | Encounter Summary ---
:1950 Author Organization [facility] Address [address] [place] [address] Care Team Providers Name Role Phone Unavailable Primary Care Provider Unavailable Encounter Details Date Type Department Care Team Description 02/15/2009 Orders Only [facility] Robles Escamilla ARNP Laboratory Services - [place] [address] [place] [address] 0 [facility] [place] [address] [phone] Social History Tobacco Use Types Packs/Day Years Used Date Never Assessed Sex Assigned at Date Recorded Not on file documented as of this encounter Plan of Treatment Not on filedocumented as of this encounter Procedures Procedure Name Priority Date/Time Associated Diagnosis Comme [facility] CYTOPATHOLOGY Routine 02/15/2009 0:00 EDT Results [...] ? DAVID DESIR ? Accession #: ? [id number] ? : ? 1950 (Age: 58) ??F ?Collect Date: ? 02/15/2009 ? Location: ? [facility] ? Receive Date: ? 02/17/2009 ? Provider: ?ALBA WOLFE SOUBRETTE ? Copy to: ? Specimen/Source: ? Pap [...] Organization Address City/State/ZIP Code Phon e Number [facility] [address] [place] [address] SERVICES [facility] [address] [place] [phone] documented in this encounter Visit Diagnoses Not on filedocumented in this encounter
--- OUTSIDE RECORDS SUMMARY | 2022-04-12 00:12 | XMS_ITS | Encounter Summary ---
:1950 Author Organization [facility] Address [address] [place] [address] Care Team Providers Name Role Phone Unknown, Provider Primary Care Provider Encounter Details Date Type Department Care Team Description 03/01/2013 Results Only [facility] Tobi Edmondson MD Laboratory Services - [address] [place] [address] [address] [facility] [place] [address] [phone] Social History Tobacco Use Types Packs/Day Years Used Date Never Assessed Sex Assigned at Date Recorded Not on file documented as of this encounter Plan of Treatment Not on filedocumented as of this encounter Procedures Procedure Name Priority Date/Time Associated Diagnosis Comme [facility] SURGICAL PATHOLOGY Routine 03/02/2013 8:22 EDT [...] ? DAVID DESIR ? Accession #: ? [id number] ? : ? 1950 (Age: 62) ??F [...] Organization Address City/State/ZIP Code Phon e Number [facility] [address] [place] [address] SERVICES [facility] [address] [place] [address] documented in this encounter Visit Diagnoses Not on filedocumented in this encounter Care Teams Client Service Supervisor Relationship Specialty Start Date End Date Unknown, Provider, PCP - General 01/29/10 03/03/13 documented as of this encounter
--- OUTSIDE RECORDS SUMMARY | 2022-04-12 00:12 | XMS_ITS | Encounter Summary ---
:1950 Author Organization [facility] Address [address] [place] [address] Care Team Providers Name Role Phone Unknown, Provider Primary Care Provider Encounter Details Date Type Department Care Team Description 03/06/2012 Results Only [facility] Alba Cross, Laboratory Services - [id number] [place] [phone] Social History Tobacco Use Types Packs/Day Years [...] ? DAVID DESIR ? Accession #: ? [id number] : ? 1950 (Age: 61) ??F ?Collect Date: ? 12/2011 Location: ? [facility] ? Receive Date : ? 03/10/2012 Provider: ?ALBA CROSS ACCESSIONER Copy to: ? Specimen/Source: ? Pap Test, [...] Address City/State/ZIP Code Phon e Number [facility] [address] [place] [address] SERVICES [facility] [address] [place] [address] documented in this encounter Visit Diagnoses Not on filedocumented in this encounter Care Teams Scientologist Relationship Specialty Start Date End Date Unknown, Provider, PCP - General 01/29/10 03/03/13 documented as of this encounter
--- OUTSIDE RECORDS SUMMARY | 2022-04-12 00:12 | XMS_ITS | Encounter Summary ---
:1950 Author Organization [facility] Address [address] [place] [address] Care Team Providers Name Role Phone Unknown, Provider Primary Care Provider Encounter Details Date Type Department Care Team Description 01/22/2013 Results Only [facility] Alfonzo Moralez MD Laboratory Services - [address] [place] [id number] [address] [facility] [place] [address] [phone] Social History Tobacco Use Types Packs/Day Years [...] ? DAVID DESIR ? Accession #: ? [id number] ? : ? 1950 (Age: 62) ??F [...] types 16,18,31,3 3,35, 39,45,51,52,56,58,59,66, and 68 by publicist media cynthia amplification. Comments Document reviewed and electronically signed by: ? System Interface ? Report date: 02/04/2013 By the signature above, the attending physician certif ies that he/she has personally conducted a gross and/or microscopic examin ation of the described specimens and rendered or confirmed the above diagnosi s. End of Report Specimen Performing Organization Address City/State/ZIP Code Phon e Number [facility] [address] [place] [address] SERVICES [facility] [address] [place] [address] documented in this encounter Visit Diagnoses Not on filedocumented in this encounter Care Teams Parts Lister Relationship Specialty Start Date End Date Unknown, Provider, PCP - General 01/29/10 03/03/13 documented as of this encounter
--- OUTSIDE RECORDS SUMMARY | 2022-04-12 00:12 | XMS_ITS | Encounter Summary ---
:1950 Author Organization [facility] Address [address] [place] [address] Care Team Providers Name Role Phone Christian-Marla Nazario MD Primary Care Provider Reason for Visit Reason Comments Follow-up Bilateral knee pain Consult, Test and Treat (Routine) - Closed Specialty Diagnoses / Procedures Referred By Contact Refer red To Contact Orthopedic Surgery Diagnoses Langston's cyst of knee, right Stanley, Nicole Eckert Nathaniel TRAIN CREW MEMBER MD Abdullahi [address] [place] [phone] Fax: Referral ID Status Reason Start Date Expiration Date Visits Requ ested Visits Authorized [id number] Closed 1 1 Encounter Details Date Type Department Care Team Description 09/12/[address] [facility] Aiden Rivera Chron ic pain of right Total Joint Program - MD Abdullahi knee (Primary Dx) [address], [facility] [phone] Social History Tobacco Use Types Packs/Day Years [...] history was reviewed with the patient in [facility] and has not changed since her previous appointment here in 2013. She has a history of anxiety and depression and some headaches. 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 She does have some fatigue and numbness. She has had bilateral tendon releases in de [place]'s in the 1980s and a lipoma removed in 2007 and 2011 at [facility]. SOCIAL HISTORY: She works as [...] daily. added in this encounter Care Teams Tight Cooper Relationship Specialty Start Date End Date Christian-Marla Nazario MD PCP - General 03/04/13 [address] [place] [address] documented as of this encounter
--- OUTSIDE RECORDS SUMMARY | 2022-04-12 00:12 | XMS_ITS | Encounter Summary ---
:[address] [facility] Address [address] [place] [address] Care Team Providers Name Role Phone Unknown, Provider Primary Care Provider Encounter Details Date Type Department Care Team Description 01/25/2010 Results Only [facility] Mitchel Quinones , Laboratory Services - [address] [place] [address] [place] [address] [place], [place] [address] [phone] Social History Tobacco Use Types Packs/Day Years [...] ? [facility] Reports generated via electr [employer] interface contain original data; ? LAB however they are lacking the format of the original report. ? Caution should be taken when reading/interpreting unformatted reports. ? Name: ? THANG, DAVID J ? Accession #: ? [id number] ? : ? 1950 (Age: 59) ??F [...] is ?? inked, serially sectioned, a nd sales solutions representative sections are submitted as (B). ? (Ct Pearce/wilder ? End of Report ? Specimen Performing Organization Address City/State/ZIP Code Phon e Number [facility] [address] [place] [address] SERVICES [facility] [address] [place] [address] documented in this encounter Visit Diagnoses Not on filedocumented in this encounter Care Teams Rivet Hammer Machine Operator Relationship Specialty Start Date End Date Unknown, Provider, PCP - General 01/29/10 03/03/13 documented as of this encounter
--- OUTSIDE RECORDS SUMMARY | 2022-04-12 00:12 | XMS_ITS | Clinical Summary ---
:1950 Author Organization [facility] Address [address] [place] [address] Care Team Providers Name Role Phone Marla Moralez MD Primary Care Provider Medications Medication Sig Dispensed Refills Start Date End Date Status estradiol (VAGIFEM) 10 Place 10 mcg 0 Active mcg vaginal tablet vaginally daily. Multivitamins with Take 1 Tab by 0 Active Minerals tablet tablet mouth daily. turmeric-turmeric root Take by mouth. 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
--- NOTE | 2022-04-12 12:45 | DI.MAMMO_ITS ---
Exam(s) MAMMO SCREENING EXAM: MAMMO SCREENING CLINICAL HISTORY: SCREENING, Z12.31, FAMILY H/O BREAST CA, Z80.3 TECHNIQUE: Bilateral full field digital CC and MLO mammographic images were obtained with 3D tomosyn thesis and utilizing computer aided detection (CAD). COMPARISON: Available for comparison. FINDINGS: Masses/Architectural Distortion: There is a new ovoid density in the central left breast on the crani ocaudad view. It measures 6 mm. Microcalcifications: No suspicious pleomorphic-type are seen. Skin Thickening/Nipple Retraction: None. IMPRESSION: 1. New nodule in the central left breast on the CC view. 2. Additional views of the left breast are requested for further evaluation. Ultrasound may be indic ated at that time. BI-RADS Category 0 - Assessment Incomplete: Need additional imaging evaluation Breast Density - Category C - Heterogeneously dense Breast density category C or D implies that the patient has dense breast tissue. Dense breast tissue is very common and is not abnormal but dense breast tissue can make it harder to find cancer on a ma mmogram. Also, dense breast tissue may increase their breast cancer risk. This information about the result of the mammogram report was provided to the patient to raise their awareness. Use this report when you speak with the patient about their risks for breast cancer, which includes their family hist ory. At that time, you may recommend for more screening tests (Ultrasound or MRI) as they might be us eful based on their risk. A negative radiographic report should not delay biopsy if a dominant or clinically suspicious mass is present. Up to ten percent of cancers are not identified on mammography. A negative report may reinforce clinical impression. Adenosis and dense breasts may obscure an underlying neoplasm. False positive reports average 6 to 10%. Patient will receive a letter notifying them of these results.
== END ==
PROVIDERS: PCP Physician Assistant; Visit Provider Nurse Practitioner Women's Health
DX: Z12.31 Encounter for screening mammogram for malignant neoplasm of breast (principal); R92.8 Other abnormal and inconclusive findings on diagnostic imaging of breast
CPT/HCPCS: 77063; 77067

== ENCOUNTER 2022-04-19 00:49 | Outpatient (CLI) | payer MEDICARE, SELFPAY ==
--- NOTE | 2022-04-19 | DI.US_ITS ---
Exam(s) MG MAMMO SCREEN CALL BACK UNI US BREAST LT COMPLETE EXAM: MAMMO SCREEN CALL BACK UNI CLINICAL HISTORY: F/U ABNL MAMMO, NEW NODULE CENTRAL LT BREAST. TECHNIQUE: Unilateral spot mammographic images obtained with 3D tomosynthesisand utilizing computer aided detection (CAD). . Complete left breast Ultrasound was also performed, including all 4 quadrants, the retroareolar regio n, and the ipsilateral axilla. During today's study a cutaneous Beakley spot was placed over finding at the 6 o'clock position of the left breast and thereafter the left breast was remammogramed 4 prudencio elated of purposes. COMPARISON: Prior mammograms were reviewed. This additional imaging was performed due to findings described on the recent screening mammogram of 04/12/2022. FINDINGS: DIAGNOSTIC MAMMOGRAM: Additional mammographic views performed todaydoes not dissipate the nodule described on the recent sc reening mammogram. We proceeded with ultrasound. COMPLETE left BREAST ULTRASOUND: Ultrasound performed today reveals a few benign intramammary lipomas, the largest being at 8 o'clock position measuring 12 x 4 millimeters.. However, at the 6 o'clock position there is a concerning darin ler than wider [place] tree shaped solid nodule which exhibits decreased through transmission, this measuring approximately 7 by 5 millimeters. No other significant focal findings in the left breast. Scanning of the ipsilateral axilla reveals no significant adenopathy. At this point a cutaneous Beakley marker was placed over this area using ultrasound guidance and the patient was brought to the mammography suite for CC and MLO views. This does not reveal exact correl ation between the finding on the mammogram and ultrasound. IMPRESSION: as above. Ultrasound-guided core biopsy of the finding at the 6 o'clock position of the left breast is recommended. A biopsy marker should be placed during that procedure and there were after mammogr am performed 2 determine proximity of the biopsy marker to the original finding on the mammogram of perla cross 04/12/2022. Findings are recommendations were discussed by myself with the patient today. Findings are recommendations were also called by myself to the referring provider's nurse today. BI-RADS Category 4 - Suspicious Abnormality: Biopsy should be considered Breast Density - Category C - Heterogeneously dense Breast density Category C or D implies that the patient has dense breast tissue. Dense breast tissue can make it harder to find cancer on a mammogram. Dense breast tissue is also associated with an incr eased risk of breast cancer. This information about the result of the mammogram report was provided to the patient to raise their awareness. Use this report when you speak with the patient about their risks for breast cancer, which includes their family history. At that time, you may recommend additional screening tests (Ultrasoun d or MRI) as these tests may add significant information. A negative radiographic report should not delay biopsy if a dominant or clinically suspicious mass is present. Up to ten percent of cancers are not identified on mammography. A negative report may reinforce clinical impression. Adenosis and dense breasts may obscure an underlying neoplasm. False positive reports average 6 to 10%. Patient will receive a letter notifying them of these results.
--- OUTSIDE RECORDS SUMMARY | 2022-04-19 00:51 | XMS_ITS | Encounter Summary ---
:1950 Author Organization [facility] [place] [address] Care Team Providers Name Role Phone Marla Moralez MD Primary Care Provider Reason for Visit Reason Comments Strabismus Orthoptic evaluation Encounter Details Date Type Department Care Team Description 11/26/2012 Office Visit Ophthalmology at [facility] Domingo Ornelasopia (Primary Dx) [facility] [place] [address] Social History Tobacco Use Types Packs/Day [...] documented in this encounter Results SENSORIMOTOR EXAM [MT SPECIAL EYE EXAM] - OU- BOTH EYES [...] Primary documented in this encounter Care Teams Lens Silverer Relationship Specialty Start Date End Date Christian-Marla Nazario MD PCP - General 12/31/11 79 [facility] 3 [place] [address] documented as of this encounter
--- OUTSIDE RECORDS SUMMARY | 2022-04-19 00:51 | XMS_ITS | Encounter Summary ---
:1950 Author Organization [place] [address] Care Team Providers Name Role Phone Marla Moralez MD Primary Care Provider Encounter Details Date Type Department Care Team Description 06/03/2012 Follow-Up Occupational Therapy at Tomy Mauricio OT [facility] [address] PHYSICAL MEDICINE & [place] [address] Concussion (Primary [facility] [place] Marla Moralez MD [address] [facility] 3 [place] [address] Dx) [place] [address] Social History Tobacco Use Types Packs/Day [...] dr. Marla Gonzales for recheck and [facility] and treatment. Olivia Azevedo [...] memory as well as her spatial/visuomotor skills. [employer] Senior Officer Goals (to be met by discharge): Date [...] 5 items in a search through [facility] [place] without [...] 12 week(s) to progress toward short and custodial goals. for Visuomotor organization, Visuoperceptual skills, Visual [...] unspecified documented in this encounter Care Teams Supply Chain Specialist Relationship Specialty Start Date End Date Christian-Marla Nazario MD PCP - General 12/31/[address] [address] documented as of this encounter
--- OUTSIDE RECORDS SUMMARY | 2022-04-19 00:51 | XMS_ITS | Encounter Summary ---
:1950 Author Organization [place] [address] Care Team Providers Name Role Phone Marla Moralez MD Primary Care Provider Reason for Visit Reason Onset Date Comments Knee Pain 10/11/2013 Encounter Details Date Type Department Care Team Description 10/11/2013 Telephone Orthopaedics at [facility] Ferdinand Larkin MD Knee Pain [facility] [place] [address] ORTHOPAEDIC SURGERY [phone] [place] [address] (Wo rk) Social History Tobacco Use Types [...] on filedocumented in this encounter Care Teams Bonderizer Operator Relationship Specialty Start Date End Date Christian-Marla Nazario MD PCP - General 12/31/[address] [place] [address] documented as of this encounter
--- OUTSIDE RECORDS SUMMARY | 2022-04-19 00:51 | XMS_ITS | Encounter Summary ---
:1950 Author Organization [facility] [place] [address] Care Team Providers Name Role Phone Marla Moralez MD Primary Care Provider Encounter Details Date Type Department Care Team Description 05/07/2012 Follow-Up Occupational Therapy at Tomy Mauricio OT [facility] [address] PHYSICAL MEDICINE & [place] [address] Concussion (Primary [facility] Marla Moralez MD [address] [facility] 3 [place] [address] Dx) [place] [address] Social History Tobacco Use Types Packs/Day [...] Marla Gonzales for recheck and [facility] treatment. Olivia Azevedo presents alone VISION: Pupillary function no deficits noted with pen light testing Acuity intermediate distance: tested at 1 M Right eye Tiffanie 20/25 Left eye Tiffanie 20/20 Both eyes Tiffanie 20/20 Reading Acuity: distance 16 inches Eyes together Mclean 20/25 Right eye 20/40 Left eye 20/25 [...] seconds Error type: missed one Structured Complex ruby search Number of accurate responses: (30 targets) [...] mock shopping trip will also be ideal. Mcc Goals (to be met by discharge): Date [...] find 5 items in a search through [facility] [place] cueing. Goal Status: Olivia Azevedo will increase her score on the LOTCA by 5 points to promote her ability to perform her job at an 8/10 level Goal Status: PLAN: The patient is to be seen 1 time(s) per week, for 12 week(s) to progress toward short and skilled nursing goals. for Visuomotor organization, Visuoperceptual skills, Visual [...] unspecified documented in this encounter Care Teams Observation Nurse Relationship Specialty Start Date End Date Christian-Marla Nazario MD PCP - General 12/31/11 [address] [facility] 3 [place] [address] documented as of this encounter
--- OUTSIDE RECORDS SUMMARY | 2022-04-19 00:51 | XMS_ITS | Encounter Summary ---
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
--- OUTSIDE RECORDS SUMMARY | 2022-04-19 00:51 | XMS_ITS | Encounter Summary ---
:1950 Author Organization [facility] [place] [address] Care Team Providers Name Role Phone Marla Moralez MD Primary Care Provider Encounter Details Date Type Department Care Team Description 05/13/2012 Follow-Up Occupational Therapy at Tomy Mauricio, Concussion (Primary [facility] [place] Dx) [place] [address] PHYSICAL MEDICINE & [phone] [place] [address] Social History Tobacco Use Types Packs/Day Years [...] This entailed a trip walking to the [facility], and the pharmacy. She remembered 4-5 items [...] directions which she asked for of a event security officer to get to the pharmacy [...] potential considering her insight to deficit areas. Mcc Goals (to be met by discharge): [...] [facility] [place] without cueing. Goal Status: Olivia Azevedo will [...] unspecified documented in this encounter Care Teams Boom Cat Operator Relationship Specialty Start Date End Date Christian-Marla Nazario MD PCP - General 12/31/11 [address] [facility] 3 [place] [address] documented as of this encounter
--- OUTSIDE RECORDS SUMMARY | 2022-04-19 00:51 | XMS_ITS | Encounter Summary ---
:1950 Author Organization [facility] [place] [address] Care Team Providers Name Role Phone Marla Moralez MD Primary Care Provider Encounter Details Date Type Department Care Team Description 06/17/2012 Follow-Up Physical Therapy at Mounika Mendoza Un steady gait (Primary Dx); [facility] [place], AUTOCAD DETAILER Concussion; [facility] [id number] PHYSICAL MEDICINE & [phone] [place] [address] Social History Tobacco Use Types Packs/Day Years [...] shopping in large stores. O: Neuromuscular Re-Education (54650) 35 minutes and Manual Therapy (87085) 10 minutes Active Step: walking at 1.5 [...] Headache documented in this encounter Care Teams Field Artillery Basic Relationship Specialty Start Date End Date Christian-Marla Nazario MD PCP - General 12/31/11 79 [facility] 3 [place] [address] documented as of this encounter
--- OUTSIDE RECORDS SUMMARY | 2022-04-19 00:51 | XMS_ITS | Encounter Summary ---
:1950 Author Organization [facility] [place] [address] Care Team Providers Name Role Phone Marla Morlaez MD Primary Care Provider Encounter Details Date Type Department Care Team Description 03/11/2013 Office Visit Physical Therapy at Uvaldo Aragon PT [facility] [address] PHYSICAL MEDICINE & [place] [address] Myofacial muscle pain; [facility] [place] Marla Moralez MD [address] [place] [address] Head[place] [address] Social History Tobacco Use Types Packs/Day Years [...] dancing due to dizziness. Unable to work. 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 Functional Limitations: unable to bend over OGLESBY [...] soft tissue component. She may benefit from AUDIT INTERN to improve the flexibility of the ms at the base of the skull and into the head. Physical therapy is indicated to: increase flexibility Goals: Short term goals (4 weeks) 1. Patient to be indep with home exercise program. 2. Pt to report less frequency of headache to 4 x week 3. Pt to have 0/10 pain at times. Goals: intermediate card tender goals (12 weeks) 1. Pt to be [...] Headache documented in this encounter Care Teams Oral Surgery Assistant Relationship Specialty Start Date End Date Christian-Marla Nazario MD PCP - General 12/31/11 79 [place] [id number] documented as of this encounter
--- OUTSIDE RECORDS SUMMARY | 2022-04-19 00:51 | XMS_ITS | Encounter Summary ---
:1950 Author Organization [facility] [place] [address] Care Team Providers Name Role Phone Marla Moralez MD Primary Care Provider Encounter Details Date Type Department Care Team Description 06/29/2013 Orders Only Orthopaedics at [facility] Ferdinand Larkin MD [facility] [place] [address] ORTHOPAEDIC SURGERY [phone] [place], [place] [address] (Wo rk) Social History Tobacco Use Types Packs/Day Years Used Date Former Smoker Sex Assigned at Date Recorded Not on file documented as of this encounter Plan of Treatment Pending Results Name Type Priority Associated Diagnoses Date/Ti ne Film Library- Storage Imaging Routine 2012 10:30 PM EST only MR Knee documented as of this encounter Visit Diagnoses Not on filedocumented in this encounter Care Teams Insurance Policy Issue Clerk Relationship Specialty Start Date End Date Marla Moralez MD PCP - General 12/31/11 [address] [facility] 3 [place] [address] documented as of this encounter
--- OUTSIDE RECORDS SUMMARY | 2022-04-19 00:51 | XMS_ITS | Encounter Summary ---
:1950 Author Organization [facility] [place] [address] Care Team Providers Name Role Phone Marla Moralez MD Primary Care Provider Reason for Visit Reason Comments Skin Check Encounter Details Date Type Department Care Team Description 08/15/2016 Office Visit Dermatology at [facility] Lonny Rodrigues MD Nevus; [address] [place] [address] [facility] [facility] [facility] [address] Herpes [place] [address] [place], [place] [id number] (Wo rk) Social History Tobacco Use Types [...] cation documented in this encounter Care Teams Shag Truck Driver Relationship Specialty Start Date End Date Christian-Marla Nazario MD PCP - General 12/31/11 79 [place] [id number] documented as of this encounter
--- OUTSIDE RECORDS SUMMARY | 2022-04-19 00:51 | XMS_ITS | Encounter Summary ---
:1950 Author Organization [facility] [place] [address] Care Team Providers Name Role Phone Marla Moralez MD Primary Care Provider Reason for Visit Reason Comments Skin Check Encounter Details Date Type Department Care Team Description 06/08/2015 Office Visit Dermatology at [facility] Lonny De La Paz MD Solar lentigo; [address] [place] [address] [place] [address] [place], [place] [phone] (Wo rk) Social History Tobacco Use Types [...] from the original note were not included. [facility] Moles: After Your Visit Your Care [...] color and feel of the skin. ?? personal lines account manager front of a full-length mirror. Look carefully [...] more? Visit our health information library at [email or web address] You can also view health information on Tractive, your personal patient account. Log in or sign up today. Enter [id number] in the search box to learn more about Moles: After Your Visit. ?? [phone] [employer]. Care instructions adapted under license by [facility]. This care instruction is for use with your licensed healthcare professional. If you have questionsabout a medical condition or this instruction, always ask your healthcare professional. [employer] disclaims any warranty or liability for your use of this information. Content Version: 10.4.793361; Current as of: September 08, 2013 documented [...] d documented in this encounter Care Teams Time Signal Wirer Relationship Specialty Start Date End Date Marla Moralez MD PCP - General 12/31/[address] [address] documented as of this encounter
--- OUTSIDE RECORDS SUMMARY | 2022-04-19 00:51 | XMS_ITS | Encounter Summary ---
:1950 Author Organization [facility] [place] [address] Care Team Providers Name Role Phone Marla Moralez MD Primary Care Provider Encounter Details Date Type Department Care Team Description 11/23/2021 Office Visit Dermatology at [facility] Vika Morales, History of SCC (squamous cell carcinoma) of skin; Juan STOREY Seborrheic keratoses, inflamed; [address] [facility] Seborrheic keratoses; [place] [address] [address] Lentigines; [phone] DERMATOLOGY Multiple nevi; [place], [place] [address] Polo angioma; [phone] Skin cancer scr eening (Work) Social History [...] FSE, sooner if needed []Note routed to placement secretary [x]Recall placed in scheduling system []Appointment scheduled at checkout Scribe attestation: BRAULIO Mabry has performed the documentation for this encounter in the presence of and acting as a scribe for Vika Morales MD. I performed the above scribed service and agree with the accuracy of the documentation in this encounter. Reviewed and signed by: Vika Morales MD Dermatology [facility] documented in this encounter Plan of Treatment [...] skin documented in this encounter Care Teams Steam Press Operator Relationship Specialty Start Date End Date Christian-Marla Nazario MD PCP - General 12/31/[address] [address] documented as of this encounter
--- OUTSIDE RECORDS SUMMARY | 2022-04-19 00:51 | XMS_ITS | Encounter Summary ---
:1950 Author Organization [facility] [place] [address] Care Team Providers Name Role Phone Marla Moralez MD Primary Care Provider Reason for Visit Reason Comments Skin Check Encounter Details Date Type Department Care Team Description 10/14/2018 [facility]istent reaction to insect bite; [facility] Multiple benign nevi; [address] Lentigines; [place] [address] [facility] (seborrheic keratosis); [phone] RD-DERMATOLOGY Polo angioma [place], [place] [address] Social History Tobacco Use Types [...] Cis free text allergy; Codeine phosphate; Oxycodone hns-buzeyhroq-dgw; Oxycodone-acetaminophen;Aspirin; Erythromycin base; Ibuprofen; Penicillins; and Unable to find [unclassified drug] MEDS: Current Outpatient Medications on File Prior to Visit Medication Sig Dispense Refill ??? hnzdoprh-uovmbuius-vglapqrdkfyzi (DEXACINE) 3.5 mg/g-10,000 unit/g-0.1 % Ointment APPLY 1 APPLICATION IN THE LEFT EYE THREE TIMES A DAY FOR 10 DAYS 2 ? ? GLUCOSAM SUL NA/CHONDR MARISCAL A NA (GLUCOSAMINE & CHONDROIT SUL.NA ORAL) Take 4 tablets by mouthdaily. ??? lidocaine (LIDODERM) 5 %(700 mg/patch) Place 1 patch onto the skin every 24 hours. ??? ASHW RT-MAG QSX-OGGK-UBOEY-MILADYS ORAL Take 2 tablets by mouth 2 [...] encounter. Tamiko Dickerson MD Section of Dermatology [facility] documented in this encounter Plan of Treatment Not on filedocumented as of this encounter Visit Diagnoses Diagnosis Persistent reaction to insect bite Multiple benign nevi Benign neoplasm of skin, site unspecifie d Lentigines Other dyschromia SK (seborrheic keratosis) Other seborrheic keratosis Polo angioma Nevus, non-neoplastic documented in this encounter Care Teams Bulk Sealer Operator Relationship Specialty Start Date End Date Christian-Marla Nazario MD PCP - General 12/31/[address] [address] documented as of this encounter
--- OUTSIDE RECORDS SUMMARY | 2022-04-19 00:51 | XMS_ITS | Encounter Summary ---
:1950 Author Organization [facility] [address] Care Team Providers Name Role Phone Marla Moralez MD Primary Care Provider Encounter Details Date Type Department Care Team Description 08/26/2013 Orders Only Orth[facility]edics at [facility] Ferdinand Larkin [place] [address] DR [phone] ORTHOPAEDIC SURG [place], [place] [address] (Wo rk) Social History Tobacco Use Types Packs/Day Years Used Date Former Smoker Sex Assigned at Date Recorded Not on file documented as of this encounter Plan of Treatment Not on filedocumented as of this encounter Visit Diagnoses Diagnosis Right knee pain Pain in joint, lower leg documented in this encounter Care Teams Personnel Research Psychologist Relationship Specialty Start Date End Date Marla Moralez MD PCP - General 12/31/[address] [place] [address] 3 [place] [address] documented as of this encounter
--- OUTSIDE RECORDS SUMMARY | 2022-04-19 00:51 | XMS_ITS | Encounter Summary ---
:1950 Author Organization [facility] [place] [address] Care Team Providers Name Role Phone Marla Moralez MD Primary Care Provider Encounter Details Date Type Department Care Team Description 05/20/2012 Follow-Up Occupational Therapy at Tomy Mauricio, Concussion (Primary [facility] OT Dx) [facility] [place] [address] PHYSICAL MEDICINE & [phone] [place] [address] Social History Tobacco Use Types Packs/Day Years [...] considering h er insight to deficit areas. Fpc Goals (to be met by discharge): Date [...] find 5 items in a search through [facility] without cueing. Goal Status: Not fully met. [...] 12 week(s) to progress toward short and penitentiary goals. for Visuomotor organization, Visuoperceptual skills, Visual [...] unspecified documented in this encounter Care Teams Ring Cutter Lathe Operator Relationship Specialty Start Date End Date Christian-Marla Naazrio MD PCP - General 12/31/[address] [place] [address] documented as of this encounter
--- OUTSIDE RECORDS SUMMARY | 2022-04-19 00:51 | XMS_ITS | Encounter Summary ---
:1950 Author Organization [facility] [address] Care Team Providers Name Role Phone Marla Moralez MD Primary Care Provider Reason for Visit Reason Comments Procedure Encounter Details Date Type Department Care Team Description 08/01/2015 Procedure visit Dermatology at [facility] Lonny Rodrigues MD Nev [address] [place] [address] [facility] [place] [place] [address] [place], [place] [address] (Wo rk) Social History Tobacco Use Types [...] d documented in this encounter Care Teams Programmer Operator Numerical Control Relationship Specialty Start Date End Date Marla Moralez MD PCP - General 12/31/[address] [place] [address] documented as of this encounter
--- OUTSIDE RECORDS SUMMARY | 2022-04-19 00:51 | XMS_ITS | Encounter Summary ---
:1950 Author Organization [facility] [place] [address] Care Team Providers Name Role Phone Marla Moralez MD Primary Care Provider Reason for Visit Reason Comments Buttock Pain Encounter Details Date Type Department Care Team Description 01/20/2012 Procedure visit Pain Management at Chastity Greenberg, Gl uteal pain (Primary [facility] [place]x) [facility] [address] [place] [address] [phone] Social History Tobacco Use Types Packs/Day Years [...] 2. 3. Patient states they have a company tanker truck driver to transport after procedure? Yes [...] this encounter Miscellaneous Notes Miscellaneous - Russ, Director Athletic - 01/25/2012 6:26 AM EDT documented in [...] point injection. Left Piriformis/Gluteal Trigger Point [facility] Date of Service: 01/20/2012 Patient: ?Olivia Azevedo ? 1950 ?? 61 y.o. ??female Provider: ?MD Olivia CRUZ ??has been referred to [facility] for Trigger Point [...] Routine documented in this encounter Care Teams Quality Process Lead Relationship Specialty Start Date End Date Christian-Marla Nazario MD PCP - General 12/31/[address] [place] [address] 3 [place] [address] documented as of this encounter
--- OUTSIDE RECORDS SUMMARY | 2022-04-19 00:51 | XMS_ITS | Encounter Summary ---
:1950 Author Organization [facility] [place] [address] Care Team Providers Name Role Phone Marla Moralez MD Primary Care Provider Encounter Details Date Type Department Care Team Description 04/06/2013 Follow-Up Physical Therapy at Guadalupe Corrales; [facility], PT Myofacial muscle pain [facility] [place] [address] PHYSICAL MEDICINE & [phone] [place] [address] Social History Tobacco Use Types Packs/Day Years [...] be related to work. O: Therapeutic Exercise (69476) 10 minutes and Manual Therapy (68744) 30 minutes ?? therex- review of current [...] left. ?? Manual therapy- stm mfr and BARN WORKER techniques to increase flow through trunk and [...] unspecified documented in this encounter Care Teams Clinical Account Liaison Relationship Specialty Start Date End Date Christian-Marla Nazario MD PCP - General 12/31/11 79 [place] [address] documented as of this encounter
--- OUTSIDE RECORDS SUMMARY | 2022-04-19 00:51 | XMS_ITS | Encounter Summary ---
:1950 Author Organization [facility] [place] [address] Care Team Providers Name Role Phone Marla Moralez MD Primary Care Provider Encounter Details Date Type Department Care Team Description 08/12/2012 Follow-Up Physical Therapy at Mounika Mendoza steady gait (Primary Dx); [facility] [place] COMPUTER NUMERICAL CONTROL PROGRAMMER Concussion; [facility] [place] [address] PHYSICAL MEDICINE & [phone] [place] [address] Social History Tobacco Use Types Packs/Day Years [...] there are no jolts. O: Neuromuscular Re-Education (25380) 45 minutes Active Step: walking @ 1.5 [...] Headache documented in this encounter Care Teams Golf Sales Associate Relationship Specialty Start Date End Date Christian-Marla Nazario MD PCP - General 12/31/11 79 [facility] 3 [place] [address] documented as of this encounter
--- OUTSIDE RECORDS SUMMARY | 2022-04-19 00:51 | XMS_ITS | Encounter Summary ---
:1950 Author Organization [facility] [place] [address] Care Team Providers Name Role Phone Marla Moralez MD Primary Care Provider Encounter Details Date Type Department Care Team Description 01/29/2012 Hospital Encounter MRI [facility] DR KENNEDY Gluteal pain [facility] Umesh Greenberg MD [facility] [place] [address] [place] [address] Social History Tobacco Use Types Packs/Day Years [...] pain Result s for this TISSUE (GI DIAL SCREW ASSEMBLER) EDT procedure are in WO CONTRAST the [...] unspecified documented in this encounter Care Teams Airways Control Specialist Relationship Specialty Start Date End Date Christian-Marla Nazario MD PCP - General 12/31/11 [address] [facility] [place] [address] documented as of this encounter
--- OUTSIDE RECORDS SUMMARY | 2022-04-19 00:51 | XMS_ITS | Encounter Summary ---
:1950 Author Organization [facility] [place] [address] Care Team Providers Name Role Phone Marla Moralez MD Primary Care Provider Reason for Visit Reason Onset Date Comments Results 01/31/2012 Encounter Details Date Type Department Care Team Description 01/31/2012 Telephone Pain Management at Umesh Donahue MD Results [facility] [place] [address] PAIN CLINIC [phone] [place] [phone] (Wo rk) Social History Tobacco Use Types [...] on filedocumented in this encounter Care Teams Top Frame Maker Relationship Specialty Start Date End Date Christian-Marla Nazario MD PCP - General 12/31/11 79 [place] [id number] documented as of this encounter
--- OUTSIDE RECORDS SUMMARY | 2022-04-19 00:51 | XMS_ITS | Encounter Summary ---
:1950 Author Organization [facility] [place] [address] Care Team Providers Name Role Phone Marla Moralez MD Primary Care Provider Encounter Details Date Type Department Care Team Description 02/10/2020 Hospital [place] [address] Social History Tobacco Use Types Packs/Day [...] ASHW RT-MAG Take 2 tablets by 0 [id number]-[id number]-TJBYL-MILADYS ORAL mouth 2 times daily (with meals). [...] Shiga Toxin Detection (02/10/2020 12:01 AM EDT) [facility] Method Time Signature Shiga Toxin [facility]IA [facility] Negative for Shiga Toxin 2 [facility] Specimen Anatomical Collection Method Collection Time Receive d Time (Source) Location / / Volume Laterality Stool specimen 02/10/2020 12:01 0 (specimen) AM EDT 11:06 PM EDT Resulting Agency Comment Spec In Lab Yanira Garvin APRN MICROBIOLOGY - GENERAL ORDER JAZ Performing Organization Address City/[facility]/[place] [address] Campylobacter Antigen (02/10/2020 12:01 AM EDT) Component Value Ref Test Analysis Performed At [facility] Finjan Range Method Time Signature Campylobacter Ag Immunoassay FRANCES Negative for DEEPAK Campylobacter [facility] LABORATORY Specimen Anatomical Collection Method Collection Time Receive d Time (Source) Location / / Volume Laterality Stool specimen 02/10/2020 12:01 0 (specimen) AM EDT 11:06 PM EDT Resulting Agency Comment Spec In Lab Yanira Garvin APRN MICROBIOLOGY - GENERAL ORDER JAZ Performing Organization Address City/[facility]/ZIP Code Phon e Number [place] [phone] [facility] Stool culture (02/10/2020 12:01 AM EDT) Patholo gist Method Time Signature Stool Culture No enteric FRANCES [facility] LABORATORY Specimen Anatomical Collection Method Collection Time Receive d Time (Source) Location / / Volume Laterality Stool specimen 02/10/2020 12:01 0 (specimen) AM EDT 11:06 PM EDT Resulting Agency Comment Spec In Lab Yanira Garvin APRN MICROBIOLOGY - GENERAL ORDER JAZ Performing Organization Address City/State/ZIP Code Phon e Number [place] [phone] documented in this encounter Visit Diagnoses Not on filedocumented in this encounter Care Teams Brush Machine Setter Relationship Specialty Start Date End Date Marla Moralez MD PCP - General 12/31/[address] [address] documented as of this encounter
--- OUTSIDE RECORDS SUMMARY | 2022-04-19 00:51 | XMS_ITS | Clinical Summary ---
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 Medications Medication Sig Dispensed Refills Start Date End Date Status multivitamin Take 1 tablet by 0 Active (THERAGRAN) tablet mouth daily. ASHW RT-MAG Take 2 tablets by 0 Active EAL-BABF-ZAAEU-MILADYS mouth 2 times ORAL daily (with meals). [...] Phone Addre ss Type Group [employer] [place] [place]UE [id number] 2021-Camron [phone] [address] [place] AD[employer]AGE t 22 [phone] [place] [address] Care Teams Superintendent Plant Relationship Specialty Start Date End Date Christian-Marla Nazario MD PCP - General 12/31/11 79 [facility] 3 [place] [address]
--- OUTSIDE RECORDS SUMMARY | 2022-04-19 00:51 | XMS_ITS | Encounter Summary ---
:1950 Author Organization [facility] [place] [address] Care Team Providers Name Role Phone Marla Moralez MD Primary Care Provider Encounter Details Date Type Department Care Team Description 04/27/2013 Follow-Up Physical Therapy at Guadalupe Corrales ofacial muscle pain; [facility], PT Headache [place] [address] PHYSICAL MEDICINE & [phone] [place] [address] Social History Tobacco Use Types Packs/Day Years [...] to have 0/10 pain at times. Goals: watermelon harvesting supervisor goals (12 weeks) 1. Pt to be able to minimize headache to 4/10 at worst less then 3 x a week. S: Patient reports she was doing ok until she had to come here. Hospital is inhumane. Feels it is impossible place to get around. Gets stressed coming here. Discussed option of treatment at [facility] facility that is much more quiet and easy parking. Pt would like to try this. O: Manual Therapy (98813) 50 minutes ?? STM to the neck and shoulder area ?? MFR techiniques at base of skull and into the shoulders. ?? MATERIALS DIRECTOR suboccipital release, still point. Unwinding of neck [...] Headache documented in this encounter Care Teams Manager Philosophy Relationship Specialty Start Date End Date Christian-Marla Nazario MD PCP - General 12/31/[address] [place] [address] documented as of this encounter
--- OUTSIDE RECORDS SUMMARY | 2022-04-19 00:51 | XMS_ITS | Encounter Summary ---
:1950 Author Organization [facility] [place] [address] Care Team Providers Name Role Phone Marla Moralez MD Primary Care Provider Encounter Details Date Type Department Care Team Description 01/20/2012 Orders Only Pain Management at D [facility] Umesh Greenberg MD [facility] [place] [address] PAIN CLINIC [phone] [place], [place] [address] (Wo rk) Social History Tobacco [...] is a non-reportable exam. Umesh Greenberg MD [facility] FILM LIBRARY ORDERABLES Performing Organization Address City/State/ZIP Code Phon e Number DH RAD DH [facility] [address] [facility] [place] [address] documented in this encounter Visit Diagnoses Not on filedocumented in this encounter Care Teams Press Operator Assistant Relationship Specialty Start Date End Date Christian-Marla Nazario MD PCP - General 12/31/11 79 [facility] 3 [place] [address] documented as of this encounter
--- OUTSIDE RECORDS SUMMARY | 2022-04-19 00:51 | XMS_ITS | Encounter Summary ---
:1950 Author Organization [facility] [place] [address] Care Team Providers Name Role Phone Jacquelyn Valentine MD Primary Care Provider Reason for Visit Reason Comments Left Hip Pain Right Hip Pain Encounter Details Date Type Department Care Team Description 07/12/2011 Follow-Up Pain Management at Umesh Greenberg MD Hip bursitis (Primary Dx); [facility] Myofacial muscle pain [facility] [place] [address] [place] [address] [phone] (Wo rk) Social History Tobacco Use Types [...] this encounter Miscellaneous Notes Miscellaneous - Russ, Firer Marine - 07/17/2011 11:24 AM EST documented in [...] Routine documented in this encounter Care Teams Cut And Print Machine Operator Relationship Specialty Start Date End Date Jacquelyn Valentine MD PCP - General 05/22/10 12/30/[address] [place] [address] [place] [address] documented as of this encounter
--- OUTSIDE RECORDS SUMMARY | 2022-04-19 00:51 | XMS_ITS | Encounter Summary ---
:1950 Author Organization [facility] [place] [address] Care Team Providers Name Role Phone Jacquelyn Valentine MD Primary Care Provider Reason for Visit Reason Onset Date Comments Post Procedure Call 07/12/2011 Encounter Details Date Type Department Care Team Description 07/12/2011 Telephone Pain Management at Yesika Gibson P ost [place] [address] Social History Tobacco Use Types Packs/Day [...] on filedocumented in this encounter Care Teams Reserve Operator Relationship Specialty Start Date End Date Jacquelyn Valentine MD PCP - General 05/22/10 12/30/[address] [address] [place] [address] documented as of this encounter
--- OUTSIDE RECORDS SUMMARY | 2022-04-19 00:51 | XMS_ITS | Encounter Summary ---
:1950 Author Organization [facility] [place] [address] Care Team Providers Name Role Phone Marla Moralez MD Primary Care Provider Encounter Details Date Type Department Care Team Description 09/22/2013 Hospital Encounter XRay at [facility] Left knee pain [address] [facility] [address] Social History Tobacco Use Types Packs/Day [...] EDT Examination JOINT TEAM STANDING ALIGNMENT AP [facility] Clinical History LT KNEE PAIN / OA [...] original. Examination JOINT TEAM STANDING ALIGNMENT AP [facility] Clinical History LT KNEE PAIN / OA [...] leg documented in this encounter Care Teams Payroll Specialist Relationship Specialty Start Date End Date Christian-Marla Nazario MD PCP - General 12/31/11 79 [facility] 3 [place] [address] documented as of this encounter
--- OUTSIDE RECORDS SUMMARY | 2022-04-19 00:51 | XMS_ITS | Encounter Summary ---
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 She has good rehab potential [facility] Goals (to be met by discharge): [...] find 5 items in a search through [facility] without cueing. Goal Status: Not fully met. [...] unspecified documented in this encounter Care Teams Acid Loader Relationship Specialty Start Date End Date Christian-Marla Nazario MD PCP - General 12/31/11 79 [facility] 3 [place] [address] documented as of this encounter
--- OUTSIDE RECORDS SUMMARY | 2022-04-19 00:51 | XMS_ITS | Encounter Summary ---
:1950 Author Organization [facility] [place] [place] [address] Care Team Providers Name Role Phone Marla Moralez MD Primary Care Provider Encounter Details Date Type Department Care Team Description 10/06/2012 Follow-Up Physical Therapy at Peggy Mujica, PT [facility] DR PHYSICAL MEDICINE & [place] [address] Unsteady gait (Primary Dx); [facility] Marla Moralez MD [address] [place] [address] Concussion; [facility] [place] [address] Social History Tobacco Use Types Packs/Day Years [...] chiropractic for her neck. Went dancing on [employer]-was n't as crowded-did pretty well. O: Neuromuscular Re-Education (82590) 55 minutes VOR exs--she reports she is [...] Headache documented in this encounter Care Teams Lead Ramp Service Man Relationship Specialty Start Date End Date Christian-Marla Nazario MD PCP - General 12/31/[address] [facility] 3 [place] [address] documented as of this encounter
--- OUTSIDE RECORDS SUMMARY | 2022-04-19 00:51 | XMS_ITS | Encounter Summary ---
:1950 Author Organization [facility] [place] [address] Care Team Providers Name Role Phone Marla Moralez MD Primary Care Provider Encounter Details Date Type Department Care Team Description 06/02/2013 Follow-Up Physical Therapy at Uvaldo Corrales, PT [facility] DR PHYSICAL MEDICINE & [place] [address] Myofacial muscle pain; [facility] Marla Moralez MD [address] [place] [address] Headache [address] [place] [address] Social History Tobacco Use Types [...] to have 0/10 pain at times. Goals: middle or intermediate school principal goals (12 weeks) 1. Pt to be able to minimize headache to 4/10 at worst less then 3 x a week. S: about the same. Still have double vision. O: Manual Therapy (17352) 50 minutes STM to the neck and shoulder area MFR techiniques at base of skull and into the shoulders. CREDIT CORRESPONDENCE CLERK suboccipital release, still point. Unwinding of neck [...] Headache documented in this encounter Care Teams Firer Glost Kiln Relationship Specialty Start Date End Date Christian-Marla Nazario MD PCP - General 12/31/[address] [address] documented as of this encounter
--- OUTSIDE RECORDS SUMMARY | 2022-04-19 00:51 | XMS_ITS | Encounter Summary ---
:1950 Author Organization [facility] Address [facility] [place] [address] Care Team Providers Name Role Phone Marla Moralez MD Primary Care Provider Encounter Details Date Type Department Care Team Description 08/24/2013 Orders Only Orthopaedics at [facility] Ferdinand Larkin MD Left knee pain [facility] (Pr imary Dx) [place] [address] ORTHOPAEDIC [phone] SURGERY [place], [place] [address] Social History Tobacco Use Types [...] leg documented in this encounter Care Teams Cooking Show Host Relationship Specialty Start Date End Date Christian-Marla Nazario MD PCP - General 12/31/[address] [place] [address] 3 [place] [phone] (work) documented as of this encounter
--- OUTSIDE RECORDS SUMMARY | 2022-04-19 00:51 | XMS_ITS | Encounter Summary ---
:1950 Author Organization [facility] [place] [address] Care Team Providers Name Role Phone Marla Moralez MD Primary Care Provider Encounter Details Date Type Department Care Team Description 08/05/2012 Follow-Up Physical Therapy at Mounika Mendoza steady gait (Primary Dx); [facility] EANIKET Concussion; [facility] [place] [address] PHYSICAL MEDICINE & [phone] [place] [address] Social History Tobacco Use Types Packs/Day Years [...] back to base line. O: Neuromuscular Re-Education (90051) 25 minutes and Manual Therapy (56402) 10 minutes 2 foam: romberg stance with [...] Headache documented in this encounter Care Teams Tugboat Captain Relationship Specialty Start Date End Date Christian-Marla Nazario MD PCP - General 12/31/11 79 [facility] 3 [place] [address] documented as of this encounter
--- OUTSIDE RECORDS SUMMARY | 2022-04-19 00:51 | XMS_ITS | Encounter Summary ---
:1950 Author Organization [facility] [place] [address] Care Team Providers Name Role Phone Marla Moralez MD Primary Care Provider Reason for Visit Reason Comments Follow-up Encounter Details Date Type Department Care Team Description 12/10/2013 [facility] Seborrh eic keratosis, Tamela STOREY inflamed (Primary Dx) [address] [facility] [address] Mani B DERMATOLOGY [place], [place] [address] [phone] Social History Tobacco Use Types Packs/Day Years [...] Ferguson LPN - 12/10/2013 1:55 PM EDT [facility] Dermatitis: After Your Visit Your Care [...] help for plant rashes. ?? Try an yvsf-rqh-tclzdag antihistamine such as diphenhydramine (Benadryl) or chlorpheniramine [...] more? Visit our health information library at [email or web address] You can also view health information on [email or web address], your personal patient account. Log in or sign up today. Enter F270 in the search box to learn more about Dermatitis: After Your Visit. ?? [id number] [employer]vr[employer]. Care instructions adapted under license by [facility]. This care instruction is for use with your licensed healthcare professional. If you have questionsabout a medical condition or this instruction, always ask your healthcare professional. [employer] disclaims any warranty or liability for your use of this information. Content Version: 9.9.033435; Last Revised: November 13, 2012 documented in [...] keratosis documented in this encounter Care Teams Lead Level Designer Relationship Specialty Start Date End Date Marla Moralez MD PCP - General 12/31/[address] [place] [address] documented as of this encounter
--- OUTSIDE RECORDS SUMMARY | 2022-04-19 00:51 | XMS_ITS | Encounter Summary ---
:1950 Author Organization [facility] [place] [address] Care Team Providers Name Role Phone Marla Moralez MD Primary Care Provider Encounter Details Date Type Department Care Team Description 03/30/2013 Follow-Up Physical Therapy at Uvaldo Corrales, PT [facility] [address] PHYSICAL MEDICINE & [place] [address] Myofacial muscle pain; [facility] Marla Moralez MD [address] [place] [address] 3 [place] [address] [place] [address] Social History Tobacco Use Types Packs/Day Years [...] work 1x a week. O: Therapeutic Exercise (62503) 10 minutes and Manual Therapy (47612) 30 minutes ?? therex- review of current stretching. Added hams stretch in sitting that she can do while at workor sitting for long periods. 3 reps hold 30 seconds. Doing calf stretch on stair. May push too much.Doing trunk rotation. Trunk flexion. ?? Manual therapy- stm mfr and CURED MEAT PACKING SUPERVISOR techniques to increase flow through trunk and head. Suboccipital release. Thoracic diaphragm release. Still point achieved. A: Pt felt better following treatment head was better. P: Continue physical therapy for headaches. documented in this encounter Plan of Treatment Not on filedocumented as of this encounter Visit Diagnoses Diagnosis Myofacial muscle pain Mylagia and myositis, unspecified Headache(784.0) Headache documented in this encounter Care Teams Jig Grinder Set Up Operator Relationship Specialty Start Date End Date Christian-Marla Nazario MD PCP - General 12/31/11 79 [place] [id number] documented as of this encounter
--- OUTSIDE RECORDS SUMMARY | 2022-04-19 00:51 | XMS_ITS | Encounter Summary ---
:1950 Author Organization [facility] [place] [address] Care Team Providers Name Role Phone Marla Moralez MD Primary Care Provider Encounter Details Date Type Department Care Team Description 08/28/2012 Follow-Up Occupational Therapy at Tomy Mauricio OT [facility] [address] PHYSICAL MEDICINE & [place] [address] Concussion (Primary [facility] Marla Moralez MD [address] [facility] 3 [place] [address] Dx) [place] [address] Social History Tobacco Use Types Packs/Day [...] dr. Marla Gonzales for recheck and [facility] and [facility]. Olivia [...] look into this more next visit. . Head Cd Reactor Operator Goals (to be met by discharge): [...] in a search through [facility] without cueing. Goal Status: Goal [...] documented in this encounter Care Teams Sales Management Intern Relationship Specialty Start Date End Date Christian-Marla Nazario MD PCP - General 12/31/11 79 [place] [phone] documented as of this encounter
--- OUTSIDE RECORDS SUMMARY | 2022-04-19 00:51 | XMS_ITS | Encounter Summary ---
:1950 Author Organization [facility] [place] [address] Care Team Providers Name Role Phone Marla Moralez MD Primary Care Provider Reason for Visit Reason Onset Date Comments Advice Only 10/12/2013 Encounter Details Date Type Department Care Team Description 10/12/2013 Telephone Orthopaedics at [facility] Valentina Woodward PA Advice [place] [facility] [place] [address] ORTHOPAEDIC SURGERY [phone] [place] [address] (Wo rk) Social History Tobacco Use Types [...] or shower. Please call her back at [phone]. documented in this encounter Plan of Treatment Not on filedocumented as of this encounter Visit Diagnoses Not on filedocumented in this encounter Care Teams Body Art Technician Relationship Specialty Start Date End Date Christian-Marla Nazario MD PCP - General 12/31/11 79 [place] [phone] documented as of this encounter
--- OUTSIDE RECORDS SUMMARY | 2022-04-19 00:51 | XMS_ITS | Encounter Summary ---
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 MR#: [id number] DATE OF VISIT: 09/22/2013 DATE OF INJURY/ONSET: [...] fibular head. She was seen by an weight reduction specialist and obtain an MRI which showed [...] discharged. She had been prescribed originally a Moore brace but has discontinue wearing upon recommendation [...] ??? Cataract removal ??? Musculoskeletal surgery unlisted [id number] Bilateral tendon release for DeQuervain's ? ? [...] dose documented in this encounter Care Teams Process Safety Engineering Technologist Relationship Specialty Start Date End Date Christian-Marla Nazario MD PCP - General 12/31/11 79 [place] [address] documented as of this encounter
--- OUTSIDE RECORDS SUMMARY | 2022-04-19 00:51 | XMS_ITS | Encounter Summary ---
:1950 Author Organization [place] [address] Care Team Providers Name Role Phone Marla Moralez MD Primary Care Provider Encounter Details Date Type Department Care Team Description 05/27/2012 Follow-Up Physical Therapy at Daniela Mendoza PTA [facility] DR PHYSICAL MEDICINE & [place] [address] Unsteady gait (Primary Dx); [facility] Marla oMralez MD [address] [place] [address] Concussion; [facility] [place] [address] Social History Tobacco Use Types Packs/Day Years [...] it would be appreciated. O: Neuromuscular Re-Education (96036) 30 minutes and Manual Therapy (20739) 10 minutes reviewed HEP: UT and SCM [...] Headache documented in this encounter Care Teams Violin Maker Hand Relationship Specialty Start Date End Date Christian-Marla Nazario MD PCP - General 12/31/11 79 [facility] 3 [place] [address] documented as of this encounter
--- OUTSIDE RECORDS SUMMARY | 2022-04-19 00:51 | XMS_ITS | Encounter Summary ---
:1950 Author Organization [facility] [place] [address] Care Team Providers Name Role Phone Marla Moralez MD Primary Care Provider Encounter Details Date Type Department Care Team Description 06/03/2012 Follow-Up Physical Therapy at Mounika Mendoza steady gait (Primary Dx); [facility] EXCELLENCE MANAGER Concussion; [facility] [place] [address] PHYSICAL MEDICINE & [phone] [place] [address] Social History Tobacco Use Types Packs/Day Years [...] front of the TV. O: Neuromuscular Re-Education (36191) 30 minutes and Manual Therapy (73589) 10 minutes treadmill 1.8 without UE support--able [...] Headache documented in this encounter Care Teams Edge Runner Relationship Specialty Start Date End Date Christian-Marla Nazario MD PCP - General 12/31/11 79 [facility] 3 [place] [id number] documented as of this encounter
--- OUTSIDE RECORDS SUMMARY | 2022-04-19 00:51 | XMS_ITS | Encounter Summary ---
:1950 Author Organization [facility] [place] [address] Care Team Providers Name Role Phone Marla Moralez MD Primary Care Provider Reason for Visit Reason Comments Skin Check Encounter Details Date Type Department Care Team Description 05/10/2016 Office Visit Dermatology at Lonny Rodrigues Nevus; Tamela STOREY Solar lentigo; [address] Seborrheic keratosis, inflamed Mani B DERMATOLOGY [place], [place] [address] [phone] Social History Tobacco Use Types Packs/Day Years [...] keratosis documented in this encounter Care Teams Facilities Manager Relationship Specialty Start Date End Date Marla Moralez MD PCP - General 12/31/[address] [address] documented as of this encounter
--- OUTSIDE RECORDS SUMMARY | 2022-04-19 00:51 | XMS_ITS | Encounter Summary ---
:1950 Author Organization [facility] [place] [address] Care Team Providers Name Role Phone Marla Moralez MD Primary Care Provider Encounter Details Date Type Department Care Team Description 04/16/2012 Office Visit Occupational Therapy Mich Mauricio, OT [facility] [address] PHYSICAL MEDICINE & [place] [address] Concussion (Primary at [facility] Marla Moralez MD 79 [facility] 3 [place] [address] Dx) [place] [address] Social History Tobacco Use Types Packs/Day [...] dr. Marla Gonzales for recheck and [facility] and treatment. Olivia Azevedo [...] of attention, sequencing and problem solving [facility] Occupational Therapy Cognitive assessment is a standardized [...] attention, andfor further treatment of these areas. Half-Way Goals (to be met by discharge): [...] find 5 items in a search through [facility] without cueing. Goal Status: Olivia Azevedo will increase her score on the LOTCA by 5 points to promote her ability to perform her job at an 8/10 level Goal Status: PLAN: The patient is to be seen 1 time(s) per week, for 12 week(s) to progress toward short and prison goals. for Visuomotor organization, Visuoperceptual skills, Visual [...] unspecified documented in this encounter Care Teams Leading Firefighter Relationship Specialty Start Date End Date Christian-Marla Nazario MD PCP - General 12/31/11 79 [facility] 3 [place] [address] documented as of this encounter
--- OUTSIDE RECORDS SUMMARY | 2022-04-19 00:51 | XMS_ITS | Encounter Summary ---
:1950 Author Organization [place] [address] Care Team Providers Name Role Phone Marla Moralez MD Primary Care Provider Reason for Visit Reason Comments Suture / Staple Removal Encounter Details Date Type Department Care Team Description 08/08/2015 Office Visit Dermatology at Lonny Rodrigues, Visit f or suture Tamela STOREY removal [address] [facility] [address] Mani B DERMATOLOGY [place], [place] [address] [phone] Social History Tobacco Use Types Packs/Day Years [...] sutures documented in this encounter Care Teams Preparer Samples And Repairs Relationship Specialty Start Date End Date Marla Moralez MD PCP - General 12/31/[address] [place] [address] documented as of this encounter
--- OUTSIDE RECORDS SUMMARY | 2022-04-19 00:51 | XMS_ITS | Encounter Summary ---
:1950 Author Organization [facility] [place] [address] Care Team Providers Name Role Phone Marla Moralez MD Primary Care Provider Encounter Details Date Type Department Care Team Description 10/21/2013 Telephone Ophthalmology at [facility] Karen Silverman MD [facility] [place] [address] OPHTHALMOLOGY DEPT. [phone] [place] [address] (Wo rk) Social History Tobacco Use Types [...] on filedocumented in this encounter Care Teams Boat Person Relationship Specialty Start Date End Date Christian-Marla Nazario MD PCP - General 12/31/[address] [address] documented as of this encounter
--- OUTSIDE RECORDS SUMMARY | 2022-04-19 00:51 | XMS_ITS | Encounter Summary ---
:1950 Author Organization [facility] [place] [address] Care Team Providers Name Role Phone Marla Moralez MD Primary Care Provider Encounter Details Date Type Department Care Team Description 06/09/2013 Follow-Up Physical Therapy at Guadalupe Corrales ofacial muscle pain; [facility] S, PT Headache [address] [place] [address] PHYSICAL MEDICINE & [place] [address] Social History Tobacco Use Types Packs/Day Years [...] to have 0/10 pain at times. Goals: halfway goals (12 weeks) 1. Pt to be able to minimize headache to 4/10 at worst less then 3 x a week. S: Patient reports the double vision hasn't changed. Headaches still present. Has headache today that she feels is from the cold. Knee is doing better. Can't wear a hat that is snug will cause headache. O: Manual Therapy (85006) 45 minutes ?? STM to the neck [...] Headache documented in this encounter Care Teams Supervisor Hot Strip Mill Relationship Specialty Start Date End Date Christian-Marla Nazario MD PCP - General 12/31/[address] [address] documented as of this encounter
--- OUTSIDE RECORDS SUMMARY | 2022-04-19 00:51 | XMS_ITS | Encounter Summary ---
:1950 Author Organization [facility] [place] [address] Care Team Providers Name Role Phone Marla Moralez MD Primary Care Provider Encounter Details Date Type Department Care Team Description 05/22/2012 Follow-Up Occupational Therapy at Tomy Mauricio, Concussion (Primary [facility] OT Dx) [facility] [place] [address] PHYSICAL MEDICINE & [phone] [place] [address] Social History Tobacco Use Types Packs/Day Years [...] potential considering her insight to deficit areas. Decorative Engraver Goals (to be met by discharge): Date [...] 5 items in a search through [facility] without cueing. Goal Status: Not fully met. [...] unspecified documented in this encounter Care Teams Character Impersonator Relationship Specialty Start Date End Date Christian-Marla Nazario MD PCP - General 12/31/11 79 [facility] 3 [place] [address] documented as of this encounter
--- OUTSIDE RECORDS SUMMARY | 2022-04-19 00:51 | XMS_ITS | Encounter Summary ---
:1950 Author Organization [facility] [place] [address] Care Team Providers Name Role Phone Marla Moralez MD Primary Care Provider Reason for Visit Reason Comments Skin Check Follow-up Encounter Details Date Type Department Care Team Description 10/12/2013 Office Visit Dermatology at Lonny Rodrigues Irritan t contact dermatitis (Primary Dx); Tamela STOREY Solar lentigo; [address] [facility] [address] [facility] Nevus Mani B DERMATOLOGY [place], [place] [id number] [phone] Social History Tobacco Use Types Packs/Day Years [...] d documented in this encounter Care Teams Career Services Coordinator Relationship Specialty Start Date End Date Marla Moralez, MD PCP - General 12/31/11 79 [place] [phone] documented as of this encounter
--- OUTSIDE RECORDS SUMMARY | 2022-04-19 00:51 | XMS_ITS | Encounter Summary ---
:1950 Author Organization [place] [address] Care Team Providers Name Role Phone Marla Moralez MD Primary Care Provider Encounter Details Date Type Department Care Team Description 08/05/2012 Follow-Up Occupational Therapy at Tomy Mauricio OT [facility] [address] PHYSICAL MEDICINE & [place] [address] Concussion (Primary [facility] Marla Moralez MD 79 [facility] 3 [place] [address] Dx) [place] [address] Social History Tobacco Use Types Packs/Day [...] dr. Marla Gonzales for recheck and [facility] and [...] of visual scanning and reading of material. Mcfp Goals (to be met by discharge): [...] find 5 items in a search through [facility] without cueing. Goal Status: Goal met 05/20/12 [...] unspecified documented in this encounter Care Teams Credit Assessment Analyst Relationship Specialty Start Date End Date Christian-Marla Nazario MD PCP - General 12/31/11 79 [place] [phone] documented as of this encounter
--- OUTSIDE RECORDS SUMMARY | 2022-04-19 00:51 | XMS_ITS | Encounter Summary ---
:1950 Author Organization [facility] [place] [address] Care Team Providers Name Role Phone Marla Moralez MD Primary Care Provider Encounter Details Date Type Department Care Team Description 07/08/2012 Follow-Up Occupational Therapy at Tomy Mauricio OT [facility] [address] PHYSICAL MEDICINE & [place] [address] Concussion (Primary [facility] Marla Moralez MD 79 [facility] 3 [place] [address] Dx) [place] [address] Social History Tobacco Use Types Packs/Day [...] dr. Marla Gonzales for recheck and [facility]. Olivia Azevedo presents alone PAIN: At Rest: 08/09 With Activity: 08/09 [facility] Occupational Therapy Cognitive assessment is a [...] of visual scanning and reading of material. Longterm Goals (to be met by discharge): Date [...] find 5 items in a search through [facility] without cueing. Goal Status: Goal met 05/20/12 Olivia Azevedo will increase her score on the LOTCA by 5 points to promote her ability to perform her job at an 8/10 level Goal Status: Goal status PLAN: The patient is to be seen 1 time(s) per week, for 12 week(s) to progress toward short and chcf goals. for Visuomotor organization, Visuoperceptual skills, Visual [...] unspecified documented in this encounter Care Teams Amortization Clerk Relationship Specialty Start Date End Date Christian-Marla Nazario MD PCP - General 12/31/[address] [place] [address] 3 [place] [phone] (work) documented as of this encounter
--- OUTSIDE RECORDS SUMMARY | 2022-04-19 00:53 | XMS_ITS | Encounter Summary ---
:1950 Author Organization [facility] Address [address] [place] [address] Care Team Providers Name Role Phone Unknown, Provider Primary Care Provider Encounter Details Date Type Department Care Team Description 07/23/2007 Results Only [facility] - Tiffanie Escamilla, Maria lie, conversion ASIC DESIGN ENGINEER [address] [place] [address] [place] [address] [phone] (Wo rk) Social History Tobacco Use Types [...] ? DAVID DESIR ? Accession #: ? [id number] : ? 1950 (Age: 57) ??F ?Collect Date: ? 07/01 Location: ? [facility] ? Receive Date : ? 07/28/2007 Provider: ?ALBA CARY Copy to: ? Specimen/Source: ? ThinPrep Pap Test, Vagina/Cervix/Endocervix, processed on Reqlut ThinPrep Imaging System, with manual evaluati on [...] Organization Address City/State/ZIP Code Phon e Number [facility] [address] [place] [address] SERVICES [facility] [address] [place] [address] documented in this encounter Visit Diagnoses Not on filedocumented in this encounter Care Teams Artificial Log Machine Operator Relationship Specialty Start Date End Date Unknown, Provider, PCP - General 01/29/10 03/03/13 documented as of this encounter
--- OUTSIDE RECORDS SUMMARY | 2022-04-19 00:53 | XMS_ITS | Clinical Summary ---
:1950 Author Organization [facility] Address [address] [place] [address] Care Team Providers Name Role Phone Marla [...] Advance Directives For more information, please contact: [phone] Documents on File Type Date Recorded Patient Casino Surveillance Officer Explanati on Advance Directives and Living Will Power of Motor Setter Care Teams Individual Pension Adviser Relationship Specialty Start Date End Date Marla Moralez MD PCP - General 03/04/[address] [place] [address],[place] [address] [place] [address]
--- OUTSIDE RECORDS SUMMARY | 2022-04-19 00:53 | XMS_ITS | Encounter Summary ---
:1950 Author Organization [facility] Address [address] [place] [address] Care Team Providers Name Role Phone Marla Moralez MD Primary Care Provider Reason for Visit Reason Comments Knee Pain Bilateral knees Encounter Details Date Type Department Care Team Description 11/25/2013 Office Visit [facility] Aiden Rivera Salas lofemoral syndrome, right (Primary Dx); Total [facility] Program MD Abdullahi Lateral meniscus tear; - Jean [address] Knee pain [address] [place], [facility] [address] [phone] Social History Tobacco Use Types Packs/Day Years [...] do that, and she was seen at [facility] and evaluated as well with no clear outcome. She has had multiple treatment interventions. She tried wearing a hinged knee brace. Tried some acupuncture, which helped. Did a little physical therapy, which she is not sure helped much. Hyaluronic acid, which helped some for a short time, and then she had a large effusion drained at [facility] and cortisone injection, which seemed to have helped and did diminish the inflammation. She also had an MRI at the [facility] on 11/12/2013. The most significant findings in [...] she thinks also might be helping. Her Venetie knee score today is 28. PAST MEDICAL [...] her arms in 2007 and 2011 at [facility] and a lipoma removal from her left breast and 2000 at [facility]. SOCIAL HISTORY: She works as [...] leg documented in this encounter Care Teams Retail Mortgage Banker Relationship Specialty Start Date End Date Christian-Marla Nazario MD PCP - General 03/04/13 79 [place] ,[place] [address] [place] [address] documented as of this encounter
--- OUTSIDE RECORDS SUMMARY | 2022-04-19 00:53 | XMS_ITS | Encounter Summary ---
:1950 Author Organization [facility] Address [address] [place] [address] Care Team Providers Name Role Phone Christian-Marla Nazario MD Primary Care Provider Reason for Visit Reason Comments Follow-up Bilateral knee pain Consult, Test and Treat (Routine) - Closed Specialty Diagnoses / Procedures Referred By Contact Refer red To Contact Orthopedic Surgery Diagnoses Langston's cyst of knee, right Stanley, Nicole Eckert Nathaniel SHANK RANDER MD Abdullahi [address] [place] [phone] Fax: Referral ID Status Reason Start Date Expiration Date Visits Requ ested Visits Authorized [id number] Closed 1 1 Encounter Details Date Type Department Care Team Description 09/12/[address] [facility] Aiden Rivera Chron ic pain of right Total Joint Program - MD Abdullahi knee (Primary Dx) [address], [facility] [phone] Social History Tobacco Use Types Packs/Day Years [...] than left knee. HISTORY OF PRESENT ILLNESS: Loivia returns, we had seen her here previously [...] history was reviewed with the patient in [facility] and has not changed since her previous appointment here in 2013. She has a history of anxiety and depression and some headaches. 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 She does have some fatigue and numbness. She has had bilateral tendon releases in de Quervain's in the 1980s and a lipoma removed in 2007 and 2011 at [facility]. SOCIAL HISTORY: She works as a [...] daily. added in this encounter Care Teams Health Economist Relationship Specialty Start Date End Date Christian-Marla Nazario MD PCP - General 03/04/13 [address] [place] [address] [address] [place] [address] documented as of this encounter
--- OUTSIDE RECORDS SUMMARY | 2022-04-19 00:53 | XMS_ITS | Encounter Summary ---
:[address] [facility] Address [address] [place] [address] Care Team Providers Name Role Phone Christian-Marla Nazario MD Primary Care Provider Encounter Details Date Type Department Care Team Description 09/12/2016 Results Only [facility] Aiden Rivera Imaging Total Joint Program - MD Abdullahi [facility] [address] [place], [place] [address] [phone] Social History Tobacco Use Types Packs/Day Years [...] Anatomical Region Laterality Modality Other Specimen Narrative [facility] - 09/12/2016 18:07 EDT KNEES 3 [...] Organization Address City/State/ZIP Code Phon e Number [facility] [place] documented in this encounter Visit Diagnoses Not on filedocumented in this encounter Care Teams Fun House Operator Relationship Specialty Start Date End Date Christian-Marla Nazario MD PCP - General 03/04/13 [address],[place] 3 [place] [address] documented as of this encounter
--- OUTSIDE RECORDS SUMMARY | 2022-04-19 00:53 | XMS_ITS | Encounter Summary ---
:1950 Author Organization [facility] Address [address] [place] [address] Care Team Providers Name Role Phone Unknown, Provider Primary Care Provider Encounter Details Date Type Department Care Team Description 03/01/2013 Results Only [facility] Tobi Edmondson MD Laboratory Services - [address] [place] [address] [facility] [place] [address] [phone] Social History Tobacco Use Types Packs/Day Years [...] ? DAVID DESIR ? Accession #: ? [id number] ? : ? 1950 (Age: 62) ??F [...] Address City/State/ZIP Code Phon e Number [facility] [address] [place] [address] SERVICES [facility] [address] [place] [address] documented in this encounter Visit Diagnoses Not on filedocumented in this encounter Care Teams Crystal Flat Grinder Relationship Specialty Start Date End Date Unknown, Provider, PCP - General 01/29/10 03/03/13 documented as of this encounter
--- OUTSIDE RECORDS SUMMARY | 2022-04-19 00:53 | XMS_ITS | Encounter Summary ---
:[address] [facility] Address [address] [place] [address] Care Team Providers Name Role Phone Christian-Marla Nazario MD Primary Care Provider Reason for Referral Radiology Services (Routine) - Closed Specialty Diagnoses / Procedures Referred By Contact Refer red To Contact Diagnoses Chronic pain of both knees Aiden Rivera, Procedures KNEES 3 VIEWS [facility] [place] [address] Referral ID Status Reason Start Date Expiration Date Visits Requ ested Visits Authorized [id number] Closed 09/11/2016 1 1 Encounter Details Date Type Department Care Team Description 09/10/2016 Orders Only [facility] Aiden Rivera Chron ic pain of both Total Joint Program - MD Abdullahi knees (Primary Dx) [place] [address] [address] [phone] Social History Tobacco Use Types Packs/Day Years [...] Laterality Modality Other Specimen Narrative [facility] ADDIE MOSS - 09/12/2016 18:07 EDT [...] City/State/ZIP Code Phon e Number [facility] [place] documented in this encounter Visit Diagnoses Diagnosis Chronic pain of both knees - Primary documented in this encounter Care Teams Nurse Case Management Relationship Specialty Start Date End Date Christian-Marla Nazario MD PCP - General 03/04/[address] [place] [address],[address] [address] [place] [address] documented as of this encounter
--- OUTSIDE RECORDS SUMMARY | 2022-04-19 00:53 | XMS_ITS | Encounter Summary ---
:1950 Author Organization [facility] Address [address] [place] [address] Care Team Providers Name Role Phone Marla Moralez MD Primary Care Provider Encounter Details Date Type Department Care Team Description 08/20/2017 Orders Only [facility] Krystal Giron ht knee pain, Total Joint Program - L, PA-C unspecified [address] [place] chronicity (Primary [address] Dx) So [facility], [facility] [address], [place] [phone] (Wo rk) Social History Tobacco Use Types Packs/Day Years Used Date Never Assessed Sex Assigned at Date Recorded Not on file documented as of this encounter Plan of Treatment Not on filedocumented as of this encounter Visit Diagnoses Diagnosis Right knee pain, unspecified chronicity - Primary documented in this encounter Care Teams Swimming Pool Servicer Relationship Specialty Start Date End Date Marla Moralez MD PCP - General 03/04/[address],[place] [address] [place] [address] documented as of this encounter
--- OUTSIDE RECORDS SUMMARY | 2022-04-19 00:53 | XMS_ITS | Encounter Summary ---
:1950 Author Organization [facility] Address [address] [place] [address] Care Team Providers Name Role Phone Unknown, Provider Primary Care Provider Encounter Details Date Type Department Care Team Description 01/25/2010 Results Only [facility] Mitchel Quinones , Laboratory Services - [address] [place] [address] [place] [address] [place], [place] [address] [phone] Social History Tobacco Use Types Packs/Day Years [...] ? [facility] Reports generated via electr Bigcommerce interface contain original data; ? LAB however they are lacking the format of the original report. ? Caution should be taken when reading/interpreting unformatted reports. ? Name: ? THANG, DAVID J ? Accession #: ? [id number] ? : ? 1950 (Age: 59) ??F [...] is ?? inked, serially sectioned, a nd policy services representative sections are submitted as (B). ? (Ct Pearce/wilder ? End of Report ? Specimen Performing Organization Address City/State/ZIP Code Phon e Number [facility] [address] [place] [address] SERVICES [facility] [address] [place] [address] documented in this encounter Visit Diagnoses Not on filedocumented in this encounter Care Teams Watch Crystal Grinder Relationship Specialty Start Date End Date Unknown, Provider, PCP - General 01/29/10 03/03/13 documented as of this encounter
--- OUTSIDE RECORDS SUMMARY | 2022-04-19 00:53 | XMS_ITS | Encounter Summary ---
:1950 Author Organization [facility] Address [address] [place] [address] Care Team Providers Name Role Phone Unavailable Primary Care Provider Unavailable Encounter Details Date Type Department Care Team Description 02/15/2009 Orders Only [facility] Robles Escamilla ARNP Laboratory Services - [place] [address] [place] [address] 0 [facility] [place] [address] [phone] Social History Tobacco Use Types Packs/Day Years Used Date Never Assessed Sex Assigned at Date Recorded Not on file documented as of this encounter Plan of Treatment Not on filedocumented as of this encounter Procedures Procedure Name Priority Date/Time Associated Diagnosis Comme [facility] CYTOPATHOLOGY Routine 02/15/2009 0:00 EDT Results [...] ? DAVID DESIR ? Accession #: ? [id number] ? : ? 1950 (Age: 58) ??F ?Collect Date: ? 02/15/2009 ? Location: ? [facility] ? Receive Date: ? 02/17/2009 ? Provider: ?ALBA WOLFE STATE WILDLIFE OFFICER ? Copy to: ? Specimen/Source: ? Pap [...] Organization Address City/State/ZIP Code Phon e Number [facility] [address] [place] [address] SERVICES [facility] [address] [place] [phone] documented in this encounter Visit Diagnoses Not on filedocumented in this encounter
--- OUTSIDE RECORDS SUMMARY | 2022-04-19 00:53 | XMS_ITS | Encounter Summary ---
:1950 Author Organization [facility] Address [address] [place] [address] Care Team Providers Name Role Phone Unknown, Provider Primary Care Provider Encounter Details Date Type Department Care Team Description 03/28/2006 Results Only [facility] - Tiffanie Escamilla, Maria baez, conversion NEWS PHOTOGRAPHER [address] [place] [address] [place] [address] [phone] (Wo rk) Social History Tobacco Use Types [...] ? DAVID DESIR ? Accession #: ? [id number] : ? 1950 (Age: 55) ??F ?Collect Date: ? 03/01 Location: ? [facility] ? Receive Date : ? 04/01/2006 Provider: ?ALBA CARY Copy to: ? Specimen/Source: ? ThinPrep Pap Test, Vagina/Cervix/Endocervix, processed on Jade Magnet ThinPrep Imaging System, with manual evaluati on [...] Organization Address City/State/ZIP Code Phon e Number [facility] [address] [place] [address] SERVICES [facility] [address] [place] [address] documented in this encounter Visit Diagnoses Not on filedocumented in this encounter Care Teams City [place] Relationship Specialty Start Date End Date Unknown, Provider, PCP - General 01/29/10 03/03/13 documented as of this encounter
--- OUTSIDE RECORDS SUMMARY | 2022-04-19 00:53 | XMS_ITS | Encounter Summary ---
:1950 Author Organization [facility] Address [address] [place] [address] Care Team Providers Name Role Phone Unknown, Provider Primary Care Provider Encounter Details Date Type Department Care Team Description 03/06/2012 Results Only [facility] Alba Cross, Laboratory Services - [id number] [place] [id number] [phone] Social History Tobacco Use Types Packs/Day Years [...] ? DAVID DESIR ? Accession #: ? [id number] : ? 1950 (Age: 61) ??F ?Collect Date: ? 12/2011 Location: ? [facility] ? Receive Date : ? 03/10/2012 Provider: ?ALBA CROSS SECURITY RESEARCHER Copy to: ? Specimen/Source: ? Pap Test, [...] Organization Address City/State/ZIP Code Phon e Number [facility] [address] [place] [address] SERVICES [facility] [address] [place] [address] documented in this encounter Visit Diagnoses Not on filedocumented in this encounter Care Teams Nursing Associate Relationship Specialty Start Date End Date Unknown, Provider, PCP - General 01/29/10 03/03/13 documented as of this encounter
--- OUTSIDE RECORDS SUMMARY | 2022-04-19 00:53 | XMS_ITS | Encounter Summary ---
:1950 Author Organization [facility] Address [address] [place] [address] Care Team Providers Name Role Phone Unknown, Provider Primary Care Provider Encounter Details Date Type Department Care Team Description 02/26/2010 Results Only [facility] Silvina Escamilla, Laboratory Services - [facility] 8 [facility] [address] [place], [place] [address] [place] [id number] [phone] Social History Tobacco Use Types Packs/Day Years [...] ? DAVID DESIR ? Accession #: ? [id number] ? : ? 1950 (Age: 59) ??F [...] Organization Address City/State/ZIP Code Phon e Number [facility] [address] [place] [address] SERVICES [facility] [address] [place] [address] documented in this encounter Visit Diagnoses Not on filedocumented in this encounter Care Teams Integration Technician Relationship Specialty Start Date End Date Unknown, Provider, PCP - General 01/29/10 03/03/13 documented as of this encounter
--- OUTSIDE RECORDS SUMMARY | 2022-04-19 00:53 | XMS_ITS | Encounter Summary ---
:1950 Author Organization [facility] Address [address] [place] [address] Care Team Providers Name Role Phone Unknown, Provider Primary Care Provider Encounter Details Date Type Department Care Team Description 01/22/2013 Results Only [facility] Alfonzo Moralez MD Laboratory Services - [address] [place] [id number] [address] [place] [address] [phone] Social History Tobacco Use Types Packs/Day Years [...] ? DAVID DESIR ? Accession #: ? [id number] ? : ? 1950 (Age: 62) ??F [...] types 16,18,31,3 3,35, 39,45,51,52,56,58,59,66, and 68 by line assembler aircraft media cynthia amplification. Comments Document reviewed and electronically signed by: ? System Interface ? Report date: 02/04/2013 By the signature above, the attending physician certif ies that he/she has personally conducted a gross and/or microscopic examin ation of the described specimens and rendered or confirmed the above diagnosi s. End of Report Specimen Performing Organization Address City/State/ZIP Code Phon e Number [facility] [address] [place] [address] SERVICES [facility] [address] [place] [address] documented in this encounter Visit Diagnoses Not on filedocumented in this encounter Care Teams Ramp Lead Relationship Specialty Start Date End Date Unknown, Provider, PCP - General 01/29/10 03/03/13 documented as of this encounter
--- OUTSIDE RECORDS SUMMARY | 2022-04-19 00:53 | XMS_ITS | Encounter Summary ---
:1950 Author Organization [facility] Address [address] [place] [address] Care Team Providers Name Role Phone Marla Moralez MD Primary Care Provider Reason for Referral Radiology Services (Routine) - Closed Specialty Diagnoses / Procedures Referred By Contact Refer red To Contact Diagnoses Knee pain Aiden Rivera, Procedures KNEE 1 OR 2 VIEWS [address] [place] [address] Referral ID Status Reason Start Date Expiration Date Visits Requ ested Visits Authorized [id number] Closed 11/25/2013 1 1 adiology Services (Routine) - Closed Specialty Diagnoses / Procedures Referred By Contact Refer red To Contact Diagnoses Knee pain Aiden Rivera, Procedures KNEE 1 OR 2 VIEWS [address] [place] [address] Referral ID Status Reason Start Date Expiration Date Visits Requ ested Visits Authorized [id number] Closed 11/25/2013 1 1 Encounter Details Date Type Department Care Team Description 11/25/2013 Orders Only [facility] Aiden Rivera Knee pain (Primary Total Joint Program - MD Abdullahi Dx) [place] [address] [place] [address] [address] [phone] Social History Tobacco Use Types Packs/Day Years [...] Anatomical Region Laterality Modality Other Specimen Narrative [facility] RADI[facility]Y - 10/30 12:02 EDT KNEE 1 OR 2 VIEWS, KNEE 1 OR 2 VIEWS ??11/25/2013 2:38 PM Signs and Symptoms/Comments: ?? 719.46-Pain in joint, lower giq-LRF-9-CM ; right knee pain. Right Knee Findings: [...] Signs and Symptoms/Comments: 719.46-Pain in joint, lower xyn-UNZ-8-CM ; right knee pain. Right Knee Findings: There is mild medial and lateral tibiofe moral joint space narrowing. Very mild degenerative changes are prese nt in the patellofemoral compartment. Left Knee Findings: There are mild osteoarthritic changes in the medial tibiofemoral compartment. Minimal degenerative change s are present in the patellofemoral compartment. Performing Organization Address City/State/ZIP Code Phon e Number [facility] KNEE 1 OR 2 VIEWS (11/25/2013 14:38 EDT) Anatomical Region Laterality Modality Other Specimen Narrative [facility] RADIOLOGY - 10/30 12:02 EDT KNEE 1 OR 2 VIEWS, KNEE 1 OR 2 VIEWS ??11/25/2013 2:38 PM Signs and Symptoms/Comments: ?? 719.46-Pain in joint, lower uhl-FLU-5-CM ; right knee pain. Right Knee Findings: [...] Signs and Symptoms/Comments: 719.46-Pain in joint, lower ghs-QLC-8-CM ; right knee pain. Right Knee Findings: There is mild medial and lateral tibiofe moral joint space narrowing. Very mild degenerative changes are prese nt in the patellofemoral compartment. Left Knee Findings: There are mild osteoarthritic changes in the medial tibiofemoral compartment. Minimal degenerative change s are present in the patellofemoral compartment. Performing Organization Address City/State/ZIP Code Phon e Number [facility] documented in this encounter Visit Diagnoses Diagnosis Knee pain - Primary Pain in joint, lower leg documented in this encounter Care Teams Surveillance Officer Relationship Specialty Start Date End Date Christian-Marla Nazario MD PCP - General 03/04/13 [address] [facility] [place] [address] documented as of this encounter
== END 2022-04-19 01:09 ==
LOC: DI 00:49
PROVIDERS: PCP Physician Assistant; Visit Provider Nurse Practitioner Women's Health
DX: R92.8 Other abnormal and inconclusive findings on diagnostic imaging of breast (principal); Z12.31 Encounter for screening mammogram for malignant neoplasm of breast
CPT/HCPCS: 76642; 77063; 77067

== ENCOUNTER 2022-06-10 03:15 | Outpatient (CLI) | payer MEDICARE, SELFPAY ==
[2022-06-11 17:58] LABS: Estradiol <12 pg/mL (See Note); Progesterone 0.3 ng/mL (See Table)
[2022-06-11 19:17] LABS: LH 44.7 mIU/mL (See Note)
== END 2022-06-10 03:16 | disposition home or self-care (01) ==
LOC: LBO 03:16
PROVIDERS: General Practice; PCP Physician Assistant; Visit Provider Physician Assistant
DX: C50.812 Malignant neoplasm of overlapping sites of left female breast (principal)
CPT/HCPCS: 36415; 82670; 83002; 84144

== ENCOUNTER → 2022-06-13 09:44 | Outpatient (BNVA) | payer MEDICARE, SELFPAY | PROVIDERS: PCP Physician Assistant; Referring Provider Physician Assistant; Visit Provider Student in an Organized Health Care Education/Training Program | DX: M16.12 Unilateral primary osteoarthritis, left hip (principal) | CPT/HCPCS: 99213 ==

== ENCOUNTER 2022-08-23 02:07 | Outpatient (CLI) | payer MEDICARE, SELFPAY ==
[2022-08-23 15:09] LABS: Calcium 9.7 mg/dL (8.5-10.1); FREE T4 0.82 ng/dL (0.76-1.46); TSH 10.18 uIU/mL (0.36-3.74)
[2022-08-23 15:28] LABS: LDL CHOLESTEROL 238 mg/dL (<100)
[2022-08-23 21:34] LABS: T3, Total 181 ng/dL (97-169)
[2022-08-26 10:04] LABS: Parathyroid Hormone,Intact 37 pg/mL (19-88)
[2022-08-26 13:38] LABS: Calcium, Random Ur 12 mg/dL; Creatinine, Random Ur 146 mg/dL (16 - 326)
== END 2022-08-23 02:08 | disposition home or self-care (01) ==
PROVIDERS: PCP Physician Assistant; Visit Provider Internal Medicine Endocrinology, Diabetes & Metabolism
DX: E78.00 Pure hypercholesterolemia, unspecified (principal); E55.9 Vitamin D deficiency, unspecified; E03.9 Hypothyroidism, unspecified; E83.52 Hypercalcemia; M85.88 Other specified disorders of bone density and structure, other site
CPT/HCPCS: 36415; 82306; 82310; 83721; 82340; 83970; 84439; 84443; 84480

== ENCOUNTER 2022-10-11 11:11 | Outpatient (CLI) | payer MEDICARE, SELFPAY ==
--- NOTE | 2022-10-11 11:00 | DI.RAD_ITS ---
Exam(s) XR KNEE RT 3V AP,LAT,HAYDEE EXAM: XR KNEE RT 3V AP,LAT,HAYDEE CLINICAL HISTORY: right knee pain. TECHNIQUE: 2D digital imaging was performed. Three views. COMPARISON: No exams were available for comparison FINDINGS: BONES: No acute fracture is present. No bony destructive lesion is seen. JOINTS: Severe narrowing lateral femoral tibial joint. Periarticular spurring throughout. No joint effusion is seen. SOFT TISSUE: Normal. 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 DATA REPOSITORY: RADIATION DOSE DELIVERED:
--- NOTE | 2022-10-11 11:00 | DI.RAD_ITS ---
Exam(s) XR KNEE LT 3V AP,LAT,HAYDEE EXAM: XR KNEE LT 3V AP,LAT,HAYDEE CLINICAL HISTORY: left knee pain. TECHNIQUE: 2D digital imaging was performed. Three views. COMPARISON: None FINDINGS: BONES: No acute fracture is present. No bony destructive lesion is seen. JOINTS: Severe narrowing is noted at the lateral femoral tibial joint which shows periarticular spurr ing. Mild spurring at the medial femoral tibial joint. Degenerative changes also seen at the proxim al tibial fibular joint. Mild spurring at the articular aspect of patella. No joint effusion is see n. SOFT TISSUE: Normal. 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 DATA REPOSITORY: RADIATION DOSE DELIVERED:
== END 2022-10-11 11:12 | disposition home or self-care (01) ==
LOC: DIORS 11:11
PROVIDERS: PCP Student in an Organized Health Care Education/Training Program; Referring Provider Student in an Organized Health Care Education/Training Program; Visit Provider Physician Assistant
DX: M17.0 Bilateral primary osteoarthritis of knee (principal); Z96.641 Presence of right artificial hip joint; M76.31 Iliotibial band syndrome, right leg
CPT/HCPCS: 73562; 99213

== ENCOUNTER 2022-10-16 02:10 | Outpatient (CLI) | payer MEDICARE, SELFPAY ==
--- NOTE | 2022-10-16 | DI.US_ITS ---
Exam(s) US BREAST LT COMPLETE EXAM: US BREAST LT COMPLETE CLINICAL HISTORY: R92.8 ABNL MAMMO, LUMP LEFT BREAST N63.20, 6 MO FU TECHNIQUE: Complete ultrasound of the left breast was performed using standard protocol. Patient re fused mammography. COMPARISON: US US BREAST LT COMPLETE from 04/19/2022 FINDINGS: The hyperechoic mass is seen in the left breast appears stable consistent with lipomas. The previous ly noted mass at 6 o'clock 8 cm from the nipple is not visualized. There is a an ovoid anechoic vivian ection at the 6 o'clock position 2 cm from the nipple. IMPRESSION: 1. The previously noted hypoechoic mass at the 6 o'clock position 8 cm from the nipple could not be v isualized on the current examination. 2. No suspicious masses are seen sonographically. 3. If there is continued clinical concern, a breast MRI may be obtained for further evaluation. BI-RADS Category 2 - Benign Findings DATA REPOSITORY:
== END 2022-10-16 02:30 ==
LOC: DI 02:10
PROVIDERS: PCP Student in an Organized Health Care Education/Training Program; Visit Provider Surgery
DX: C50.919 Malignant neoplasm of unspecified site of unspecified female breast (principal)
CPT/HCPCS: 76642

== ENCOUNTER 2022-11-26 03:59 | Outpatient (CLI) | payer MEDICARE, SELFPAY ==
[2022-11-26 16:29] LABS: Vitamin D 25 Total 73.1 ng/mL (30-100)
[2022-11-26 16:30] LABS: ALT 36 U/L (14-59); AST 24 U/L (15-37); Albumin 3.8 g/dL (3.4-5.0); Alkaline Phosphatase 96 U/L (46-116); BUN 23 mg/dL (7-18); Bilirubin, Total 0.4 mg/dL (0.2-1.0); CO2 27.5 mmol/L (21.0-32.0); CREATININE 0.9 mg/dL (0.55-1.02); Calcium 9.2 mg/dL (8.5-10.1); Calculated LDL 181 mg/dL (<100); Cholesterol 301 mg/dL (<200); Glucose 87 mg/dL (74-106); HDL Cholesterol 111 mg/dL (40-60); LDL CHOLESTEROL 168 mg/dL (<100); TSH (W/Ref FT4) 4.05 uIU/mL (0.36-3.74); Triglyceride 47 mg/dL (<150)
[2022-11-26 16:39] LABS: Folate > 20.0 ng/mL (8.6-20.0)
[2022-11-26 16:43] LABS: Vitamin B12 > 2000 pg/mL (193-986)
[2022-11-26 16:57] LABS: Anion Gap 7.5 mmol/L (3-11); Chloride 102 mmol/L (98-107); Potassium 4.1 mmol/L (3.5-5.1); Sodium 137 mmol/L (136-145)
[2022-11-26 17:16] LABS: FREE T4 0.81 ng/dL (0.76-1.46)
[2022-11-26 22:55] LABS: T3,Free 3.7 pg/mL (2.8-5.3)
[2022-11-26 22:59] LABS: T3, Total 221 ng/dL (97-169)
[2022-11-27] LABS: Estradiol <12 pg/mL (See Note)
[2022-11-27 08:51] LABS: Parathyroid Hormone,Intact 36 pg/mL (19-88)
[2022-11-27 18:38] LABS: Calcium, Random Ur 11 mg/dL; Creatinine, Random Ur 138 mg/dL (16 - 326)
== END 2022-11-26 04:00 | disposition home or self-care (01) ==
LOC: LBO 03:59
PROVIDERS: PCP Student in an Organized Health Care Education/Training Program; Visit Provider Internal Medicine Endocrinology, Diabetes & Metabolism
DX: E03.8 Other specified hypothyroidism (principal); R20.2 Paresthesia of skin; M85.88 Other specified disorders of bone density and structure, other site; R03.0 Elevated blood-pressure reading, without diagnosis of hypertension
CPT/HCPCS: 36415; 80053; 80061; 82306; 82310; 83721; 82607; 82670; 82746; 83970; 84439; 84443; 84480; 84481

== ENCOUNTER 2023-01-09 03:04 | Outpatient (CLI) | payer MEDICARE, SELFPAY ==
[2023-01-13 10:16] LABS: Lyme Ab w Rflx to Lyme Confirm Negative (Negative)
[2023-01-13 18:48] LABS: Anaplasma phagocytophilum Negative (Negative); B. miyamotoi PCR Negative (Negative); Babesia divergens/MO-1 Negative (Negative); Babesia duncani Negative (Negative); Babesia microti Negative (Negative); Ehrlichia chaffeensis Negative (Negative); Ehrlichia ewingii/canis Negative (Negative); Ehrlichia muris eauclairensis Negative (Negative)
== END 2023-01-09 03:05 | disposition home or self-care (01) ==
LOC: LBO 03:04
PROVIDERS: PCP Student in an Organized Health Care Education/Training Program; Visit Provider Student in an Organized Health Care Education/Training Program
DX: M79.18 Myalgia, other site (principal); T14.8XXA Other injury of unspecified body region, initial encounter; W57.XXXA Bitten or stung by nonvenomous insect and other nonvenomous arthropods, initial encounter
CPT/HCPCS: 36415; 87798; 86618

== ENCOUNTER → 2023-05-12 01:46 | Outpatient (CLI) | payer MEDICARE, SELFPAY ==
--- NOTE | 2023-05-12 08:15 | DI.US_ITS ---
Exam(s) US BREAST LT COMPLETE US BREAST RT COMPLETE EXAM: US BREAST BILATERAL COMPLETE CLINICAL HISTORY: eval small enhancing mass UOQuad per Jan MRI,r93.89,inconclusive mammo,. TECHNIQUE: Complete ultrasound of BOTH BREASTS was performed including all 4 quadrants, the retroare olar regions, and both axillary regions. COMPARISON: Prior mammograms and ultrasound were reviewed. Most recent mammogram was March 2022. Patient has apparently refused mammograms since (apparently due to radiation concerns) . Prior ultra sound 04/19/2022 also reviewed. Patient has apparently undergone interval core biopsy of area of con cern at 6 o'clock position of the left breast which was apparently positive for malignancy (invasive ductal carcinoma). Apparently performed at [facility]. She informs me that she has refused lumpectomy as well as other treatment. However, I have reviewed the MRI report from [facility] which imp lies that there may have been lumpectomy. She apparently underwent breast MRI at [facility] on 02/04/2023. FINDINGS: BILATERAL COMPLETE BREAST ULTRASOUND: LEFT BREAST: At the 6 o'clock position there is a poorly defined 6 x 5 mm hypoechoic nodular density with decrease d through transmission, this being a suspicious finding and corresponds to the finding which is origi karl seen on the ultrasound of 04/19/2022. This was apparently not able to be visualized on ultraso und examination of 10/16/2022. This may imply that this lesion is still present or has recurred although (as I explained to this pat ient today) scar tissue from surgery or biopsy can have similar appearance to a breast malignancy on ultrasound examination. There are no other focal ultrasound findings of significance in left breast and there is no adenopath y in the left axilla. RIGHT BREAST: No significant focal findings. Minimally prominent duct in the retroareolar region noted. No adenopathy in the right axilla. IMPRESSION: This patient is somewhat of a dilemma because of a combination of her refusal of mammography plus the fact that her breast care has been spread over 3 institutions. Nevertheless, there is a finding at the 6 o'clock position of the left breast on today's ultrasound w hich is suspicious, this being at the site of her previously diagnosed malignancy. As explained to t his patient today, the appearance on ultrasound of malignancy and scar tissue (such as from previous biopsy or surgery) can be similar. I explained to this patient today that mammography would be of paramount importance in her care for correlation of ultrasound and mammographic findings. In addition, follow-up MRI is a lso recommended given this finding plus the findings on the MRI report of January 2023 performed that [facility]. I feel that if she can be convinced to return to [facility] (where she had her prior MRI) and con vinced to have further mammography views, ultrasound, and requested repeat MRI (at that [facility]), then more optimal/less fragmented care would occur. I would recommend that all of her variou s studies be sent to the breast imaging department at [place] [facility] for review prior to her a rrival. I informed this patient today that she will possibly need biopsy of the 6 o'clock position finding in the left breast seen on ultrasound today. BI-RADS Category 4 - Suspicious Abnormality: Biopsy should be considered Breast Density - Category C - Heterogeneously dense Breast density Category C or D implies that the patient has dense breast tissue. Dense breast tissue can make it harder to find cancer on a mammogram. Dense breast tissue is also associated with an incr eased risk of breast cancer. This information about the result of the mammogram report was provided to the patient to raise their awareness. Use this report when you speak with the patient about their risks for breast cancer, which includes their family history. At that time, you may recommend additional screening tests (Ultrasoun d or MRI) as these tests may add significant information. A negative radiographic report should not delay biopsy if a dominant or clinically suspicious mass is present. Up to ten percent of cancers are not identified on mammography. A negative report may reinforce clinical impression. Adenosis and dense breasts may obscure an underlying neoplasm. False positive reports average 6 to 10%. Patient will receive a letter notifying them of these results.
--- NOTE | 2023-05-12 08:15 | DI.US_ITS ---
Exam(s) US BREAST LT COMPLETE US BREAST RT COMPLETE EXAM: US BREAST BILATERAL COMPLETE CLINICAL HISTORY: eval small enhancing mass UOQuad per Jan MRI,r93.89,inconclusive mammo,. TECHNIQUE: Complete ultrasound of BOTH BREASTS was performed including all 4 quadrants, the retroare olar regions, and both axillary regions. COMPARISON: Prior mammograms and ultrasound were reviewed. Most recent mammogram was March 2022. Patient has apparently refused mammograms since (apparently due to radiation concerns) . Prior ultra sound 04/19/2022 also reviewed. Patient has apparently undergone interval core biopsy of area of con cern at 6 o'clock position of the left breast which was apparently positive for malignancy (invasive ductal carcinoma). Apparently performed at [facility]. She informs me that she has refused lumpectomy as well as other treatment. However, I have reviewed the MRI report from [facility] which imp lies that there may have been lumpectomy. She apparently underwent breast MRI at [facility] on 02/04/2023. FINDINGS: BILATERAL COMPLETE BREAST ULTRASOUND: LEFT BREAST: At the 6 o'clock position there is a poorly defined 6 x 5 mm hypoechoic nodular density with decrease d through transmission, this being a suspicious finding and corresponds to the finding which is origi karl seen on the ultrasound of 04/19/2022. This was apparently not able to be visualized on ultraso und examination of 10/16/2022. This may imply that this lesion is still present or has recurred although (as I explained to this pat ient today) scar tissue from surgery or biopsy can have similar appearance to a breast malignancy on ultrasound examination. There are no other focal ultrasound findings of significance in left breast and there is no adenopath y in the left axilla. RIGHT BREAST: No significant focal findings. Minimally prominent duct in the retroareolar region noted. No adenopathy in the right axilla. IMPRESSION: This patient is somewhat of a dilemma because of a combination of her refusal of mammography plus the fact that her breast care has been spread over 3 institutions. Nevertheless, there is a finding at the 6 o'clock position of the left breast on today's ultrasound w hich is suspicious, this being at the site of her previously diagnosed malignancy. As explained to t his patient today, the appearance on ultrasound of malignancy and scar tissue (such as from previous biopsy or surgery) can be similar. I explained to this patient today that mammography would be of paramount importance in her care for correlation of ultrasound and mammographic findings. In addition, follow-up MRI is a lso recommended given this finding plus the findings on the MRI report of January 2023 performed that [facility]. I feel that if she can be convinced to return to [facility] (where she had her prior MRI) and con vinced to have further mammography views, ultrasound, and requested repeat MRI (at that [facility]), then more optimal/less fragmented care would occur. I would recommend that all of her variou s studies be sent to the breast imaging department at [place] [facility] for review prior to her a rrival. I informed this patient today that she will possibly need biopsy of the 6 o'clock position finding in the left breast seen on ultrasound today. BI-RADS Category 4 - Suspicious Abnormality: Biopsy should be considered Breast Density - Category C - Heterogeneously dense Breast density Category C or D implies that the patient has dense breast tissue. Dense breast tissue can make it harder to find cancer on a mammogram. Dense breast tissue is also associated with an incr eased risk of breast cancer. This information about the result of the mammogram report was provided to the patient to raise their awareness. Use this report when you speak with the patient about their risks for breast cancer, which includes their family history. At that time, you may recommend additional screening tests (Ultrasoun d or MRI) as these tests may add significant information. A negative radiographic report should not delay biopsy if a dominant or clinically suspicious mass is present. Up to ten percent of cancers are not identified on mammography. A negative report may reinforce clinical impression. Adenosis and dense breasts may obscure an underlying neoplasm. False positive reports average 6 to 10%. Patient will receive a letter notifying them of these results.
== END ==
PROVIDERS: PCP Student in an Organized Health Care Education/Training Program; Visit Provider Student in an Organized Health Care Education/Training Program
DX: N63.25 Unspecified lump in the left breast, overlapping quadrants (principal); R92.2 Inconclusive mammogram
CPT/HCPCS: 76642

== ENCOUNTER 2023-05-14 03:03 | Outpatient (CLI) | payer MEDICARE, SELFPAY ==
[2023-05-14 16:51] LABS: Vitamin D 25 Total 66.5 ng/mL (30-100)
[2023-05-14 17:04] LABS: Anion Gap 7.7 mmol/L (3-11); BUN 24 mg/dL (7-18); CO2 29.3 mmol/L (21.0-32.0); CREATININE 0.9 mg/dL (0.55-1.02); Calcium 9.5 mg/dL (8.5-10.1); Calculated LDL 211 mg/dL (<100); Chloride 103 mmol/L (98-107); Cholesterol 338 mg/dL (<200); Estimated GFR 67.08 (mL/min/1.73m2); Folate > 20.0 ng/mL (8.6-20.0); Glucose 96 mg/dL (74-106); HDL Cholesterol 102 mg/dL (40-60); Potassium 4.4 mmol/L (3.5-5.1); Sodium 140 mmol/L (136-145); TSH (W/Ref FT4) 4.19 uIU/mL (0.36-3.74); Triglyceride 128 mg/dL (<150); Vitamin B12 > 2000 pg/mL (193-986)
[2023-05-14 17:21] LABS: FREE T4 0.91 ng/dL (0.76-1.46)
[2023-05-15 18:08] LABS: T3,Free 3.4 pg/mL (2.8-5.3)
[2023-05-15 19:31] LABS: Estradiol 14 pg/mL (See Note); Parathyroid Hormone,Intact 48 pg/mL (19-88)
== END 2023-05-14 03:04 | disposition home or self-care (01) ==
LOC: LBO 03:03
PROVIDERS: PCP Student in an Organized Health Care Education/Training Program; Visit Provider Student in an Organized Health Care Education/Training Program
DX: E03.8 Other specified hypothyroidism (principal); E34.9 Endocrine disorder, unspecified; E55.9 Vitamin D deficiency, unspecified; M17.0 Bilateral primary osteoarthritis of knee; R20.2 Paresthesia of skin; R93.89 Abnormal findings on diagnostic imaging of other specified body structures; I10 Essential (primary) hypertension; Z13.220 Encounter for screening for lipoid disorders
CPT/HCPCS: 36415; 80048; 80061; 82306; 82607; 82670; 82746; 83970; 84439; 84443; 84481

== ENCOUNTER 2023-05-21 19:06 | Outpatient (REF) | payer MEDICARE, SELFPAY ==
[2023-05-24 11:14] LABS: Calcium Urine 7.6 mg/dL (See Note); Calcium Urine 24 hr 84 mg/24hr (100-300); Timed Urine Volume 1100 mL
== END 2023-05-21 19:07 | disposition home or self-care (01) ==
LOC: LBN 19:06
PROVIDERS: PCP Student in an Organized Health Care Education/Training Program; Visit Provider Student in an Organized Health Care Education/Training Program
DX: E03.8 Other specified hypothyroidism (principal); E34.9 Endocrine disorder, unspecified; E55.9 Vitamin D deficiency, unspecified; M17.0 Bilateral primary osteoarthritis of knee; M85.80 Other specified disorders of bone density and structure, unspecified site; R20.2 Paresthesia of skin; R93.89 Abnormal findings on diagnostic imaging of other specified body structures
CPT/HCPCS: 82340

== ENCOUNTER 2023-10-31 15:08 | Outpatient (REF) | payer MEDICARE, SELFPAY ==
[2023-11-03 10:27] LABS: Campylobacter PCR Negative (Negative); Salmonella PCR Negative (Negative); Shiga Toxin PCR Negative (Negative); Shigella/Enteroinvasive Ecoli Negative (Negative)
[2023-11-05 11:42] LABS: Total Fat/24 Hr 1 g/24 h (2 - 7)
== END 2023-10-31 15:09 | disposition home or self-care (01) ==
LOC: LBN 15:08
PROVIDERS: PCP Student in an Organized Health Care Education/Training Program; Visit Provider Family Medicine
DX: R19.7 Diarrhea, unspecified (principal)
CPT/HCPCS: 87329; 87505; 82710; 87177

== ENCOUNTER → 2023-12-03 04:29 | Outpatient (CLI) | payer MEDICARE, SELFPAY ==
--- NOTE | 2023-12-03 07:30 | DI.US_ITS ---
Exam(s) US BREAST LT LIMITED EXAM: US BREAST LT LIMITED CLINICAL HISTORY: eval nodule @ 6 o'clock lt breast, N63.25, lump left breast TECHNIQUE: Ultrasound left breast performed using standard protocol. COMPARISON: Comparison is made with prior examinations. FINDINGS: No solid or cystic masses, hypoechoic foci, areas of abnormal shadowing, or areas of skin thickening. The area previously seen at 6 o'clock is not visualized on the current examination. IMPRESSION: 1. No sonographically suspicious finding. 2. A six-month follow-up limited left breast ultrasound is recommended for re-evaluation. 3. Findings were discussed with the patient on the date of the examination. BI-RADS Category 3 - 6 month - Probably Benign Finding: Recommend follow-up imaging in 6 months DATA REPOSITORY:
== END ==
PROVIDERS: PCP Student in an Organized Health Care Education/Training Program; Visit Provider Student in an Organized Health Care Education/Training Program
DX: N63.25 Unspecified lump in the left breast, overlapping quadrants (principal)
CPT/HCPCS: 76642

== ENCOUNTER 2023-12-17 10:40 | Outpatient (REF) | payer MEDICARE, SELFPAY ==
--- NOTE | 2023-12-17 17:20 | SKI_PTH ---
PATIENT: Olivia Azevedo LOC: [facility] U#:[id number] AGE/SX: 73/F ROOM: RE12/17/[address]: Patrizia Pantoja : 1950 BED: DIS: 12/17/2023 SPEC #: [id number] RECD: 12/18/23 12:54 STATUS: NIALL REQ #: [id number] DOMINIQUE: 12/17/23 17:[address]: Patrizia Pantoja DEPT: Surgical Specimen RECD BY: Veronica Talbert ENTERED: 12/18/23 12:55 SP TYPE: STEVIE WALDROP DR: Faith Bolden DO Tissues: 1 - SKIN BIOPSY(SHAVE/PUNCH) Procedures: GROSS AND MICRO LEVEL 4 Comments: [id number]
== END 2023-12-17 10:41 | disposition home or self-care (01) ==
LOC: LBN 10:40
PROVIDERS: PCP Student in an Organized Health Care Education/Training Program; Visit Provider Physician Assistant Medical
DX: L91.8 Other hypertrophic disorders of the skin (principal)
CPT/HCPCS: 88305

== ENCOUNTER 2024-05-10 03:13 | Outpatient (CLI) | payer MEDICARE, SELFPAY ==
[2024-05-10 11:13] LABS: HGB 13.9 g/dL (11.2-15.7)
[2024-05-10 12:16] LABS: ALT 25 U/L (14-59); AST 21 U/L (15-37); Albumin 4.1 g/dL (3.4-5.0); Alkaline Phosphatase 106 U/L (46-116); Anion Gap 10.1 mmol/L (3-11); BUN 23 mg/dL (7-18); Bilirubin, Total 0.48 mg/dL (0.2-1.0); CO2 28.9 mmol/L (21.0-32.0); CREATININE 1.1 mg/dL (0.55-1.02); Calcium 9.7 mg/dL (8.5-10.1); Chloride 102 mmol/L (98-107); Glucose 96 mg/dL (74-106); HDL Cholesterol 148 mg/dL (40-60); Potassium 4.2 mmol/L (3.5-5.1); Sodium 141 mmol/L (136-145); TSH (W/Ref FT4) 4.83 uIU/mL (0.36-3.74); Total Protein 7.8 g/dL (6.4-8.2); Triglyceride 75 mg/dL (<150); Vitamin D 25 Total 60.8 ng/mL (30-100)
[2024-05-10 12:27] LABS: Calculated LDL 215 mg/dL (<100); Cholesterol 378 mg/dL (<200)
== END 2024-05-10 03:14 | disposition home or self-care (01) ==
LOC: LBO 03:13
PROVIDERS: PCP Student in an Organized Health Care Education/Training Program; Visit Provider Student in an Organized Health Care Education/Training Program
DX: K90.9 Intestinal malabsorption, unspecified (principal); Z13.0 Encounter for screening for diseases of the blood and blood-forming organs and certain disorders involving the immune mechanism; Z91.89 Other specified personal risk factors, not elsewhere classified; E03.9 Hypothyroidism, unspecified; E78.5 Hyperlipidemia, unspecified
CPT/HCPCS: 36415; 80053; 80061; 82306; 84439; 84443; 85018

== ENCOUNTER 2024-06-14 01:29 | Outpatient (CLI) | payer MEDICARE, SELFPAY ==
--- NOTE | 2024-06-14 08:00 | DI.US_ITS ---
Exam(s) US BREAST LT LIMITED EXAM: US BREAST LT LIMITED CLINICAL HISTORY: f/u 11/2023,abnl mammo lt breast,suspicious,r92.8,lt breast nodule TECHNIQUE: Ultrasound left breast performed using standard protocol. The inferior half of the left breast was evaluated sonographically. COMPARISON: US US BREAST LT COMPLETE from 04/19/2022 US US BREAST LT COMPLETE from 10/16/2022 MR MR BREAST SCREENING W WO CONTRAST BILATERAL from 01/30/2023 US US BREAST LT COMPLETE from 05/12/2023 US US BREAST LT LIMITED from 12/03/2023 FINDINGS: At the 6 o'clock position of the left breast 8 cm from the nipple there is a 1.1 x 0.9 x 1.3 cm hypoe choic irregular area again seen. This has shown slight increase in size compared to the examination from 05/12/2023 at which time it measured 0.6 x 0.5 cm. IMPRESSION: 1. Slight increase in size of the area at the 6 o'clock position of the left breast 8 cm from the nip ple. Follow-up is recommended. Follow-up may include a repeat MRI of the breast. In addition, ultr asound-guided left breast biopsy should be considered. Findings and follow-up recommendations were d iscussed with the patient on the date of the examination. The patient declines mammography at this t steve. 2. Findings were discussed with Dr. Bolden at 2 p.m. on 06/15/2024. BI-RADS Category 4 - Suspicious Abnormality: Biopsy should be considered DATA REPOSITORY:
== END 2024-06-14 01:49 ==
LOC: DI 01:29
PROVIDERS: PCP Student in an Organized Health Care Education/Training Program; Visit Provider Student in an Organized Health Care Education/Training Program
DX: N63.23 Unspecified lump in the left breast, lower outer quadrant (principal)
CPT/HCPCS: 76642

== ENCOUNTER 2024-07-29 16:44 | Outpatient (REF) | payer MEDICARE, SELFPAY ==
[2024-07-29 17:02] LABS: C Diff PCR Negative (Negative)
[2024-07-30 13:52] LABS: Campylobacter PCR Negative (Negative); Salmonella PCR Negative (Negative); Shiga Toxin PCR Negative (Negative); Shigella/Enteroinvasive Ecoli Negative (Negative)
[2024-08-02 15:54] LABS: Giardia Ag, F Negative (Negative)
[2024-08-04 22:55] LABS: Calprotectin 64.8 mcg/g
== END 2024-07-29 16:45 | disposition home or self-care (01) ==
LOC: LBN 16:44
PROVIDERS: PCP Nurse Practitioner Adult Health; Visit Provider Nurse Practitioner Adult Health
DX: R19.7 Diarrhea, unspecified (principal); R10.816 Epigastric abdominal tenderness
CPT/HCPCS: 87329; 87493; 87505; 83993

== ENCOUNTER 2024-08-25 03:19 | Outpatient (CLI) | payer MEDICARE, SELFPAY ==
[2024-08-25 12:52] LABS: Anion Gap 6.9 mmol/L (3-11); BUN 22 mg/dL (7-18); CO2 30.1 mmol/L (21.0-32.0); CREATININE 0.9 mg/dL (0.55-1.02); Calcium 9.4 mg/dL (8.5-10.1); Chloride 102 mmol/L (98-107); Estimated GFR 66.67 (mL/min/1.73m2); Glucose 94 mg/dL (74-106); LDH 156 U/L (81-234); Magnesium 2.2 mg/dL (1.8-2.4); Potassium 4.3 mmol/L (3.5-5.1); Sodium 139 mmol/L (136-145); TSH (W/Ref FT4) 4.25 uIU/mL (0.36-3.74)
[2024-08-25 13:11] LABS: FREE T4 0.81 ng/dL (0.76-1.46)
[2024-08-25 13:51] LABS: Vitamin B12 > 2000 pg/mL (193-986)
[2024-08-25 21:53] LABS: Ionized Calcium 1.16 mmol/L (1.14-1.35)
[2024-08-27 20:06] LABS: Calcium, Random Ur 9 mg/dL; Creatinine, Random Ur 56 mg/dL (16 - 326)
== END 2024-08-25 03:20 | disposition home or self-care (01) ==
LOC: LBO 03:19
PROVIDERS: PCP Nurse Practitioner Adult Health; Visit Provider Internal Medicine Endocrinology, Diabetes & Metabolism
DX: E03.9 Hypothyroidism, unspecified (principal); E55.9 Vitamin D deficiency, unspecified; E78.00 Pure hypercholesterolemia, unspecified; M85.80 Other specified disorders of bone density and structure, unspecified site
CPT/HCPCS: 36415; 80048; 82310; 82330; 82607; 83615; 83735; 84439; 84443

== ENCOUNTER 2024-10-07 01:19 | Outpatient (CLI) | payer MEDICARE, SELFPAY ==
--- NOTE | 2024-10-07 | DI.DEXA_ITS ---
Exam(s) XR DEXA BONE DENSITY W/WO ARSEN EXAM: XR DEXA BONE DENSITY W/WO ARSEN CLINICAL HISTORY: Menopause, Z78.0; hypothyroidism, acquired, E03.9; osteopenia, unspecified TECHNIQUE: COMPARISON: CR XR LEFT HIP UNILATERAL 2+ VIEWS from 05/06/2022 FINDINGS: Lateral Spine Image: Unremarkable. No compression deformities identified. Left hip: Total T-Score: -1.7 Total Z-Score: 0.1 T- and Z-scores: There is are consistent with osteopenia. Lumbar Spine: Total T-Score: -0.5 Total Z-Score: 1.9 T- and Z-scores: Within normal limits. There is osteoporosis in the left forearm with a total T-score of -2.8 and Z-score of -0.3. IMPRESSION: Osteoporosis is seen in the left forearm.
== END 2024-10-07 01:39 ==
LOC: DI 01:19
PROVIDERS: PCP Nurse Practitioner Adult Health; Visit Provider Internal Medicine Endocrinology, Diabetes & Metabolism
DX: Z78.0 Asymptomatic menopausal state (principal); M81.0 Age-related osteoporosis without current pathological fracture; E03.9 Hypothyroidism, unspecified; E55.9 Vitamin D deficiency, unspecified
CPT/HCPCS: 77080

== ENCOUNTER 2025-01-07 13:41 | Outpatient (REF) | payer MEDICARE, SELFPAY ==
[2025-01-07 14:58] LABS: EPI 027-NAP1-B1 PRESUMPTIVE NEGATIVE
[2025-01-08 10:34] LABS: Campylobacter PCR Negative (Negative); Shiga Toxin PCR Negative (Negative); Shigella/Enteroinvasive Ecoli Negative (Negative)
[2025-01-11 12:53] LABS: Helicobacter pylori Ag, Feces Negative (Negative)
== END 2025-01-07 13:42 | disposition home or self-care (01) ==
LOC: LBN 13:41
PROVIDERS: Family Medicine; PCP Nurse Practitioner Adult Health; Visit Provider Nurse Practitioner Adult Health
DX: R19.7 Diarrhea, unspecified (principal)
CPT/HCPCS: 87015; 87177; 87209; 87269; 87272; 87338; 87505

== ENCOUNTER 2025-01-12 02:14 | Outpatient (CLI) | payer MEDICARE, SELFPAY ==
--- NOTE | 2025-01-12 07:45 | DI.US_ITS ---
Exam(s) US BREAST LT COMPLETE EXAM: US BREAST LT COMPLETE CLINICAL HISTORY: interval assessment,f/u lt breast mass,n63.42 TECHNIQUE: Ultrasound left breast performed using standard protocol. A complete left breast ultrasound was performed. All 4 quadrants of the left breast were evaluated sonographically including the axilla and retroareolar region. COMPARISON: MR MR BREAST SCREENING W WO CONTRAST BILATERAL from 01/30/2023 US US BREAST RT COMPLETE from 05/12/2023 US US BREAST LT COMPLETE from 05/12/2023 US US BREAST LT LIMITED from 12/03/2023 US US BREAST LT LIMITED from 06/14/2024 FINDINGS: There is again seen an irregular hypoechoic lesion at the 6 o'clock position of the left breast 8 cm from the nipple. Its appearance is unchanged compared to the prior examination. It is show no significant change in size compared to the prior examination. No other left breast lesions are seen. No suspicious left axillary lymph nodes are present. IMPRESSION: 1. Stable hypoechoic lesion at the 6 o'clock position of the left breast. 2. The patient has elected to forego further imaging. Options such as MRI, mammography or lumpectomy were discussed with the patient. 3. The findings were discussed with the patient on the date of the examination. A six-month follow-up ultrasound was agreed upon with the patient. BI-RADS Category 3 - 6 month - Probably Benign Finding: Recommend follow-up imaging in 6 months DATA REPOSITORY:
== END 2025-01-12 02:34 ==
LOC: DI 02:14
PROVIDERS: PCP Nurse Practitioner Adult Health; Visit Provider Nurse Practitioner Adult Health
DX: N63.21 Unspecified lump in the left breast, upper outer quadrant (principal)
CPT/HCPCS: 76642

== ENCOUNTER 2025-01-28 11:27 | Outpatient (CLI) | payer MEDICARE, SELFPAY ==
[2025-01-28 12:44] LABS: Anion Gap 9.0 mmol/L (3-11); BUN 24 mg/dL (7-18); CO2 30.0 mmol/L (21.0-32.0); Calcium 9.8 mg/dL (8.5-10.1); Chloride 99 mmol/L (98-107); Estimated GFR 58.75 (mL/min/1.73m2); Glucose 91 mg/dL (74-106); Magnesium 2.0 mg/dL (1.8-2.4); Potassium 4.3 mmol/L (3.5-5.1); Sodium 138 mmol/L (136-145); TSH (W/Ref FT4) 5.91 uIU/mL (0.36-3.74); Vitamin B12 1653 pg/mL (193-986); Vitamin D 25 Total 53 ng/mL (30-100)
[2025-02-03 16:21] LABS: Apolipoprotein B, Serum 157 mg/dL (48-124); Beta VLDL Cholesterol Not Detected mg/dL (<15); Beta VLDL Triglycerides Not Detected mg/dL (<15); Cholesterol, Total, CDC 351 mg/dL; Chylomicron Cholesterol Not Detected; Chylomicron Triglycerides Not Detected; HDL Cholesterol, CDC 101 mg/dL (>=50); LpX Not detected; Triglycerides, CDC 104 mg/dL; VLDL Triglycerides 40 mg/dL (<120)
== END 2025-01-28 11:28 | disposition home or self-care (01) ==
LOC: LBO 11:27
PROVIDERS: PCP Nurse Practitioner Adult Health; Visit Provider Nurse Practitioner Adult Health
DX: E03.8 Other specified hypothyroidism (principal); R79.89 Other specified abnormal findings of blood chemistry; E03.9 Hypothyroidism, unspecified; M85.80 Other specified disorders of bone density and structure, unspecified site; E34.9 Endocrine disorder, unspecified; R19.7 Diarrhea, unspecified
CPT/HCPCS: 36415; 80048; 80061; 82306; 82172; 82607; 82664; 83735; 84439; 84443

== ENCOUNTER → 2025-06-13 00:16 | Outpatient (CLI) | payer MEDICARE, SELFPAY ==
--- NOTE | 2025-06-13 07:45 | DI.US_ITS ---
Exam(s) US BREAST LT COMPLETE EXAM: US BREAST LT COMPLETE CLINICAL HISTORY: f/u interval,mass of lt breast,n63.42 TECHNIQUE: Complete ultrasound of the left breast was performed using standard protocol. All 4 quadrants of the left breast, the left axilla and the retroareolar region of the left breast were evaluated sonographically. COMPARISON: US US BREAST LT LIMITED from 12/03/2023 US US BREAST LT LIMITED from 06/14/2024 US US BREAST LT COMPLETE from 01/12/2025 FINDINGS: The hypoechoic lesion at the 6 o'clock position of the left breast 8 cm from the nipple is unchanged. There is no change in size compared to the prior examinations. No other left breast lesions are seen. Benign-appearing lymph node is seen in the left axilla. IMPRESSION: 1. Stable hypoechoic lesion in the 6 o'clock position of the left breast. 2. The findings were discussed with the patient on the date of the examination. A six-month follow-up ultrasound is recommended. The patient is electing to forego further imaging with MRI or mammography. BI-RADS Category 3 - 6 month - Probably Benign Finding: Recommend follow-up imaging in 6 months DATA REPOSITORY:
== END ==
LOC: DI 00:16
PROVIDERS: PCP Nurse Practitioner Adult Health; Visit Provider Nurse Practitioner Adult Health
DX: N63.42 Unspecified lump in left breast, subareolar (principal)
CPT/HCPCS: 76642